=== PATIENT | female | born 1935 | race Caucasian/White ===

== ENCOUNTER 2022-05-27 11:27 | Inpatient (IN) | payer OTHER ==
--- OUTSIDE RECORDS SUMMARY | 2022-05-27 12:54 | XMS REPORT | Continuity of Care Document ---
:1935 Author Organization [facility] t Address [facility] [place] [address] Care Team Providers Name Role Phone Wanda Lala MD Primary Care Physician [phone] Ankura_F Attending Clinician Unavailable Jaswant Henry Attending Clinician Unavailable Meek Estrella Attending Clinician Unavailable ARPIL ESTRELLA Attending Clinician Unavailable ZunnapoleonaTaylorS Attending Clinician Unavailable Lynn Attending Clinician Unavailable BALBINA MORRIS Attending Clinician Unavailable ANTOINETTE DANIELS Attending Clinician Unavailable HawGadiel Attending Clinician Unavailable JOE GONZALEZ Attending Clinician Unavailable ZULEMA SARGENT Attending Clinician Unavailable NEHA RAO Attending Clinician Unavailable WANDA LALA Attending Clinician Unavailable Tavares Ballesteros Attending Clinician Unavailable Chin Redmond Attending Clinician Unavailable SYED WATSON Attending Clinician Unavailable INA BLANCO Attending Clinician Unavailable Isiah Valverde Attending Clinician Unavailable Jaleel Mayers Attending Clinician Unavailable LORENZO PAGAN Attending Clinician Unavailable DEVON LÓPEZ Attending Clinician Unavailable ERNESTO STEPHENSON Attending Clinician Unavailable Zuniga_F Admitting Clinician Unavailable Meek Estrella Admitting Clinician Unavailable Zuniga_S Admitting Clinician Unavailable Lynn Admitting Clinician Unavailable HawGadiel Admitting Clinician Unavailable Favian, Tavares E Admitting Clinician Unavailable Chin Redmond A Admitting Clinician Unavailable WANDA LALA Admitting Clinician Unavailable Payers Payer Name Policy Type Policy Number Effective Date Expiration Date Linh krueger [place]ICARE [place]: [id number] 2000 [employer] 00:00:00 [facility] [id number] 2003 ADMINISTRATION - 00:00:00 MELL OPEN ACCESS MEDICARE [place]: [id number] 2000 [employer] - 00:00:00 [facility] Problems Condition Condition Condition Status Onset Resolution Last Treating Co mments Source Name Details Category Date Date Treatment Clinician Date Fall in Fall in Problem Active 2021-05 [facility] da 00:[facility]: Medical 00 Group Acute Acute Problem Active [facility] exacerbati Exacerbati 4-19 da on of on of 00:00: Medical chronic Chronic 00 Group obstructiv Obstructiv e airways e Airways disease Disease Intertroch Intertroch Disease Active M ethodi anteric anteric 02-08 st fracture fracture 00:00: Hospit a of left of left 00 l femur femur Fall Fall Disease Active Methodi 02-08 [facility] 00:00: Hospita 00 l LOWER GI LOWER GI Diagnosis Active 2017-01-01 [facility]oria BLEED BLEED 12-23 21:39:00 l Active 00:00: Kenneth 12/23/2016 00 [facility] GASTROINTE GASTROINT Diagnosis Active 2017-01-01 [facility]oria STINAL ESTINAL 21:39:00 l HEMORRHAGE HEMORRHAGE He ced , , UNSPECIFIE UNSPECIFIE D D Active [facility] Bilateral Bilateral Problem Resolve 2016-12-29 Memoria cataracts cataracts d 01:26:48 l (disorder) (disorder) He rmjen Resolved Problem 12/29/2016 [facility] Stented Stented Problem Resolve 2016-12-29 M emoria coronary coronary d 01:26:48 l artery artery Kenneth (finding) (finding) Resolved Problem 12/29/2016 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 Medical Group Upper Upper Problem Active [facility] respirator Respirator da y y Medical infection Infection Grou p Chronic Chronic Problem Active [facility] obstructiv Obstructiv da e lung e Lung Medical disease Disease Group Urinary Urinary Problem Active [facility] tract Tract da infectious Infectious Me dical disease Disease Group Cellulitis Cellulitis Problem Active [facility] Osteoarthr Osteoarthr Problem Active [facility] itis itis [facility] Joint pain Joint Pain Problem Active [facility] Shoulder Shoulder Problem Active [facility] pain Pain [facility] Hand pain Hand Pain Problem Active [facility] Fatigue Fatigue Problem Active [facility] Nausea Nausea Problem Active [facility] Heartburn Heartburn Problem Active [facility] Abnormal Abnormal Problem Active [facility] urinalysis Urinalysis [facility] 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 Allergies, Adverse Reactions, Alerts Allergy Allergy Status Severity Reaction(s) Onset Inactive Treating Comm ents Source Name Type Date Date Clinician Codeine Propensi Active Other (See Makes me M ethodi ty to Comments) 02-[address] adverse 00:00: crazy Hospita reaction 00 l s to drug codeine codeine Active Suresh Cooper Family History Family Member Diagnosis Comments Start Date Stop Date Source Natural brother Cancer [facility] Natural father Heart disease [facility] mother [facility] Social History Social Habit Start Date Stop Date Quantity Comments Source History of tobacco Cigarette Smoker [facility] use [facility] Alcohol intake 2017-02-24 2017-02-24 Current [facility] 00:00:00 00:00:00 non-drinker of Hospital alcohol (finding) Cigarette 2017-02-08 2017-02-08 [facility] pack-years 00:00:00 00:00:00 Hospital Cigarettes smoked 2017-02-08 2017-02-08 [facility] current (pack per 00:00:00 00:00:00 Hospita l day) - Reported Social History 2016-12-23 2016-12-23 [facility] miracle 22:39:03 22:39:03 Sex [birth year] At [birth year] [facility] 00:00:00 00:00:00 Hospital Smoking Status Start Date Stop Date Source Heavy Tobacco Smoker Sudha Waite Social History 2016-09-25 05:32:39 [facility] Medications Ordered Filled Start Stop Current Ordering Indication Dosage Frequency Signature Comments Components Source Medication Medication Date Date Medication? Clinician (SIG) Name Name valsartan 2016-05 Yes 160mg QD Take 160 Met hodi (DIOVAN) 0-[address] 160 MG 16:59: mouth Hospita tablet 57 daily. l hydroCHLORO 2016-05 Yes 25mg QD Take 25 mg Methodi thiazide 0-[address] (HYDRODIURI 16:59: daily. Hosp norm L) 25 MG 57 l tablet atorvastati 2016-05 Yes 10mg QD Take 10 mg Methodi n (LIPITOR) 0-[address] 10 MG 16:59: daily. Hospita tablet 57 l furosemide 2016-05 Yes 20mg QD Take 20 mg M ethodi (LASIX) 20 0-[address] mg tablet 16:59: daily. Hospit a 57 l gabapentin 2016-05 Yes 300mg QD Take 300 Me thodi (NEURONTIN) 0-[address] 300 mg 16:59: mouth Hospita capsule 57 nightly. l acetylcyste 2016-05 Yes 600mg Q.5D Take 600 M ethodi ine (NAC) 0-[address] 600 mg 16:59: mouth 2 Hospita capsule 57 (two) l times a day. roflumilast 2016-05 Yes 500ug QD Take 500 M ethodi (DALIRESP) 0-[address] 500 mcg 16:59: mouth Hospita tablet 57 daily. l fluticasone 2016-05 Yes 1{puff} Q.5D Inhale 1 Methodi -salmeterol 0-[address] (ADVAIR) 16:59: (two) Hospita 250-50 57 times a l mcg/dose day. DISKUS ipratropium 2016-05 Yes 3mL Q.25D Take 3 mL Methodi -albuterol 0-[address] (DUO-NEB) 16:59: nebulizati Ho spita 0.5-2.5 57 on 4 l mg/mL (four) nebulizer times a day. aspirin 81 2016-05 Yes 81mg QD Chew 81 mg M ethodi mg chewable 0-[address] tablet 16:59: Hospita 57 l zolpidem 2016-05 Yes 10mg QD Take 10 mg Met hodi (AMBIEN) 10 0-[address] mg tablet 16:59: nightly. Hosp norm 57 l traMADol 2016-05 Yes 50mg Q.5D Take 50 mg Met hodi (ULTRAM) 50 0-[address] mg tablet 16:59: (two) Hospita 57 times a l day as needed for moderate pain. doxepin 2016-05 Yes 25mg QD Take 25 mg Meth kerry (SINEquan) 0-[address] 25 MG 16:59: nightly. Hospita capsule 57 l montelukast 2016-05 Yes 10mg QD Take 10 mg Methodi (SINGULAIR) 0-[address] 10 mg 16:59: daily. Hospita tablet 57 l valsartan 2016-05 Yes 160mg QD Take 160 Met hodi (DIOVAN) 0-[address] 160 MG 16:59: mouth Hospita tablet 57 daily. l hydroCHLORO 2016-05 Yes 25mg QD Take 25 mg Methodi thiazide 0-[address] (HYDRODIURI 16:59: daily. Hosp norm L) 25 MG 57 l tablet atorvastati 2016-05 Yes 10mg QD Take 10 mg Methodi n (LIPITOR) 0-[address] 10 MG 16:59: daily. Hospita tablet 57 l furosemide 2016-05 Yes 20mg QD Take 20 mg M ethodi (LASIX) 20 0-[address] mg tablet 16:59: daily. Hospit a 57 l gabapentin 2016-05 Yes 300mg QD Take 300 Me thodi (NEURONTIN) 0-[address] 300 mg 16:59: mouth Hospita capsule 57 nightly. l acetylcyste 2016-05 Yes 600mg Q.5D Take 600 M ethodi ine (NAC) 0-[address] 600 mg 16:59: mouth 2 Hospita capsule 57 (two) l times a day. roflumilast 2016-05 Yes 500ug QD Take 500 M ethodi (DALIRESP) 0-[address] 500 mcg 16:59: mouth Hospita tablet 57 daily. l fluticasone 2016-05 Yes 1{puff} Q.5D Inhale 1 Methodi -salmeterol 0-[address] (ADVAIR) 16:59: (two) Hospita 250-50 57 times a l mcg/dose day. DISKUS ipratropium 2016-05 Yes 3mL Q.25D Take 3 mL Methodi -albuterol 0-[address] (DUO-NEB) 16:59: nebulizati Ho spita 0.5-2.5 57 on 4 l mg/mL (four) nebulizer times a day. aspirin 81 2016-05 Yes 81mg QD Chew 81 mg M ethodi mg chewable 0-[address] tablet 16:59: Hospita 57 l zolpidem 2016-05 Yes 10mg QD Take 10 mg Met hodi (AMBIEN) 10 0-[address] mg tablet 16:59: nightly. Hosp norm 57 l traMADol 2016-05 Yes 50mg Q.5D Take 50 mg Met hodi (ULTRAM) 50 0-[address] mg tablet 16:59: (two) Hospita 57 times a l day as needed for moderate pain. doxepin 2016-05 Yes 25mg QD Take 25 mg Meth kerry (SINEquan) 0-[address] 25 MG 16:59: nightly. Hospita capsule 57 l montelukast 2016-05 Yes 10mg QD Take 10 mg Methodi (SINGULAIR) 0-[address] 10 mg 16:59: daily. Hospita tablet 57 l valsartan 2016-05 Yes 160mg QD Take 160 Met hodi (DIOVAN) 0-[address] 160 MG 16:59: mouth Hospita tablet 57 daily. l hydroCHLORO 2016-05 Yes 25mg QD Take 25 mg Methodi thiazide 0-[address] (HYDRODIURI 16:59: daily. Hosp norm L) 25 MG 57 l tablet atorvastati 2016-05 Yes 10mg QD Take 10 mg Methodi n (LIPITOR) 0-[address] 10 MG 16:59: daily. Hospita tablet 57 l furosemide 2016-05 Yes 20mg QD Take 20 mg M ethodi (LASIX) 20 0-[address] mg tablet 16:59: daily. Hospit a 57 l gabapentin 2016-05 Yes 300mg QD Take 300 Me thodi (NEURONTIN) 0-[address] 300 mg 16:59: mouth Hospita capsule 57 nightly. l acetylcyste 2016-05 Yes 600mg Q.5D Take 600 M ethodi ine (NAC) 0-[address] 600 mg 16:59: mouth 2 Hospita capsule 57 (two) l times a day. roflumilast 2016-05 Yes 500ug QD Take 500 M ethodi (DALIRESP) 0-[address] 500 mcg 16:59: mouth Hospita tablet 57 daily. l fluticasone 2016-05 Yes 1{puff} Q.5D Inhale 1 Method[facility] -salmeterol 0-[address] (ADVAIR) 16:59: (two) Hospita 250-50 57 times a l mcg/dose day. DISKUS ipratropium 2016-05 Yes 3mL Q.25D Take 3 mL Methodi -albuterol 0-[address] (DUO-NEB) 16:59: nebulizati Ho spita 0.5-2.5 57 on 4 l mg/mL (four) nebulizer times a day. aspirin 81 2016-05 Yes 81mg QD Chew 81 mg M ethodi mg chewable 0-[address] tablet 16:59: Hospita 57 l zolpidem 2016-05 Yes 10mg QD Take 10 mg Met hodi (AMBIEN) 10 0-[address] mg tablet 16:59: nightly. Hosp norm 57 l traMADol 2016-05 Yes 50mg Q.5D Take 50 mg Met hodi (ULTRAM) 50 0-[address] mg tablet 16:59: (two) Hospita 57 times a l day as needed for moderate pain. doxepin 2016-05 Yes 25mg QD Take 25 mg Meth kerry (SINEquan) 0-[address] 25 MG 16:59: nightly. Hospita capsule 57 l montelukast 2016-05 Yes 10mg QD Take 10 mg Methodi (SINGULAIR) 0-[address] 10 mg 16:59: daily. Hospita tablet 57 l valsartan 2016-05 Yes 160mg QD Take 160 Met hodi (DIOVAN) 0-[address] 160 MG 16:59: mouth Hospita tablet 57 daily. l hydroCHLORO 2016-05 Yes 25mg QD Take 25 mg Methodi thiazide 0-[address] (HYDRODIURI 16:59: daily. Hosp norm L) 25 MG 57 l tablet atorvastati 2016-05 Yes 10mg QD Take 10 mg Methodi n (LIPITOR) 0-[address] 10 MG 16:59: daily. Hospita tablet 57 l furosemide 2016-05 Yes 20mg QD Take 20 mg M ethodi (LASIX) 20 0-[address] mg tablet 16:59: daily. Hospit a 57 l gabapentin 2016-05 Yes 300mg QD Take 300 Me thodi (NEURONTIN) 0-[address] 300 mg 16:59: mouth Hospita capsule 57 nightly. l acetylcyste 2016-05 Yes 600mg Q.5D Take 600 M ethodi ine (NAC) 0-[address] 600 mg 16:59: mouth 2 Hospita capsule 57 (two) l times a day. roflumilast 2016-05 Yes 500ug QD Take 500 M ethodi (DALIRESP) 0-[address] 500 mcg 16:59: mouth Hospita tablet 57 daily. l fluticasone 2016-05 Yes 1{puff} Q.5D Inhale 1 Methodi -salmeterol 0-[address] (ADVAIR) 16:59: (two) Hospita 250-50 57 times a l mcg/dose day. DISKUS ipratropium 2016-05 Yes 3mL Q.25D Take 3 mL Methodi -albuterol 0-[address] (DUO-NEB) 16:59: nebulizati Ho spita 0.5-2.5 57 on 4 l mg/mL (four) nebulizer times a day. aspirin 81 2016-05 Yes 81mg QD Chew 81 mg M ethodi mg chewable 0-[address] tablet 16:59: Hospita 57 l zolpidem 2016-05 Yes 10mg QD Take 10 mg Met hodi (AMBIEN) 10 0-[address] mg tablet 16:59: nightly. Hosp norm 57 l traMADol 2016-05 Yes 50mg Q.5D Take 50 mg Met hodi (ULTRAM) 50 0-[address] mg tablet 16:59: (two) Hospita 57 times a l day as needed for moderate pain. doxepin 2016-05 Yes 25mg QD Take 25 mg Meth kerry (SINEquan) 0-[address] 25 MG 16:59: nightly. Hospita capsule 57 l montelukast 2016-05 Yes 10mg QD Take 10 mg Methodi (SINGULAIR) 0-[address] 10 mg 16:59: daily. Hospita tablet 57 l valsartan 2016-05 Yes 160mg QD Take 160 Met hodi (DIOVAN) 0-[address] 160 MG 16:59: mouth Hospita tablet 57 daily. l hydroCHLORO 2016-05 Yes 25mg QD Take 25 mg Methodi thiazide 0-[address] (HYDRODIURI 16:59: daily. Hosp norm L) 25 MG 57 l tablet atorvastati 2016-05 Yes 10mg QD Take 10 mg Methodi n (LIPITOR) 0-[address] 10 MG 16:59: daily. Hospita tablet 57 l furosemide 2016-05 Yes 20mg QD Take 20 mg M ethodi (LASIX) 20 0-[address] mg tablet 16:59: daily. Hospit a 57 l gabapentin 2016-05 Yes 300mg QD Take 300 Me thodi (NEURONTIN) 0-[address] 300 mg 16:59: mouth Hospita capsule 57 nightly. l acetylcyste 2016-05 Yes 600mg Q.5D Take 600 M ethodi ine (NAC) 0-[address] 600 mg 16:59: mouth 2 Hospita capsule 57 (two) l times a day. roflumilast 2016-05 Yes 500ug QD Take 500 M ethodi (DALIRESP) 0-[address] 500 mcg 16:59: mouth Hospita tablet 57 daily. l fluticasone 2016-05 Yes 1{puff} Q.5D Inhale 1 Methodi -salmeterol 0-[address] (ADVAIR) 16:59: (two) Hospita 250-50 57 times a l mcg/dose day. DISKUS ipratropium 2016-05 Yes 3mL Q.25D Take 3 mL Methodi -albuterol 0-[address] (DUO-NEB) 16:59: nebulizati Ho spita 0.5-2.5 57 on 4 l mg/mL (four) nebulizer times a day. aspirin 81 2016-05 Yes 81mg QD Chew 81 mg M ethodi mg chewable 0-[address] tablet 16:59: Hospita 57 l zolpidem 2016-05 Yes 10mg QD Take 10 mg Met hodi (AMBIEN) 10 0-[address] mg tablet 16:59: nightly. Hosp norm 57 l traMADol 2016-05 Yes 50mg Q.5D Take 50 mg Met hodi (ULTRAM) 50 0-[address] mg tablet 16:59: (two) Hospita 57 times a l day as needed for moderate pain. doxepin 2016-05 Yes 25mg QD Take 25 mg Meth kerry (SINEquan) 0-[address] 25 MG 16:59: nightly. Hospita capsule 57 l montelukast 2016-05 Yes 10mg QD Take 10 mg Methodi (SINGULAIR) 0-[address] 10 mg 16:59: daily. Hospita tablet 57 l valsartan 2016-05 Yes 160mg QD Take 160 Met hodi (DIOVAN) 0-[address] 160 MG 16:59: mouth Hospita tablet 57 daily. l hydroCHLORO 2016-05 Yes 25mg QD Take 25 mg Methodi thiazide 0-[address] (HYDRODIURI 16:59: daily. Hosp norm L) 25 MG 57 l tablet atorvastati 2016-05 Yes 10mg QD Take 10 mg Methodi n (LIPITOR) 0-[address] 10 MG 16:59: daily. Hospita tablet 57 l furosemide 2016-05 Yes 20mg QD Take 20 mg M ethodi (LASIX) 20 0-[address] mg tablet 16:59: daily. Hospit a 57 l gabapentin 2016-05 Yes 300mg QD Take 300 Me thodi (NEURONTIN) 0-[address] 300 mg 16:59: mouth Hospita capsule 57 nightly. l acetylcyste 2016-05 Yes 600mg Q.5D Take 600 M ethodi ine (NAC) 0-[address] 600 mg 16:59: mouth 2 Hospita capsule 57 (two) l times a day. roflumilast 2016-05 Yes 500ug QD Take 500 M ethodi (DALIRESP) 0-[address] 500 mcg 16:59: mouth Hospita tablet 57 daily. l fluticasone 2016-05 Yes 1{puff} Q.5D Inhale 1 Methodi -salmeterol 0-[address] (ADVAIR) 16:59: (two) Hospita 250-50 57 times a l mcg/dose day. DISKUS ipratropium 2016-05 Yes 3mL Q.25D Take 3 mL Methodi -albuterol 0-[address] (DUO-NEB) 16:59: nebulizati Ho spita 0.5-2.5 57 on 4 l mg/mL (four) nebulizer times a day. aspirin 81 2016-05 Yes 81mg QD Chew 81 mg M ethodi mg chewable 0-[address] tablet 16:59: Hospita 57 l zolpidem 2016-05 Yes 10mg QD Take 10 mg Met hodi (AMBIEN) 10 0-[address] mg tablet 16:59: nightly. Hosp norm 57 l traMADol 2016-05 Yes 50mg Q.5D Take 50 mg Met hodi (ULTRAM) 50 0-[address] mg tablet 16:59: (two) Hospita 57 times a l day as needed for moderate pain. doxepin 2016-05 Yes 25mg QD Take 25 mg Meth kerry (SINEquan) 0-[address] 25 MG 16:59: nightly. Hospita capsule 57 l montelukast 2016-05 Yes 10mg QD Take 10 mg Methodi (SINGULAIR) 0-[address] 10 mg 16:59: daily. Hospita tablet 57 l Furosemide No Notes: Memor ia 12-25 (Same as: l 19:00: Lasix) Diphenhydra No Notes: Simone chintan mine 12-25 (Same as: l 19:00: Benadryl) Acetaminoph No Notes: Do M emoria en 12-25 not exceed l 19:00: 4 gm/day. (Same as: Tylenol) Furosemide No Notes: Memor ia 12-25 (Same as: l 19:00: Lasix) Diphenhydra No Notes: Simone chintan mine 8-13 (Same as: l 19:00: Benadryl) Acetaminoph No Notes: Do M emoria en 8-13 not exceed l 19:00: 4 gm/day. Kenneth 00 (Same as: Tylenol) Furosemide No Notes: Memor ia 8-13 (Same as: l 19:00: Lasix) Diphenhydra No Notes: Simone chintan mine 8-13 (Same as: l 19:00: Benadryl) Acetaminoph No Notes: Do M emoria en 8- not exceed l 19:00: 4 gm/day. [place] 00 (Same as: Tylenol) Furosemide No Notes: Memor ia 8-13 (Same as: l 19:00: Lasix) Diphenhydra No Notes: Simone chintan mine 8-13 (Same as: l 19:00: Benadryl) Acetaminoph No Notes: Do M emoria en 8- not exceed l 19:00: 4 gm/day. [place] 00 (Same as: Tylenol) Furosemide No Notes: Memor ia 8-13 (Same as: l 19:00: Lasix) Diphenhydra No Notes: Simone chintan mine 8-13 (Same as: l 19:00: Benadryl) Acetaminoph No Notes: Do M emoria en 8-13 not exceed l 19:00: 4 gm/day. (Same as: Tylenol) pantoprazol Yes 40 mg = 1 M emoria e 40 mg 12-25 tab, PO, l oral 18:17: Q12H, # 60 [place] enteric 00 tab, 0 coated Refill(s) tablet 24 HR Yes = 1 patch, Memori a Nicotine 12-25 TOP, l 0.875 MG/HR 18:17: Daily, X He rmann Transdermal 00 30 day, # Patch 30 patch, [Habitrol] 0 Refill(s) metoprolol Yes 25 mg = 1 Me moria tartrate 25 12-25 tab, PO, l mg oral 18:17: TID, # 60 Jerica nn tablet 00 tab, 0 Refill(s) levofloxaci Yes 750 mg = 1 Memoria n 750 mg 8-13 tab, PO, l oral tablet 18:17: [id number], # [place] 00 4 tab, 0 Refill(s) pantoprazol Yes 40 mg = 1 M emoria e 40 mg 8-13 tab, PO, l oral 18:17: Q12H, # 60 Kenneth enteric 00 tab, 0 coated Refill(s) tablet pantoprazol Yes 40 mg = 1 M emoria e 40 mg 8-13 tab, PO, l oral 18:17: Q12H, # 60 Kenneth enteric 00 tab, 0 coated Refill(s) tablet 24 HR Yes = 1 patch, Memori a Nicotine 8-13 TOP, l 0.875 MG/HR 18:17: Daily, X He rmann Transdermal 00 30 day, # Patch 30 patch, [Habitrol] 0 Refill(s) metoprolol Yes 25 mg = 1 Me moria tartrate 25 8-13 tab, PO, l mg oral 18:17: TID, # 60 Jerica nn tablet 00 tab, 0 Refill(s) levofloxaci Yes 750 mg = 1 Memoria n 750 mg 8-13 tab, PO, l oral tablet 18:17: [id number], # Kenneth 00 4 tab, 0 Refill(s) 24 HR Yes = 1 patch, Memori a Nicotine 8-13 TOP, l 0.875 MG/HR 18:17: Daily, X He rmann Transdermal 30 day, # Patch 30 patch, [Habitrol] 0 Refill(s) metoprolol Yes 25 mg = 1 Me moria tartrate 25 8-13 tab, PO, l mg oral 18:17: TID, # 60 Jerica nn tablet 00 tab, 0 Refill(s) levofloxaci Yes 750 mg = 1 Memoria n 750 mg 8-13 tab, PO, l oral tablet 18:17: [id number], # Kenneth 00 4 tab, 0 Refill(s) pantoprazol Yes 40 mg = 1 M emoria e 40 mg 8-13 tab, PO, l oral 18:17: Q12H, # 60 [place] enteric 00 tab, 0 coated Refill(s) tablet 24 HR Yes = 1 patch, Memori a Nicotine 8-13 TOP, l 0.875 MG/HR 18:17: Daily, X He rmann Transdermal 30 day, # Patch 30 patch, [Habitrol] 0 Refill(s) metoprolol Yes 25 mg = 1 Me moria tartrate 25 8-13 tab, PO, l mg oral 18:17: TID, # 60 Jerica nn tablet 00 tab, 0 Refill(s) levofloxaci Yes 750 mg = 1 Memoria n 750 mg 8-13 tab, PO, l oral tablet 18:17: [id number], # [place] 00 4 tab, 0 Refill(s) pantoprazol Yes 40 mg = 1 M emoria e 40 mg 8-13 tab, PO, l oral 18:17: Q12H, # 60 [place] enteric 00 tab, 0 coated Refill(s) tablet 24 HR Yes = 1 patch, Memori a Nicotine 8-13 TOP, l 0.875 MG/HR 18:17: Daily, X He rmann Transdermal 30 day, # Patch 30 patch, [Habitrol] 0 Refill(s) metoprolol Yes 25 mg = 1 Me moria tartrate 25 8-13 tab, PO, l mg oral 18:17: TID, # 60 Jerica nn tablet 00 tab, 0 Refill(s) levofloxaci Yes 750 mg = 1 Memoria n 750 mg 8-13 tab, PO, l oral tablet 18:17: [id number], # [place] 00 4 tab, 0 Refill(s) sodium 2016- No 250 mL, Memoria chloride 12-25 Rate: On l 0.9% INJ 18:07: call for Jerica nn 250 mL 00 use with blood product administra tion, Dosing Weight 73.003, kg, Route: IV, Total Volume: 250, Start Date: 12/25/16 13:07:00 CDT, Duration: 30 day, Stop date: 01/24/17 13:06:00 CDT, Replace Every: 24 hr sodium 2016-0 No 250 mL, Memoria chloride 8-13 Rate: On l 0.9% INJ 18:07: call for Jerica nn 250 mL 00 use with blood product administra tion, Dosing Weight 73.003, kg, Route: IV, Total Volume: 250, Start Date: 12/25/16 13:07:00 CDT, Duration: 30 day, Stop date: 01/24/17 13:06:00 CDT, Replace Every: 24 hr sodium 2017-0 No 250 mL, Memoria chloride 8-13 Rate: On l 0.9% INJ 18:07: call for Jerica nn 250 mL 00 use with blood product administra tion, Dosing Weight 73.003, kg, Route: IV, Total Volume: 250, Start Date: 12/25/16 13:07:00 CDT, Duration: 30 day, Stop date: 01/24/17 13:06:00 CDT, Replace Every: 24 hr sodium 2017-0 No 250 mL, Memoria chloride 8-13 Rate: On l 0.9% INJ 18:07: call for Jerica nn 250 mL 00 use with blood product administra tion, Dosing Weight 73.003, kg, Route: IV, Total Volume: 250, Start Date: 12/25/16 13:07:00 CDT, Duration: 30 day, Stop date: 01/24/17 13:06:00 CDT, Replace Every: 24 hr sodium 2017-0 No 250 mL, Memoria chloride 8-13 Rate: On l 0.9% INJ 18:07: call for Jerica nn 250 mL 00 use with blood product administra tion, Dosing Weight 73.003, kg, Route: IV, Total Volume: 250, Start Date: 12/25/16 13:07:00 CDT, Duration: 30 day, Stop date: 01/24/17 13:06:00 CDT, Replace Every: 24 hr Omeprazole 2017-0 No 40 mg, Memor ia 8-13 Route: PO, l 14:00: Drug form: [place] 00 DRC, Daily, Dosing Weight 72.727, kg, Start date: 12/25/16 9:00:00 CDT, Duration: 30 day, Stop date: 01/23/17 9:00:00 CDT montelukast 2017-0 No Notes: Simone chintan 8-13 (Same l 14:00: as:Singula ir) Isosorbide 2017-0 No Notes: Memor ia 8-13 (Same l 14:00: as:Imdur) "Do Not Crush" Take on empty stomach/ full glass of water. Do not crush Roflumilast 2017-0 No 500 Memori a 8-13 microgram, l 14:00: 1 tab, Route: PO, Drug form: TAB, Daily, Dosing Weight 72.727, kg, Start date: 12/25/16 9:00:00 CDT, Duration: 30 day, Stop date: 01/23/17 9:00:00 CDT Omeprazole 2017-0 No 40 mg, Memor ia 8-13 Route: PO, l 14:00: Drug form: [place] 00 DRC, Daily, Dosing Weight 72.727, kg, Start date: 12/25/16 9:00:00 CDT, Duration: 30 day, Stop date: 01/23/17 9:00:00 CDT montelukast 2017-0 No Notes: Simone chintan 8-13 (Same l 14:00: as:Singula ir) Isosorbide 2017-0 No Notes: Memor ia 8-13 (Same l 14:00: as:Imdur) "Do Not Crush" Take on empty stomach/ full glass of water. Do not crush Roflumilast 2017-0 No 500 Memori a 8-13 microgram, l 14:00: 1 tab, Route: PO, Drug form: TAB, Daily, Dosing Weight 72.727, kg, Start date: 12/25/16 9:00:00 CDT, Duration: 30 day, Stop date: 01/23/17 9:00:00 CDT Omeprazole 2017-0 No 40 mg, Memor ia 8-13 Route: PO, l 14:00: Drug form: [place] 00 DRC, Daily, Dosing Weight 72.727, kg, Start date: 12/25/16 9:00:00 CDT, Duration: 30 day, Stop date: 01/23/17 9:00:00 CDT montelukast 2017-0 No Notes: Simone chintan 8-13 (Same l 14:00: as:Singula ir) Isosorbide 2017-0 No Notes: Memor ia 8-13 (Same l 14:00: as:Imdur) "Do Not Crush" Take on empty stomach/ full glass of water. Do not crush Roflumilast 2017-0 No 500 Memori a 8-13 microgram, l 14:00: 1 tab, [place] 00 Route: PO, Drug form: TAB, Daily, Dosing Weight 72.727, kg, Start date: 12/25/16 9:00:00 CDT, Duration: 30 day, Stop date: 01/23/17 9:00:00 CDT Omeprazole 2017-0 No 40 mg, Memor ia 8-13 Route: PO, l 14:00: Drug form: [place] DRC, Daily, Dosing Weight 72.727, kg, Start date: 12/25/16 9:00:00 CDT, Duration: 30 day, Stop date: 01/23/17 9:00:00 CDT montelukast 2017-0 No Notes: Simone chintan 8-13 (Same l 14:00: as:Singula ir) Isosorbide 2017-0 No Notes: Memor ia 8-13 (Same l 14:00: as:Imdur) "Do Not Crush" Take on empty stomach/ full glass of water. Do not crush Roflumilast 2017-0 No 500 Memori a 8-13 microgram, l 14:00: 1 tab, Route: PO, Drug form: TAB, Daily, Dosing Weight 72.727, kg, Start date: 12/25/16 9:00:00 CDT, Duration: 30 day, Stop date: 01/23/17 9:00:00 CDT Omeprazole 2017-0 No 40 mg, Memor ia 8-13 Route: PO, l 14:00: Drug form: [place] 00 DRC, Daily, Dosing Weight 72.727, kg, Start date: 12/25/16 9:00:00 CDT, Duration: 30 day, Stop date: 01/23/17 9:00:00 CDT montelukast 2017-0 No Notes: Simone chintan 8-13 (Same l 14:00: as:Singula [place] 00 ir) Isosorbide No Notes: Memor ia 8-13 (Same l 14:00: as:Imdur) [place] 00 "Do Not Crush" Take on empty stomach/ full glass of water. Do not crush Roflumilast No 500 Memori a 8-13 microgram, l 14:00: 1 tab, Kenneth 00 Route: PO, Drug form: TAB, Daily, Dosing Weight 72.727, kg, Start date: 12/25/16 9:00:00 CDT, Duration: 30 day, Stop date: 01/23/17 9:00:00 CDT Albuterol No Notes: Memori a 0.833 MG/ML 8-13 (Same as: :36: Duoneb) [place] Ipratropium 00 [place] 0.167 MG/ML Inhalant Solution [DuoNeb] Albuterol No Notes: Memori a 0.833 MG/ML 8-13 (Same as: :36: Duoneb) Kenneth Ipratropium 00 [place] 0.167 MG/ML Inhalant Solution [DuoNeb] Albuterol No Notes: Memori a 0.833 MG/ML 8-13 (Same as: :36: Duoneb) Kenneth Ipratropium 00 [place] 0.167 MG/ML Inhalant Solution [DuoNeb] Albuterol No Notes: Memori a 0.833 MG/ML 8-13 (Same as: :36: Duoneb) Kenneth Ipratropium 00 [place] 0.167 MG/ML Inhalant Solution [DuoNeb] Albuterol No Notes: Memori a 0.833 MG/ML 8-13 (Same as: :36: Duoneb) [place] Ipratropium 00 [place] 0.167 MG/ML Inhalant Solution [DuoNeb] Saline No Notes: Memoria Flush 0.9% 8-13 (Same as: l 05:00: BD Kenneth Posiflush) Saline No Notes: Memoria Flush 0.9% 8-13 (Same as: l 05:00: BD Kenneth 00 Posiflush) Saline No Notes: Memoria Flush 0.9% 8-13 (Same as: l 05:00: BD [place] 00 Posiflush) Saline No Notes: Memoria Flush 0.9% 8-13 (Same as: l 05:00: BD [place] 00 Posiflush) Saline No Notes: Memoria Flush 0.9% 8-13 (Same as: l 05:00: BD Kenneth 00 Posiflush) Protonix No Notes: Memoria 8-13 Tablet l 02:00: should not [place] 00 be chewed or crushed. (Same as: Protonix) atorvastati No Notes: Simone chintan n 8-13 (Same As: l 02:00: Lipitor) [place] 00 Protonix No Notes: Memoria 8-13 Tablet l 02:00: should not [place] 00 be chewed or crushed. (Same as: Protonix) atorvastati No Notes: Simone chintan n 8-13 (Same As: l 02:00: Lipitor) [place] 00 Protonix No Notes: Memoria 8-13 Tablet l 02:00: should not [place] 00 be chewed or crushed. (Same as: Protonix) atorvastati No Notes: Simone chintan n 8-13 (Same As: l 02:00: Lipitor) [place] 00 Protonix No Notes: Memoria 8-13 Tablet l 02:00: should not [place] 00 be chewed or crushed. (Same as: Protonix) atorvastati No Notes: Simone chintan n 8-13 (Same As: l 02:00: Lipitor) [place] 00 Protonix No Notes: Memoria 8-13 Tablet l 02:00: should not Kenneth 00 be chewed or crushed. (Same as: Protonix) atorvastati No Notes: Simone chintan n 8-13 (Same As: l 02:00: Lipitor) [place] 00 Saline No Notes: Memoria Flush 0.9% 8-12 (Same as: l 23:33: BD Kenneth 00 Posiflush) Saline No Notes: Memoria Flush 0.9% 8-12 (Same as: l 23:33: BD Kenneth 00 Posiflush) Saline No Notes: Memoria Flush 0.9% 8-12 (Same as: l 23:33: BD [place] 00 Posiflush) Saline No Notes: Memoria Flush 0.9% 8-12 (Same as: l 23:33: BD [place] 00 Posiflush) Saline No Notes: Memoria Flush 0.9% 8-12 (Same as: l 23:33: BD [place] 00 Posiflush) Morphine No Notes: Memoria 8-12 (Same l 22:14: as:MORPhin [place] 00 e Sulfate) Morphine No Notes: Memoria 8-12 (Same l 22:14: as:MORPhin [place] 00 e Sulfate) Morphine No Notes: Memoria 8-12 (Same l 22:14: as:MORPhin [place] 00 e Sulfate) Morphine No Notes: Memoria 8-12 (Same l 22:14: as:MORPhin [place] 00 e Sulfate) Morphine No Notes: Memoria 8-12 (Same l 22:14: as:MORPhin [place] 00 e Sulfate) gabapentin No Notes: Memor ia 8-12 (Same as: l 22:00: Neurontin) Kenneth Lyrica No Notes: Memoria 8-12 (Same as: l 22:00: Lyrica) [place] 00 gabapentin No Notes: Memor ia 8-12 (Same as: l 22:00: Neurontin) Kenneth 00 Lyrica No Notes: Memoria 8-12 (Same as: l 22:00: Lyrica) [place] 00 gabapentin No Notes: Memor ia 8-12 (Same as: l 22:00: Neurontin) [place] 00 Lyrica No Notes: Memoria 8-12 (Same as: l 22:00: Lyrica) [place] 00 gabapentin No Notes: Memor ia 8-12 (Same as: l 22:00: Neurontin) [place] 00 Lyrica No Notes: Memoria 8-12 (Same as: l 22:00: Lyrica) [place] gabapentin No Notes: Memor ia 8-12 (Same as: l 22:00: Neurontin) [place] 00 Lyrica No Notes: Memoria 8-12 (Same as: l 22:00: Lyrica) [place] 00 Tramadol No Notes: Not Mem oria 8-12 to exceed l 21:33: 400mg/day. [place] 00 (Same As: Ultram) Tramadol No Notes: Not Mem oria 8-12 to exceed l 21:33: 400mg/day. Kenneth 00 (Same As: Ultram) Tramadol No Notes: Not Mem oria 8-12 to exceed l 21:33: 400mg/day. Kenneth 00 (Same As: Ultram) Tramadol No Notes: Not Mem oria 8-12 to exceed l 21:33: 400mg/day. [place] 00 (Same As: Ultram) Tramadol No Notes: Not Mem oria 8-12 to exceed l 21:33: 400mg/day. [place] 00 (Same As: Ultram) Saline No Notes: Memoria Flush 0.9% 8-12 (Same as: l 21:00: BD [place] 00 Posiflush) Saline No Notes: Memoria Flush 0.9% 8-12 (Same as: l 21:00: BD [place] 00 Posiflush) Saline No Notes: Memoria Flush 0.9% 8-12 (Same as: l 21:00: BD [place] 00 Posiflush) Saline No Notes: Memoria Flush 0.9% 8-12 (Same as: l 21:00: BD [place] 00 Posiflush) Saline No Notes: Memoria Flush 0.9% 8-12 (Same as: l 21:00: BD [place] 00 Posiflush) Levaquin No Notes: Do Simone chintan 8-12 not give l 19:00: w/antacids [place] 00 , dairy pdt & minerals Take 1 hr before or 2 hr after dairy products Levaquin No Notes: Do Simone chintan 8-12 not give l 19:00: w/antacids [place] 00 , dairy pdt & minerals Take 1 hr before or 2 hr after dairy products Levaquin No Notes: Do Simone chintan 8-12 not give l 19:00: w/antacids [place] 00 , dairy pdt & minerals Take 1 hr before or 2 hr after dairy products Levaquin No Notes: Do Simone chintan 8-12 not give l 19:00: w/antacids [place] 00 , dairy pdt & minerals Take 1 hr before or 2 hr after dairy products Levaquin No Notes: Do Simone chintan 8-12 not give l 19:00: w/antacids [place] 00 , dairy pdt & minerals Take 1 hr before or 2 hr after dairy products Hydralazine No Notes: Simone chintan 8-12 (Same as: l 18:42: Apresoline [place] 00 ) Push over 5 minutes Hydralazine No Notes: Simone chintan 8-12 (Same as: l 18:42: Apresoline [place] ) Push over 5 minutes Hydralazine No Notes: Simone chintan 8-12 (Same as: l 18:42: Apresoline [place] ) Push over 5 minutes Hydralazine No Notes: Simoen chintan 8-12 (Same as: l 18:42: Apresoline [place] 00 ) Push over 5 minutes Hydralazine No Notes: Simone chintan 8-12 (Same as: l 18:42: Apresoline [place] 00 ) Push over 5 minutes clopidogrel No PO, 0 Memor ia 8-12 Refill(s) l 17:03: [place] 00 Hydrochloro Yes 1 tab, PO, Memoria thiazide 25 8-12 Daily, # l MG / 17:03: 30 tab, 0 Kenneth valsartan 00 Refill(s) 160 MG Oral Tablet roflumilast No 500 Memori a 500 mcg 8-12 microgram l oral tablet 17:03: = 1 tab, He r[place] 00 PO, Daily, 0 Refill(s) Prednisone Yes 20 mg, PO, M emoria 8-12 Daily, l 17:03: Quantity [place] 00 sufficient , 0 Refill(s) pregabalin Yes 150 mg = 1 M emoria 150 MG Oral 8-12 cap, PO, l Capsule 17:03: TID, # 90 Jerica nn [Lyrica] 00 cap, 0 Refill(s) omeprazole 2017- Yes 40 mg = 1 Me moria 40 mg oral 8-12 cap, PO, l delayed 17:03: Daily, 0 Shaheed n release 00 Refill(s) capsule Omeprazole No 1 pkt, PO, M emoria 2.67 MG/ML 8-12 Daily, 0 l / Sodium 17:03: Refill(s) Herm jen Bicarbonate 00 1.33 MEQ/ML Oral Suspension clopidogrel No PO, 0 Memor ia 8-12 Refill(s) l 17:03: [place] 00 Hydrochloro Yes 1 tab, PO, Memoria thiazide 25 8-12 Daily, # l MG / 17:03: 30 tab, 0 [place] valsartan 00 Refill(s) 160 MG Oral Tablet roflumilast No 500 Memori a 500 mcg 8-12 microgram l oral tablet 17:03: = 1 tab, [place] r[place] 00 PO, Daily, 0 Refill(s) Prednisone Yes 20 mg, PO, M emoria 8-12 Daily, l 17:03: Quantity [place] 00 sufficient , 0 Refill(s) pregabalin 2017- Yes 150 mg = 1 M emoria 150 MG Oral 8-12 cap, PO, l Capsule 17:03: TID, # 90 Jerica nn [Lyrica] 00 cap, 0 Refill(s) omeprazole 2017- Yes 40 mg = 1 Me moria 40 mg oral 8-12 cap, PO, l delayed 17:03: Daily, 0 Shaheed n release 00 Refill(s) capsule Omeprazole No 1 pkt, PO, M emoria 2.67 MG/ML 8-12 Daily, 0 l / Sodium 17:03: Refill(s) Herm jen Bicarbonate 00 1.33 MEQ/ML Oral Suspension clopidogrel No PO, 0 Memor ia 8-12 Refill(s) l 17:03: [place] 00 Hydrochloro 2016-0 Yes 1 tab, PO, Memoria thiazide 25 8-12 Daily, # l MG / 17:03: 30 tab, 0 [place] valsartan 00 Refill(s) 160 MG Oral Tablet roflumilast No 500 Memori a 500 mcg 8-12 microgram l oral tablet 17:03: = 1 tab, [place] 00 PO, Daily, 0 Refill(s) Prednisone 2017-0 Yes 20 mg, PO, M emoria 8-12 Daily, l 17:03: Quantity [place] 00 sufficient , 0 Refill(s) pregabalin 2016- Yes 150 mg = 1 M emoria 150 MG Oral 8-12 cap, PO, l Capsule 17:03: TID, # 90 Jerica nn [Lyrica] 00 cap, 0 Refill(s) omeprazole Yes 40 mg = 1 Me moria 40 mg oral 8-12 cap, PO, l delayed 17:03: Daily, 0 Shaheed n release 00 Refill(s) capsule Omeprazole No 1 pkt, PO, M emoria 2.67 MG/ML 8-12 Daily, 0 l / Sodium 17:03: Refill(s) Herm jen Bicarbonate 00 1.33 MEQ/ML Oral Suspension clopidogrel No PO, 0 Memor ia 8-12 Refill(s) l 17:03: [place] 00 Hydrochloro Yes 1 tab, PO, Memoria thiazide 25 8-12 Daily, # l MG / 17:03: 30 tab, 0 [place] valsartan 00 Refill(s) 160 MG Oral Tablet roflumilast No 500 Memori a 500 mcg 8-12 microgram l oral tablet 17:03: = 1 tab, [place] 00 PO, Daily, 0 Refill(s) Prednisone 2017-0 Yes 20 mg, PO, M emoria 8-12 Daily, l 17:03: Quantity [place] 00 sufficient , 0 Refill(s) pregabalin 2017-0 Yes 150 mg = 1 M emoria 150 MG Oral 8-12 cap, PO, l Capsule 17:03: TID, # 90 Jerica nn [Lyrica] 00 cap, 0 Refill(s) omeprazole 2017 Yes 40 mg = 1 Me moria 40 mg oral 8-12 cap, PO, l delayed 17:03: Daily, 0 Shaheed n release 00 Refill(s) capsule Omeprazole 2017- No 1 pkt, PO, M emoria 2.67 MG/ML 8-12 Daily, 0 l / Sodium 17:03: Refill(s) Herm jen Bicarbonate 00 1.33 MEQ/ML Oral Suspension clopidogrel 2017-0 No PO, 0 Memor ia 8-12 Refill(s) l 17:03: [place] 00 Hydrochloro 2017-0 Yes 1 tab, PO, Memoria thiazide 25 8-12 Daily, # l MG / 17:03: 30 tab, 0 [place] valsartan 00 Refill(s) 160 MG Oral Tablet roflumilast No 500 Memori a 500 mcg 8-12 microgram l oral tablet 17:03: = 1 tab, [place] 00 PO, Daily, 0 Refill(s) Prednisone Yes 20 mg, PO, M emoria 8-12 Daily, l 17:03: Quantity [place] 00 sufficient , 0 Refill(s) pregabalin 2017 Yes 150 mg = 1 M emoria 150 MG Oral 8-12 cap, PO, l Capsule 17:03: TID, # 90 Jerica nn [Lyrica] 00 cap, 0 Refill(s) omeprazole 2016- Yes 40 mg = 1 Me moria 40 mg oral 8-12 cap, PO, l delayed 17:03: Daily, 0 Shaheed n release 00 Refill(s) capsule Omeprazole No 1 pkt, PO, M emoria 2.67 MG/ML 8-12 Daily, 0 l / Sodium 17:03: Refill(s) Herm jen Bicarbonate 00 1.33 MEQ/ML Oral Suspension sodium No 250 mL, Memoria chloride 812 Rate: On l 0.9% INJ 17:01: Call for Jerica nn 250 mL 00 use with blood product administra tion., Dosing Weight 72.727, kg, Route: IV, Total Volume: 250, Priority: Routine, Start Date: 12/24/16 12:01:00 CDT, Duration: 30 day, Stop date: 01/23/17 12:00:00 CDT, Replace Every: 24 hr sodium 2016- No 250 mL, Memoria chloride 812 Rate: On l 0.9% INJ 17:01: Call for Jerica nn 250 mL 00 use with blood product administra tion., Dosing Weight 72.727, kg, Route: IV, Total Volume: 250, Priority: Routine, Start Date: 12/24/16 12:01:00 CDT, Duration: 30 day, Stop date: 01/23/17 12:00:00 CDT, Replace Every: 24 hr sodium 2017-0 No 250 mL, Memoria chloride 8-12 Rate: On l 0.9% INJ 17:01: Call for Jerica nn 250 mL 00 use with blood product administra tion., Dosing Weight 72.727, kg, Route: IV, Total Volume: 250, Priority: Routine, Start Date: 12/24/16 12:01:00 CDT, Duration: 30 day, Stop date: 01/23/17 12:00:00 CDT, Replace Every: 24 hr sodium 2017-0 No 250 mL, Memoria chloride 8-12 Rate: On l 0.9% INJ 17:01: Call for Jerica nn 250 mL 00 use with blood product administra tion., Dosing Weight 72.727, kg, Route: IV, Total Volume: 250, Priority: Routine, Start Date: 12/24/16 12:01:00 CDT, Duration: 30 day, Stop date: 01/23/17 12:00:00 CDT, Replace Every: 24 hr sodium 2017-0 No 250 mL, Memoria chloride 8-12 Rate: On l 0.9% INJ 17:01: Call for Jerica nn 250 mL 00 use with blood product administra tion., Dosing Weight 72.727, kg, Route: IV, Total Volume: 250, Priority: Routine, Start Date: 12/24/16 12:01:00 CDT, Duration: 30 day, Stop date: 01/23/17 12:00:00 CDT, Replace Every: 24 hr Lidocaine 2017-0 No Notes: Memori a Hydrochlori 8-12 Preservati l de 10 MG/ML 17:00: ve free. He rmann Injectable 00 (Same as: Solution Xylocaine MPF) Lidocaine 2017-0 No Notes: Memori a Hydrochlori 8-12 Preservati l de 10 MG/ML 17:00: ve free. He rmann Injectable 00 (Same as: Solution Xylocaine MPF) Lidocaine 2017-0 No Notes: Memori a Hydrochlori 8-12 Preservati l de 10 MG/ML 17:00: ve free. He rmann Injectable 00 (Same as: Solution Xylocaine MPF) Lidocaine No Notes: Memori a Hydrochlori 8-12 Preservati l de 10 MG/ML 17:00: ve free. He rmann Injectable 00 (Same as: Solution Xylocaine MPF) Lidocaine No Notes: Memori a Hydrochlori 8-12 Preservati l de 10 MG/ML 17:00: ve free. He rmann Injectable 00 (Same as: Solution Xylocaine MPF) Saline No Notes: Memoria Flush 0.9% 8-12 (Same as: l 16:20: BD [place] 00 Posiflush) Saline No Notes: Memoria Flush 0.9% 8-12 (Same as: l 16:20: BD [place] 00 Posiflush) Saline No Notes: Memoria Flush 0.9% 8-12 (Same as: l 16:20: BD [place] 00 Posiflush) Saline No Notes: Memoria Flush 0.9% 8-12 (Same as: l 16:20: BD [place] 00 Posiflush) Saline No Notes: Memoria Flush 0.9% 8-12 (Same as: l 16:20: BD [place] 00 Posiflush) Nicotine No Notes: Memoria 8-12 (Same as: l 14:00: Habitrol) [place] 00 "Remove old patch before applicatio n of new patch" WASTE: F/P - P Waste Black; E - P Waste Black Nicotine No Notes: Memoria 8-12 (Same as: l 14:00: Habitrol) [place] 00 "Remove old patch before applicatio n of new patch" WASTE: F/P - P Waste Black; E - P Waste Black Nicotine No Notes: Memoria 8-12 (Same as: l 14:00: Habitrol) [place] 00 "Remove old patch before applicatio n of new patch" WASTE: F/P - P Waste Black; E - P Waste Black Nicotine No Notes: Memoria 8-12 (Same as: l 14:00: Habitrol) [place] 00 "Remove old patch before applicatio n of new patch" WASTE: F/P - P Waste Black; E - P Waste Black Nicotine No Notes: Memoria 8-12 (Same as: l 14:00: Habitrol) "Remove old patch before applicatio n of new patch" WASTE: F/P - P Waste Black; E - P Waste Black Ambien No Notes: Memoria 8-12 (Same As: l 13:57: Ambien) [place] 00 Ambien No Notes: Memoria 8-12 (Same As: l 13:57: Ambien) [place] 00 Ambien No Notes: Memoria 8-12 (Same As: l 13:57: Ambien) [place] 00 Ambien No Notes: Memoria 8-12 (Same As: l 13:57: Ambien) [place] 00 Ambien No Notes: Memoria 8-12 (Same As: l 13:57: Ambien) Acetaminoph No Notes: Do M emoria en 12-24 not exceed l 04:04: 4 gm/day. (Same as: Tylenol) Acetaminoph No Notes: Do M emoria en 8 not exceed l 04:04: 4 gm/day. [place] 00 (Same as: Tylenol) Acetaminoph No Notes: Do M emoria en 8- not exceed l 04:04: 4 gm/day. (Same as: Tylenol) Acetaminoph No Notes: Do M emoria en 8- not exceed l 04:04: 4 gm/day. [place] 00 (Same as: Tylenol) Acetaminoph No Notes: Do M emoria en 8 not exceed l 04:04: 4 gm/day. [place] 00 (Same as: Tylenol) Trazodone No Notes: Memori a Hydrochlori 12-24 (Same As: l de 50 MG 03:53: Desyrel) Jerica nn Oral Tablet 00 Trazodone No Notes: Memori a Hydrochlori - (Same As: l de 50 MG 03:53: Desyrel) Jerica nn Oral Tablet 00 Trazodone No Notes: Memori a Hydrochlori 8-12 (Same As: l de 50 MG 03:53: Desyrel) Jerica nn Oral Tablet 00 Trazodone No Notes: Memori a Hydrochlori 8-12 (Same As: l de 50 MG 03:53: Desyrel) Jerica nn Oral Tablet 00 Trazodone No Notes: Memori a Hydrochlori 8-12 (Same As: l de 50 MG 03:53: Desyrel) Jerica nn Oral Tablet 00 tramadol No Notes: Not Mem oria hydrochlori 8-12 to exceed l de 50 MG 03:27: 400mg/day. Her kee Oral Tablet 00 (Same As: Ultram) tramadol No Notes: Not Mem oria hydrochlori 8-12 to exceed l de 50 MG 03:27: 400mg/day. Her kee Oral Tablet 00 (Same As: Ultram) tramadol No Notes: Not Mem oria hydrochlori 8-12 to exceed l de 50 MG 03:27: 400mg/day. Her kee Oral Tablet 00 (Same As: Ultram) tramadol No Notes: Not Mem oria hydrochlori 8-12 to exceed l de 50 MG 03:27: 400mg/day. Her kee Oral Tablet 00 (Same As: Ultram) tramadol No Notes: Not Mem oria hydrochlori 8-12 to exceed l de 50 MG 03:27: 400mg/day. Her kee Oral Tablet 00 (Same As: Ultram) Omnipaque No 45 Memoria 350 8-12 mL/min, l injectable 02:15: STAT, Shaheed n solution 00 Start date: 12/23/16 21:15:00 CDT, Duration: 1 doses or times Omnipaque 2016-0 No 45 Memoria 350 8-12 mL/min, l injectable 02:15: STAT, Shaheed n solution 00 Start date: 12/23/16 21:15:00 CDT, Duration: 1 doses or times Omnipaque 2016-0 No 45 Memoria 350 8-12 mL/min, l injectable 02:15: STAT, Shaheed n solution 00 Start date: 12/23/16 21:15:00 CDT, Duration: 1 doses or times Omnipaque 2017-0 No 45 Memoria 350 8-12 mL/min, l injectable 02:15: STAT, Shaheed n solution 00 Start date: 12/23/16 21:15:00 CDT, Duration: 1 doses or times Omnipaque 2016-0 No 45 Memoria 350 8-12 mL/min, l injectable 02:15: STAT, Shaheed n solution 00 Start date: 12/23/16 21:15:00 CDT, Duration: 1 doses or times Zolpidem No 10 mg = 1 Simone chintan tartrate 10 8-12 tab, PO, l MG Oral 01:22: Bedtime, Shaheed n Tablet 00 PRN for [Ambien] sleep, 0 Refill(s) Zolpidem No 10 mg = 1 Simone chintan tartrate 10 8-12 tab, PO, l MG Oral 01:22: Bedtime, Shaheed n Tablet 00 PRN for [Ambien] sleep, 0 Refill(s) Zolpidem No 10 mg = 1 Simone chintan tartrate 10 8-12 tab, PO, l MG Oral 01:22: Bedtime, Shaheed n Tablet 00 PRN for [Ambien] sleep, 0 Refill(s) Zolpidem 0 No 10 mg = 1 Simone chintan tartrate 10 8-12 tab, PO, l MG Oral 01:22: Bedtime, Shaheed n Tablet 00 PRN for [Ambien] sleep, 0 Refill(s) Zolpidem No 10 mg = 1 Simone chintan tartrate 10 8-12 tab, PO, l MG Oral 01:22: Bedtime, Shaheed n Tablet 00 PRN for [Ambien] sleep, 0 Refill(s) Streptococc No Notes: Simone chintan us 8-12 Shake well l pneumoniae 01:21: prior to Her kee serotype 1 46 use (Same capsular as: antigen Prevnar diphtheria 13) [id number] protein conjugate vaccine / Streptococc us pneumoniae serotype 14 capsular antigen diphtheria [id number] protein conjugate vaccine / Streptococc us pneumoniae serotype 18C capsular antigen d Streptococc No Notes: Simone chintan us 8-12 Shake well l pneumoniae 01:21: prior to Her kee serotype 1 46 use (Same capsular as: antigen Prevnar diphtheria 13) [id number] protein conjugate vaccine / Streptococc us pneumoniae serotype 14 capsular antigen diphtheria [id number] protein conjugate vaccine / Streptococc us pneumoniae serotype 18C capsular antigen d Streptococc No Notes: Simone chintan us 8-12 Shake well l pneumoniae 01:21: prior to Her kee serotype 1 46 use (Same capsular as: antigen Prevnar diphtheria 13) [id number] protein conjugate vaccine / Streptococc us pneumoniae serotype 14 capsular antigen diphtheria [id number] protein conjugate vaccine / Streptococc us pneumoniae serotype 18C capsular antigen d Streptococc No Notes: Simone chintan us 8-12 Shake well l pneumoniae 01:21: prior to Her kee serotype 1 46 use (Same capsular as: antigen Prevnar diphtheria 13) [id number] protein conjugate vaccine / Streptococc us pneumoniae serotype 14 capsular antigen diphtheria [id number] protein conjugate vaccine / Streptococc us pneumoniae serotype 18C capsular antigen d Streptococc No Notes: Simone chintan us 8-12 Shake well l pneumoniae 01:21: prior to Her kee serotype 1 46 use (Same capsular as: antigen Prevnar diphtheria 13) [id number] protein conjugate vaccine / Streptococc us pneumoniae serotype 14 capsular antigen diphtheria [id number] protein conjugate vaccine / Streptococc us pneumoniae serotype 18C capsular antigen d metoprolol No Notes: Memor ia tartrate 8-11 (Same as: l 23:08: Lopressor) metoprolol No Notes: Memor ia tartrate 8-11 (Same as: l 23:08: Lopressor) metoprolol No Notes: Memor ia tartrate 8-11 (Same as: l 23:08: Lopressor) metoprolol No Notes: Memor ia tartrate 8-11 (Same as: l 23:08: Lopressor) metoprolol No Notes: Memor ia tartrate 8-11 (Same as: l 23:08: Lopressor) sodium No 250 mL, Memoria chloride 8-11 Rate: On l 0.9% INJ 23:05: call for Jerica nn 250 mL 00 use with blood product administra tion, Dosing Weight 72.727, kg, Route: IV, Total Volume: 250, Start Date: 12/23/16 18:05:00 CDT, Duration: 30 day, Stop date: 01/22/17 18:04:00 CDT, Replace Every: 24 hr Saline No Notes: Memoria Flush 0.9% 8-11 (Same as: l 23:05: BD Kenneth 00 Posiflush) sodium No 1,000 mL, Memori a chloride 8-11 Rate: 75 l 0.9% 1000 23:05: ml/hr, Shaheed n ml INJ 00 Infuse 1,000 mL over: 13.3 hr, Route: IV, Dosing Weight 72.727 kg, Total Volume: 1,000, Start date: 12/23/16 18:05:00 CDT, Duration: 30 day, Stop date: 01/22/17 18:04:00 CDT Ondansetron No Notes: Simone chintan 8-11 (Same as: l 23:05: Zofran) [place] 00 MEDICATION WASTE Product Size: 4 mg Product Wasted: ___ mg sodium 2016- No 250 mL, Memoria chloride 8-11 Rate: On l 0.9% INJ 23:05: call for Jerica nn 250 mL 00 use with blood product administra tion, Dosing Weight 72.727, kg, Route: IV, Total Volume: 250, Start Date: 12/23/16 18:05:00 CDT, Duration: 30 day, Stop date: 01/22/17 18:04:00 CDT, Replace Every: 24 hr Saline No Notes: Memoria Flush 0.9% 8-11 (Same as: l 23:05: BD Kenneth 00 Posiflush) sodium No 1,000 mL, Memori a chloride 8-11 Rate: 75 l 0.9% 1000 23:05: ml/hr, Shaheed n ml INJ 00 Infuse 1,000 mL over: 13.3 hr, Route: IV, Dosing Weight 72.727 kg, Total Volume: 1,000, Start date: 12/23/16 18:05:00 CDT, Duration: 30 day, Stop date: 01/22/17 18:04:00 CDT Ondansetron No Notes: Simone chintan 8-11 (Same as: l 23:05: Zofran) Kenneth 00 MEDICATION WASTE Product Size: 4 mg Product Wasted: ___ mg sodium 2017-0 No 250 mL, Memoria chloride 8-11 Rate: On l 0.9% INJ 23:05: call for Jerica nn 250 mL 00 use with blood product administra tion, Dosing Weight 72.727, kg, Route: IV, Total Volume: 250, Start Date: 12/23/16 18:05:00 CDT, Duration: 30 day, Stop date: 01/22/17 18:04:00 CDT, Replace Every: 24 hr Saline 2016- No Notes: Memoria Flush 0.9% 8-11 (Same as: l 23:05: BD [place] Posiflush) sodium 2017-0 No 1,000 mL, Memori a chloride 8-11 Rate: 75 l 0.9% 1000 23:05: ml/hr, Shaheed n ml INJ 00 Infuse 1,000 mL over: 13.3 hr, Route: IV, Dosing Weight 72.727 kg, Total Volume: 1,000, Start date: 12/23/16 18:05:00 CDT, Duration: 30 day, Stop date: 01/22/17 18:04:00 CDT Ondansetron 2016- No Notes: Simone chintan 8-11 (Same as: l 23:05: Zofran) Kenneth MEDICATION WASTE Product Size: 4 mg Product Wasted: ___ mg sodium 2017-0 No 250 mL, Memoria chloride 8-11 Rate: On l 0.9% INJ 23:05: call for Jerica nn 250 mL 00 use with blood product administra tion, Dosing Weight 72.727, kg, Route: IV, Total Volume: 250, Start Date: 12/23/16 18:05:00 CDT, Duration: 30 day, Stop date: 01/22/17 18:04:00 CDT, Replace Every: 24 hr Saline 2017-0 No Notes: Memoria Flush 0.9% 8-11 (Same as: l 23:05: BD Kenneth 00 Posiflush) sodium 2017-0 No 1,000 mL, Memori a chloride 8-11 Rate: 75 l 0.9% 1000 23:05: ml/hr, Shaheed n ml INJ 00 Infuse 1,000 mL over: 13.3 hr, Route: IV, Dosing Weight 72.727 kg, Total Volume: 1,000, Start date: 12/23/16 18:05:00 CDT, Duration: 30 day, Stop date: 01/22/17 18:04:00 CDT Ondansetron 2017-0 No Notes: Simone chintan 8-11 (Same as: l 23:05: Zofran) [place] 00 MEDICATION WASTE Product Size: 4 mg Product Wasted: ___ mg sodium 2017- No 250 mL, Memoria chloride 8-11 Rate: On l 0.9% INJ 23:05: call for Jerica nn 250 mL 00 use with blood product administra tion, Dosing Weight 72.727, kg, Route: IV, Total Volume: 250, Start Date: 12/23/16 18:05:00 CDT, Duration: 30 day, Stop date: 01/22/17 18:04:00 CDT, Replace Every: 24 hr Saline 2016- No Notes: Memoria Flush 0.9% 8-11 (Same as: l 23:05: BD Kenneth 00 Posiflush) sodium 2017- No 1,000 mL, Memori a chloride 8-11 Rate: 75 l 0.9% 1000 23:05: ml/hr, Shaheed n ml INJ 00 Infuse 1,000 mL over: 13.3 hr, Route: IV, Dosing Weight 72.727 kg, Total Volume: 1,000, Start date: 12/23/16 18:05:00 CDT, Duration: 30 day, Stop date: 01/22/17 18:04:00 CDT Ondansetron 2017-0 No Notes: Simone chintan 8-11 (Same as: l 23:05: Zofran) [place] 00 MEDICATION WASTE Product Size: 4 mg Product Wasted: ___ mg amoxicillin 2017- Yes 500 mg = 2 Memoria 250 mg oral 5-16 cap, PO, l capsule 14:03: ABXQ8H, X Jerica nn 00 3 day, # 18 cap, 0 Refill(s) POLYETHYLEN 2016- Yes 17 gm, PO, Memoria E GLYCOL 5-16 Daily, X l 3350 142 14:03: 15 day, # Herm jen MG/ML Oral 00 255 gm, 0 Solution Refill(s) [Miralax] psyllium 2017-0 Yes 1.7 gm =, Simone chintan oral powder 5-16 PO, TID, X l 14:03: 60 day, # Kenneth 00 300 gm, 0 Refill(s) amoxicillin 2017-0 Yes 500 mg = 2 Memoria 250 mg oral 5-16 cap, PO, l capsule 14:03: ABXQ8H, X Jerica nn 00 3 day, # 18 cap, 0 Refill(s) POLYETHYLEN 2017-0 Yes 17 gm, PO, Memoria E GLYCOL 5-16 Daily, X l 3350 142 14:03: 15 day, # Herm jen MG/ML Oral 00 255 gm, 0 Solution Refill(s) [Miralax] psyllium 2017-0 Yes 1.7 gm =, Simone chintan oral powder 5-16 PO, TID, X l 14:03: 60 day, # Kenneth 00 300 gm, 0 Refill(s) amoxicillin 2017-0 Yes 500 mg = 2 Memoria 250 mg oral 5-16 cap, PO, l capsule 14:03: ABXQ8H, X Jerica nn 00 3 day, # 18 cap, 0 Refill(s) POLYETHYLEN 2017-0 Yes 17 gm, PO, Memoria E GLYCOL 5-16 Daily, X l 3350 142 14:03: 15 day, # Herm jen MG/ML Oral 00 255 gm, 0 Solution Refill(s) [Miralax] psyllium 2017-0 Yes 1.7 gm =, Simone chintan oral powder 5-16 PO, TID, X l 14:03: 60 day, # Kenneth 00 300 gm, 0 Refill(s) amoxicillin 2017-0 Yes 500 mg = 2 Memoria 250 mg oral 5-16 cap, PO, l capsule 14:03: ABXQ8H, X Jerica nn 00 3 day, # 18 cap, 0 Refill(s) POLYETHYLEN 2017-0 Yes 17 gm, PO, Memoria E GLYCOL 5-16 Daily, X l 3350 142 14:03: 15 day, # Herm jen MG/ML Oral 00 255 gm, 0 Solution Refill(s) [Miralax] psyllium Yes 1.7 gm =, Simone chintan oral powder 5-16 PO, TID, X l 14:03: 60 day, # Kenneth 00 300 gm, 0 Refill(s) amoxicillin Yes 500 mg = 2 Memoria 250 mg oral 5-16 cap, PO, l capsule 14:03: ABXQ8H, X Jerica nn 00 3 day, # 18 cap, 0 Refill(s) POLYETHYLEN Yes 17 gm, PO, Memoria E GLYCOL 5-16 Daily, X l 3350 142 14:03: 15 day, # Herm jen MG/ML Oral 00 255 gm, 0 Solution Refill(s) [Miralax] psyllium Yes 1.7 gm =, Simone chintan oral powder 5-16 PO, TID, X l 14:03: 60 day, # Kenneth 00 300 gm, 0 Refill(s) Melatonin 3 No Notes: Simone chintan MG Extended 5-16 (Same as: l Release 05:12: Melatonin) Herm jen Tablet 00 Melatonin 3 No Notes: Simone chintan MG Extended 5-16 (Same as: l Release 05:12: Melatonin) Herm jen Tablet 00 Melatonin 3 No Notes: Simone chintan MG Extended 5-16 (Same as: l Release 05:12: Melatonin) Herm jen Tablet 00 Melatonin 3 No Notes: Simone chintan MG Extended 5-16 (Same as: l Release 05:12: Melatonin) Herm jen Tablet 00 Melatonin 3 No Notes: Simone chintan MG Extended 5-16 (Same as: l Release 05:12: Melatonin) Herm jen Tablet 00 Menthol No Notes: Memoria 0.0044 5-16 (Same as: l MG/MG / 01:20: [place] Herm jen Zinc Oxide 00 ne) 0.2 MG/MG Topical Ointment [Calmosepti ne Ointment] Menthol No Notes: Memoria 0.0044 5-16 (Same as: l MG/MG / 01:20: [place] Herm jen Zinc Oxide 00 ne) 0.2 MG/MG Topical Ointment [Calmosepti ne Ointment] Menthol No Notes: Memoria 0.0044 5-16 (Same as: l MG/MG / 01:20: [place] Herm jen Zinc Oxide 00 ne) 0.2 MG/MG Topical Ointment [Calmosepti ne Ointment] Menthol No Notes: Memoria 0.0044 5-16 (Same as: l MG/MG / 01:20: [place] Herm jen Zinc Oxide 00 ne) 0.2 MG/MG Topical Ointment [Calmosepti ne Ointment] Menthol No Notes: Memoria 0.0044 5-16 (Same as: l MG/MG / 01:20: [place] Herm jen Zinc Oxide 00 ne) 0.2 MG/MG Topical Ointment [[place]pti ne Ointment] gabapentin 2016- No 100 mg, 1 Me moria 100 MG Oral 5-16 cap, l Capsule 01:00: Route: PO, Herm jen 00 Drug form: CAP, Q8H, Dosing Weight 73.007, kg, Start date: 09/26/16 20:00:00 CDT, Duration: 30 day, Stop date: 10/26/16 12:00:00 CDT gabapentin 2017-0 No 100 mg, 1 Me moria 100 MG Oral 5-16 cap, l Capsule 01:00: Route: PO, Herm jen 00 Drug form: CAP, Q8H, Dosing Weight 73.007, kg, Start date: 09/26/16 20:00:00 CDT, Duration: 30 day, Stop date: 10/26/16 12:00:00 CDT gabapentin 2017-0 No 100 mg, 1 Me moria 100 MG Oral 5-16 cap, l Capsule 01:00: Route: PO, Herm jen 00 Drug form: CAP, Q8H, Dosing Weight 73.007, kg, Start date: 09/26/16 20:00:00 CDT, Duration: 30 day, Stop date: 10/26/16 12:00:00 CDT gabapentin 2017-0 No 100 mg, 1 Me moria 100 MG Oral 5-16 cap, l Capsule 01:00: Route: PO, Herm jen 00 Drug form: CAP, Q8H, Dosing Weight 73.007, kg, Start date: 09/26/16 20:00:00 CDT, Duration: 30 day, Stop date: 10/26/16 12:00:00 CDT gabapentin No 100 mg, 1 Me moria 100 MG Oral 5-16 cap, l Capsule 01:00: Route: PO, Drug form: CAP, Q8H, Dosing Weight 73.007, kg, Start date: 09/26/16 20:00:00 CDT, Duration: 30 day, Stop date: 10/26/16 12:00:00 CDT Tylenol No Notes: Do Memor ia 5-15 not exceed l 23:15: 4 gm/day. (Same as: Tylenol) Tylenol No Notes: Do Memor ia 5-15 not exceed l 23:15: 4 gm/day. (Same as: Tylenol) Tylenol No Notes: Do Memor ia 5-15 not exceed l 23:15: 4 gm/day. (Same as: Tylenol) Tylenol No Notes: Do Memor ia 5-15 not exceed l 23:15: 4 gm/day. (Same as: Tylenol) Tylenol No Notes: Do Memor ia 5-15 not exceed l 23:15: 4 gm/day. (Same as: Tylenol) Protonix No Notes: Memoria 5-15 Tablet l 22:00: should not be chewed or crushed. (Same as: Protonix) Neurontin No Notes: Memori a 5-15 (Same as: l 22:00: Neurontin) Protonix No Notes: Memoria 5-15 Tablet l 22:00: should not be chewed or crushed. (Same as: Protonix) Neurontin No Notes: Memori a 5-15 (Same as: l 22:00: Neurontin) Protonix No Notes: Memoria 5-15 Tablet l 22:00: should not be chewed or crushed. (Same as: Protonix) Neurontin No Notes: Memori a 5-15 (Same as: l 22:00: Neurontin) Protonix No Notes: Memoria 5-15 Tablet l 22:00: should not Kenneth 00 be chewed or crushed. (Same as: Protonix) Neurontin 2017-0 No Notes: Memori a 5-15 (Same as: l 22:00: Neurontin) Kenneth 00 Protonix 2017-0 No Notes: Memoria 5-15 Tablet l 22:00: should not [place] 00 be chewed or crushed. (Same as: Protonix) Neurontin 2017-0 No Notes: Memori a 5-15 (Same as: l 22:00: Neurontin) Kenneth Golytely 2017-0 No 4,000 mL, Simone chintan 5-15 Route: PO, l 21:59: Drug Form: Kenneth 00 PDR/REC, Dosing Weight 73.007, kg, ONCE, Start date: 09/26/16 16:59:00 CDT, Duration: 1 doses or times, Stop date: 09/26/16 16:59:00 CDT Golytely 2017-0 No 4,000 mL, Simone chintan 5-15 Route: PO, l 21:59: Drug Form: Kenneth 00 PDR/REC, Dosing Weight 73.007, kg, ONCE, Start date: 09/26/16 16:59:00 CDT, Duration: 1 doses or times, Stop date: 09/26/16 16:59:00 CDT Golytely 2017-0 No 4,000 mL, Simone chintan 5-15 Route: PO, l 21:59: Drug Form: Kenneth 00 PDR/REC, Dosing Weight 73.007, kg, ONCE, Start date: 09/26/16 16:59:00 CDT, Duration: 1 doses or times, Stop date: 09/26/16 16:59:00 CDT Golytely 2017-0 No 4,000 mL, Simone chintan 5-15 Route: PO, l 21:59: Drug Form: [place] 00 PDR/REC, Dosing Weight 73.007, kg, ONCE, Start date: 09/26/16 16:59:00 CDT, Duration: 1 doses or times, Stop date: 09/26/16 16:59:00 CDT Golytely 2017-0 No 4,000 mL, Simone chintan 5-15 Route: PO, l 21:59: Drug Form: [place] 00 PDR/REC, Dosing Weight 73.007, kg, ONCE, Start date: 09/26/16 16:59:00 CDT, Duration: 1 doses or times, Stop date: 09/26/16 16:59:00 CDT sodium 2017-0 No 250 mL, Memoria chloride 5-15 Rate: On l 0.9% INJ 04:38: call for Jerica nn 250 mL 00 use with blood product administra tion, Dosing Weight 73.007, kg, Route: IV, Total Volume: 250, Start Date: 09/25/16 23:38:00 CDT, Duration: 30 day, Stop date: 10/25/16 23:37:00 CDT, Replace Every: 24 hr sodium 2017-0 No 250 mL, Memoria chloride 5-15 Rate: On l 0.9% INJ 04:38: call for Jerica nn 250 mL 00 use with blood product administra tion, Dosing Weight 73.007, kg, Route: IV, Total Volume: 250, Start Date: 09/25/16 23:38:00 CDT, Duration: 30 day, Stop date: 10/25/16 23:37:00 CDT, Replace Every: 24 hr sodium 2017-0 No 250 mL, Memoria chloride 5-15 Rate: On l 0.9% INJ 04:38: call for Jerica nn 250 mL 00 use with blood product administra tion, Dosing Weight 73.007, kg, Route: IV, Total Volume: 250, Start Date: 09/25/16 23:38:00 CDT, Duration: 30 day, Stop date: 10/25/16 23:37:00 CDT, Replace Every: 24 hr sodium 2017-0 No 250 mL, Memoria chloride 5-15 Rate: On l 0.9% INJ 04:38: call for Jerica nn 250 mL 00 use with blood product administra tion, Dosing Weight 73.007, kg, Route: IV, Total Volume: 250, Start Date: 09/25/16 23:38:00 CDT, Duration: 30 day, Stop date: 10/25/16 23:37:00 CDT, Replace Every: 24 hr sodium 2017-0 No 250 mL, Memoria chloride 5-15 Rate: On l 0.9% INJ 04:38: call for Jerica nn 250 mL 00 use with blood product administra tion, Dosing Weight 73.007, kg, Route: IV, Total Volume: 250, Start Date: 09/25/16 23:38:00 CDT, Duration: 30 day, Stop date: 10/25/16 23:37:00 CDT, Replace Every: 24 hr Amoxicillin No Notes: Simone chintan 5-15 (Same as: l 01:00: Amoxil) Amoxicillin No Notes: Simone chintan 5-15 (Same as: l 01:00: Amoxil) Amoxicillin No Notes: Simone chintan 5-15 (Same as: l 01:00: Amoxil) Amoxicillin No Notes: Simone chintan 5-15 (Same as: l 01:00: Amoxil) Amoxicillin No Notes: Simone chintan 5-15 (Same as: l 01:00: Amoxil) sodium 2016-0 No 1,000 mL, Memori a chloride 5-14 Rate: 75 l 0.9% 1000 23:36: ml/hr, Shaheed n ml INJ 00 Infuse 1,000 mL over: 13.3 hr, Route: IV, Dosing Weight 73.007 kg, Total Volume: 1,000, Start date: 09/25/16 18:36:00 CDT, Duration: 30 day, Stop date: 10/25/16 18:35:00 CDT sodium 2017-0 No 1,000 mL, Memori a chloride 5-14 Rate: 75 l 0.9% 1000 23:36: ml/hr, Shaheed n ml INJ 00 Infuse 1,000 mL over: 13.3 hr, Route: IV, Dosing Weight 73.007 kg, Total Volume: 1,000, Start date: 09/25/16 18:36:00 CDT, Duration: 30 day, Stop date: 10/25/16 18:35:00 CDT sodium 2017-0 No 1,000 mL, Memori a chloride 5-14 Rate: 75 l 0.9% 1000 23:36: ml/hr, Shaheed n ml INJ 00 Infuse 1,000 mL over: 13.3 hr, Route: IV, Dosing Weight 73.007 kg, Total Volume: 1,000, Start date: 09/25/16 18:36:00 CDT, Duration: 30 day, Stop date: 10/25/16 18:35:00 CDT sodium 2017-0 No 1,000 mL, Memori a chloride 5-14 Rate: 75 l 0.9% 1000 23:36: ml/hr, Shaheed n ml INJ 00 Infuse 1,000 mL over: 13.3 hr, Route: IV, Dosing Weight 73.007 kg, Total Volume: 1,000, Start date: 09/25/16 18:36:00 CDT, Duration: 30 day, Stop date: 10/25/16 18:35:00 CDT sodium 2016-0 No 1,000 mL, Memori a chloride 5-14 Rate: 75 l 0.9% 1000 23:36: ml/hr, Shaheed n ml INJ 00 Infuse 1,000 mL over: 13.3 hr, Route: IV, Dosing Weight 73.007 kg, Total Volume: 1,000, Start date: 09/25/16 18:36:00 CDT, Duration: 30 day, Stop date: 10/25/16 18:35:00 CDT Neurontin No Notes: Memori a 5-14 (Same as: l 22:00: Neurontin) Kenneth Neurontin No Notes: Memori a 5-14 (Same as: l 22:00: Neurontin) Neurontin No Notes: Memori a 5-14 (Same as: l 22:00: Neurontin) Neurontin No Notes: Memori a 5-14 (Same as: l 22:00: Neurontin) [place] Neurontin No Notes: Memori a 5-14 (Same as: l 22:00: Neurontin) tramadol No Notes: Not Mem oria hydrochlori 5-14 to exceed l de 50 MG 21:33: 400mg/day. Her kee Oral Tablet 00 (Same As: Ultram) tramadol No Notes: Not Mem oria hydrochlori 5-14 to exceed l de 50 MG 21:33: 400mg/day. Her kee Oral Tablet 00 (Same As: Ultram) tramadol No Notes: Not Mem oria hydrochlori 5-14 to exceed l de 50 MG 21:33: 400mg/day. Her kee Oral Tablet 00 (Same As: Ultram) tramadol No Notes: Not Mem oria hydrochlori 5-14 to exceed l de 50 MG 21:33: 400mg/day. Her kee Oral Tablet 00 (Same As: Ultram) tramadol No Notes: Not Mem oria hydrochlori 5-14 to exceed l de 50 MG 21:33: 400mg/day. Her kee Oral Tablet 00 (Same As: Ultram) Albuterol No Notes: Memori a 0.833 MG/ML 5-14 (Same as: :30: Duoneb) [place] Ipratropium 00 [place] 0.167 MG/ML Inhalant Solution Albuterol No Notes: Memori a 0.833 MG/ML 5-14 (Same as: :30: Duoneb) Kenneth Ipratropium 00 [place] 0.167 MG/ML Inhalant Solution Albuterol No Notes: Memori a 0.833 MG/ML 5-14 (Same as: :30: Duoneb) [place] Ipratropium 00 [place] 0.167 MG/ML Inhalant Solution Albuterol No Notes: Memori a 0.833 MG/ML 5-14 (Same as: :30: Duoneb) [place] Ipratropium 00 [place] 0.167 MG/ML Inhalant Solution Albuterol No Notes: Memori a 0.833 MG/ML 5-14 (Same as: :30: Duoneb) Kenneth Ipratropium 00 [place] 0.167 MG/ML Inhalant Solution Neurontin No Notes: Memori a 5-14 (Same as: l 18:57: Neurontin) Kenneth 00 Neurontin No Notes: Memori a 5-14 (Same as: l 18:57: Neurontin) Kenneth 00 Neurontin No Notes: Memori a 5-14 (Same as: l 18:57: Neurontin) Kenneth 00 Neurontin No Notes: Memori a 5-14 (Same as: l 18:57: Neurontin) Kenneth 00 Neurontin No Notes: Memori a 5-14 (Same as: l 18:57: Neurontin) [place] 00 Albuterol No Notes: Memori a 0.833 MG/ML 5-14 (Same as: l / 16:00: Duoneb) Kenneth Ipratropium 00 [place] 0.167 MG/ML Inhalant Solution Albuterol No Notes: Memori a 0.833 MG/ML 5-14 (Same as: l / 16:00: Duoneb) Kenneth Ipratropium 00 [place] 0.167 MG/ML Inhalant Solution Albuterol No Notes: Memori a 0.833 MG/ML 5-14 (Same as: l / 16:00: Duoneb) Kenneth Ipratropium 00 [place] 0.167 MG/ML Inhalant Solution Albuterol No Notes: Memori a 0.833 MG/ML 5-14 (Same as: l / 16:00: Duoneb) [place] Ipratropium 00 [place] 0.167 MG/ML Inhalant Solution Albuterol No Notes: Memori a 0.833 MG/ML 5-14 (Same as: l 16:00: Duoneb) [place] Ipratropium 00 [place] 0.167 MG/ML Inhalant Solution atorvastati No Notes: Simone chintan n 5-14 (Same As: l 14:00: Lipitor) [place] tramadol No Notes: Not Mem oria hydrochlori 5-14 to exceed l de 50 MG 14:00: 400mg/day. Her kee Oral Tablet 00 (Same As: Ultram) gabapentin No Route: PO, M emoria 5-14 BID, l 14:00: Dosing [place] Weight 73.007, kg, Start date: 09/25/16 9:00:00 CDT, Duration: 30 day, Stop date: 10/24/16 17:00:00 CDT Advair HFA No 2 puff, Simone chnitan 115 mcg-21 5-14 Route: l mcg/inh 14:00: INHALATION Herm jen inhalation , Dosing aerosol Weight with 73.007, adapter kg, BID, Start date: 09/25/16 9:00:00 CDT, Duration: 30 day, Stop date: 10/24/16 17:00:00 CDT Protonix No Notes: For Mem oria 5-14 IV push l 14:00: reconstitu te with 10 ml 0.9% sodium chloride and push over 2 minutes. (Same as: Protonix) Saline No Notes: Memoria Flush 0.9% 5-14 (Same as: l 14:00: BD Posiflush) pregabalin No Notes: Memor ia 5-14 Same as l 14:00: Lyrica Neurontin No Notes: Memori a 5-14 (Same as: l 14:00: Neurontin) Roflumilast No 500 Memori a 5-14 microgram, l 14:00: 1 tab, Route: PO, Drug form: TAB, Daily, Dosing Weight 73.007, kg, Start date: 09/25/16 9:00:00 CDT, Duration: 30 day, Stop date: 10/24/16 9:00:00 CDT montelukast No Notes: Simone chintan 5-14 (Same l 14:00: as:Singula ir) atorvastati No Notes: Simone chintan n 5-14 (Same As: l 14:00: Lipitor) tramadol No Notes: Not Mem oria hydrochlori 5-14 to exceed l de 50 MG 14:00: 400mg/day. Her kee Oral Tablet 00 (Same As: Ultram) gabapentin No Route: PO, M emoria 5-14 BID, l 14:00: Dosing [place] 00 Weight 73.007, kg, Start date: 09/25/16 9:00:00 CDT, Duration: 30 day, Stop date: 10/24/16 17:00:00 CDT Advair HFA No 2 puff, Simone chintan 115 mcg-21 5-14 Route: l mcg/inh 14:00: INHALATION Herm jen inhalation , Dosing aerosol Weight with 73.007, adapter kg, BID, Start date: 09/25/16 9:00:00 CDT, Duration: 30 day, Stop date: 10/24/16 17:00:00 CDT Protonix No Notes: For Mem oria 5-14 IV push l 14:00: reconstitu te with 10 ml 0.9% sodium chloride and push over 2 minutes. (Same as: Protonix) Saline No Notes: Memoria Flush 0.9% 5-14 (Same as: l 14:00: BD Posiflush) pregabalin No Notes: Memor ia 5-14 Same as l 14:00: Lyrica Neurontin No Notes: Memori a 5-14 (Same as: l 14:00: Neurontin) Roflumilast No 500 Memori a 5-14 microgram, l 14:00: 1 tab, Route: PO, Drug form: TAB, Daily, Dosing Weight 73.007, kg, Start date: 09/25/16 9:00:00 CDT, Duration: 30 day, Stop date: 10/24/16 9:00:00 CDT montelukast No Notes: Simone chintan 5-14 (Same l 14:00: as:Singula ir) atorvastati No Notes: Simone chintan n 5-14 (Same As: l 14:00: Lipitor) tramadol No Notes: Not Mem oria hydrochlori 5-14 to exceed l de 50 MG 14:00: 400mg/day. Her kee Oral Tablet 00 (Same As: Ultram) gabapentin No Route: PO, M emoria 5-14 BID, l 14:00: Dosing Weight 73.007, kg, Start date: 09/25/16 9:00:00 CDT, Duration: 30 day, Stop date: 10/24/16 17:00:00 CDT Advair HFA No 2 puff, Simone chintan 115 mcg-21 5-14 Route: l mcg/inh 14:00: INHALATION Herm jen inhalation , Dosing aerosol Weight with 73.007, adapter kg, BID, Start date: 09/25/16 9:00:00 CDT, Duration: 30 day, Stop date: 10/24/16 17:00:00 CDT Protonix No Notes: For Mem oria 5-14 IV push l 14:00: reconstitu [place] te with 10 ml 0.9% sodium chloride and push over 2 minutes. (Same as: Protonix) Saline No Notes: Memoria Flush 0.9% 5-14 (Same as: l 14:00: BD Posiflush) pregabalin No Notes: Memor ia 5-14 Same as l 14:00: Lyrica Neurontin No Notes: Memori a 5-14 (Same as: l 14:00: Neurontin) Roflumilast No 500 Memori a 5-14 microgram, l 14:00: 1 tab, Kenneth Route: PO, Drug form: TAB, Daily, Dosing Weight 73.007, kg, Start date: 09/25/16 9:00:00 CDT, Duration: 30 day, Stop date: 10/24/16 9:00:00 CDT montelukast No Notes: Simone chintan 5-14 (Same l 14:00: as:Singula Kenneth 00 ir) atorvastati No Notes: Simone chintan n 5-14 (Same As: l 14:00: Lipitor) tramadol No Notes: Not Mem oria hydrochlori 5-14 to exceed l de 50 MG 14:00: 400mg/day. Her kee Oral Tablet 00 (Same As: Ultram) gabapentin No Route: PO, M emoria 5-14 BID, l 14:00: Dosing [place] Weight 73.007, kg, Start date: 09/25/16 9:00:00 CDT, Duration: 30 day, Stop date: 10/24/16 17:00:00 CDT Advair HFA No 2 puff, Simone chintan 115 mcg-21 5-14 Route: l mcg/inh 14:00: INHALATION Herm jen inhalation , Dosing aerosol Weight with 73.007, adapter kg, BID, Start date: 09/25/16 9:00:00 CDT, Duration: 30 day, Stop date: 10/24/16 17:00:00 CDT Protonix No Notes: For Mem oria 5-14 IV push l 14:00: reconstitu [place] 00 te with 10 ml 0.9% sodium chloride and push over 2 minutes. (Same as: Protonix) atorvastati No Notes: Simone chintan n 5-14 (Same As: l 14:00: Lipitor) tramadol No Notes: Not Mem oria hydrochlori 5-14 to exceed l de 50 MG 14:00: 400mg/day. Her kee Oral Tablet 00 (Same As: Ultram) Saline No Notes: Memoria Flush 0.9% 5-14 (Same as: l 14:00: BD Kenneth 00 Posiflush) gabapentin No Route: PO, M emoria 5-14 BID, l 14:00: Dosing Kenneth 00 Weight 73.007, kg, Start date: 09/25/16 9:00:00 CDT, Duration: 30 day, Stop date: 10/24/16 17:00:00 CDT Advair HFA No 2 puff, Simone chintan 115 mcg-21 5-14 Route: l mcg/inh 14:00: INHALATION Herm jen inhalation , Dosing aerosol Weight with 73.007, adapter kg, BID, Start date: 09/25/16 9:00:00 CDT, Duration: 30 day, Stop date: 10/24/16 17:00:00 CDT Protonix No Notes: For Mem oria 5-14 IV push l 14:00: reconstitu te with 10 ml 0.9% sodium chloride and push over 2 minutes. (Same as: Protonix) Saline No Notes: Memoria Flush 0.9% 5-14 (Same as: l 14:00: BD Kenneth 00 Posiflush) pregabalin No Notes: Memor ia 5-14 Same as l 14:00: Lyrica Neurontin No Notes: Memori a 5-14 (Same as: l 14:00: Neurontin) Roflumilast No 500 Memori a 5-14 microgram, l 14:00: 1 tab, [place] Route: PO, Drug form: TAB, Daily, Dosing Weight 73.007, kg, Start date: 09/25/16 9:00:00 CDT, Duration: 30 day, Stop date: 10/24/16 9:00:00 CDT montelukast No Notes: Simone chintan 5-14 (Same l 14:00: as:Darinel ir) pregabalin No Notes: Memor ia 5-14 Same as l 14:00: Lyrica Kenneth 00 Neurontin No Notes: Memori a 5-14 (Same as: l 14:00: Neurontin) [place] 00 Roflumilast No 500 Memori a 5-14 microgram, l 14:00: 1 tab, Kenneth Route: PO, Drug form: TAB, Daily, Dosing Weight 73.007, kg, Start date: 09/25/16 9:00:00 CDT, Duration: 30 day, Stop date: 10/24/16 9:00:00 CDT montelukast No Notes: Simone chintan 5-14 (Same l 14:00: as:Latrice Kenneth ir) tiotropium No Notes: Memor ia 5-14 (Same As: l 13:00: Spiriva) [place] 00 tiotropium No Notes: Memor ia 5-14 (Same As: l 13:00: Spiriva) Kenneth tiotropium No Notes: Memor ia 5-14 (Same As: l 13:00: Spiriva) [place] 00 tiotropium No Notes: Memor ia 5-14 (Same As: l 13:00: Spiriva) [place] tiotropium No Notes: Memor ia 5-14 (Same As: l 13:00: Spiriva) Kenneth Symbicort No Notes: Memori a 80/4.5 5-14 (Same as: l inhalation 09:01: Symbicort) H ermann aerosol 00 WASTE: with Aerosol - adapter Return to Pharmacy Symbicort 0 No Notes: [facility] a 80/4.5 5-14 (Same as: l inhalation 09:01: Symbicort) [place] aerosol 00 WASTE: with Aerosol - adapter Return to Pharmacy Symbicort No Notes: [facility] a 80/4.5 5-14 (Same as: l inhalation 09:01: Symbicort) [place] aerosol 00 WASTE: with Aerosol - adapter Return to Pharmacy Symbicort No Notes: [facility] a 80/4.5 5-14 (Same as: l inhalation 09:01: Symbicort) [place] aerosol 00 WASTE: with Aerosol - adapter Return to Pharmacy Symbicort No Notes: [facility] a 80/4.5 5-14 (Same as: l inhalation 09:01: Symbicort) [place] aerosol 00 WASTE: with Aerosol - adapter Return to Pharmacy Calcium No Notes: [facility] Carbonate -14 (Same As: l 500 MG 08:13: Tums) [place] Chewable 00 Calcium Tablet Carbonate 500 mg = 200 mg elemental calcium Dose = mg calcium carbonate ( mg elemental calcium) Calcium No Notes: [facility] Gluconate -14 WASTE: F/P l 08:13: - Sink; E [place] 00 - Municipal Trash Bin potassium No Notes: [facility] a phosphate + - (Same as: l sodium 08:13: K [place] chloride 00 Phosphate. 0.9% INJ ) 1 mMol 250 mL phoshate has 1.47 mEq potassium Infuse over 4 hours sodium No 45 mmol, [facility] phosphate + 5-14 15 mL, l sodium 08:13: Route: [place] chloride 00 IVPB, PRN, 0.9% INJ Dosing 250 mL Weight 73.007, kg, PRN Abnormal Lab Result, Start date: 09/25/16 3:13:00 CDT, Duration: 30 day, Stop date: 10/25/16 3:12:00 CDT, FOR ICU USE ONLY potassium No Notes: [facility] a chloride -14 (Same as: l 08:13: Potassium [place] 00 Chloride) Magnesium No Notes: [facility] a Oxide -14 (Same as: l 08:13: Mag-Ox [place] 00 400) Magnesium oxide 167ei=083g g elemental magnesium Dose=____m g magnesium oxide (___mg elemental magnesium) Magnesium No Notes: [facility] a Sulfate -14 WASTE: F/P l 08:13: - Sink; E [place] 00 - [facility] Trash Bin potassium No Notes: [facility] a phosphate-s -14 (Same as: l odium 08:13: Phos-NaK) [place] phosphate 00 Each 1.5 250 mg-280 gm pkt has mg-160 mg 250mg oral powder phosphorou for s. Mix reconstitut w/2.5oz ion water and stir. Calcium No Notes: [facility] Carbonate -14 (Same As: l 500 MG 08:13: Tums) [place] Chewable 00 Calcium Tablet Carbonate 500 mg = 200 mg elemental calcium Dose = mg calcium carbonate ( mg elemental calcium) Calcium No Notes: [facility] Gluconate - WASTE: F/P l 08:13: - Sink; E [place] - [employer] Trash Bin potassium No Notes: [facility] a phosphate + 5-14 (Same as: l sodium 08:13: K [place] chloride 00 Phosphate. 0.9% INJ ) 1 mMol 250 mL phoshate has 1.47 mEq potassium Infuse over 4 hours sodium No 45 mmol, [facility] phosphate + 5-14 15 mL, l sodium 08:13: Route: [place] chloride 00 IVPB, PRN, 0.9% INJ Dosing 250 mL Weight 73.007, kg, PRN Abnormal Lab Result, Start date: 09/25/16 3:13:00 CDT, Duration: 30 day, Stop date: 10/25/16 3:12:00 CDT, FOR ICU USE ONLY potassium No Notes: [facility] a chloride -14 (Same as: l 08:13: Potassium [place] 00 Chloride) Magnesium No Notes: [facility] a Oxide -14 (Same as: l 08:13: Mag-Ox [place] 00 400) Magnesium oxide 705wl=[id number] g elemental magnesium Dose=____m g magnesium oxide (___mg elemental magnesium) Magnesium No Notes: [facility] a Sulfate -14 WASTE: F/P l 08:13: - Sink; E [place] - [facility] Tr[facility] Bin potassium No Notes: [facility] a phosphate-s -14 (Same as: l odium 08:13: Phos-NaK) [place] phosphate 00 Each 1.5 250 mg-280 gm pkt has mg-160 mg 250mg oral powder phosphorou for s. Mix reconstitut w/2.5oz ion water and stir. Calcium No Notes: [facility] Carbonate -14 (Same As: l 500 MG 08:13: Tums) Kenneth Chewable 00 Calcium Tablet Carbonate 500 mg = 200 mg elemental calcium Dose = mg calcium carbonate ( mg elemental calcium) Calcium No Notes: [facility] Gluconate - WASTE: F/P l 08:13: - Sink; E Kenneth 00 - [facility] Trash Bin potassium No Notes: [facility] a phosphate + -14 (Same as: l sodium 08:13: K [place] chloride 00 Phosphate. 0.9% INJ ) 1 mMol 250 mL phoshate has 1.47 mEq potassium Infuse over 4 hours sodium No 45 mmol, [facility] phosphate + 5-14 15 mL, l sodium 08:13: Route: [place] chloride 00 IVPB, PRN, 0.9% INJ Dosing 250 mL Weight 73.007, kg, PRN Abnormal Lab Result, Start date: 09/25/16 3:13:00 CDT, Duration: 30 day, Stop date: 10/25/16 3:12:00 CDT, FOR ICU USE ONLY potassium No Notes: Mem[facility] a chloride - (Same as: l 08:13: Potassium [place] 00 Chloride) Magnesium No Notes: [facility] a Oxide - (Same as: l 08:13: Mag-Ox [place] 00 400) Magnesium oxide 067zy=421t g elemental magnesium Dose=____m g magnesium oxide (___mg elemental magnesium) Magnesium No Notes: [facility] a Sulfate - WASTE: F/P l 08:13: - Sink; E [place] 00 - [facility] Tr[facility] Bin potassium No Notes: [facility] a phosphate-s -14 (Same as: l odium 08:13: Phos-NaK) Kenneth phosphate 00 Each 1.5 250 mg-280 gm pkt has mg-160 mg 250mg oral powder phosphorou for s. Mix reconstitut w/2.5oz ion water and stir. Calcium No Notes: [facility] Carbonate -14 (Same As: l 500 MG 08:13: Tums) [place] Chewable 00 Calcium Tablet Carbonate 500 mg = 200 mg elemental calcium Dose = mg calcium carbonate ( mg elemental calcium) Calcium No Notes: [facility] Gluconate 5-14 WASTE: F/P l 08:13: - Sink; E [place] 00 - [facility] Tr[facility] potassium No Notes: [facility] a phosphate + -14 (Same as: l sodium 08:13: K [place] chloride 00 Phosphate. 0.9% INJ ) 1 mMol 250 mL phoshate has 1.47 mEq potassium Infuse over 4 hours sodium No 45 mmol, [facility] phosphate + 5-14 15 mL, l sodium 08:13: Route: [place] chloride 00 IVPB, PRN, 0.9% INJ Dosing 250 mL Weight 73.007, kg, PRN Abnormal Lab Result, Start date: 09/25/16 3:13:00 CDT, Duration: 30 day, Stop date: 10/25/16 3:12:00 CDT, FOR ICU USE ONLY potassium No Notes: [facility] a chloride -14 (Same as: l 08:13: Potassium [place] 00 Chloride) Magnesium No Notes: [facility] a Oxide -14 (Same as: l 08:13: Mag-Ox [place] 00 400) Magnesium oxide 333vc=943p g elemental magnesium Dose=____m g magnesium oxide (___mg elemental magnesium) Magnesium No Notes: [facility] a Sulfate - WASTE: F/P l 08:13: - Sink; E - [facility] Tr[facility] Bin potassium No Notes: [facility] a phosphate-s -14 (Same as: l odium 08:13: Phos-NaK) Kenneth phosphate 00 Each 1.5 250 mg-280 gm pkt has mg-160 mg 250mg oral powder phosphorou for s. Mix reconstitut w/2.5oz ion water and stir. Calcium No Notes: [facility] Carbonate 5-14 (Same As: l 500 MG 08:13: Tums) [place] Chewable 00 Calcium Tablet Carbonate 500 mg = 200 mg elemental calcium Dose = mg calcium carbonate ( mg elemental calcium) Calcium No Notes: [facility] Gluconate 5-14 WASTE: F/P l 08:13: - Sink; E [place] 00 - [facility] Trash Bin potassium No Notes: [facility] a phosphate + 5-14 (Same as: l sodium 08:13: K [place] chloride 00 Phosphate. 0.9% INJ ) 1 mMol 250 mL phoshate has 1.47 mEq potassium Infuse over 4 hours sodium No 45 mmol, [facility] phosphate + 5-14 15 mL, l sodium 08:13: Route: [place] chloride 00 IVPB, PRN, 0.9% INJ Dosing 250 mL Weight 73.007, kg, PRN Abnormal Lab Result, Start date: 09/25/16 3:13:00 CDT, Duration: 30 day, Stop date: 10/25/16 3:12:00 CDT, FOR ICU USE ONLY potassium No Notes: [facility] a chloride -14 (Same as: l 08:13: Potassium [place] Chloride) Magnesium No Notes: [facility] a Oxide -14 (Same as: l 08:13: Mag-Ox [place] 400) Magnesium oxide [id number] g elemental magnesium Dose=____m g magnesium oxide (___mg elemental magnesium) Magnesium No Notes: [facility] a Sulfate -14 WASTE: F/P l 08:13: - Sink; E - [facility] Tr[facility] potassium No Notes: [facility] a phosphate-s -14 (Same as: l odium 08:13: Phos-NaK) [place] phosphate 00 Each 1.5 250 mg-280 gm pkt has mg-160 mg 250mg oral powder phosphorou for s. Mix reconstitut w/2.5oz ion water and stir. Ampicillin No Notes: [facility] ia -14 (Same as: l 07:00: [place]) Kenneth 00 MEDICATION WASTE Product Size: 1000 mg Product Wasted: ___ mg Ampicillin No Notes: [facility] ia 5-14 (Same as: l 07:00: [place]) [place] 00 MEDICATION WASTE Product Size: 1000 mg Product Wasted: ___ mg Ampicillin No Notes: [facility] ia 5-14 (Same as: l 07:00: [place]) [place] 00 MEDICATION WASTE Product Size: 1000 mg Product Wasted: ___ mg Ampicillin 2016- No Notes: [facility] ia 5-14 (Same as: l 07:00: Princip) Kenneth 00 MEDICATION WASTE Product Size: 1000 mg Product Wasted: ___ mg Ampicillin No Notes: [facility] ia 5-14 (Same as: l 07:00: Princip) Kenneth 00 MEDICATION WASTE Product Size: 1000 mg Product Wasted: ___ mg Albuterol No Notes: Mem[facility] a 0.833 MG/ML 5-14 (Same as: :35: Duoneb) [place] Ipratropium 00 [place] 0.167 MG/ML Inhalant Solution Albuterol No Notes: [facility] a 0.833 MG/ML 5-14 (Same as: :35: Duoneb) Kenneth Ipratropium 00 [place] 0.167 MG/ML Inhalant Solution Albuterol No Notes: [facility] a 0.833 MG/ML 5-14 (Same as: :35: Duoneb) Kenneth Ipratropium 00 [place] 0.167 MG/ML Inhalant Solution Albuterol No Notes: [facility] a 0.833 MG/ML 5-14 (Same as: :35: Duoneb) [place] Ipratropium 00 [place] 0.167 MG/ML Inhalant Solution Albuterol No Notes: [facility] a 0.833 MG/ML 5-14 (Same as: :35: Duoneb) Kenneth Ipratropium 00 [place] 0.167 MG/ML Inhalant Solution D5W 1/2NS No 1,000 mL, Mem oria 1,000 mL 5-14 Rate: 50 l 06:32: ml/hr, [place] 00 Infuse over: 20 hr, Route: IV, Dosing Weight 73.007 kg, Total Volume: 1,000, Start date: 09/25/16 1:32:00 CDT, Stop date: 10/25/16 1:31:00 CDT D5W /2NS 2017-0 No 1,000 mL, Mem oria 1,000 mL 5-14 Rate: 50 l 06:32: ml/hr, Kenneth 00 Infuse over: 20 hr, Route: IV, Dosing Weight 73.007 kg, Total Volume: 1,000, Start date: 09/25/16 1:32:00 CDT, Stop date: 10/25/16 1:31:00 CDT D5W 2NS 2017-0 No 1,000 mL, Mem oria 1,000 mL 5-14 Rate: 50 l 06:32: ml/hr, [place] 00 Infuse over: 20 hr, Route: IV, Dosing Weight 73.007 kg, Total Volume: 1,000, Start date: 09/25/16 1:32:00 CDT, Stop date: 10/25/16 1:31:00 CDT D5W 2NS 2017-0 No 1,000 mL, Mem oria 1,000 mL 5-14 Rate: 50 l 06:32: ml/hr, Kenneth 00 Infuse over: 20 hr, Route: IV, Dosing Weight 73.007 kg, Total Volume: 1,000, Start date: 09/25/16 1:32:00 CDT, Stop date: 10/25/16 1:31:00 CDT D5W 2NS 2017-0 No 1,000 mL, Mem oria 1,000 mL 5-14 Rate: 50 l 06:32: ml/hr, [place] 00 Infuse over: 20 hr, Route: IV, Dosing Weight 73.007 kg, Total Volume: 1,000, Start date: 09/25/16 1:32:00 CDT, Stop date: 10/25/16 1:31:00 CDT Lactated 2017-0 No 1,000 mL, Simone chintan Ringers 5-14 Rate: 75 l 1,000 mL 06:08: ml/hr, [place] 00 Infuse over: 13.3 hr, Route: IV, Dosing Weight 73.007 kg, Total Volume: 1,000, Start date: 09/25/16 1:08:00 CDT, Duration: 30 day, Stop date: 10/25/16 1:07:00 CDT Lactated 2017-0 No 1,000 mL, Simone chintan Ring[place] 5-14 Rate: 75 l 1,000 mL 06:08: ml/hr, [place] 00 Infuse over: 13.3 hr, Route: IV, Dosing Weight 73.007 kg, Total Volume: 1,000, Start date: 09/25/16 1:08:00 CDT, Duration: 30 day, Stop date: 10/25/16 1:07:00 CDT Lactated 2017-0 No 1,000 mL, Simone chintan Ringers 5-14 Rate: 75 l 1,000 mL 06:08: ml/hr, Kenneth 00 Infuse over: 13.3 hr, Route: IV, Dosing Weight 73.007 kg, Total Volume: 1,000, Start date: 09/25/16 1:08:00 CDT, Duration: 30 day, Stop date: 10/25/16 1:07:00 CDT Lactated 2017-0 No 1,000 mL, Simone chintan Ringers 5-14 Rate: 75 l 1,000 mL 06:08: ml/hr, [place] 00 Infuse over: 13.3 hr, Route: IV, Dosing Weight 73.007 kg, Total Volume: 1,000, Start date: 09/25/16 1:08:00 CDT, Duration: 30 day, Stop date: 10/25/16 1:07:00 CDT Lactated 2017-0 No 1,000 mL, Simone chintan Ringers 5-14 Rate: 75 l 1,000 mL 06:08: ml/hr, [place] 00 Infuse over: 13.3 hr, Route: IV, Dosing Weight 73.007 kg, Total Volume: 1,000, Start date: 09/25/16 1:08:00 CDT, Duration: 30 day, Stop date: 10/25/16 1:07:00 CDT gabapentin 2017-0 Yes See [facility] 5-14 Instructio l 05:55: ns, 600mg [place] 00 qAM and 1200mg qPM, 0 Refill(s) gabapentin 2017-0 Yes See [facility] 5-14 Instructio l 05:55: ns, 600mg [place] 00 qAM and 1200mg qPM, 0 Refill(s) gabapentin 2017-0 Yes See [facility] 5-14 Instructio l 05:55: ns, 600mg [place] 00 qAM and 1200mg qPM, 0 Refill(s) gabapentin 2017-0 Yes See [facility] 5-14 Instructio l 05:55: ns, 600mg Kenneth 00 qAM and 1200mg qPM, 0 Refill(s) gabapentin Yes See [facility] 14 Instructio l 05:55: ns, 600mg [place] 00 qAM and 1200mg qPM, 0 Refill(s) tramadol Yes 50 mg = 1 Simone chintan hydrochlori 5-14 tab, PO, l de 50 MG 05:50: BID, 0 Kenneth Oral Tablet 00 Refill(s) atorvastati Yes 10 mg = 1 M emoria n 10 mg 5-14 tab, PO, l oral tablet 05:50: Daily, 0 [place] 00 Refill(s) Doxepin Yes 100 mg = 2 Simone chintan Hydrochlori 5-14 cap, PO, l de 50 MG 05:50: Daily, 0 [place] nn Oral 00 Refill(s) Capsule zolpidem 10 No 10 mg = 1 M emoria mg oral 5-14 tab, PO, l tablet 05:50: Bedtime, 0 [place] nn 00 Refill(s) Furosemide Yes 20 mg = 1 Me moria 20 MG Oral 5-14 tab, PO, l Tablet 05:50: Daily, 0 Kenneth 00 Refill(s) Pramipexole Yes PO, 0 [facility] ia 5-14 Refill(s) l 05:50: [place] 00 pregabalin Yes 150 mg = 1 M emoria 150 mg oral 5-14 cap, PO, l capsule 05:50: BID, 0 [place] 00 Refill(s) isosorbide Yes 30 mg = 1 Me moria mononitrate 5-14 tab, PO, l 30 mg oral 05:50: QAM, 0 [place] nn tablet, 00 Refill(s) extended release Aspirin Yes 81 mg, PO, Simone chintan 5-14 Daily, 0 l 05:50: Refill(s) [place] 00 clopidogrel No 75 mg = 1 M emoria 75 MG Oral 5-14 tab, PO, l Tablet 05:50: Daily, 0 Kenneth [Plavix] 00 Refill(s) roflumilast Yes 500 Memori a 500 mcg 5-14 microgram l oral tablet 05:50: = 1 tab, [place] r[place] 00 PO, Daily, 0 Refill(s) montelukast Yes 10 mg = 1 M emoria 10 mg oral 5-14 tab, PO, l tablet 05:50: Daily, 0 [place] 00 Refill(s) Hydrochloro No 1 tab, PO, [facility] thiazide 5-14 Daily, 0 l 12.5 MG / 05:50: Refill(s) Her kee valsartan 00 160 MG Oral Tablet tramadol Yes 50 mg = 1 Simone chintan hydrochlori 5-14 tab, PO, l de 50 MG 05:50: BID, 0 Kenneth Oral Tablet 00 Refill(s) atorvastati Yes 10 mg = 1 M emoria n 10 mg 5-14 tab, PO, l oral tablet 05:50: Daily, 0 [place] 00 Refill(s) Doxepin Yes 100 mg = 2 Simone chintan Hydrochlori 5-14 cap, PO, l de 50 MG 05:50: Daily, 0 [place] nn Oral 00 Refill(s) Capsule zolpidem 10 No 10 mg = 1 M emoria mg oral 5-14 tab, PO, l tablet 05:50: Bedtime, 0 [place] nn 00 Refill(s) Furosemide Yes 20 mg = 1 Me moria 20 MG Oral 5-14 tab, PO, l Tablet 05:50: Daily, 0 [place] 00 Refill(s) Pramipexole Yes PO, 0 Mem[facility] ia 5-14 Refill(s) l 05:50: [place] 00 pregabalin Yes 150 mg = 1 M emoria 150 mg oral 5-14 cap, PO, l capsule 05:50: BID, 0 [place] 00 Refill(s) isosorbide Yes 30 mg = 1 Me moria mononitrate 5-14 tab, PO, l 30 mg oral 05:50: QAM, 0 [place] nn tablet, 00 Refill(s) extended release Aspirin Yes 81 mg, PO, Simone chintan 5-14 Daily, 0 l 05:50: Refill(s) [place] 00 clopidogrel No 75 mg = 1 M emoria 75 MG Oral 5-14 tab, PO, l Tablet 05:50: Daily, 0 [place] [Plavix] 00 Refill(s) roflumilast Yes 500 Memori a 500 mcg 5-14 microgram l oral tablet 05:50: = 1 tab, [place] 00 PO, Daily, 0 Refill(s) montelukast Yes 10 mg = 1 M emoria 10 mg oral 5-14 tab, PO, l tablet 05:50: Daily, 0 [place] 00 Refill(s) Hydrochloro No 1 tab, PO, [facility] thiazide 5-14 Daily, 0 l 12.5 MG / 05:50: Refill(s) Her kee valsartan 00 160 MG Oral Tablet tramadol Yes 50 mg = 1 Simone chintan hydrochlori 5-14 tab, PO, l de 50 MG 05:50: BID, 0 [place] Oral Tablet 00 Refill(s) atorvastati Yes 10 mg = 1 M emoria n 10 mg 5-14 tab, PO, l oral tablet 05:50: Daily, 0 [place] 00 Refill(s) Doxepin Yes 100 mg = 2 Simone chintan Hydrochlori 5-14 cap, PO, l de 50 MG 05:50: Daily, 0 [place] nn Oral 00 Refill(s) Capsule zolpidem 10 No 10 mg = 1 M emoria mg oral 5-14 tab, PO, l tablet 05:50: Bedtime, 0 [place] nn 00 Refill(s) Furosemide Yes 20 mg = 1 Me moria 20 MG Oral 5-14 tab, PO, l Tablet 05:50: Daily, 0 [place] 00 Refill(s) Pramipexole Yes PO, 0 Memor ia 5-14 Refill(s) l 05:50: [place] 00 pregabalin Yes 150 mg = 1 M emoria 150 mg oral 5-14 cap, PO, l capsule 05:50: BID, 0 [place] 00 Refill(s) isosorbide Yes 30 mg = 1 Me moria mononitrate 5-14 tab, PO, l 30 mg oral 05:50: QAM, 0 [place] nn tablet, 00 Refill(s) extended release Aspirin 2017 Yes 81 mg, PO, Simone chintan 5-14 Daily, 0 l 05:50: Refill(s) [place] 00 clopidogrel No 75 mg = 1 M emoria 75 MG Oral 5-14 tab, PO, l Tablet 05:50: Daily, 0 [place] [Plavix] 00 Refill(s) roflumilast Yes 500 Memori a 500 mcg 5-14 microgram l oral tablet 05:50: = 1 tab, [place] 00 PO, Daily, 0 Refill(s) montelukast Yes 10 mg = 1 M emoria 10 mg oral 5-14 tab, PO, l tablet 05:50: Daily, 0 [place] 00 Refill(s) Hydrochloro No 1 tab, PO, [facility] thiazide 5-14 Daily, 0 l 12.5 MG / 05:50: Refill(s) Her [place] valsartan 00 160 MG Oral Tablet tramadol Yes 50 mg = 1 Simone chintan hydrochlori 5-14 tab, PO, l de 50 MG 05:50: BID, 0 [place] Oral Tablet 00 Refill(s) atorvastati Yes 10 mg = 1 M emoria n 10 mg 5-14 tab, PO, l oral tablet 05:50: Daily, 0 [place] 00 Refill(s) Doxepin Yes 100 mg = 2 Simone chintan Hydrochlori 5-14 cap, PO, l de 50 MG 05:50: Daily, 0 [place] nn Oral 00 Refill(s) Capsule zolpidem 10 No 10 mg = 1 M emoria mg oral 5-14 tab, PO, l tablet 05:50: Bedtime, 0 [place] nn 00 Refill(s) Furosemide Yes 20 mg = 1 Me moria 20 MG Oral 5-14 tab, PO, l Tablet 05:50: Daily, 0 [place] 00 Refill(s) Pramipexole Yes PO, 0 Mem[facility] ia 5-14 Refill(s) l 05:50: [place] 00 pregabalin Yes 150 mg = 1 M emoria 150 mg oral 5-14 cap, PO, l capsule 05:50: BID, 0 [place] 00 Refill(s) isosorbide Yes 30 mg = 1 Me moria mononitrate 5-14 tab, PO, l 30 mg oral 05:50: QAM, 0 [place] nn tablet, 00 Refill(s) extended release Aspirin Yes 81 mg, PO, Simone chintan 5-14 Daily, 0 l 05:50: Refill(s) [place] 00 clopidogrel No 75 mg = 1 M emoria 75 MG Oral 5-14 tab, PO, l Tablet 05:50: Daily, 0 [place] [Plavix] 00 Refill(s) roflumilast Yes 500 Memori a 500 mcg 5-14 microgram l oral tablet 05:50: = 1 tab, [place] 00 PO, Daily, 0 Refill(s) montelukast Yes 10 mg = 1 M emoria 10 mg oral 5-14 tab, PO, l tablet 05:50: Daily, 0 [place] 00 Refill(s) Hydrochloro No 1 tab, PO, [facility] thiazide 5-14 Daily, 0 l 12.5 MG / 05:50: Refill(s) [place] valsartan 00 160 MG Oral Tablet tramadol Yes 50 mg = 1 Simone chintan hydrochlori 5-14 tab, PO, l de 50 MG 05:50: BID, 0 [place] Oral Tablet 00 Refill(s) atorvastati Yes 10 mg = 1 M emoria n 10 mg 5-14 tab, PO, l oral tablet 05:50: Daily, 0 [place] 00 Refill(s) Doxepin Yes 100 mg = 2 Simone chintan Hydrochlori 5-14 cap, PO, l de 50 MG 05:50: Daily, 0 [place] nn Oral 00 Refill(s) Capsule zolpidem 10 No 10 mg = 1 M emoria mg oral 5-14 tab, PO, l tablet 05:50: Bedtime, 0 [place] nn 00 Refill(s) Furosemide Yes 20 mg = 1 Me moria 20 MG Oral 5-14 tab, PO, l Tablet 05:50: Daily, 0 [place] 00 Refill(s) Pramipexole Yes PO, 0 Memor ia 5-14 Refill(s) l 05:50: [place] 00 pregabalin 2017 Yes 150 mg = 1 M emoria 150 mg oral 5-14 cap, PO, l capsule 05:50: BID, 0 [place] 00 Refill(s) isosorbide Yes 30 mg = 1 Me moria mononitrate 5-14 tab, PO, l 30 mg oral 05:50: QAM, 0 [place] nn tablet, 00 Refill(s) extended release Aspirin 2017 Yes 81 mg, PO, Simone chintan 5-14 Daily, 0 l 05:50: Refill(s) [place] 00 clopidogrel No 75 mg = 1 M emoria 75 MG Oral 5-14 tab, PO, l Tablet 05:50: Daily, 0 [place] [Plavix] 00 Refill(s) roflumilast Yes 500 Memori a 500 mcg 5-14 microgram l oral tablet 05:50: = 1 tab, [place] 00 PO, Daily, 0 Refill(s) montelukast Yes 10 mg = 1 M emoria 10 mg oral 5-14 tab, PO, l tablet 05:50: Daily, 0 [place] 00 Refill(s) Hydrochloro No 1 tab, PO, [facility] thiazide 5-14 Daily, 0 l 12.5 MG / 05:50: Refill(s) [place] valsartan 00 160 MG Oral Tablet Saline No Notes: [facility] Flush 0.9% 5-14 (Same as: l 05:38: BD [place] 00 Posiflush) Nystatin No Notes: [facility] 100 UNT/MG 5-14 (Same l Topical 05:38: as:Mycosta Herm jen Powder 00 tin, Nilstat) For external use only. Saline No Notes: [facility] Flush 0.9% 5-14 (Same as: l 05:38: BD [place] 00 Posiflush) Nystatin No Notes: [facility] 100 UNT/MG 5-14 (Same l Topical 05:38: as:Mycosta Herm jen Powder 00 tin, Nilstat) For external use only. Saline No Notes: [facility] Flush 0.9% 5-14 (Same as: l 05:38: BD [place] 00 Posiflush) Nystatin No Notes: [facility] 100 UNT/MG 5-14 (Same l Topical 05:38: as:Mycosta Herm jen Powder 00 tin, Nilstat) For external use only. Saline No Notes: [facility] Flush 0.9% 5-14 (Same as: l 05:38: BD [place] 00 Posiflush) Nystatin No Notes: [facility] 100 UNT/MG 5-14 (Same l Topical 05:38: as:Mycosta Herm jen Powder 00 tin, Nilstat) For external use only. Saline No Notes: [facility] Flush 0.9% 5-14 (Same as: l 05:38: BD [place] 00 Posiflush) Nystatin No Notes: [facility] 100 UNT/MG 5-14 (Same l Topical 05:38: as:[place] Herm jen Powder 00 tin, Nilstat) For external use only. albuterol albuterol No albuterol [place] sulfate 2.5 sulfate 2.5 sulfate da mg/3 mL mg/3 mL 2.5 mg/3 Medic al (0.083 %) (0.083 %) mL (0.083 Group solution solution %) for for solution nebulizatio nebulizatio for n INHALE 3 n INHALE 3 nebulizati ML EVERY 4 ML EVERY 4 on INHALE HOURS BY HOURS BY 3 ML EVERY NEBULIZATIO NEBULIZATIO 4 HOURS BY N ROUTE FOR N ROUTE FOR NEBULIZATI 30 DAYS. 30 DAYS. ON ROUTE FOR 30 DAYS. doxepin 25 doxepin 25 No doxepin 25 [place] mg capsule mg capsule mg capsule da TAKE 1 TO 2 TAKE 1 TO 2 TAKE 1 TO Medical CAPSULES BY CAPSULES BY 2 CAPSULES Group MOUTH DAILY MOUTH DAILY BY MOUTH AT BEDTIME AT BEDTIME DAILY AT BEDTIME furosemide furosemide No furosemide [place] 20 mg 20 mg 20 mg da tablet TAKE tablet TAKE tablet Medical 1 TABLET BY 1 TABLET BY TAKE 1 Group MOUTH EVERY MOUTH EVERY TABLET BY DAY IN THE DAY IN THE MOUTH MORNING MORNING EVERY DAY IN THE MORNING hydrochloro hydrochloro No hydrochlor [facility] thiazide thiazide othiazide da 12.5 mg 12.5 mg 12.5 mg Medica l tablet TAKE tablet TAKE tablet Group 1 TABLET BY 1 TABLET BY TAKE 1 MOUTH EVERY MOUTH EVERY TABLET BY DAY DAY MOUTH EVERY DAY ipratropium ipratropium No 3mL QID ipratropiu [place] 0.5 0.5 m 0.5 da mg-albutero mg-albutero mg-albuter Medical l 3 mg (2.5 l 3 mg (2.5 ol 3 mg Group mg base)/3 mg base)/3 (2.5 mg mL mL base)/3 mL nebulizatio nebulizatio nebulizati n soln n soln on soln Inhale 3 mL Inhale 3 mL Inhale 3 4 times a 4 times a mL 4 times day by day by a day by nebulizatio nebulizatio nebulizati n route as n route as on route needed. needed. as needed. pantoprazol pantoprazol No pantoprazo [place] e 40 mg e 40 mg le 40 mg da tablet,anupam tablet,anupam tablet,del Medical yed release yed release ayed G roup TAKE 1 TAKE 1 release TABLET BY TABLET BY TAKE 1 MOUTH EVERY MOUTH EVERY TABLET BY DAY AT DAY AT MOUTH BEDTIME FOR BEDTIME FOR EVERY DAY 30 DAYS 30 DAYS AT BEDTIME FOR 30 DAYS rosuvastati rosuvastati No rosuvastat [place] n 40 mg n 40 mg in 40 mg da tablet TAKE tablet TAKE tablet Medical 1 TABLET BY 1 TABLET BY TAKE 1 Group MOUTH EVERY MOUTH EVERY TABLET BY DAY DAY MOUTH EVERY DAY Symbicort Symbicort No 2puff(s BID Symbicort [place] 160 mcg-4.5 160 mcg-4.5 ) 160 d a mcg/actuati mcg/actuati mcg-4.5 Medical on HFA on HFA mcg/actuat Group aerosol aerosol ion HFA inhaler inhaler aerosol Inhale 2 Inhale 2 inhaler puffs twice puffs twice Inhale 2 a day by a day by puffs inhalation inhalation twice a route for route for day by 90 days. 90 days. inhalation route for 90 days. Tessalon Tessalon No 1capsul TID Tessalon [place] Perles 100 Perles 100 e(s) Perles 100 da mg capsule mg capsule mg capsule Medical Take 1 Take 1 Take 1 Group capsule 3 capsule 3 capsule 3 times a day times a day times a by oral by oral day by route as route as oral route needed for needed for as needed 30 days. 30 days. for 30 days. tramadol tramadol No tramadol [facility] 37.5 37.5 37.5 da mg-acetamin mg-acetamin mg-acetami Medical ophen 325 ophen 325 nophen 325 Group mg tablet mg tablet mg tablet TAKE 1 TAKE 1 TAKE 1 TABLET BY TABLET BY TABLET BY MOUTH TWICE MOUTH TWICE MOUTH PER DAY PER DAY TWICE PER NEEDED NEEDED DAY NEEDED zolpidem 10 zolpidem 10 No zolpidem [place] mg tablet mg tablet 10 mg da TAKE 1 TAKE 1 tablet Medical TABLET BY TABLET BY TAKE 1 Chen up MOUTH MOUTH TABLET BY EVERYDAY AT EVERYDAY AT MOUTH BEDTIME BEDTIME EVERYDAY AT BEDTIME albuterol albuterol No albuterol [place] sulfate 2.5 sulfate 2.5 sulfate da mg/3 mL mg/3 mL 2.5 mg/3 Medic al (0.083 %) (0.083 %) mL (0.083 Group solution solution %) for for solution nebulizatio nebulizatio for n INHALE 3 n INHALE 3 nebulizati ML EVERY 4 ML EVERY 4 on INHALE HOURS BY HOURS BY 3 ML EVERY NEBULIZATIO NEBULIZATIO 4 HOURS BY N ROUTE FOR N ROUTE FOR NEBULIZATI 30 DAYS. 30 DAYS. ON ROUTE FOR 30 DAYS. Augmentin Augmentin No 1 Q12H Augmentin [place] 875 mg-125 875 mg-125 875 mg-125 da mg tablet mg tablet mg tablet Medical Take 1 Take 1 Take 1 Group tablet tablet tablet every 12 every 12 every 12 hours by hours by hours by oral route oral route oral route for 7 days. for 7 days. for 7 days. benzonatate benzonatate No benzonatat [place] 100 mg 100 mg e 100 mg da capsule capsule capsule Medica l TAKE 1 TAKE 1 TAKE 1 Group CAPSULE BY CAPSULE BY CAPSULE BY MOUTH THREE MOUTH THREE MOUTH TIMES A DAY TIMES A DAY THREE NEEDED NEEDED TIMES A FOR 30 DAYS FOR 30 DAYS DAY NEEDED FOR 30 DAYS doxepin 25 doxepin 25 No doxepin 25 [place] mg capsule mg capsule mg capsule da TAKE 1 TO 2 TAKE 1 TO 2 TAKE 1 TO Medical CAPSULES BY CAPSULES BY 2 CAPSULES Group MOUTH DAILY MOUTH DAILY BY MOUTH AT BEDTIME AT BEDTIME DAILY AT BEDTIME furosemide furosemide No furosemide [place] 20 mg 20 mg 20 mg da tablet TAKE tablet TAKE tablet Medical 1 TABLET BY 1 TABLET BY TAKE 1 Group MOUTH EVERY MOUTH EVERY TABLET BY DAY IN THE DAY IN THE MOUTH MORNING MORNING EVERY DAY IN THE MORNING hydrochloro hydrochloro No hydrochlor [facility] thiazide thiazide othiazide da 12.5 mg 12.5 mg 12.5 mg Medica l tablet TAKE tablet TAKE tablet Group 1 TABLET BY 1 TABLET BY TAKE 1 MOUTH EVERY MOUTH EVERY TABLET BY DAY DAY MOUTH EVERY DAY ipratropium ipratropium No 3mL QID ipratropiu [facility] 0.5 0.5 m 0.5 da mg-albutero mg-albutero mg-albuter Medical l 3 mg (2.5 l 3 mg (2.5 ol 3 mg Group mg base)/3 mg base)/3 (2.5 mg mL mL base)/3 mL nebulizatio nebulizatio nebulizati n soln n soln on soln Inhale 3 mL Inhale 3 mL Inhale 3 4 times a 4 times a mL 4 times day by day by a day by nebulizatio nebulizatio nebulizati n route as n route as on route needed. needed. as needed. pantoprazol pantoprazol No pantoprazo [place] 40 mg e 40 mg le 40 mg da tablet,anupam tablet,anupam tablet,del Medical yed release yed release ayed G roup TAKE 1 TAKE 1 release TABLET BY TABLET BY TAKE 1 MOUTH EVERY MOUTH EVERY TABLET BY DAY AT DAY AT MOUTH BEDTIME FOR BEDTIME FOR EVERY DAY 30 DAYS 30 DAYS AT BEDTIME FOR 30 DAYS rosuvastati rosuvastati No rosuvastat [place] 40 mg n 40 mg in 40 mg da tablet TAKE tablet TAKE tablet Medical 1 TABLET BY 1 TABLET BY TAKE 1 Group MOUTH EVERY MOUTH EVERY TABLET BY DAY DAY MOUTH EVERY DAY Symbicort Symbicort No 2puff(s BID Symbicort [place] 160 mcg-4.5 160 mcg-4.5 ) 160 d a mcg/actuati mcg/actuati mcg-4.5 Medical on HFA on HFA mcg/actuat Group aerosol aerosol ion HFA inhaler inhaler aerosol Inhale 2 Inhale 2 inhaler puffs twice puffs twice Inhale 2 a day by a day by puffs inhalation inhalation twice a route for route for day by 90 days. 90 days. inhalation route for 90 days. tramadol tramadol No tramadol [facility] 37.5 37.5 37.5 da mg-acetamin mg-acetamin [facility] ophen 325 ophen 325 nophen 325 Group mg tablet mg tablet mg tablet TAKE 1 TAKE 1 TAKE 1 TABLET BY TABLET BY TABLET BY MOUTH TWICE MOUTH TWICE MOUTH PER DAY PER DAY TWICE PER NEEDED NEEDED DAY NEEDED zolpidem 10 zolpidem 10 No zolpidem [facility] mg tablet mg tablet 10 mg da TAKE 1 TAKE 1 tablet Medical TABLET BY TABLET BY TAKE 1 Chen up MOUTH MOUTH TABLET BY EVERYDAY AT EVERYDAY AT MOUTH BEDTIME BEDTIME EVERYDAY AT BEDTIME albuterol albuterol No albuterol [facility] sulfate 2.5 sulfate 2.5 sulfate da mg/3 mL mg/3 mL 2.5 mg/3 Medic al (0.083 %) (0.083 %) mL (0.083 Group solution solution %) for for solution nebulizatio nebulizatio for n INHALE 3 n INHALE 3 nebulizati ML EVERY 4 ML EVERY 4 on INHALE HOURS BY HOURS BY 3 ML EVERY NEBULIZATIO NEBULIZATIO 4 HOURS BY N ROUTE FOR N ROUTE FOR NEBULIZATI 30 DAYS. 30 DAYS. ON ROUTE FOR 30 DAYS. doxepin 25 doxepin 25 No doxepin 25 [facility] mg capsule mg capsule mg capsule da TAKE 1 TAKE 1 TAKE 1 Medical CAPSULE BY CAPSULE BY CAPSULE BY Group MOUTH DAILY MOUTH DAILY MOUTH AT BEDTIME AT BEDTIME DAILY AT BEDTIME furosemide furosemide No furosemide [facility] 20 mg 20 mg 20 mg da tablet TAKE tablet TAKE tablet Medical 1 TABLET BY 1 TABLET BY TAKE 1 Group MOUTH EVERY MOUTH EVERY TABLET BY DAY IN THE DAY IN THE MOUTH MORNING MORNING EVERY DAY IN THE MORNING hydrochloro hydrochloro No hydrochlor [facility] thiazide thiazide othiazide da 12.5 mg 12.5 mg 12.5 mg Medica l tablet TAKE tablet TAKE tablet Group 1 TABLET BY 1 TABLET BY TAKE 1 MOUTH EVERY MOUTH EVERY TABLET BY DAY DAY MOUTH EVERY DAY pantoprazol pantoprazol No pantoprazo [facility] e 40 mg e 40 mg le 40 mg da tablet,anupam tablet,anupam tablet,del Medical yed release yed release ayed G roup TAKE 1 TAKE 1 release TABLET BY TABLET BY TAKE 1 MOUTH EVERY MOUTH EVERY TABLET BY DAY AT DAY AT MOUTH BEDTIME FOR BEDTIME FOR EVERY DAY 30 DAYS 30 DAYS AT BEDTIME FOR 30 DAYS ropinirole ropinirole No 1 Q1D ropinirole [facility] 0.25 mg 0.25 mg 0.25 mg da tablet Take tablet Take tablet Medical 1 tablet 1 tablet Take 1 Group every day every day tablet by oral by oral every day route at route at by oral bedtime for bedtime for route at 30 days. 30 days. bedtime for 30 days. rosuvastati rosuvastati No rosuvastat [facility] n 40 mg n 40 mg in 40 mg da tablet TAKE tablet TAKE tablet Medical 1 TABLET BY 1 TABLET BY TAKE 1 Group MOUTH EVERY MOUTH EVERY TABLET BY DAY DAY MOUTH EVERY DAY Symbicort Symbicort No 2puff(s BID Symbicort [facility] 160 mcg-4.5 160 mcg-4.5 ) 160 d a mcg/actuati mcg/actuati mcg-4.5 Medical on HFA on HFA mcg/actuat Group aerosol aerosol ion HFA inhaler inhaler aerosol Inhale 2 Inhale 2 inhaler puffs twice puffs twice Inhale 2 a day by a day by puffs inhalation inhalation twice a route for route for day by 90 days. 90 days. inhalation route for 90 days. tramadol tramadol No tramadol [facility] 37.5 37.5 37.5 da mg-acetamin mg-acetamin [facility] ophen 325 ophen 325 nophen 325 Group mg tablet mg tablet mg tablet TAKE 1 TAKE 1 TAKE 1 TABLET BY TABLET BY TABLET BY MOUTH TWICE MOUTH TWICE MOUTH PER DAY PER DAY TWICE PER NEEDED NEEDED DAY NEEDED albuterol albuterol No albuterol [facility] sulfate 2.5 sulfate 2.5 sulfate da mg/3 mL mg/3 mL 2.5 mg/3 Medic al (0.083 %) (0.083 %) mL (0.083 Group solution solution %) for for solution nebulizatio nebulizatio for n INHALE 3 n INHALE 3 nebulizati ML EVERY 4 ML EVERY 4 on INHALE HOURS BY HOURS BY 3 ML EVERY NEBULIZATIO NEBULIZATIO 4 HOURS BY N ROUTE FOR N ROUTE FOR NEBULIZATI 30 DAYS. 30 DAYS. ON ROUTE FOR 30 DAYS. doxepin 25 doxepin 25 No doxepin 25 [facility] mg capsule mg capsule mg capsule da TAKE 1 TAKE 1 TAKE 1 Medical CAPSULE BY CAPSULE BY CAPSULE BY Group MOUTH DAILY MOUTH DAILY MOUTH AT BEDTIME AT BEDTIME DAILY AT BEDTIME furosemide furosemide No furosemide [facility] 20 mg 20 mg 20 mg da tablet TAKE tablet TAKE tablet Medical 1 TABLET BY 1 TABLET BY TAKE 1 Group MOUTH EVERY MOUTH EVERY TABLET BY DAY IN THE DAY IN THE MOUTH MORNING MORNING EVERY DAY IN THE MORNING hydrochloro hydrochloro No hydrochlor [facility] thiazide thiazide othiazide da 12.5 mg 12.5 mg 12.5 mg Medica l tablet TAKE tablet TAKE tablet Group 1 TABLET BY 1 TABLET BY TAKE 1 MOUTH EVERY MOUTH EVERY TABLET BY DAY DAY MOUTH EVERY DAY pantoprazol pantoprazol No pantoprazo [facility] e 40 mg e 40 mg le 40 mg da tablet,anupam tablet,anupam tablet,del Medical yed release yed release ayed G roup TAKE 1 TAKE 1 release TABLET BY TABLET BY TAKE 1 MOUTH EVERY MOUTH EVERY TABLET BY DAY AT DAY AT MOUTH BEDTIME FOR BEDTIME FOR EVERY DAY 30 DAYS 30 DAYS AT BEDTIME FOR 30 DAYS ropinirole ropinirole No 1 Q1D ropinirole [facility] 0.25 mg 0.25 mg 0.25 mg da tablet Take tablet Take tablet Medical 1 tablet 1 tablet Take 1 Group every day every day tablet by oral by oral every day route at route at by oral bedtime for bedtime for route at 30 days. 30 days. bedtime for 30 days. rosuvastati rosuvastati No rosuvastat [facility] n 40 mg n 40 mg in 40 mg da tablet TAKE tablet TAKE tablet Medical 1 TABLET BY 1 TABLET BY TAKE 1 Group MOUTH EVERY MOUTH EVERY TABLET BY DAY DAY MOUTH EVERY DAY Symbicort Symbicort No 2puff(s BID Symbicort [facility] 160 mcg-4.5 160 mcg-4.5 ) 160 d a mcg/actuati mcg/actuati mcg-4.5 Medical on HFA on HFA mcg/actuat Group aerosol aerosol ion HFA inhaler inhaler aerosol Inhale 2 Inhale 2 inhaler puffs twice puffs twice Inhale 2 a day by a day by puffs inhalation inhalation twice a route for route for day by 90 days. 90 days. inhalation route for 90 days. tramadol tramadol No tramadol [facility] 37.5 37.5 37.5 da mg-acetamin mg-acetamin [facility] ophen 325 ophen 325 nophen 325 Group mg tablet mg tablet mg tablet TAKE 1 TAKE 1 TAKE 1 TABLET BY TABLET BY TABLET BY MOUTH TWICE MOUTH TWICE MOUTH PER DAY PER DAY TWICE PER NEEDED NEEDED DAY NEEDED albuterol albuterol No albuterol [facility] sulfate 2.5 sulfate 2.5 sulfate da mg/3 mL mg/3 mL 2.5 mg/3 Medic al (0.083 %) (0.083 %) mL (0.083 Group solution solution %) for for solution nebulizatio nebulizatio for n INHALE 3 n INHALE 3 nebulizati ML EVERY 4 ML EVERY 4 on INHALE HOURS BY HOURS BY 3 ML EVERY NEBULIZATIO NEBULIZATIO 4 HOURS BY N ROUTE FOR N ROUTE FOR NEBULIZATI 30 DAYS. 30 DAYS. ON ROUTE FOR 30 DAYS. doxepin 25 doxepin 25 No doxepin 25 [facility] mg capsule mg capsule mg capsule da TAKE 1 TAKE 1 TAKE 1 Medical CAPSULE BY CAPSULE BY CAPSULE BY Group MOUTH DAILY MOUTH DAILY MOUTH AT BEDTIME AT BEDTIME DAILY AT BEDTIME gabapentin gabapentin No 1capsul TID gabapentin [facility] 300 mg 300 mg e(s) 300 mg da capsule capsule capsule Medica l Take 1 Take 1 Take 1 Group capsule 3 capsule 3 capsule 3 times a day times a day times a by oral by oral day by route as route as oral route directed directed as for 30 for 30 directed days. days. for 30 days. hydrochloro hydrochloro No hydrochlor [facility] thiazide thiazide othiazide da 12.5 mg 12.5 mg 12.5 mg Medica l tablet TAKE tablet TAKE tablet Group 1 TABLET BY 1 TABLET BY TAKE 1 MOUTH EVERY MOUTH EVERY TABLET BY DAY DAY MOUTH EVERY DAY Levaquin Levaquin No 1 Q24H Levaquin [facility] 500 mg 500 mg 500 mg da tablet Take tablet Take tablet Medical 1 tablet 1 tablet Take 1 Group every 24 every 24 tablet hours by hours by every 24 oral route oral route hours by for 10 for 10 oral route days. days. for 10 days. Medrol Medrol No 1dose Medrol [facility] ([facility]) 4 mg ([facility]) 4 mg pk(s) ([place]) 4 mg da tablets in tablets in tablets in Medical a dose pack a dose pack a dose Group Take 1 dose Take 1 dose pack Take pk by oral pk by oral 1 dose pk route as route as by oral directed. directed. route as directed. pantoprazol pantoprazol No pantoprazo [facility] e 40 mg e 40 mg le 40 mg da tablet,anupam tablet,anupam tablet,del Medical yed release yed release ayed G roup TAKE 1 TAKE 1 release TABLET BY TABLET BY TAKE 1 MOUTH EVERY MOUTH EVERY TABLET BY DAY AT DAY AT MOUTH BEDTIME FOR BEDTIME FOR EVERY DAY 30 DAYS 30 DAYS AT BEDTIME FOR 30 DAYS ropinirole ropinirole No 1 Q1D ropinirole [facility] 0.25 mg 0.25 mg 0.25 mg da tablet Take tablet Take tablet Medical 1 tablet 1 tablet Take 1 Group every day every day tablet by oral by oral every day route at route at by oral bedtime for bedtime for route at 30 days. 30 days. bedtime for 30 days. rosuvastati rosuvastati No rosuvastat [facility] n 40 mg n 40 mg in 40 mg da tablet TAKE tablet TAKE tablet Medical 1 TABLET BY 1 TABLET BY TAKE 1 Group MOUTH EVERY MOUTH EVERY TABLET BY DAY DAY MOUTH EVERY DAY Symbicort Symbicort No 2puff(s BID Symbicort [facility] 160 mcg-4.5 160 mcg-4.5 ) 160 d a mcg/actuati mcg/actuati mcg-4.5 Medical on HFA on HFA mcg/actuat Group aerosol aerosol ion HFA inhaler inhaler aerosol Inhale 2 Inhale 2 inhaler puffs twice puffs twice Inhale 2 a day by a day by puffs inhalation inhalation twice a route for route for day by 90 days. 90 days. inhalation route for 90 days. tramadol tramadol No tramadol [facility] 37.5 37.5 37.5 da mg-acetamin mg-acetamin [facility] ophen 325 ophen 325 nophen 325 Group mg tablet mg tablet mg tablet TAKE 1 TAKE 1 TAKE 1 TABLET BY TABLET BY TABLET BY MOUTH TWICE MOUTH TWICE MOUTH PER DAY PER DAY TWICE PER NEEDED NEEDED DAY NEEDED Immunizations Ordered Immunization Filled Immunization Date Status Commen ts Source Name Name Influenza vaccine, Influenza vaccine, 2022-04-20 Completed [facility] quadrivalent, quadrivalent, 12:28:27 [facility] Group adjuvanted adjuvanted Influenza vaccine, Influenza vaccine, 2022-04-20 Completed [facility] quadrivalent, quadrivalent, 12:28:27 [facility] Group adjuvanted adjuvanted influenza, high-dose, influenza, 2020-06-02 Completed [facility] quadrivalent high-dose, 16:08:07 [facility] quadrivalent influenza, high-dose, influenza, 2020-06-02 Completed [facility] quadrivalent high-dose, 16:08:07 [facility] p quadrivalent influenza, high-dose, influenza, 2020-06-02 Completed [facility] quadrivalent high-dose, 16:08:07 [facility] p quadrivalent influenza, high-dose, influenza, 2020-06-02 Completed [facility] quadrivalent high-dose, 16:08:07 [facility] p quadrivalent influenza, high-dose, influenza, 2020-06-02 Completed [facility] quadrivalent high-dose, 16:08:07 [facility] quadrivalent pneumococcal pneumococcal 2019 Completed [facility] polysaccharide PPV23 polysaccharide PPV23 00:00:00 [facility] Group influenza, influenza, 2019 Completed [facility] injectable, injectable, 00:00:00 [facility] p quadrivalent quadrivalent pneumococcal pneumococcal 2019 Completed [facility] polysaccharide PPV23 polysaccharide PPV23 00:00:00 [facility] Group influenza, influenza, 2019 Completed [facility] injectable, injectable, 00:00:00 [facility] Gr[facility] p quadrivalent quadrivalent pneumococcal pneumococcal 2019 Completed [facility] polysaccharide PPV23 polysaccharide PPV23 00:00:00 [facility] Group influenza, influenza, 2019 Completed [facility] injectable, injectable, 00:00:00 [facility] Gr[facility] p quadrivalent quadrivalent pneumococcal pneumococcal 2019 Completed [facility] polysaccharide PPV23 polysaccharide PPV23 00:00:00 [facility] Group influenza, influenza, 2019 Completed [facility] injectable, injectable, 00:00:00 [facility] Gr[facility] p quadrivalent quadrivalent pneumococcal pneumococcal 2019 Completed [facility] polysaccharide PPV23 polysaccharide PPV23 00:00:00 [facility] Group influenza, influenza, 2019 Completed [facility] injectable, injectable, 00:00:00 [facility] Gr[facility] p quadrivalent quadrivalent influenza, high dose influenza, high dose 2017-03-09 Completed [facility] seasonal seasonal 15:53:00 [facility] Group influenza, high dose influenza, high dose 2017-03-09 Completed [facility] 15:53:00 [facility] Group influenza, high dose influenza, high dose 2017-03-09 Completed [facility] 15:53:00 [facility] Group influenza, high dose influenza, high dose 2017-03-09 Completed [facility] 15:53:00 [facility] Group influenza, high dose influenza, high dose 2017-03-09 Completed [facility] 15:53:00 [facility] Group influenza, high dose influenza, high dose 2016-02-13 Completed [facility] 00:00:00 [facility] Group influenza, high dose influenza, high dose 2016-02-13 Completed [facility] 00:00:00 [facility] Group influenza, high dose influenza, high dose 2016-02-13 Completed [facility] 00:00:00 [facility] Group influenza, high dose influenza, high dose 2016-02-13 Completed [facility] 00:00:00 [facility] Group influenza, high dose influenza, high dose 2016-02-13 Completed [facility] 00:00:00 [facility] Group pneumococcal pneumococcal 2016-01-26 Completed [facility] conjugate PCV 13 conjugate PCV 13 09:52:00 Me dical Group pneumococcal pneumococcal 2016-01-26 Completed [facility] conjugate PCV 13 conjugate PCV 13 09:52:00 Me d[facility] Group pneumococcal pneumococcal 2016-01-26 Completed [facility] conjugate PCV 13 conjugate PCV 13 09:52:00 Me d[facility] Group pneumococcal pneumococcal 2016-01-26 Completed [facility] conjugate PCV 13 conjugate PCV 13 09:52:00 Me d[facility] Group pneumococcal pneumococcal 2016-01-26 Completed [facility] conjugate PCV 13 conjugate PCV 13 09:52:00 Me dical Group influenza, high dose influenza, high dose 2015-03-09 Completed [facility] 11:45:00 [facility] Group influenza, high dose influenza, high dose 2015-03-09 Completed [facility] 11:45:00 [facility] Group influenza, high dose influenza, high dose 2015-03-09 Completed [facility] 11:45:00 [facility] Group influenza, high dose influenza, high dose 2015-03-09 Completed [facility] 11:45:00 [facility] Group influenza, high dose influenza, high dose 2015-03-09 Completed [facility] seasonal seasonal 11:45:00 Medical Group influenza, seasonal, influenza, seasonal, 2014-02-12 Completed [facility] injectable injectable 00:00:00 [facility] Group influenza, seasonal, influenza, seasonal, 2014-02-12 Completed [facility] injectable injectable 00:00:00 [facility] Group influenza, seasonal, influenza, seasonal, 2014-02-12 Completed [facility] injectable injectable 00:00:00 [facility] Group influenza, seasonal, influenza, seasonal, 2014-02-12 Completed [facility] injectable injectable 00:00:00 [facility] Group influenza, seasonal, influenza, seasonal, 2014-02-12 Completed [facility] injectable injectable 00:00:00 [facility] Group Td (adult) Td (adult) 2010-05-15 Completed [facility] 00:00:00 [facility] Group Td (adult) Td (adult) 2010-05-15 Completed [facility] 00:00:00 [facility] Group Td (adult) Td (adult) 2010-05-15 Completed [facility] 00:00:00 [facility] Group Td (adult) Td (adult) 2010-05-15 Completed [facility] 00:00:00 [facility] Group Td (adult) Td (adult) 2010-05-15 Completed [facility] 00:00:00 [facility] Group pneumococcal pneumococcal 2002-05-15 Completed [facility] polysaccharide PPV23 polysaccharide PPV23 00:00:00 Medical Group pneumococcal pneumococcal 2002-05-15 Completed [facility] polysaccharide PPV23 polysaccharide PPV23 00:00:00 Medical Group pneumococcal pneumococcal 2002-05-15 Completed [facility] polysaccharide PPV23 polysaccharide PPV23 00:00:00 Medical Group pneumococcal pneumococcal 2002-05-15 Completed [facility] polysaccharide PPV23 polysaccharide PPV23 00:00:00 Medical Group pneumococcal pneumococcal 2002-05-15 Completed [facility] polysaccharide PPV23 polysaccharide PPV23 00:00:00 Medical Group Vital Signs Vital Name Observation Time Observation Value Comments Source BP Diastolic 2022-05-10 00:00:00 64 [facility] Height 2022-05-10 00:00:00 65 [in_i] [facility] BMI (Body Mass 2022-05-10 00:00:00 20.5 kg/m2 [facility] Medical Index) Group BP Systolic 2022-05-10 00:00:00 111 mm[Hg] [facility] Body Weight 2022-05-10 00:00:00 1968 [oz_av] [facility] BP Diastolic 2022-04-20 00:00:00 76 mm[Hg] [facility] Height 2022-04-20 00:00:00 65 [in_i] [facility] BMI (Body Mass 2022-04-20 00:00:00 20.5 kg/m2 [facility] [employer] dietary [employer] manager Medical Index) Group BP Systolic 2022-04-20 00:00:00 152 mm[Hg] [facility] Body Weight 2022-04-20 00:00:00 1969 [oz_av] [facility] BP Diastolic 2022-03-25 00:00:00 65 mm[Hg] [facility] Height 2022-03-25 00:00:00 65 [in_i] [facility] BMI (Body Mass 2022-03-25 00:00:00 19.6 kg/m2 [facility] dietary service manager Medical Index) Group BP Systolic 2022-03-25 00:00:00 99 mm[Hg] [facility] Body Weight 2022-03-25 00:00:00 1884.8 [oz_av] [facility] BP Diastolic 2022-01-19 00:00:00 63 mm[Hg] [facility] Height 2022-01-19 00:00:00 65 [in_i] [facility] BMI (Body Mass 2022-01-19 00:00:00 20.1 kg/m2 [facility] dietary service manager Medical Index) Group BP Systolic 2022-01-19 00:00:00 122 mm[Hg] [facility] Body Weight 2022-01-19 00:00:00 1936 [oz_av] [facility] BP Diastolic 2021-12-21 00:00:00 74 mm[Hg] [facility] Height 2021-12-21 00:00:00 65 [in_i] [facility] BMI (Body Mass 2021-12-21 00:00:00 20.8 kg/m2 [facility] dietary service manager Medical Index) Group BP Systolic 2021-12-21 00:00:00 166 mm[Hg] [facility] Body Weight 2021-12-21 00:00:00 1995.2 [oz_av] [facility] BP Diastolic 2021-10-19 00:00:00 56 mm[Hg] [facility] Height 2021-10-19 00:00:00 65 [in_i] [facility] BMI (Body Mass 2021-10-19 00:00[facility] BP Systolic 2021-10-19 00:00:00 112 mm[Hg] [facility] Body Weight 2021-10-19 00:00:00 2032 [oz_av] [facility] BP Diastolic 2021-09-21 00:00:00 79 mm[Hg] [facility] Height 2021-09-21 00:00:00 65 [in_i] [facility] BMI (Body Mass 2021-09-21 00:00:00 21.8 kg/m2 [facility] dietary service manager Medical Index) Group BP Systolic 2021-09-21 00:00:00 155 mm[Hg] [facility] Body Weight 2021-09-21 00:00:00 2096 [oz_av] [facility] BP Diastolic 2021-08-31 00:00:00 67 mm[Hg] [facility] Height 2021-08-31 00:00:00 65 [in_i] [facility] BMI (Body Mass 2021-08-31 00:00:00 [facility] BP Systolic 2021-08-31 00:00:00 136 mm[Hg] [facility] Body Weight 2021-08-31 00:00:00 2096 [oz_av] [facility] BP Diastolic 2021-08-23 00:00:00 47 mm[Hg] [facility] Height 2021-08-23 00:00:00 65 [in_i] [facility] BMI (Body Mass 2021-08-23 00:00:00 22 kg/m2 [facility] Medical Index) Group BP Systolic 2021-08-23 00:00:00 78 mm[Hg] [facility] Body Weight 2021-08-23 00:00:00 2112 [oz_av] [facility] BP Diastolic 2021-08-21 00:00:00 68 mm[Hg] [facility] Height 2021-08-21 00:00:00 65 [in_i] [facility] BMI (Body Mass 2021-08-21 00:00:00 22 kg/m2 [facility] Medical Index) Group BP Systolic 2021-08-21 00:00:00 102 mm[Hg] [facility] Body Weight 2021-08-21 00:00:00 2112 [oz_av] [facility] BP Diastolic 2021-08-10 00:00:00 74 mm[Hg] [facility] Height 2021-08-10 00:00:00 65 [in_i] [facility] BMI (Body Mass 2021-08-10 00:00:00 22.4 kg/m2 [facility] Medical Index) Group BP Systolic 2021-08-10 00:00:00 128 mm[Hg] [facility] Body Weight 2021-08-10 00:00:00 2151 [oz_av] [facility] BP Diastolic 2021-06-28 00:00:00 70 mm[Hg] [facility] Height 2021-06-28 00:00:00 65 [in_i] [facility] BMI (Body Mass 2021-06-28 00:00:00 22.4 kg/m2 [facility] Medical Index) Group BP Systolic 2021-06-28 00:00:00 123 mm[Hg] [facility] Body Weight 2021-06-28 00:00:00 2152 [oz_av] [facility] BP Diastolic 2021-06-21 00:00:00 74 mm[Hg] [facility] Height 2021-06-21 00:00:00 65 [in_i] [facility] BMI (Body Mass 2021-06-21 00:00:00 22.1 kg/m2 [facility] dietary service manager Medical Index) Group BP Systolic 2021-06-21 00:00:00 133 mm[Hg] [facility] Body Weight 2021-06-21 00:00:00 2128 [oz_av] [facility] BP Diastolic 2021-05-07 00:00:00 59 mm[Hg] [facility] Height 2021-05-07 00:00:00 65 [in_i] [facility] BMI (Body Mass 2021-05-07 00:00:00 [facility] BP Systolic 2021-05-07 00:00:00 121 mm[Hg] [facility] Body Weight 2021-05-07 00:00:00 2192 [oz_av] [facility] BP Diastolic 2021-04-29 00:00:00 67 mm[Hg] [facility] Height 2021-04-29 00:00:00 65 [in_i] [facility] BMI (Body Mass 2021-04-29 00:00:00 23.1 [facility] BP Systolic 2021-04-29 00:00:00 108 mm[Hg] [facility] Body Weight 2021-04-29 00:00:00 2222.4 [oz_av] [facility] BP Diastolic 2021-01-20 00:00:00 76 mm[Hg] [facility] Height 2021-01-20 00:00:00 65 [in_i] [facility] BMI (Body Mass 2021-01-20 00:00:00 23.4 kg/m2 [facility] kos[facility] dietary service manager Medical Index) Group BP Systolic 2021-01-20 00:00:00 173 mm[Hg] [facility] Body Weight 2021-01-20 00:00:00 2249 [oz_av] [facility] BP Diastolic 2020-10-29 00:00:00 66 mm[Hg] [facility] Height 2020-10-29 00:00:00 65 [in_i] [facility] BMI (Body Mass 2020-10-29 00:00:00 23 kg/m2 [facility] kos[facility] dietary service manager Medical Index) Group BP Systolic 2020-10-29 00:00:00 127 mm[Hg] [facility] Body Weight 2020-10-29 00:00:00 2215 [oz_av] [facility] BP Diastolic 2020-06-02 00:00:00 68 mm[Hg] [facility] Height 2020-06-02 00:00:00 65 [in_i] [facility] BMI (Body Mass 2020-06-02 00:00:00 23.3 kg/m2 [facility] kos[facility] dietary service manager Medical Index) Group BP Systolic 2020-06-02 00:00:00 148 mm[Hg] [facility] Body Weight 2020-06-02 00:00:00 2240 [oz_av] [facility] BP Diastolic 2020-02-21 00:00:00 78 mm[Hg] [facility] Height 2020-02-21 00:00:00 65 [in_i] [facility] BMI (Body Mass 2020-02-21 00:00:00 23.1 kg/m2 [facility] dietary service manager Medical Index) Group BP Systolic 2020-02-21 00:00:00 156 mm[Hg] [facility] Body Weight 2020-02-21 00:00:00 2224 [oz_av] [facility] BP Diastolic 2020-01-14 00:00:00 73 mm[Hg] [facility] Height 2020-01-14 00:00:00 65 [in_i] [facility] BMI (Body Mass 2020-01-14 00:00:00 23.4 kg/m2 [facility] dietary service manager Medical Index) Group BP Systolic 2020-01-14 00:00:00 139 mm[Hg] [facility] Body Weight 2020-01-14 00:00:00 2249 [oz_av] [facility] BP Diastolic 2019-06-24 00:00:00 77 mm[Hg] [facility] Height 2019-06-24 00:00:00 65 [in_i] [facility] BMI (Body Mass 2019-06-24 00:00:00 23.7 kg/m2 [facility] dietary service manager Medical Index) Group BP Systolic 2019-06-24 00:00:00 143 mm[Hg] [facility] Body Weight 2019-06-24 00:00:00 2278 [oz_av] [facility] BP Diastolic 2019-05-17 00:00:00 76 mm[Hg] [facility] Height 2019-05-17 00:00:00 65 [in_i] [facility] BMI (Body Mass 2019-05-17 00:00:00 [facility] BP Systolic 2019-05-17 00:00:00 176 mm[Hg] [facility] Body Weight 2019-05-17 00:00:00 2304 [oz_av] [facility] BP Diastolic 2019-02-21 00:00:00 77 mm[Hg] [facility] Height 2019-02-21 00:00:00 65 [in_i] [facility] BMI (Body Mass 2019-02-21 00:00:00 24.1 [facility] BP Systolic 2019-02-21 00:00:00 110 mm[Hg] [facility] [facility] Body Weight 2019-02-21 00:00:00 2320 [oz_av] [facility] BP Diastolic 2018-10-23 00:00:00 61 mm[Hg] [facility] Height 2018-10-23 00:00:00 65 [in_i] [facility] BMI (Body Mass 2018-10-23 00:00:00 23 [facility] BP Systolic 2018-10-23 00:00:00 126 mm[Hg] [facility] Body Weight 2018-10-23 00:00:00 2213 [oz_av] [facility] BP Diastolic 2018-07-24 00:00:00 83 mm[Hg] [facility] Height 2018-07-24 00:00:00 65 [in_i] [facility] BMI (Body Mass 2018-07-24 00:00:00 23.2 kg/m2 [facility] Index) Group BP Systolic 2018-07-24 00:00:00 186 mm[Hg] [facility] Body Weight 2018-07-24 00:00:00 2229 [oz_av] [facility] BP Diastolic 2018-07-10 00:00:00 99 mm[Hg] [facility] Height 2018-07-10 00:00:00 65 [in_i] [facility] BMI (Body Mass 2018-07-10 00:00:00 23.3 kg/m2 [facility] Medical Index) Group BP Systolic 2018-07-10 00:00:00 188 mm[Hg] [facility] Body Weight 2018-07-10 00:00:00 2240 [oz_av] [facility] BP Diastolic 2018-05-30 00:00:00 77 mm[Hg] [facility] Height 2018-05-30 00:00:00 65 [in_i] [facility] BMI (Body Mass 2018-05-30 00:00:00 22.4 kg/m2 [facility] Medical Index) Group BP Systolic 2018-05-30 00:00:00 129 mm[Hg] [facility] Body Weight 2018-05-30 00:00:00 2151 [oz_av] [facility] BP Diastolic 2018-05-23 00:00:00 67 mm[Hg] [facility] Height 2018-05-23 00:00:00 65 [in_i] [facility] BMI (Body Mass 2018-05-23 00:00:00 23 kg/m2 [facility] Medical Index) Group BP Systolic 2018-05-23 00:00:00 119 mm[Hg] [facility] Body Weight 2018-05-23 00:00:00 2212 [oz_av] [facility] Respitory Rate 2016-12-26 17:11:00 Memej al Kenneth Systolic (mm Hg) 2016-12-26 17:11:00 Simone Cooper Diastolic (mm Hg) 2016-12-26 17:11:00 Mem orial Kenneth Temperature Oral (F) 2016-12-26 17:11:00 98.4 F [facility] Heart Rate 2016-12-26 17:11:00 [facility] Respitory Rate 2016-12-26 14:18:00 [facility] [place] Systolic (mm Hg) 2016-12-26 13:00:00 Simone rial Kenneth Diastolic (mm Hg) 2016-12-26 13:00:00 [facility] [place] Heart Rate 2016-12-26 13:00:00 [facility] [place] Temperature Oral (F) 2016-12-26 13:00:00 98.3 F [facility] Temperature Oral (F) 2016-12-26 11:07:00 98.5 F [facility] [place] Heart Rate 2016-12-26 11:07:00 [facility] [place] Systolic (mm Hg) 2016-12-26 11:07:00 Simone rial Kenneth Diastolic (mm Hg) 2016-12-26 11:07:00 [facility] [place] Respitory Rate 2016-12-25 20:48:00 Memori al [facility] Weight 2016-12-25 15:45:00 [facility] BMI Calculated 2016-12-25 15:45:00 Memori al [facility] Height 2016-12-25 15:45:00 165.1 cm [facility] [place] BMI Calculated 2016-12-23 22:10:00 [facility] [place] Height 2016-12-23 22:10:00 165.1 cm [facility] [place] Weight 2016-12-23 22:10:00 [facility] Systolic (mm Hg) 2016-09-27 17:14:00 Simone rial Kenneth Diastolic (mm Hg) 2016-09-27 17:14:00 Mem [facility] [place] Heart Rate 2016-09-27 17:14:00 [facility] Temperature Oral (F) 2016-09-27 17:14:00 98.6 F [facility] Respitory Rate 2016-09-27 17:14:00 [facility] [place] Temperature Oral (F) 2016-09-27 13:04:00 98.2 F [facility] Heart Rate 2016-09-27 13:04:00 [facility] [place] Respitory Rate 2016-09-27 13:04:00 Memori al Kenneth Systolic (mm Hg) 2016-09-27 13:04:00 Simone rial [place] Diastolic (mm Hg) 2016-09-27 13:04:00 [facility] [place] Temperature Oral (F) 2016-09-27 09:00:00 97.4 F [facility] Respitory Rate 2016-09-27 09:00:00 Savanah dunlap Kenneth Heart Rate 2016-09-27 09:00:00 [facility] Systolic (mm Hg) 2016-09-27 09:00:00 Simone carney [place] Diastolic (mm Hg) 2016-09-27 09:00:00 [facility] dee dee Kenneth Height 2016-09-25 05:28:00 165.1 cm [facility] BMI Calculated 2016-09-25 05:28:00 Savanah dunlap Kenneth Weight 2016-09-25 05:28:00 [facility] Procedures Procedure Date / Time Performing Clinician Source Performed XR, ribs, unilateral 2022-05-10 00:00:00 [facility] XR, chest, 2 view 2021-08-23 00:00:00 [facility] XR, femur 2021-06-28 00:00:[address] [facility] [address], pelvis, w/o contrast 2021-06-21 00:00:[address] [facility] [address], lumbar spine, w/o 2021-06-21 00:00:00 [facility] contrast Group XR, femur 2021-06-21 00:00:00 [facility] XR, hip + pelvis, 2021-05-07 00:00:00 [facility] bilateral Group XR, sacrum + coccyx, 2 or 2021-05-07 00:00:00 [facility] more view [facility] XR, ribs, unilateral, w/ 2020-02-21 00:00:00 [facility] chest Group CT, chest, w/o contrast 2018-10-23 00:00:00 [facility] XR, hip, unilateral 2018-07-10 00:00:00 [facility] XR, chest 2018-05-23 00:00:00 [facility] Joint Replacement 2017-02-13 00:00:00 [facility] Colonoscopy 2016-10-26 00:00:00 [facility] Upper GI Endoscopy 2016-10-26 00:00:00 [facility] Colonoscopy 2016-09-24 00:00:00 [facility] Cholecystectomy [facility] Hysterectomy [facility] Mastectomy<sup>1</sup> [facility] Appendectomy [facility]cyst[facility] Hysterectomy [facility] Removal of Tonsils [facility] Plan of Care Planned Activity Planned Date Details Comments Source Future Scheduled Test 2022-05-27 COVID-19 VACCINE [facility] 12:37:25 (#1) [code = COVID-19 VACCINE (#1)] Future Scheduled Test 2022-05-27 SHINGLES VACCINES [facility] 12:37:25 (1 of 2) [code = SHINGLES VACCINES (1 of 2)] Future Scheduled Test 2022-05-27 INFLUENZA VACCINE [facility] 12:37:25 [code = INFLUENZA VACCINE] Future Scheduled Test 2022-04-27 COVID-19 VACCINE [facility] 22:03:46 (#1) [code = COVID-19 VACCINE (#1)] Future Scheduled Test 2022-04-27 SHINGLES VACCINES [facility] 22:03:46 (1 of 2) [code = SHINGLES VACCINES (1 of 2)] Future Scheduled Test 2022-04-27 INFLUENZA VACCINE [facility] 22:03:46 [code = INFLUENZA VACCINE] Future Scheduled Test 2022-04-27 COVID-19 VACCINE [facility] 22:03:46 (#1) [code = COVID-19 VACCINE (#1)] Future Scheduled Test 2022-04-27 SHINGLES VACCINES [facility] 22:03:46 (1 of 2) [code = SHINGLES VACCINES (1 of 2)] Future Scheduled Test 2022-04-27 INFLUENZA VACCINE [facility] 22:03:46 [code = INFLUENZA VACCINE] Future Scheduled Test 2022-04-27 COVID-19 VACCINE [facility] 22:03:46 (#1) [code = COVID-19 VACCINE (#1)] Future Scheduled Test 2022-04-27 SHINGLES VACCINES [facility] 22:03:46 (1 of 2) [code = SHINGLES VACCINES (1 of 2)] Future Scheduled Test 2022-04-27 INFLUENZA VACCINE [facility] 22:03:46 [code = INFLUENZA VACCINE] Future Scheduled Test 2022-04-27 COVID-19 VACCINE [facility] 22:03:46 (#1) [code = COVID-19 VACCINE (#1)] Future Scheduled Test 2022-04-27 SHINGLES VACCINES [facility] 22:03:46 (1 of 2) [code = SHINGLES VACCINES (1 of 2)] Future Scheduled Test 2022-04-27 INFLUENZA VACCINE [facility] 22:03:46 [code = INFLUENZA VACCINE] Future Scheduled Test 2022-04-27 COVID-19 VACCINE [facility] 22:03:46 (#1) [code = COVID-19 VACCINE (#1)] Future Scheduled Test 2022-04-27 SHINGLES VACCINES [facility] 22:03:46 (1 of 2) [code = SHINGLES VACCINES (1 of 2)] Future Scheduled Test 2022-04-27 INFLUENZA VACCINE [facility] 22:03:46 [code = INFLUENZA VACCINE] Diagnostic Test 2022-03-25 urinalysis, [facility] 00:00:00 dipstick [code = Group urinalysis, dipstick] Diagnostic Test 2022-03-25 culture, urine [facility] 00:00:00 [code = culture, Group urine] Instructions [facility] Encounters Start End Encounter Admission Attending Care Care Encounter Source Date/Time Date/Time Type Type Clinicians Facility Department ID 2022-05-25 2022-05-25 Outpatient Vincenzopatrice_F [facility] [id number] [place] 00:00:00 00:00:00 111 [facility] 2022-05-21 2022-05-21 [facility] [id number] [place] 09:19:00 16:49:00 Jaswant -[id number] [facility] 2022-05-13 2022-05-17 Inpatient ER Adrian [facility] [id number] [place] 07:15:00 16:34:00 Meek -[id number] [facility] 2022-05-10 2022-05-10 Outpatient JANELLE ESTRELLA [facility] [id number] [place] 11:32:00 11:32:00 APRIL -[id number] [facility] 2022-05-10 2022-05-10 Outpatient Liuuniga_S [facility] [id number] [place] 00:00:00 00:00:00 227 [facility] 2022-05-10 2022-05-10 April [facility] [place] - [id number] [place] 00:00:00 00:00:00 Discovery alvarado Estrella SHORT ORDER FRY COOK-C: [address] [place] [address] , Ph. 2022-04-20 2022-04-20 Outpatient Zuniga_F [facility] [id number] [place] 00:00:00 00:00:00 207 [facility] 2022-04-20 2022-04-20 Meek MMG [place] - [id number] [place] 00:00:00 00:00:00 Court Fortune Medical MD: [address] [place] [address] , Ph. 2022-03-25 2022-03-25 Outpatient Chuckla_A [facility] [id number] [place] 00:00:00 00:00:00 111 [facility] 2022-03-25 2022-03-25 [facility] [place] - [id number] M atagor 00:00:00 00:00:00 Discovery alvarado Morris PA-C: [address] [place] [address] , Ph. 2022-01-19 2022-01-19 [facility] [id number] [place] 00:00:00 00:00:00 907 [facility] 2022-01-19 2022-01-19 Meek MMG [place] - [id number] [place] 00:00:00 00:00:00 Court Fortune MD: [address] [address], [place] [address] , Ph. 2021-12-21 2021-12-21 Outpatient SAMANTHA MORRIS [facility] [id number] [place] 11:25:00 11:25:00 BALBINA [id number] [facility] 2021-12-21 2021-12-21 Balbina Morris_A [facility] [place] - [id number] 20 [place] 00:00:00 00:00:00 Discovery Alexandra 809 da PA-C: [address] [place] [address] [place] [address] , Ph. 2021-12-21 2021-12-21 Blabina [facility] [place] - [id number] M atagor 00:00:00 00:00:00 Discovery Alexandra da PA-C: [address] [place] [address] [place] [address] , Ph. 2021-10-25 2021-10-25 Outpatient Zuniga_F [facility] [id number] [place] 05:58:00 05:58:00 [facility] 2021-10-19 2021-10-19 [facility] Liuuniga_F [facility] [place] - [id number] 20 [place] 00:00:00 00:00:00 Court Mitchell MD: [address] [place] [address], [place] [address] , Ph. 2021-09-21 2021-09-21 Outpatient JANELLE Estrelal [facility] [id number] [place] 11:29:00 11:29:00 Meek [id number] alvarado [facility] 2021-09-212021-09-21 Meek Pascuala_F [facility] [place] - [id number]- [place] 00:00:00 00:00:[address] Khan Medical MD: 600 [facility] 201, [place] [address] , Ph. 2021-09-01 2021-09-01 Outpatient Adrian_Harry [facility] [id number] [place] 12:31:00 12:31:00 420 [facility] 2021-08-31 2021-08-31 Outpatient Adrian [facility] [id number] [place] 10:55:00 10:55:00 Meek [id number] [facility] 2021-08-31 2021-08-31 Meek Estrella_F [facility] [place] - [id number]- [place] 00:00:00 00:00:[address] Khan Medical MD: [address] [place] [address] 201, [place] [address] , Ph. 2021-08-23 2021-08-26 Inpatient ER Estrella [facility] [id number] [place] 16:07:00 15:08:00 Meek [id number] [facility] 2021-08-23 2021-08-23 Antoinette Ankurpatrice_F [facility] [place] - 0 [place] 00:00:00 00:00:00 Jacquelin Allen 411 alvarado [facility] Medical PROJECT CONTROLS SPECIALIST: [address] [place] [address] 201, [place] [address] , Ph. 2021-08-21 2021-08-21 Antoinette Ankura_F [facility] [place] - [id number] 0 [place] 00:00:00 00:00:00 Jacquelin Allen 409 alvarado [facility] PROJECT CONTROLS SPECIALIST: [address] [place] [address] 201, [place] [address] , Ph. 2021-08-10 2021-08-10 Meek Liuuniga_F MM [place] - [id number] 20 [place] 00:00:00 00:00:[address] Khan Medical MD: [address] [place] [address] 201, [place] [address] , Ph. 2021-07-06 2021-07-06 Outpatient Zuniga_F MMG MM [id number] [place] 04:22:00 04:22:00 222 [facility] 2021-06-28 2021-06-28 Meek Hatfielduniga_F MM [place] - [id number] [place] 00:00:00 00:00:[address] Khan Medical MD: [address] [place] [address] 201, [place] [address] , Ph. 2021-06-21 2021-06-21 Outpatient JANELLE Estrella, [facility] [id number] [place] 12:46:00 12:46:00 Meek -[id number] [facility] 2021-06-21 2021-06-21 Meek Loyaiga_F MM [place] - [id number] 20 [place] 00:00:00 00:00:[address] Khan Medical MD: [address] [place] [address] 201, [place] [address] , Ph. 2021-05-07 2021-05-07 Outpatient JANELLE DANIELS [facility] [id number] [place] 10:41:00 10:41:00 ANTOINETTE [id number] [facility] 2021-05-07 2021-05-07 Antoinette Hugginswaleska_M MM [place] - [id number] 11 [place] 00:00:00 00:00:[address] Diallo Medical PROJECT CONTROLS SPECIALIST: [address] [place] [address] 201, [place] [address] , Ph. 2021-04-29 2021-04-29 Antoinette Daniels_M MM [place] - [id number] 11 [place] 00:00:00 00:00:[address] Diallo Medical PROJECT CONTROLS SPECIALIST: 600 [facility] 201, [place] [address] , Ph. 2021-01-20 2021-01-20 Meek Hatfielduniga_F MM [place] - [id number] 10 [place] 00:00:00 00:00:00 Court Comer Medical MD: 600 [facility] 201, [place] [address] , Ph. 2021-01-14 2021-01-14 Outpatient Zuniga_F MMG [facility] [id number] [place] 11:31:00 11:31:00 902 Medical Group 2020-11-19 2020-11-19 Outpatient Zuniga_F MMG MMG [id number] [place] 02:30:00 02:30:00 708 Medical [facility] 2020-10-29 2020-10-29 Outpatient JANELLE Estrella [facility] [id number] [place] 15:29:00 15:29:00 Meek [id number] [facility] 2020-10-29 2020-10-29 Meek Hatfielduniga_F MMG [place] - [id number] 10 [place] 00:00:00 00:00:00 Eric Allen [address] Nguyen Medical MD: [address] [place] [address] 201, [place] [address] , Ph. 2020-10-05 2020-10-05 Outpatient Zuniga_F MMG MMG [id number] [place] 05:33:00 05:33:00 524 Medical [facility] 2020-06-02 2020-06-02 Meek Hatfielduniga_F MMG [place] - [id number] 10 [place] 00:00:00 00:00:[address] Khan Medical MD: 600 [facility] [address], [place] [address] , Ph. 2020-06-01 2020-06-01 Outpatient Zuniga_F MMG MM [id number] [place] 05:31:00 05:31:00 118 Medical Group 2020-04-01 2020-04-01 Outpatient Hawkins_M MMG MMG [id number] [place] 02:25:00 02:25:00 118 Medical Group 2020-02-28 2020-02-28 Outpatient Hawkins_M MMG MMG [id number] [place] 10:37:00 10:37:00 016 Medical [facility] 2020-02-21 2020-02-21 Antoinette Dipak_M MM[facility] [place] - [id number] 01 [place] 00:00:00 00:00:00 Jacquelin Allen 009 alvarado Daniels [facility] Medical PROJECT CONTROLS SPECIALIST: 600 [facility] 201, [place] [address] , Ph. 2020-01-14 2020-01-14 Outpatient JANELLE Estrella, [facility] [id number] [place] 12:05:00 12:05:00 Meek [id number] [facility] 2020-01-14 2020-01-14 Meek Pascuala_F MM[facility] [place] - [id number] 00 [place] 00:00:00 00:00:[address] Khan Medical MD: 600 [facility] 201, [place] [address] , Ph. 2019-06-24 2019-06-24 Outpatient JANELLE Estrella, [facility] [id number] [place] 09:36:00 09:36:00 Meek [id number] [facility] 2019-06-24 2019-06-24 Meek Pascuala_F [facility] [place] - [id number] 00 [place] 00:00:00 00:00:00 Eric Allen 210 alvarado Estrella Medical Medical MD: [address] [address], [place] [address] , Ph. 2019-05-24 2019-05-24 Emergency ER CARLOS, [facility] [id number] [place] 09:52:00 14:33:00 JOE -[id number] [facility] 2019-05-19 2019-05-19 Outpatient Zuniga_F [facility] [id number] [place] 12:00:00 12:00:00 105 Medical Group 2019-05-17 2019-05-17 Antoinette Loyaiga_F [facility] [place] - [id number] 0 [place] 00:00:00 00:00:00 Jacquelin Allen 103 alvarado Daniels Medical Medical PROJECT CONTROLS SPECIALIST: [address] [address], [place] [address] , Ph. 2019-02-28 2019-03-01 Inpatient ER Adrian, [facility] [id number] [place] 13:52:00 15:25:00 Meek [id number] [facility] 2019-02-21 2019-02-21 Outpatient EL Adrian, [facility] [id number] [place] 11:44:00 11:44:00 Meek [id number] [facility] 2019-02-21 2019-02-21 [facility] [place] - [id number] 1 [place] 00:00:00 00:00:00 Eric Allen 010 alvarado Estrella Medical Medical MD: [address] [address], [place] [address] , Ph. 2018-10-23 2018-10-23 Outpatient EL Adrian, [facility] [id number] [place] 11:12:00 11:12:00 Meek [id number] [facility] 2018-10-23 2018-10-23 Meek [facility] [place] - [id number] 0 [place] 00:00:00 00:00:[address] Khan Medical MD: 600 [facility] [address], [place] [address] , Ph. 2018-07-24 2018-07-24 Meek DENIA [place] - [id number] 0 [place] 00:00:00 00:00:[address] Khan Medical MD: 600 [facility] [address], [place] [address] , Ph. 2018-07-10 2018-07-10 Meek DENIA [place] - [id number] 0 [place] 00:00:00 00:00:[address] Khan MD: [address] [place] [address], [facility] [address], [place] [address] , Ph. 2018-05-30 2018-05-30 Meek DENIA [place] - [id number] 0 [place] 00:00:00 00:00:[address] Khan Medical MD: 600 [facility] [address], [place] [address] , Ph. 2018-05-23 2018-05-23 Outpatient JANELLE Estrella [facility] [id number] [place] 12:09:00 12:09:00 Meek [id number] [facility] 2018-05-23 2018-05-23 Meek DENIA [place] - [id number] 0 [place] 00:00:00 00:00:00 Eric Allen 109 alvarado Estrella Medical Medical MD: [address] [place] [address], Family [address], [place] [address] , Ph. 2017-11-29 2017-11-29 Outpatient JANELLE Estrella [facility] [id number] [place] 12:07:00 12:07:00 Meek -[id number] [facility] 2017-04-12 2017-04-12 Emergency ER UGORJI, [facility] [id number] [place] 12:51:00 17:53:00 ZULEMA -[id number] [facility] 2017-02-08 2017-02-08 Emergency ER OWO, TOKS [facility] [id number] [place] 03:28:00 09:09:00 -[id number] [facility] 2017-02-04 2017-02-04 Emergency ER OWO, TOKS [facility] [id number] [place] 11:15:00 15:10:00 -[id number] [facility] 2017-01-30 2017-01-30 Outpatient EL YURIDIA, [facility] [id number] [place] 10:56:00 10:56:00 WANDA -[id number] [facility] 2017-01-17 2017-01-17 Outpatient EL YURIDIA, [facility] [id number] [place] 09:14:00 09:14:00 WANDA -[id number] [facility] 2017-01-02 2017-01-02 Outpatient EL YURIDIA, [facility] [id number] [place] 14:29:00 14:29:00 WANDA -[id number] [facility] 2016-12-28 2016-12-28 Outpatient EL YURIDIA, [facility] [id number] [place] 12:07:00 12:07:00 WANDA -[id number] [facility] 2016-12-23 2016-12-26 Inpatient [facility] [id number] Memoria 22:01:00 21:16:00 r Kenneth 23 l [facility] 2016-12-21 2016-12-23 Inpatient ER Favian, [facility] [id number] [place] 01:09:00 15:07:00 Tavares -[id number] [facility] 2016-12-14 2016-12-14 Emergency ER UGORJI, [facility] [id number] [place] 02:42:00 06:33:00 ZULEMA -[id number] [facility] 2016-11-08 2016-11-08 Outpatient EL YURIDIA, [facility] [id number] [place] 09:44:00 09:44:00 WANDA -[id number] [facility] 2016-10-06 2016-10-06 Outpatient EL YURIDIA, [facility] [id number] [place] 12:07:00 12:07:00 WANDA -[id number] [facility] 2016-09-25 2016-09-27 Inpatient [facility] [id number] Memoria 05:13:00 19:00:[address] 2016-09-22 2016-09-24 Inpatient ER Redmond, [facility] [id number] [place] 18:31:00 22:00:00 Chin -[id number] [facility] 2016-08-02 2016-08-02 Outpatient EL YURIDIA, [facility] [id number] [place] 12:06:00 12:06:00 WANDA -[id number] [facility] 2016-01-27 2016-01-27 Emergency ER SAEMI, [facility] [id number] [place] 06:12:00 09:24:00 SYED -[id number] [facility] 2015-12-23 2015-12-23 Outpatient EL YURIDIA, [facility] [id number] [place] 10:49:00 10:49:00 WANDA -[id number] [facility] 2015-07-14 2015-07-14 Outpatient EL YURIDIA, [facility] [id number] [place] 14:48:00 14:48:00 WANDA -[id number] [facility] 2015-03-09 2015-03-09 Outpatient EL YURIDIA, [facility] [id number] [place] 10:48:00 10:48:00 WANDA -[id number] [facility] 2015-01-20 2015-01-20 Outpatient EL SHIELD, [facility] [id number] [place] 11:32:00 11:32:00 INA -[id number] [facility] 2014-09-09 2014-09-09 Outpatient EL YURIDIA, [facility] [id number] [place] 15:33:00 15:33:00 WANDA -[id number] [facility] 2013-12-16 2013-12-16 Outpatient JANELLE Valverde, [facility] [id number] [place] 15:51:00 15:51:00 Isiah -[id number] [facility] 2013-08-15 2013-08-15 Outpatient JANELLE LALA, [facility] [id number] [place] 11:20:00 11:20:00 WANDA -[id number] [facility] 2012-12-05 2012-12-05 Outpatient JANELLE Mayers, [facility] [id number] [place] 06:00:00 06:00:00 Jaleel -[id number] [facility] 2012-01-20 2012-01-20 Outpatient JANELLE Valverde, [facility] [id number] [place] 09:05:00 09:05:00 Isiah -[id number] [facility] 2007-04-10 2007-04-10 Outpatient JANELLE PAGAN, [facility] [id number] [place] 10:26:00 10:26:00 LORENZO -[id number] [facility] 2007-04-04 2007-04-07 Inpatient JANELLE LÓPEZ, [facility] [id number] [place] 12:24:00 12:40:00 DEVON -[id number] [facility] 2005-04-01 2005-04-01 Outpatient JANELLE STEPHENSON, [facility] [id number] [place] 14:47:00 14:47:00 ERNESTO -[id number] [facility] 2004-01-08 2004-01-08 Outpatient JANELLE LALA, [facility] [id number] [place] 10:40:00 10:40:00 WANDA -[id number] [facility] Results Test Description Test Time Test Comments Results Result Comments Source cardiac troponin T 2022-05-14 08:40:00 Test Item Value Reference Range Interpretation Comme nts cardiac troponin T (test code = cardiac troponin T) 0.222 NG/mL 0. 000-0.011 H [facility] [id number] 05:19:00 Test Item Value Reference Range Interpretation Comments glucose (test code = glucose) 100 mg/dL 82-115 blood urea nitrogen (test code = 29 mg/dL 8-23 H blood urea nitrogen) osmolality calculated,serum (test 285 mOsm/kg 280-300 code = osmolality calculated,serum) creatinine (test code = 1.11 mg/dL 0.50-0.90 H creatinine) glomerular filtration rate (test 46.50 L code = glomerular filtration rate) BUN/creatinine ratio (test code = 26.1 12.0-20.0 H BUN/creatinine ratio) sodium level (test code = sodium 140 mmol/L 135-145 level) potassium level (test code = 3.0 mmol/L 3.5-5.2 L potassium level) chloride level (test code = 102 mmol/L 98-108 chloride level) CO2 (test code = CO2) 29 mmol/L 21-32 anion gap (test code = anion gap) 12.0 mEq/L 12.0-20.0 calcium level (test code = 8.3 mg/dL 8.8-10.2 L calcium level) [facility] [id number] 05:19:00 Test Item Value Reference Range Interpretation Comments glucose (test code = glucose) 100 mg/dL 82-115 blood urea nitrogen (test code = 29 mg/dL 8-23 H blood urea nitrogen) osmolality calculated,serum (test 285 mOsm/kg 280-300 code = osmolality calculated,serum) creatinine (test code = 1.11 mg/dL 0.50-0.90 H creatinine) glomerular filtration rate (test 46.50 L code = glomerular filtration rate) BUN/creatinine ratio (test code = 26.1 12.0-20.0 H BUN/creatinine ratio) sodium level (test code = sodium 140 mmol/L 135-145 level) potassium level (test code = 3.0 mmol/L 3.5-5.2 L potassium level) chloride level (test code = 102 mmol/L 98-108 chloride level) CO2 (test code = CO2) 29 mmol/L 21-32 anion gap (test code = anion gap) 12.0 mEq/L 12.0-20.0 calcium level (test code = 8.3 mg/dL 8.8-10.2 L calcium level) [facility] - [id number] 20:29:00 Test Item Value Reference Range Interpretation Comments hemoglobin (test code = hemoglobin) 9.3 g/dL 10.5-15.7 L hematocrit (test code = hematocrit) 35.0 % 34.0-50.0 [facility] [id number] 08:51:00 Test Item Value Reference Range Interpretation Comments cardiac troponin T (test code = 0.171 NG/mL 0.000-0.011 H cardiac troponin T) [facility] CenterUrinalysis macro (dipstick) panel - [id number] 10:42:00 Test Item Value Reference Range Interpretation Comments Leukocytes (test code = Trace Leukocytes) Nitrite (test code = positive Nitrite) Urobilinogen (test code = .2 Urobilinogen) Protein (test code = Negative Protein) pH (test code = pH) 7.5 Blood (test code = Blood) Hemolyzed: Trace Specific [place] (test code 1.020 = Specific [place]) Ketone (test code = Ketone) Negative Bilirubin (test code = Negative Bilirubin) Glucose (test code = Negative Glucose) Appearance (test code = Cloudy Appearance) Color (test code = Color) Yellow [facility] CenterUrinalysis macro (dipstick) panel - [id number] 10:42:00 Test Item Value Reference Range Interpretation Comments Leukocytes (test code = Trace Leukocytes) Nitrite (test code = positive Nitrite) Urobilinogen (test code = .2 Urobilinogen) Protein (test code = Negative Protein) pH (test code = pH) 7.5 Blood (test code = Blood) Hemolyzed: Trace Specific [place] (test code 1.020 = Specific [place]) Ketone (test code = Ketone) Negative Bilirubin (test code = Negative Bilirubin) Glucose (test code = Negative Glucose) Appearance (test code = Cloudy Appearance) Color (test code = Color) Yellow [facility] CenterDifferential panel, method unspecified - [id number] 09:35:00NeutrophilsBandLymphocyteAtypical LymphMonocyteEosinophilBasophilAbs Neutrophil Count (Man)Abs LymphCount (Man)Abs Monocyte Count (Man)Abs Eosinophil Count (Man)Abs Basophil Count (Man)Platelet EstimatePlatelet MorphologyHypochromasiaPoikilocytosisAnisocytosisMaGreene County HospitalCBC W Auto Differential panel - [id number] 00:00:00 Test Item Value Reference Range Interpretation Comments white blood count (test code = 8.6 K/uL 4.0-11.5 white blood count) red blood count (test code = red 4.47 M/uL 3.80-5.20 blood count) hemoglobin (test code = 13.3 g/dL 10.5-15.7 hemoglobin) hematocrit (test code = 41.8 % 34.0-50.0 hematocrit) MCV [Entitic volume] (test code = 93.5 fL 86.0-100.0 51402-7) mean corpuscular hemoglobin (test 29.8 pg 26.2-33.4 code = mean corpuscular hemoglobin) mean corpuscular HGB conc (test 31.8 g/dL 30.0-34.0 code = mean corpuscular HGB conc) red cell distribution width (test 14.4 % 12.0-15.5 code = red cell distribution width) platelet count (test code = 291 K/uL 165-450 platelet count) mean platelet volume (test code = 10.1 fL 9.4-12.6 mean platelet volume) Segmented neutrophils/100 68.2 % 44.4-80.1 leukocytes in Blood (test code = 31598-5) Immature granulocytes [#/volume] 0.03 K/uL 0.00-0.03 in Blood (test code = 41946-7) lymphocyte% (test code = 19.2 % 10.0-50.0 lymphocyte%) mono % (test code = mono %) 7.6 % 3.6-12.0 eos % (test code = eos %) 3.9 % 0.0-5.4 basophil % (test code = basophil 0.8 % 0.1-1.2 %) Band form neutrophils [#/volume] 5.88 K/uL 1.56-6.13 in Blood (test code = 19075-3) Lymphocytes [#/volume] in Specimen 1.66 K/uL 1.18-3.74 by Automated count (test code = 74625-9) mono # (test code = mono #) 0.66 K/uL 0.24-0.86 eos # (test code = eos #) 0.34 K/uL 0.04-0.36 basophil # (test code = basophil 0.07 K/uL 0.01-0.08 #) NRBC% (test code = NRBC%) 0 /100 WBC 0-0.2 NRBC# (test code = NRBC#) 0 K/uL [facility] CenterCom[facility] 2000 panel - Serum or Plasma 2021-08-26 03:00:00 Test Item Value Reference Range Interpretation Comments Glucose [Mass/volume] in Serum or 108 mg/dL 82-115 Plasma (test code = 2345-7) Urea nitrogen [Mass/volume] in 22 mg/dL 8-23 Serum or Plasma (test code = 3094-0) osmolality calculated,serum (test 293 mOsm/kg 280-300 code = osmolality calculated,serum) creatinine (test code = 0.96 mg/dL 0.50-0.90 H creatinine) glomerular filtration rate (test 55.11 L code = glomerular filtration rate) Urea nitrogen/Creatinine [Mass 22.9 12.0-20.0 H Ratio] in Serum or Plasma (test code = 3097-3) sodium level (test code = sodium 145 mmol/L 135-145 level) potassium level (test code = 3.6 mmol/L 3.5-5.2 potassium level) chloride level (test code = 109 mmol/L 98-108 H chloride level) CO2 (test code = CO2) 23 mmol/L 21-32 anion gap (test code = anion gap) 16.6 mEq/L 12.0-20.0 calcium level (test code = 9.0 mg/dL 8.8-10.2 calcium level) total protein (test code = total 5.6 g/dL 6.6-8.7 L protein) albumin (test code = albumin) 2.7 g/dL 3.5-5.2 L globulin (test code = globulin) 2.9 g/dL 1.5-4.5 A/G ratio (test code = A/G ratio) 0.9 >1.0 bilirubin,total (test code = <0.2 0.0-1.2 bilirubin,total) AST/SGOT (test code = AST/SGOT) 24 U/L 15-32 Alanine aminotransferase 52 U/L 0-33 H [Enzymatic activity/volume] in Serum or Plasma (test code = 1742-6) Alkaline phosphatase [Enzymatic 99 U/L 35-105 activity/volume] in Serum or Plasma (test code = 6768-6) [facility] CenterCom[facility] 2000 panel - Serum or Plasma 2021-08-26 03:00:00 Test Item Value Reference Range Interpretation Comments Glucose [Mass/volume] in Serum or 108 mg/dL 82-115 Plasma (test code = 2345-7) Urea nitrogen [Mass/volume] in 22 mg/dL 8-23 Serum or Plasma (test code = 3094-0) osmolality calculated,serum (test 293 mOsm/kg 280-300 code = osmolality calculated,serum) creatinine (test code = 0.96 mg/dL 0.50-0.90 H creatinine) glomerular filtration rate (test 55.11 L code = glomerular filtration rate) Urea nitrogen/Creatinine [Mass 22.9 12.0-20.0 H Ratio] in Serum or Plasma (test code = 3097-3) sodium level (test code = sodium 145 mmol/L 135-145 level) potassium level (test code = 3.6 mmol/L 3.5-5.2 potassium level) chloride level (test code = 109 mmol/L 98-108 H chloride level) CO2 (test code = CO2) 23 mmol/L 21-32 anion gap (test code = anion gap) 16.6 mEq/L 12.0-20.0 calcium level (test code = 9.0 mg/dL 8.8-10.2 calcium level) total protein (test code = total 5.6 g/dL 6.6-8.7 L protein) albumin (test code = albumin) 2.7 g/dL 3.5-5.2 L globulin (test code = globulin) 2.9 g/dL 1.5-4.5 A/G ratio (test code = A/G ratio) 0.9 >1.0 bilirubin,total (test code = <0.2 0.0-1.2 bilirubin,total) AST/SGOT (test code = AST/SGOT) 24 U/L 15-32 Alanine aminotransferase 52 U/L 0-33 H [Enzymatic activity/volume] in Serum or Plasma (test code = 1742-6) Alkaline phosphatase [Enzymatic 99 U/L 35-105 activity/volume] in Serum or Plasma (test code = 6768-6) [facility] W Auto Differential panel - [id number] 10:38:00 Test Item Value Reference Range Interpretation Comments white blood count (test code = 7.7 K/uL 4.0-11.5 white blood count) red blood count (test code = red 4.34 M/uL 3.80-5.20 blood count) hemoglobin (test code = 13.8 g/dL 10.5-15.7 hemoglobin) hematocrit (test code = 41.2 % 34.0-50.0 hematocrit) Erythrocyte mean corpuscular 94.9 fL 86-100 volume [Entitic volume] (test code = 45676-9) mean corpuscular hemoglobin (test 31.8 pg 26.2-33.4 code = mean corpuscular hemoglobin) mean corpuscular HGB conc (test 33.5 g/dL 30-34 code = mean corpuscular HGB conc) red cell distribution width (test 13.4 % 12.0-15.5 code = red cell distribution width) platelet count (test code = 289 K/uL 165-450 platelet count) mean platelet volume (test code = 9.9 fL 9.4-12.6 mean platelet volume) Neutrophils.segmented/100 64.2 % 44.4-80.1 leukocytes in Blood (test code = 80288-9) Granulocytes Immature [#/volume] 0.0 K/uL 0.0-0.03 in Blood (test code = 73156-6) lymphocyte% (test code = 22.6 % 10.0-50.0 lymphocyte%) mono % (test code = mono %) 8.2 % 3.6-12.0 eos % (test code = eos %) 4.1 % 0.0-5.4 Basophils/100 leukocytes in 0.6 % 0.1-1.2 Unspecified specimen (test code = 03342-5) Neutrophils.band form [#/volume] 4.96 K/uL 1.56-6.13 in Blood (test code = 73470-0) Lymphocytes [#/volume] in 1.8 K/uL 1.18-3.74 Unspecified specimen by Automated count (test code = 84000-5) mono # (test code = mono #) 0.63 K/uL 0.24-0.86 eos # (test code = eos #) 0.32 K/uL 0.04-0.36 basophil # (test code = basophil 0.05 K/uL 0.01-0.08 #) NRBC% (test code = NRBC%) 0 /100 WBC 0-0.2 NRBC# (test code = NRBC#) 0 K/uL [facility]different[facility], [id number] 10:38:00 NeutrophilsBandLymphocyteMonocytePlatelet EstimateToxic [facility]Com[facility] 2000 [facility] - Serum or [id number] 10:38:00 Test Item Value Reference Range Interpretation Comments Glucose [Mass/volume] in Serum or 93 mg/dL 82-115 Plasma (test code = 2345-7) Urea nitrogen [Mass/volume] in 15 mg/dL 8-23 Serum or Plasma (test code = 3094-0) osmolality calculated,serum (test 276 mOsm/kg 280-300 L code = osmolality calculated,serum) creatinine (test code = 0.8 mg/dL 0.50-0.90 creatinine) glomerular filtration rate (test >60.00 code = glomerular filtration rate) Urea nitrogen/Creatinine [Mass 18.8 12-20 Ratio] in Serum or Plasma (test code = 3097-3) sodium level (test code = sodium 138 mmol/L 135-145 level) potassium level (test code = 4.2 mmol/L 3.5-5.2 potassium level) chloride level (test code = 97 mmol/L 98-108 L chloride level) CO2 (test code = CO2) 29 mmol/L 21-32 anion gap (test code = anion gap) 16.2 mEq/L 12-20 calcium level (test code = 9.8 mg/dL 8.8-10.2 calcium level) total protein (test code = total 7.7 g/dL 6.6-8.7 protein) albumin (test code = albumin) 4.4 g/dL 3.5-5.2 globulin (test code = globulin) 3.3 gm/dL A/G ratio (test code = A/G ratio) 1.3 >1.0 bilirubin,total (test code = 0.4 mg/dL 0.0-1.2 bilirubin,total) AST/SGOT (test code = AST/SGOT) 18 U/L 15-32 Alanine aminotransferase 13 U/L 0-33 [Enzymatic activity/volume] in Serum or Plasma (test code = 1742-6) Alkaline phosphatase [Enzymatic 126 U/L 35-105 H activity/volume] in Serum or Plasma (test code = 6768-6) [facility] CenterLipase [Enzymatic activity/volume] in Serum or Plasma 2019-05-24 10:38:00 Test Item Value Reference Range Interpretation Comments lipase (test code = lipase) 19 U/L 13-60 [facility] CenterCreatine kinase [Enzymatic activity/volume] in Serum or [id number] 10:38:00 Test Item Value Reference Range Interpretation Comments creatine kinase (test code = creatine 30 U/L 20-180 kinase) [facility] CenterNatriuretic peptide.B prohormone N-Terminal [Mass/volume] in Serum or [id number] 10:38:00 Test Item Value Reference Range Interpretation Comments N-term pro natriuretic peptide 267 pg/mL 0-450 (test code = N-term pro natriuretic peptide) [facility] CenterTroponin I.cardiac [Mass/volume] in [id number] 10:38:00 Test Item Value Reference Range Interpretation Comments cardiac troponin I (test code = cardiac <0.30 0.0-0.5 troponin I) [facility] CenterCreatine kinase.MB [Mass/volume] in Serum or Plasma 2019-05-24 10:38:00 Test Item Value Reference Range Interpretation Comments mass creatinine kinase-mb (test 1.4 NG/mL 0.0-3.6 code = mass creatinine kinase-mb) [facility] CenterUrinalysis complete panel - [id number] 10:05:00 Test Item Value Reference Range Interpretation Comments Color of Urine by Auto (test lt. yellow code = 73284-1) Appearance of Urine (test code clear clear = 5767-9) Glucose [Mass/volume] in Urine negative negative (test code = 2350-7) bilirubin, urine (test code = negative negative bilirubin, urine) ketone, urine (test code = negative negative ketone, urine) Specific gravity of Urine by <=1.005 1.003-1.030 Automated test strip (test code = 72610-2) Hemoglobin [Presence] in Urine negative negative by Test strip (test code = 5794-3) pH of Urine (test code = 7.000 5-9 2756-5) protein urine (UA) (test code = negative negative protein urine (UA)) Urobilinogen [Presence] in 0.2 E.U./dL 0.2-1.0 Urine (test code = 46271-6) Nitrite [Presence] in Urine by negative negative Test strip (test code = 5802-4) urine leukocyte esterase (test negative negative code = urine leukocyte esterase) Erythrocytes [Presence] in =0-3 0-5 Urine (test code = 52970-3) WBC, urine (test code = WBC, =0-2 0-5 urine) Epithelial cells [Presence] in =6-10 0-5 Urine sediment by Light microscopy (test code = 00574-1) bacteria, urine (test code = none detected none detect bacteria, urine) urine culture added? (test code no = urine culture added?) [facility] W Auto Differential panel - [id number] 09:17:00 Test Item Value Reference Range Interpretation Comments white blood count (test code = 8.4 K/uL 4.0-11.5 white blood count) red blood count (test code = red 4.52 M/uL 3.80-5.20 blood count) Hemoglobin [Mass/volume] in Blood 13.8 g/dL 10.5-15.7 (test code = 718-7) hematocrit (test code = hematocrit) 43.2 % 34.0-50.0 Erythrocyte mean corpuscular volume 95.6 fL 78-98 [Entitic volume] (test code = 39669-1) Erythrocyte mean corpuscular 30.5 pg 26.2-33.4 hemoglobin [Entitic mass] (test code = 91637-5) mean corpuscular HGB conc (test 31.9 g/dL 31.5-36.2 code = mean corpuscular HGB conc) red cell distribution width (test 12.2 % 11.5-15.5 code = red cell distribution width) Platelets [#/volume] in Blood (test 425 K/uL 137-338 H code = 35574-3) Platelet mean volume [Entitic 7.1 fL 8.4-11.8 L volume] in Blood (test code = 89381-0) Neutrophils.band form/100 66.7 % 44.4-80.1 leukocytes in Blood (test code = 55183-3) Lymphocytes/100 leukocytes in Body 23.2 % 10.0-50.0 fluid (test code = 93294-1) Monocytes/100 leukocytes in Blood 6.2 % 3.6-12.0 by Automated count (test code = 5905-5) Eosinophils/100 leukocytes in Blood 2.9 % 0.0-5.4 by Automated count (test code = 713-8) Basophils/100 leukocytes in 1.0 % 0.0-0.79 H Unspecified specimen (test code = 15565-2) [facility] Centerdifferential panel, [id number] 09:17:00 NeutrophilsBandLymphocyteAtypical LymphMonocyteEosinophilBasophilMetamyelocyteMyelocytePlatelet EstimatePlatelet MorphologyPoikilocytosisAnisocytosisMacrocytosisToxic GranulationHypersegmented PolysSmudge CellsMagn[facility] CenterComprehensive metabolic 2000 panel - Serum or [id number] 09:17:00 Test Item Value Reference Range Interpretation Comments Glucose [Mass/volume] in Serum or 104 mg/dL 82-115 Plasma (test code = 2345-7) Urea nitrogen [Mass/volume] in 16 mg/dL 8-23 Serum or Plasma (test code = 3094-0) Osmolality of Serum or Plasma 275 280-300 L (test code = 2692-2) creatinine (test code = 0.8 mg/dL 0.50-0.90 creatinine) glomerular filtration rate (test >60.00 code = glomerular filtration rate) Urea nitrogen/Creatinine [Mass 20.0 12-20 Ratio] in Serum or Plasma (test code = 3097-3) sodium level (test code = sodium 137 mmol/L 135-145 level) potassium level (test code = 3.9 mmol/L 3.5-5.2 potassium level) chloride level (test code = 95 mmol/L 98-108 L chloride level) CO2 (test code = CO2) 29 mmol/L 21-32 anion gap (test code = anion gap) 16.9 mEq/L 12-20 calcium level (test code = calcium 10.1 mg/dL 8.8-10.2 level) total protein (test code = total 8.1 g/dL 6.6-8.7 protein) albumin (test code = albumin) 4.6 g/dL 3.5-5.2 globulin (test code = globulin) 3.5 gm/dL A/G ratio (test code = A/G ratio) 1.3 >1.0 bilirubin,total (test code = <0.3 0.0-1.2 bilirubin,total) AST/SGOT (test code = AST/SGOT) 17 U/L 15-32 Alanine aminotransferase 10 U/L 0-33 [Enzymatic activity/volume] in Serum or Plasma (test code = 1742-6) Alkaline phosphatase [Enzymatic 109 U/L 35-105 H activity/volume] in Serum or Plasma (test code = 6768-6) [facility] CenterLipid 1996 panel - Serum or [id number] 09:17:00 Test Item Value Reference Range Interpretation Comments cholesterol level (test code = 217 mg/dL 150-200 H cholesterol level) triglycerides level (test code = 97 mg/dL <150 triglycerides level) HDL cholesterol (test code = HDL 56 mg/dL >65 L cholesterol) LDL cholesterol direct (test code = 159 mg/dL <100 H LDL cholesterol direct) cholesterol risk ratio (test code = 3.875 cholesterol risk ratio) [facility] W Auto Differential panel - [id number] 11:24:00 Test Item Value Reference Range Interpretation Comments white blood count (test code = 7.8 K/uL 4.0-11.5 white blood count) red blood count (test code = red 4.40 M/uL 3.80-5.20 blood count) Hemoglobin [Mass/volume] in Blood 14.1 g/dL 10.5-15.7 (test code = 718-7) hematocrit (test code = hematocrit) 42.6 % 34.0-50.0 Erythrocyte mean corpuscular volume 96.8 fL 78-98 [Entitic volume] (test code = 58048-3) Erythrocyte mean corpuscular 32.1 pg 26.2-33.4 hemoglobin [Entitic mass] (test code = 49711-6) mean corpuscular HGB conc (test 33.1 g/dL 31.5-36.2 code = mean corpuscular HGB conc) red cell distribution width (test 12.8 % 11.5-15.5 code = red cell distribution width) Platelets [#/volume] in Blood (test 326 K/uL 137-338 code = 11033-1) Platelet mean volume [Entitic 7.4 fL 8.4-11.8 L volume] in Blood (test code = 14896-3) Neutrophils.band form/100 58.4 % 44.4-80.1 leukocytes in Blood (test code = 88727-1) Lymphocytes/100 leukocytes in Body 29.4 % 10.0-50.0 fluid (test code = 57782-2) Monocytes/100 leukocytes in Blood 6.8 % 3.6-12.04 by Automated count (test code = 5905-5) Eosinophils/100 leukocytes in Blood 4.5 % 0.0-5.41 by Automated count (test code = 713-8) Basophils/100 leukocytes in Blood 0.9 % 0.0-0.79 H by Automated count (test code = 706-2) [facility] Centerdifferent[facility], [id number] 11:24:00 NeutrophilsBandLymphocyteAtypical LymphMonocyteEosinophilBasophilMetamyelocytePlatelet EstimatePlatelet MorphologyToxic GranulationHypersegmented PolysRouleauSmudge CellsMaGreene County HospitalBasic metabolic 2000 panel - Serum or [id number] 11:24:00 Test Item Value Reference Range Interpretation Comments glucose (test code = glucose) 81 mg/dL 82-115 L Urea nitrogen [Mass/volume] in 16 mg/dL 8-23 Serum or Plasma (test code = 3094-0) Osmolality of Serum or Plasma 282 280-300 (test code = 2692-2) creatinine (test code = 0.8 mg/dL 0.50-0.90 creatinine) glomerular filtration rate (test >60.00 code = glomerular filtration rate) Urea nitrogen/Creatinine [Mass 20.0 12-20 Ratio] in Serum or Plasma (test code = 3097-3) sodium level (test code = sodium 141 mmol/L 135-145 level) Potassium [Moles/volume] in Body 3.9 mmol/L 3.5-5.2 fluid (test code = 2821-7) chloride level (test code = 98 mmol/L 98-108 chloride level) CO2 (test code = CO2) 29 mmol/L 21-32 anion gap (test code = anion gap) 17.9 mEq/L 12-20 calcium level (test code = calcium 9.9 mg/dL 8.8-10.2 level) [facility] 11:24:00 Test Item Value Reference Range Interpretation Comments Procalcitonin [Mass/volume] in 0.1 NG/mL 0.0-0.8 Serum or Plasma (test code = 85967-5) [facility] [id number] 16:47:00 Test Item Value Reference Range Interpretation Comments Hgb (test code = Hgb) 8.5 12.0-16.0 [facility] Stati[id number] 16:47:00 Test Item Value Reference Range Interpretation Comments Hct (test code = Hct) 24.8 36.0-48.0 [facility] Stati[id number] 16:47:00 Test Item Value Reference Range Interpretation Comments Hgb (test code = Hgb) 8.5 12.0-16.0 [facility] Stati[id number] 16:47:00 Test Item Value Reference Range Interpretation Comments Hct (test code = Hct) 24.8 36.0-48.0 [facility] StationPyrnbdhLJRRDANIVT7577-30-81 16:47:00 Test Item Value Reference Range Interpretation Comments Hgb (test code = Hgb) 8.5 12.0-16.0 [facility] StationWbmumxzQXQSRZHZBY9592-61-55 16:47:00 Test Item Value Reference Range Interpretation Comments Hct (test code = Hct) 24.8 36.0-48.0 [facility] Stati[id number] 16:47:00 Test Item Value Reference Range Interpretation Comments Hgb (test code = Hgb) 8.5 12.0-16.0 [facility] Stati[id number] 16:47:00 Test Item Value Reference Range Interpretation Comments Hct (test code = Hct) 24.8 36.0-48.0 [facility] StationScylcgzQVIRTIWTMO9527-09-31 16:47:00 Test Item Value Reference Range Interpretation Comments Hgb (test code = Hgb) 8.5 12.0-16.0 [facility] StationUiafwlvBOCIWALIXJ8215-11-84 16:47:00 Test Item Value Reference Range Interpretation Comments Hct (test code = Hct) 24.8 36.0-48.0 [facility]ZtmjoblAOIIRPJBIOAK6276-49-98 10:32:00 Test Item Value Reference Range Interpretation Comments AGAP (test code = AGAP) 9.1 10.0-20.0 [facility] HospitalDtsmvgdJHCBNUCLASBD4825-89-49 10:32:00 Test Item Value Reference Range Interpretation Comments Sodium Lvl (test code = Sodium Lvl) 144 135-145 [facility] HospitalKiecyihPHDPMENSXPUR8885-40-11 10:32:00 Test Item Value Reference Range Interpretation Comments AGAP (test code = AGAP) 9.1 10.0-20.0 [facility] HospitalYaqcmnkAODTGIKIHITU7785-42-74 10:32:00 Test Item Value Reference Range Interpretation Comments Sodium Lvl (test code = Sodium Lvl) 144 135-145 [facility] HospitalLgcuudnRGKIPOWYPWOP0293-84-05 10:32:00 Test Item Value Reference Range Interpretation Comments Potassium Lvl (test code = Potassium 3.1 3.5-5.1 Lvl) [facility] HospitalWyaosqvPFSMDOJYMXME4244-96-42 10:32:00 Test Item Value Reference Range Interpretation Comments Chloride Lvl (test code = Chloride Lvl) 112 95-109 [facility] HospitalHksekqyQGVZGVFVWBWR2271-38-58 10:32:00 Test Item Value Reference Range Interpretation Comments eGFR (test code = eGFR) 91 [facility] HospitalCcgzoegOEIHUUVMIJOD6191-13-89 10:32:00 Test Item Value Reference Range Interpretation Comments Potassium Lvl (test code = Potassium 3.1 3.5-5.1 Lvl) [facility] HospitalWkqpbagSCAIEBWRSABY1211-88-81 10:32:00 Test Item Value Reference Range Interpretation Comments CO2 (test code = CO2) 26 24-32 [facility] HospitalEfszrfnSLWSRBIMCFQX8961-97-52 10:32:00 Test Item Value Reference Range Interpretation Comments Calcium Lvl (test code = Calcium Lvl) 7.8 8.5-10.5 [facility]AgjwowwXTCWDGDQFSQP1824-37-43 10:32:00 Test Item Value Reference Range Interpretation Comments BUN (test code = BUN) 13 7-22 [facility] HospitalUbuomndUNAYSAEVOHIQ6503-67-18 10:32:00 Test Item Value Reference Range Interpretation Comments Creatinine Lvl (test code = Creatinine 0.50 0.50-1.40 Lvl) [facility] HospitalMmgydqrVVSICEUJTQAU1270-00-30 10:32:00 Test Item Value Reference Range Interpretation Comments Glucose Lvl (test code = Glucose Lvl) 90 70-99 [facility] StationOiqumqnLDKXUAKBIO2678-82-96 10:32:00 Test Item Value Reference Range Interpretation Comments MCHC (test code = MCHC) 33.3 32.0-36.0 [facility] StationLutwemqYCOQCNWVSC4390-99-58 10:32:00 Test Item Value Reference Range Interpretation Comments Platelet (test code = Platelet) 138 133-450 [facility] StationXczzekxLPIJOKIMXI9807-49-79 10:32:00 Test Item Value Reference Range Interpretation Comments Hct (test code = Hct) 26.6 36.0-48.0 [facility] StationSazgzjcGZMNUKPCPW2919-20-09 10:32:00 Test Item Value Reference Range Interpretation Comments MCH (test code = MCH) 28.4 pg 27.0-31.0 [facility] StationNosbxofFDOXOYUHUP6322-71-69 10:32:00 Test Item Value Reference Range Interpretation Comments RDW (test code = RDW) 16.8 11.5-14.5 [facility] HospitalOlymckkEURCPQPYJMQC2840-40-70 10:32:00 Test Item Value Reference Range Interpretation Comments Chloride Lvl (test code = Chloride Lvl) 112 95-109 [facility] StationKnkdunzIWPTANYHWM7315-46-68 10:32:00 Test Item Value Reference Range Interpretation Comments MCV (test code = MCV) 85.3 80.0-98.0 [facility] StationGudemmhOZONXTXKVT9845-34-80 10:32:00 Test Item Value Reference Range Interpretation Comments MPV (test code = MPV) 9.8 7.4-10.4 [facility] StationHxciuvoLVSOMJCYVF9328-71-72 10:32:00 Test Item Value Reference Range Interpretation Comments Hgb (test code = Hgb) 8.9 12.0-16.0 [facility] StationXgojkhoRDLGMVXMQV3712-99-02 10:32:00 Test Item Value Reference Range Interpretation Comments WBC (test code = WBC) 13.2 3.7-10.4 [facility]TlkrafdEVETXPBGTR9187-60-77 10:32:00 Test Item Value Reference Range Interpretation Comments RBC (test code = RBC) 3.12 4.20-5.40 [facility] StationOtrrthbOTUTXODSJQ7473-49-95 10:32:00 Test Item Value Reference Range Interpretation Comments Basophils # (test code 0.1 See_Comment [Aut omated message] The = Basophils #) system which generated this result tra nsmitted reference range : <=0.2. The reference r feliciano was not used to int erpret this result as normal/abnormal . [facility] StationOkcycexIOGFOXQQPS3946-35-48 10:32:00 Test Item Value Reference Range Interpretation Comments Lymphocytes # (test code = Lymphocytes 1.8 1.0-5.5 #) [facility] StationTtapusjGGVVAWNWMF1630-46-80 10:32:00 Test Item Value Reference Range Interpretation Comments Lymphocytes (test code = Lymphocytes) 13.6 20.0-40.0 [facility] HospitalXlqwbadGBRZDDQZYT8358-59-70 10:32:00 Test Item Value Reference Range Interpretation Comments Segs (test code = Segs) 74.8 45.0-75.0 [facility] HospitalVhumzthEPOCWLYNVQ3568-14-35 10:32:00 Test Item Value Reference Range Interpretation Comments Monocytes (test code = Monocytes) 8.6 2.0-12.0 [facility]VtszvjuJVSIIWJEQKCO4989-16-79 10:32:00 Test Item Value Reference Range Interpretation Comments eGFR (test code = eGFR) 91 [facility] StationMsrsbtvBJHUWIJUQG7077-65-57 10:32:00 Test Item Value Reference Range Interpretation Comments Basophils (test code = 0.6 See_Comment [Aut omated message] The Basophils) system which ge nerated this result tra nsmitted reference range : <=1.0. The reference r feliciano was not used to int erpret this result as normal/abnormal . [facility] StationFaeycgcSVVUZQHTZF2569-58-45 10:32:00 Test Item Value Reference Range Interpretation Comments Eosinophils (test code = 2.4 See_Comment [A utomated message] The Eosinophils) system which ge nerated this result tra nsmitted reference range : <=4.0. The reference r feliciano was not used to int erpret this result as normal/abnormal . [facility] StationRcnkshqHDIXILBFNY5292-90-62 10:32:00 Test Item Value Reference Range Interpretation Comments Segs-Bands # (test code = Segs-Bands #) 9.9 1.5-8.1 [facility] StationPghwgarISJJRJBXFO4367-74-77 10:32:00 Test Item Value Reference Range Interpretation Comments Monocytes # (test code 1.1 See_Comment [Aut omated message] The = Monocytes #) system which generated this result tra nsmitted reference range : <=0.8. The reference r feliciano was not used to int erpret this result as normal/abnormal . [facility] StationXytcfmtMDNHUXNUDE7398-49-26 10:32:00 Test Item Value Reference Range Interpretation Comments Eosinophils # (test code 0.3 See_Comment [A utomated message] The = Eosinophils #) system whic h generated this result tra nsmitted reference range : <=0.5. The reference r feliciano was not used to int erpret this result as normal/abnormal . [facility] StationFsujhzvCORNJUVHBR0714-68-59 10:32:00 Test Item Value Reference Range Interpretation Comments Plt Morph (test code = Normal (12/26/16 5:32 Plt Morph) AM) [facility] StationBcwolhlTSAPWRROVK2534-56-39 10:32:00 Test Item Value Reference Range Interpretation Comments RBC Morph (test code = Normal (12/26/16 5:32 RBC Morph) AM) [facility] HospitalHsogpiaFNUOZZXMGPAJ2504-91-75 10:32:00 Test Item Value Reference Range Interpretation Comments CO2 (test code = CO2) 26 24-32 [facility] HospitalSvfgbztLDAQLMJFWQVO8100-82-52 10:32:00 Test Item Value Reference Range Interpretation Comments Calcium Lvl (test code = Calcium Lvl) 7.8 8.5-10.5 [facility] HospitalRegovirEUTCQNUXFAWP3681-83-44 10:32:00 Test Item Value Reference Range Interpretation Comments BUN (test code = BUN) 13 7-22 [facility] HospitalAexcqhwHLQBYESIXRKU3504-99-51 10:32:00 Test Item Value Reference Range Interpretation Comments Creatinine Lvl (test code = Creatinine 0.50 0.50-1.40 Lvl) [facility] HospitalSkoydykISCTRFQLUGYL4543-70-11 10:32:00 Test Item Value Reference Range Interpretation Comments Glucose Lvl (test code = Glucose Lvl) 90 70-99 [facility] StationCzhdpqsXRBVEBQGAB9656-24-21 10:32:00 Test Item Value Reference Range Interpretation Comments MCHC (test code = MCHC) 33.3 32.0-36.0 [facility] StationEgfbqmsBGJVFWTSWP3285-50-56 10:32:00 Test Item Value Reference Range Interpretation Comments Platelet (test code = Platelet) 138 133-450 [facility] StationIeemvuxNEHCREZRIN3547-47-54 10:32:00 Test Item Value Reference Range Interpretation Comments Hct (test code = Hct) 26.6 36.0-48.0 [facility] StationXhoumtjPETTNPMOXD4875-80-03 10:32:00 Test Item Value Reference Range Interpretation Comments MCH (test code = MCH) 28.4 pg 27.0-31.0 [facility] StationCtxndxbDBUZHWRDGZ9463-19-14 10:32:00 Test Item Value Reference Range Interpretation Comments RDW (test code = RDW) 16.8 11.5-14.5 [facility] StationDwjsbkrPIXCMNHLMS4617-88-08 10:32:00 Test Item Value Reference Range Interpretation Comments MCV (test code = MCV) 85.3 80.0-98.0 [facility] StationWsackbzLLMJUFJNXY3557-96-31 10:32:00 Test Item Value Reference Range Interpretation Comments MPV (test code = MPV) 9.8 7.4-10.4 [facility] StationFqlnxrcGYECDNHSVM6784-96-67 10:32:00 Test Item Value Reference Range Interpretation Comments Hgb (test code = Hgb) 8.9 12.0-16.0 [facility] StationSnridkjIOBWUTTETY9979-80-73 10:32:00 Test Item Value Reference Range Interpretation Comments WBC (test code = WBC) 13.2 3.7-10.4 [facility] StationXtpqdkuIIBDAMXDLF7493-68-27 10:32:00 Test Item Value Reference Range Interpretation Comments RBC (test code = RBC) 3.12 4.20-5.40 [facility] StationYpfuxfsCCOIFWWQXT8427-25-61 10:32:00 Test Item Value Reference Range Interpretation Comments Basophils # (test code 0.1 See_Comment [Aut omated message] The = Basophils #) system which generated this result tra nsmitted reference range : <=0.2. The reference r feliciano was not used to int erpret this result as normal/abnormal . [facility] StationHaojburGTHKKHSRCM4352-25-88 10:32:00 Test Item Value Reference Range Interpretation Comments Lymphocytes # (test code = Lymphocytes 1.8 1.0-5.5 #) [facility] StationZaqqfcdGNDDLYAAEH0948-24-24 10:32:00 Test Item Value Reference Range Interpretation Comments Lymphocytes (test code = Lymphocytes) 13.6 20.0-40.0 [facility] StationNftdkgkLYCXROOJSB6841-54-62 10:32:00 Test Item Value Reference Range Interpretation Comments Segs (test code = Segs) 74.8 45.0-75.0 [facility] StationBfkcchaJZDTGJYYZT6267-70-41 10:32:00 Test Item Value Reference Range Interpretation Comments Monocytes (test code = Monocytes) 8.6 2.0-12.0 [facility] StationTqwjytdGOJSGNANAF2954-36-21 10:32:00 Test Item Value Reference Range Interpretation Comments Basophils (test code = 0.6 See_Comment [Aut omated message] The Basophils) system which ge nerated this result tra nsmitted reference range : <=1.0. The reference r feliciano was not used to int erpret this result as normal/abnormal . [facility] StationVowavhsSTGYQTAWGT1005-28-40 10:32:00 Test Item Value Reference Range Interpretation Comments Eosinophils (test code = 2.4 See_Comment [A utomated message] The Eosinophils) system which ge nerated this result tra nsmitted reference range : <=4.0. The reference r feliciano was not used to int erpret this result as normal/abnormal . [facility] StationCfpunvaFPTQEUEXWI4614-71-91 10:32:00 Test Item Value Reference Range Interpretation Comments Segs-Bands # (test code = Segs-Bands #) 9.9 1.5-8.1 [facility] StationSudtndeYKTTOOOTJH1832-81-32 10:32:00 Test Item Value Reference Range Interpretation Comments Monocytes # (test code 1.1 See_Comment [Aut omated message] The = Monocytes #) system which generated this result tra nsmitted reference range : <=0.8. The reference r feliciano was not used to int erpret this result as normal/abnormal . [facility] StationScqvljrQLGTQQPHGJ4933-98-61 10:32:00 Test Item Value Reference Range Interpretation Comments Eosinophils # (test code 0.3 See_Comment [A utomated message] The = Eosinophils #) system whic h generated this result tra nsmitted reference range : <=0.5. The reference r feliciano was not used to int erpret this result as normal/abnormal . [facility] StationKcsmaegFDYAYCUMBW1844-42-23 10:32:00 Test Item Value Reference Range Interpretation Comments Plt Morph (test code = Normal (12/26/16 5:32 Plt Morph) AM) [facility] StationEkoxhhoCJJNIJFDYX5904-09-44 10:32:00 Test Item Value Reference Range Interpretation Comments RBC Morph (test code = Normal (12/26/16 5:32 RBC Morph) AM) [facility] HospitalQsahciwLWMSCHAICPGZ2895-60-01 10:32:00 Test Item Value Reference Range Interpretation Comments AGAP (test code = AGAP) 9.1 10.0-20.0 [facility] HospitalUuevajnSPRPGKKHXVQO0374-09-43 10:32:00 Test Item Value Reference Range Interpretation Comments Sodium Lvl (test code = Sodium Lvl) 144 135-145 [facility] HospitalTohkxomXTHKJSFZKMBB3345-37-52 10:32:00 Test Item Value Reference Range Interpretation Comments Potassium Lvl (test code = Potassium 3.1 3.5-5.1 Lvl) [facility] HospitalXlliwovHTJUUFYLMJUO7342-11-74 10:32:00 Test Item Value Reference Range Interpretation Comments Chloride Lvl (test code = Chloride Lvl) 112 95-109 [facility] HospitalMeclztyMGXRUBTRGZMJ9652-44-79 10:32:00 Test Item Value Reference Range Interpretation Comments eGFR (test code = eGFR) 91 [facility] HospitalGeenmtoVJUHNBOCCXLS3447-95-18 10:32:00 Test Item Value Reference Range Interpretation Comments CO2 (test code = CO2) 26 24-32 [facility] HospitalYuililoBCUNAHWOPURT1176-67-38 10:32:00 Test Item Value Reference Range Interpretation Comments Calcium Lvl (test code = Calcium Lvl) 7.8 8.5-10.5 [facility] HospitalWedepbvDEZYWCAQYHXF8090-52-18 10:32:00 Test Item Value Reference Range Interpretation Comments BUN (test code = BUN) 13 7-22 [facility] HospitalFbgghmwTGQONEOPVQCF6140-21-54 10:32:00 Test Item Value Reference Range Interpretation Comments Creatinine Lvl (test code = Creatinine 0.50 0.50-1.40 Lvl) [facility] HospitalYqycksbCQIBCSSDBEEE9241-36-56 10:32:00 Test Item Value Reference Range Interpretation Comments Glucose Lvl (test code = Glucose Lvl) 90 70-99 [facility] StationUfupztiOPZPGDYGPO7670-05-88 10:32:00 Test Item Value Reference Range Interpretation Comments MCHC (test code = MCHC) 33.3 32.0-36.0 [facility] StationVpgjfasVXXLUZSCUQ8477-73-56 10:32:00 Test Item Value Reference Range Interpretation Comments Platelet (test code = Platelet) 138 133-450 [facility] StationBkmxwggHHJGMKARKN9023-98-81 10:32:00 Test Item Value Reference Range Interpretation Comments Hct (test code = Hct) 26.6 36.0-48.0 [facility] StationObsnzbkSTENYAMTUL7349-53-07 10:32:00 Test Item Value Reference Range Interpretation Comments MCH (test code = MCH) 28.4 pg 27.0-31.0 [facility] StationCwdiaivFSTHWARXJT9504-17-35 10:32:00 Test Item Value Reference Range Interpretation Comments RDW (test code = RDW) 16.8 11.5-14.5 [facility] StationFmnisunDOXDUCAJCL5249-53-98 10:32:00 Test Item Value Reference Range Interpretation Comments MCV (test code = MCV) 85.3 80.0-98.0 [facility] StationVvrztulPROETLMYGX0843-47-30 10:32:00 Test Item Value Reference Range Interpretation Comments MPV (test code = MPV) 9.8 7.4-10.4 [facility] StationVzmnrelGTBHYQUKGL0424-04-08 10:32:00 Test Item Value Reference Range Interpretation Comments Hgb (test code = Hgb) 8.9 12.0-16.0 [facility] StationRwflgqxRWGTPJAGPS9851-53-64 10:32:00 Test Item Value Reference Range Interpretation Comments WBC (test code = WBC) 13.2 3.7-10.4 [facility] StationAilizpnBSRHWKAOUP3776-06-60 10:32:00 Test Item Value Reference Range Interpretation Comments RBC (test code = RBC) 3.12 4.20-5.40 [facility] StationByhypojPWUABSICFQ2663-06-48 10:32:00 Test Item Value Reference Range Interpretation Comments Basophils # (test code 0.1 See_Comment [Aut omated message] The = Basophils #) system which generated this result tra nsmitted reference range : <=0.2. The reference r feliciano was not used to int erpret this result as normal/abnormal . [facility] StationYiapncqDTKRNOFQCG6634-60-51 10:32:00 Test Item Value Reference Range Interpretation Comments Lymphocytes # (test code = Lymphocytes 1.8 1.0-5.5 #) [facility] StationIhgvjcnYSJKMZPOUK6823-72-10 10:32:00 Test Item Value Reference Range Interpretation Comments Lymphocytes (test code = Lymphocytes) 13.6 20.0-40.0 [facility] StationOsuupwxLEQGEDCADW8466-63-61 10:32:00 Test Item Value Reference Range Interpretation Comments Segs (test code = Segs) 74.8 45.0-75.0 [facility] StationFhsnvtvCLMRJIFGPF9647-10-84 10:32:00 Test Item Value Reference Range Interpretation Comments Monocytes (test code = Monocytes) 8.6 2.0-12.0 [facility] StationUdilpunEBLQVPRQEL8128-60-78 10:32:00 Test Item Value Reference Range Interpretation Comments Basophils (test code = 0.6 See_Comment [Aut omated message] The Basophils) system which ge nerated this result tra nsmitted reference range : <=1.0. The reference r feliciano was not used to int erpret this result as normal/abnormal . [facility] StationOrppgmqDIJCSDGQEZ8584-04-75 10:32:00 Test Item Value Reference Range Interpretation Comments Eosinophils (test code = 2.4 See_Comment [A utomated message] The Eosinophils) system which ge nerated this result tra nsmitted reference range : <=4.0. The reference r feliciano was not used to int erpret this result as normal/abnormal . [facility] StationOkuwrodKSIPBRBXXV2584-67-27 10:32:00 Test Item Value Reference Range Interpretation Comments Segs-Bands # (test code = Segs-Bands #) 9.9 1.5-8.1 [facility] StationOwrgwxdUPMMFZXVGH1778-42-25 10:32:00 Test Item Value Reference Range Interpretation Comments Monocytes # (test code 1.1 See_Comment [Aut omated message] The = Monocytes #) system which generated this result tra nsmitted reference range : <=0.8. The reference r feliciano was not used to int erpret this result as normal/abnormal . [facility] StationTuhrapyCVSFNUKBRI5285-02-36 10:32:00 Test Item Value Reference Range Interpretation Comments Eosinophils # (test code 0.3 See_Comment [A utomated message] The = Eosinophils #) system whic h generated this result tra nsmitted reference range : <=0.5. The reference r feliciano was not used to int erpret this result as normal/abnormal . [facility] StationSeuyzmyWFSNNVZLVD2009-41-91 10:32:00 Test Item Value Reference Range Interpretation Comments Plt Morph (test code = Normal (12/26/16 5:32 Plt Morph) AM) [facility] StationOcycksnGFWVMPPXOM5534-74-13 10:32:00 Test Item Value Reference Range Interpretation Comments RBC Morph (test code = Normal (12/26/16 5:32 RBC Morph) AM) [facility] HospitalCqyqldrAMCOEVPKZSZQ4038-88-78 10:32:00 Test Item Value Reference Range Interpretation Comments AGAP (test code = AGAP) 9.1 10.0-20.0 [facility] HospitalVaxyyvhALGBHJGMBUPV7426-63-69 10:32:00 Test Item Value Reference Range Interpretation Comments Sodium Lvl (test code = Sodium Lvl) 144 135-145 [facility] HospitalHlbywihXDZKLJCWQITI6728-44-55 10:32:00 Test Item Value Reference Range Interpretation Comments Potassium Lvl (test code = Potassium 3.1 3.5-5.1 Lvl) [facility] HospitalIkusodzEDYZKECDINQI6234-78-03 10:32:00 Test Item Value Reference Range Interpretation Comments Chloride Lvl (test code = Chloride Lvl) 112 95-109 [facility] HospitalWdnzzukVUMNJFVWYVPB3144-24-89 10:32:00 Test Item Value Reference Range Interpretation Comments eGFR (test code = eGFR) 91 [facility] HospitalKmzhjppCRTWHVJRAFRH7975-70-67 10:32:00 Test Item Value Reference Range Interpretation Comments CO2 (test code = CO2) 26 24-32 [facility] HospitalUfsthezXHOIBIIRZYHF3955-36-97 10:32:00 Test Item Value Reference Range Interpretation Comments Calcium Lvl (test code = Calcium Lvl) 7.8 8.5-10.5 [facility] HospitalXaemiqyPBIOTQXRJCBB9392-40-91 10:32:00 Test Item Value Reference Range Interpretation Comments BUN (test code = BUN) 13 7-22 [facility] HospitalQogvbreRMACMJSSLPNK5347-22-35 10:32:00 Test Item Value Reference Range Interpretation Comments Creatinine Lvl (test code = Creatinine 0.50 0.50-1.40 Lvl) [facility] HospitalDdmzigpZNGJKOLJLUAG7050-16-60 10:32:00 Test Item Value Reference Range Interpretation Comments Glucose Lvl (test code = Glucose Lvl) 90 70-99 [facility] StationBqidomkKUCNLRBEBD7569-76-31 10:32:00 Test Item Value Reference Range Interpretation Comments MCHC (test code = MCHC) 33.3 32.0-36.0 [facility] StationMmymhzhTDIFMQMEVX9116-70-81 10:32:00 Test Item Value Reference Range Interpretation Comments Platelet (test code = Platelet) 138 133-450 [facility] StationBtufrgfFMPIBIXSZN8045-60-90 10:32:00 Test Item Value Reference Range Interpretation Comments Hct (test code = Hct) 26.6 36.0-48.0 [facility] StationIqqimewUNITUNZXSF4670-20-65 10:32:00 Test Item Value Reference Range Interpretation Comments MCH (test code = MCH) 28.4 pg 27.0-31.0 [facility] StationStpuhotFNHYIQRDXT2223-63-57 10:32:00 Test Item Value Reference Range Interpretation Comments RDW (test code = RDW) 16.8 11.5-14.5 [facility] StationIxawbyvZDWFMJDUSB0947-31-84 10:32:00 Test Item Value Reference Range Interpretation Comments MCV (test code = MCV) 85.3 80.0-98.0 [facility] StationTntnkztNYRRQKTVSU0006-07-69 10:32:00 Test Item Value Reference Range Interpretation Comments MPV (test code = MPV) 9.8 7.4-10.4 [facility] StationPjspehsGWPVMESKGQ7424-84-48 10:32:00 Test Item Value Reference Range Interpretation Comments Hgb (test code = Hgb) 8.9 12.0-16.0 [facility] StationPzvitmcOIULRRGXGT1006-48-82 10:32:00 Test Item Value Reference Range Interpretation Comments WBC (test code = WBC) 13.2 3.7-10.4 [facility] StationQuhroalFJPLQSYHGF9705-54-00 10:32:00 Test Item Value Reference Range Interpretation Comments RBC (test code = RBC) 3.12 4.20-5.40 [facility] StationHcleiurHLYZARNAYM7715-93-76 10:32:00 Test Item Value Reference Range Interpretation Comments Basophils # (test code 0.1 See_Comment [Aut omated message] The = Basophils #) system which generated this result tra nsmitted reference range : <=0.2. The reference r feliciano was not used to int erpret this result as normal/abnormal . [facility] StationYcrukmzJWFGGTECCD0999-75-37 10:32:00 Test Item Value Reference Range Interpretation Comments Lymphocytes # (test code = Lymphocytes 1.8 1.0-5.5 #) [facility] StationFdawmohQOSDNUMYLH1512-49-06 10:32:00 Test Item Value Reference Range Interpretation Comments Lymphocytes (test code = Lymphocytes) 13.6 20.0-40.0 [facility] StationSurndieXOEGPWTULI9913-43-47 10:32:00 Test Item Value Reference Range Interpretation Comments Segs (test code = Segs) 74.8 45.0-75.0 [facility] StationWumwpmlCLCWKWRRTI0253-01-92 10:32:00 Test Item Value Reference Range Interpretation Comments Monocytes (test code = Monocytes) 8.6 2.0-12.0 [facility] StationAgftmfsILNOJGLUZB6603-00-42 10:32:00 Test Item Value Reference Range Interpretation Comments Basophils (test code = 0.6 See_Comment [Aut omated message] The Basophils) system which ge nerated this result tra nsmitted reference range : <=1.0. The reference r feliciano was not used to int erpret this result as normal/abnormal . [facility] StationGrsxgybBRLTSGSSWU9581-59-17 10:32:00 Test Item Value Reference Range Interpretation Comments Eosinophils (test code = 2.4 See_Comment [A utomated message] The Eosinophils) system which ge nerated this result tra nsmitted reference range : <=4.0. The reference r feliciano was not used to int erpret this result as normal/abnormal . [facility] StationCklvtafKGTWHPWPON2640-63-78 10:32:00 Test Item Value Reference Range Interpretation Comments Segs-Bands # (test code = Segs-Bands #) 9.9 1.5-8.1 [facility] StationPnwqgmeIPGHFTHTCR3419-94-43 10:32:00 Test Item Value Reference Range Interpretation Comments Monocytes # (test code 1.1 See_Comment [Aut omated message] The = Monocytes #) system which generated this result tra nsmitted reference range : <=0.8. The reference r feliciano was not used to int erpret this result as normal/abnormal . [facility] StationXdkjpwuMXSVECYAAQ6280-43-77 10:32:00 Test Item Value Reference Range Interpretation Comments Eosinophils # (test code 0.3 See_Comment [A utomated message] The = Eosinophils #) system whic h generated this result tra nsmitted reference range : <=0.5. The reference r feliciano was not used to int erpret this result as normal/abnormal . [facility] StationDhvikruTMAUINEHPE2321-79-48 10:32:00 Test Item Value Reference Range Interpretation Comments Plt Morph (test code = Normal (12/26/16 5:32 Plt Morph) AM) [facility] StationWkphnxjPKRVKYEUVR4113-52-46 10:32:00 Test Item Value Reference Range Interpretation Comments RBC Morph (test code = Normal (12/26/16 5:32 RBC Morph) AM) [facility]PmuhglpVVQXLCBTMTNK4371-61-99 10:32:00 Test Item Value Reference Range Interpretation Comments AGAP (test code = AGAP) 9.1 10.0-20.0 [facility]IevkcgcXBRKDFVCXRDI2503-33-84 10:32:00 Test Item Value Reference Range Interpretation Comments Sodium Lvl (test code = Sodium Lvl) 144 135-145 [facility] HospitalVzssvbaVMDEESFWIXWR1388-91-84 10:32:00 Test Item Value Reference Range Interpretation Comments Potassium Lvl (test code = Potassium 3.1 3.5-5.1 Lvl) [facility] HospitalRgumzxwCJKJWCAOUYMO3304-05-08 10:32:00 Test Item Value Reference Range Interpretation Comments Chloride Lvl (test code = Chloride Lvl) 112 95-109 [facility] HospitalUoiayqqRSPEZQYLOQEM7576-33-01 10:32:00 Test Item Value Reference Range Interpretation Comments eGFR (test code = eGFR) 91 [facility] HospitalGzxnzyyUJIBZSJCVZEH5535-03-62 10:32:00 Test Item Value Reference Range Interpretation Comments CO2 (test code = CO2) 26 24-32 [facility] HospitalBwtvjktESXMLORFQRPH2830-67-68 10:32:00 Test Item Value Reference Range Interpretation Comments Calcium Lvl (test code = Calcium Lvl) 7.8 8.5-10.5 [facility] HospitalZxjuqsvFALSGNTVRFXE0939-58-05 10:32:00 Test Item Value Reference Range Interpretation Comments BUN (test code = BUN) 13 7-22 [facility] HospitalQgoimtqHCCZPYDNEYOS6486-94-46 10:32:00 Test Item Value Reference Range Interpretation Comments Creatinine Lvl (test code = Creatinine 0.50 0.50-1.40 Lvl) [facility] HospitalQnkfagnAPFUJZLATVVJ1904-40-23 10:32:00 Test Item Value Reference Range Interpretation Comments Glucose Lvl (test code = Glucose Lvl) 90 70-99 [facility] StationRkdwbwxAAITBMAYDH0124-48-79 10:32:00 Test Item Value Reference Range Interpretation Comments MCHC (test code = MCHC) 33.3 32.0-36.0 [facility] StationXignhrlJXVCBDLAIH6334-02-94 10:32:00 Test Item Value Reference Range Interpretation Comments Platelet (test code = Platelet) 138 133-450 [facility] StationOethsucWDVDQAYUSH6482-89-19 10:32:00 Test Item Value Reference Range Interpretation Comments Hct (test code = Hct) 26.6 36.0-48.0 [facility] StationPhiomokSSVUSDKXKI8195-72-95 10:32:00 Test Item Value Reference Range Interpretation Comments MCH (test code = MCH) 28.4 pg 27.0-31.0 [facility] StationSdprsdhCHAAXZSXBH5392-84-55 10:32:00 Test Item Value Reference Range Interpretation Comments RDW (test code = RDW) 16.8 11.5-14.5 [facility] StationHtrsinqXOENWPZJUW6425-49-71 10:32:00 Test Item Value Reference Range Interpretation Comments MCV (test code = MCV) 85.3 80.0-98.0 [facility] StationLfynabkQGUJTWEUJV0797-71-06 10:32:00 Test Item Value Reference Range Interpretation Comments MPV (test code = MPV) 9.8 7.4-10.4 [facility] StationNegnxzqJAEBAGZVMA0867-78-52 10:32:00 Test Item Value Reference Range Interpretation Comments Hgb (test code = Hgb) 8.9 12.0-16.0 [facility] StationMsdhxwzONZMXBWDTT6811-92-45 10:32:00 Test Item Value Reference Range Interpretation Comments WBC (test code = WBC) 13.2 3.7-10.4 [facility] StationLibpsekJIUAFTFZXQ4692-89-68 10:32:00 Test Item Value Reference Range Interpretation Comments RBC (test code = RBC) 3.12 4.20-5.40 [facility] StationNbbeqaoXUQCZBJNSG8814-08-44 10:32:00 Test Item Value Reference Range Interpretation Comments Basophils # (test code 0.1 See_Comment [Aut omated message] The = Basophils #) system which generated this result tra nsmitted reference range : <=0.2. The reference r feliciano was not used to int erpret this result as normal/abnormal . [facility] StationOkrnwtrPXWSKFTRZG1556-10-82 10:32:00 Test Item Value Reference Range Interpretation Comments Lymphocytes # (test code = Lymphocytes 1.8 1.0-5.5 #) [facility] StationAeabeqcIVAWNLGSUV2141-69-48 10:32:00 Test Item Value Reference Range Interpretation Comments Lymphocytes (test code = Lymphocytes) 13.6 20.0-40.0 [facility] StationEogvptcUSCAONXLYX9416-81-64 10:32:00 Test Item Value Reference Range Interpretation Comments Segs (test code = Segs) 74.8 45.0-75.0 [facility] StationWrurawvOATTMKMKED2819-11-42 10:32:00 Test Item Value Reference Range Interpretation Comments Monocytes (test code = Monocytes) 8.6 2.0-12.0 [facility] StationBlspkjqXMUDAENMAK8577-71-30 10:32:00 Test Item Value Reference Range Interpretation Comments Basophils (test code = 0.6 See_Comment [Aut omated message] The Basophils) system which ge nerated this result tra nsmitted reference range : <=1.0. The reference r feliciano was not used to int erpret this result as normal/abnormal . [facility] StationKvadkroTFYNWSSPAY7515-67-50 10:32:00 Test Item Value Reference Range Interpretation Comments Eosinophils (test code = 2.4 See_Comment [A utomated message] The Eosinophils) system which ge nerated this result tra nsmitted reference range : <=4.0. The reference r feliciano was not used to int erpret this result as normal/abnormal . [facility] StationFbrsugxCOBOOYVIUR8467-45-59 10:32:00 Test Item Value Reference Range Interpretation Comments Segs-Bands # (test code = Segs-Bands #) 9.9 1.5-8.1 [facility] StationZuosyzpYZMZGXDWRQ5231-74-01 10:32:00 Test Item Value Reference Range Interpretation Comments Monocytes # (test code 1.1 See_Comment [Aut omated message] The = Monocytes #) system which generated this result tra nsmitted reference range : <=0.8. The reference r feliciano was not used to int erpret this result as normal/abnormal . [facility] StationQqofdofKOLHYAUEJV6950-49-32 10:32:00 Test Item Value Reference Range Interpretation Comments Eosinophils # (test code 0.3 See_Comment [A utomated message] The = Eosinophils #) system [employer] h generated this result tra nsmitted reference range : <=0.5. The reference r feliciano was not used to int erpret this result as normal/abnormal . [facility] StationPoupllwSDFKRTEOXI9541-30-89 10:32:00 Test Item Value Reference Range Interpretation Comments Plt Morph (test code = Normal (12/26/16 5:32 Plt Morph) AM) [facility] StationVsqrkwfSGWAMMSZOP6342-07-19 10:32:00 Test Item Value Reference Range Interpretation Comments RBC Morph (test code = Normal (12/26/16 5:32 RBC Morph) AM) [facility] StationQzqmdnaBVESLUTYRF7491-61-70 01:46:00 Test Item Value Reference Range Interpretation Comments Hgb (test code = Hgb) 8.4 12.0-16.0 [facility] StationNkrwmkmAWCPAVBLVH9331-15-43 01:46:00 Test Item Value Reference Range Interpretation Comments Hct (test code = Hct) 23.9 36.0-48.0 [facility] StationSanjqjtASYRARMXOZ6634-39-72 01:46:00 Test Item Value Reference Range Interpretation Comments Hgb (test code = Hgb) 8.4 12.0-16.0 [facility] StationLzxsifgXTMDOCNMTS1612-49-43 01:46:00 Test Item Value Reference Range Interpretation Comments Hct (test code = Hct) 23.9 36.0-48.0 [facility] StationDilieqgSFUKCHHRFK7373-46-06 01:46:00 Test Item Value Reference Range Interpretation Comments Hgb (test code = Hgb) 8.4 12.0-16.0 [facility] StationQzulcnuIBANUYPAWP2173-99-97 01:46:00 Test Item Value Reference Range Interpretation Comments Hct (test code = Hct) 23.9 36.0-48.0 [facility] StationStptriaWQOHKHCEHS1246-25-54 01:46:00 Test Item Value Reference Range Interpretation Comments Hgb (test code = Hgb) 8.4 12.0-16.0 [facility] StationQbsdhdzZSUMTGBCMQ5113-34-35 01:46:00 Test Item Value Reference Range Interpretation Comments Hct (test code = Hct) 23.9 36.0-48.0 [facility] StationIsusoxiUAZMJFAIJN6619-65-74 01:46:00 Test Item Value Reference Range Interpretation Comments Hgb (test code = Hgb) 8.4 12.0-16.0 [facility] StationMbqzryiGOPFQFJFEM2762-70-15 01:46:00 Test Item Value Reference Range Interpretation Comments Hct (test code = Hct) 23.9 36.0-48.0 [facility] VOXUWWV5537-20-21 18:07:00 Test Item Value Reference Range Interpretation Comments RBC product (test code Product available = RBC product) (12/25/16 1:07 PM) [facility] [id number] 18:07:00 Test Item Value Reference Range Interpretation Comments RBC product (test code Product available = RBC product) (12/25/16 1:07 PM) [facility] [id number] 18:07:00 Test Item Value Reference Range Interpretation Comments RBC product (test code Product available = RBC product) (12/25/16 1:07 PM) [facility] [id number] 18:07:00 Test Item Value Reference Range Interpretation Comments RBC product (test code Product available = RBC product) (12/25/16 1:07 PM) [facility] [id number] 18:07:00 Test Item Value Reference Range Interpretation Comments RBC product (test code Product available = RBC product) (12/25/16 1:07 PM) [facility] [id number] 17:17:00 Test Item Value Reference Range Interpretation Comments Ferritin Lvl (test code = Ferritin Lvl) [facility] [id number] 17:17:00 Test Item Value Reference Range Interpretation Comments Ferritin Lvl (test code = Ferritin Lvl) [facility] AZHWZ6119-07-31 17:17:00 Test Item Value Reference Range Interpretation Comments Ferritin Lvl (test code = Ferritin Lvl) [facility] IZYJT2637-23-27 17:17:00 Test Item Value Reference Range Interpretation Comments Ferritin Lvl (test code = Ferritin Lvl) [facility] [id number] 17:17:00 Test Item Value Reference Range Interpretation Comments Ferritin Lvl (test code = Ferritin Lvl) [facility] StationXcvwjvjTBPMDCAJBO4699-95-46 10:55:00 Test Item Value Reference Range Interpretation Comments Monocytes (test code = Monocytes) 8.1 2.0-12.0 [facility] StationGxdjdgiKRFFYRXEWD3577-79-65 10:55:00 Test Item Value Reference Range Interpretation Comments Lymphocytes (test code = Lymphocytes) 21.0 20.0-40.0 [place] 457337-08-13 10:55:00 Test Item Value Reference Range Interpretation Comments Segs-Bands # (test code = Segs-Bands #) 7.4 1.5-8.1 [facility] StationIhqftifKPWUBOXMUB1230-91-73 10:55:00 Test Item Value Reference Range Interpretation Comments Basophils (test code = 0.3 See_Comment [Aut omated message] The Basophils) system which ge nerated this result tra nsmitted reference range : <=1.0. The reference r feliciano was not used to int erpret this result as normal/abnormal . [facility] StationLgyhdrkWPIBJJAIMN1452-68-24 10:55:00 Test Item Value Reference Range Interpretation Comments Monocytes # (test code 0.9 See_Comment [Aut omated message] The = Monocytes #) system which generated this result tra nsmitted reference range : <=0.8. The reference r feliciano was not used to int erpret this result as normal/abnormal . [facility] StationPrsootkHGUQEVERCR5367-70-91 10:55:00 Test Item Value Reference Range Interpretation Comments Lymphocytes # (test code = Lymphocytes 2.3 1.0-5.5 #) [facility] StationLbeohveKUTMBUEYGL7796-33-13 10:55:00 Test Item Value Reference Range Interpretation Comments Segs (test code = Segs) 67.0 45.0-75.0 [facility]2017-08-13 10:55:00 Test Item Value Reference Range Interpretation Comments Glucose Lvl (test code = Glucose Lvl) 74 70-99 [facility]2017-08-13 10:55:00 Test Item Value Reference Range Interpretation Comments Creatinine Lvl (test code = Creatinine 0.50 0.50-1.40 Lvl) [facility]2017-08-13 10:55:00 Test Item Value Reference Range Interpretation Comments BUN (test code = BUN) 17 7-22 [facility]2017-08-13 10:55:00 Test Item Value Reference Range Interpretation Comments AGAP (test code = AGAP) 10.3 10.0-20.0 [facility]2017-08-13 10:55:00 Test Item Value Reference Range Interpretation Comments Calcium Lvl (test code = Calcium Lvl) 7.4 8.5-10.5 [facility]2017-08-13 10:55:00 Test Item Value Reference Range Interpretation Comments CO2 (test code = CO2) 23 24-32 [facility]2017-08-13 10:55:00 Test Item Value Reference Range Interpretation Comments Chloride Lvl (test code = Chloride Lvl) 115 95-109 [facility]2017-08-13 10:55:00 Test Item Value Reference Range Interpretation Comments Potassium Lvl (test code = Potassium 3.3 3.5-5.1 Lvl) [facility]2017-08-13 10:55:00 Test Item Value Reference Range Interpretation Comments Sodium Lvl (test code = Sodium Lvl) 145 135-145 [facility]2017-08-13 10:55:00 Test Item Value Reference Range Interpretation Comments eGFR (test code = eGFR) 91 [facility] StationSasenrfFVUETKYPYM0037-17-97 10:55:00 Test Item Value Reference Range Interpretation Comments MCHC (test code = MCHC) 32.6 32.0-36.0 [facility] StationVmvwbrdKUKMWEMWBN8316-16-86 10:55:00 Test Item Value Reference Range Interpretation Comments MCH (test code = MCH) 28.1 pg 27.0-31.0 [facility] StationOkfpbtjDIQMIRNHCL6341-87-09 10:55:00 Test Item Value Reference Range Interpretation Comments MCV (test code = MCV) 86.0 80.0-98.0 [facility] StationRlhbgeaJNETDHKGDL7387-23-07 10:55:00 Test Item Value Reference Range Interpretation Comments MPV (test code = MPV) 9.4 7.4-10.4 [facility] StationKfjlzdpQUMUWAMJJK5059-27-23 10:55:00 Test Item Value Reference Range Interpretation Comments Platelet (test code = Platelet) 158 133-450 [facility] StationFhwolzzKQYDIFNXDC4205-94-11 10:55:00 Test Item Value Reference Range Interpretation Comments RDW (test code = RDW) 16.8 11.5-14.5 [facility] StationWtnvpsmJYDDMAYXYV1463-62-64 10:55:00 Test Item Value Reference Range Interpretation Comments RBC (test code = RBC) 2.75 4.20-5.40 [facility] StationLttftslNFOAFEIAET2827-66-91 10:55:00 Test Item Value Reference Range Interpretation Comments WBC (test code = WBC) 11.0 3.7-10.4 [facility] StationIyerpdqNGFYXUVUDN4032-92-42 10:55:00 Test Item Value Reference Range Interpretation Comments Eosinophils # (test code 0.4 See_Comment [A utomated message] The = Eosinophils #) system whic h generated this result tra nsmitted reference range : <=0.5. The reference r feliciano was not used to int erpret this result as normal/abnormal . [facility] StationHmypiobUSOOSAXMGT7760-67-67 10:55:00 Test Item Value Reference Range Interpretation Comments Eosinophils (test code = 3.6 See_Comment [A utomated message] The Eosinophils) system which ge nerated this result tra nsmitted reference range : <=4.0. The reference r feliciano was not used to int erpret this result as normal/abnormal . [facility] StationEpnfwhpZTKKPMNDLB8731-02-54 10:55:00 Test Item Value Reference Range Interpretation Comments Monocytes (test code = Monocytes) 8.1 2.0-12.0 [facility] StationLzfzbaeJQYHYEXKXK1180-80-70 10:55:00 Test Item Value Reference Range Interpretation Comments Lymphocytes (test code = Lymphocytes) 21.0 20.0-40.0 [facility] StationOfhuepaLPEGPALNLW3791-53-61 10:55:00 Test Item Value Reference Range Interpretation Comments Segs-Bands # (test code = Segs-Bands #) 7.4 1.5-8.1 [facility] StationEcrfrxkZESWZSKKJT8402-83-43 10:55:00 Test Item Value Reference Range Interpretation Comments Basophils (test code = 0.3 See_Comment [Aut omated message] The Basophils) system which ge nerated this result tra nsmitted reference range : <=1.0. The reference r feliciano was not used to int erpret this result as normal/abnormal . [facility] StationUpghpbuFIRVAALYRT4906-15-42 10:55:00 Test Item Value Reference Range Interpretation Comments Monocytes # (test code 0.9 See_Comment [Aut omated message] The = Monocytes #) system which generated this result tra nsmitted reference range : <=0.8. The reference r feliciano was not used to int erpret this result as normal/abnormal . [facility] StationBtmmfgaYISAKPELRG5824-63-86 10:55:00 Test Item Value Reference Range Interpretation Comments Lymphocytes # (test code = Lymphocytes 2.3 1.0-5.5 #) [facility] StationAflgyfjPKQJPNAUJH4627-02-70 10:55:00 Test Item Value Reference Range Interpretation Comments Segs (test code = Segs) 67.0 45.0-75.0 [facility]2017-08-13 10:55:00 Test Item Value Reference Range Interpretation Comments Glucose Lvl (test code = Glucose Lvl) 74 70-99 [facility]2017-08-13 10:55:00 Test Item Value Reference Range Interpretation Comments Creatinine Lvl (test code = Creatinine 0.50 0.50-1.40 Lvl) [facility]2017-08-13 10:55:00 Test Item Value Reference Range Interpretation Comments BUN (test code = BUN) 17 7-22 [facility]2017-08-13 10:55:00 Test Item Value Reference Range Interpretation Comments AGAP (test code = AGAP) 10.3 10.0-20.0 [facility]2017-08-13 10:55:00 Test Item Value Reference Range Interpretation Comments Calcium Lvl (test code = Calcium Lvl) 7.4 8.5-10.5 [facility]2017-08-13 10:55:00 Test Item Value Reference Range Interpretation Comments CO2 (test code = CO2) 23 24-32 [facility]2017-08-13 10:55:00 Test Item Value Reference Range Interpretation Comments Chloride Lvl (test code = Chloride Lvl) 115 95-109 [facility]2017-08-13 10:55:00 Test Item Value Reference Range Interpretation Comments Potassium Lvl (test code = Potassium 3.3 3.5-5.1 Lvl) [facility]2017-08-13 10:55:00 Test Item Value Reference Range Interpretation Comments Sodium Lvl (test code = Sodium Lvl) 145 135-145 [facility]2017-08-13 10:55:00 Test Item Value Reference Range Interpretation Comments eGFR (test code = eGFR) 91 [facility] StationRrugdpdKZWFNKVLHC9646-41-63 10:55:00 Test Item Value Reference Range Interpretation Comments MCHC (test code = MCHC) 32.6 32.0-36.0 [facility] StationIjqwaxlMQZWTRUPYK9694-44-35 10:55:00 Test Item Value Reference Range Interpretation Comments MCH (test code = MCH) 28.1 pg 27.0-31.0 [facility] StationAtvfnzbHPGEGYSGJK8231-30-60 10:55:00 Test Item Value Reference Range Interpretation Comments MCV (test code = MCV) 86.0 80.0-98.0 [facility] StationQuovuaqKVEHEFLZOS8922-53-95 10:55:00 Test Item Value Reference Range Interpretation Comments MPV (test code = MPV) 9.4 7.4-10.4 [facility] StationWdmfcrcRPUBQPBGUA4875-18-56 10:55:00 Test Item Value Reference Range Interpretation Comments Platelet (test code = Platelet) 158 133-450 [facility] StationDjxvdsjWEDMGGFOSA9688-52-81 10:55:00 Test Item Value Reference Range Interpretation Comments RDW (test code = RDW) 16.8 11.5-14.5 [facility] StationRttuleuGMGHJHKVFB6334-26-81 10:55:00 Test Item Value Reference Range Interpretation Comments RBC (test code = RBC) 2.75 4.20-5.40 [facility] StationMhlydwrQAXYXFWJVK0445-64-21 10:55:00 Test Item Value Reference Range Interpretation Comments WBC (test code = WBC) 11.0 3.7-10.4 [facility] StationJbfderaNEVUFPWEYB7734-52-41 10:55:00 Test Item Value Reference Range Interpretation Comments Eosinophils # (test code 0.4 See_Comment [A utomated message] The = Eosinophils #) system whic h generated this result tra nsmitted reference range : <=0.5. The reference r feliciano was not used to int erpret this result as normal/abnormal . [facility] StationNnlnyvlDKDVZJBPSX3546-86-88 10:55:00 Test Item Value Reference Range Interpretation Comments Eosinophils (test code = 3.6 See_Comment [A utomated message] The Eosinophils) system which ge nerated this result tra nsmitted reference range : <=4.0. The reference r feliciano was not used to int erpret this result as normal/abnormal . [facility] StationUhstaozSQZTGFNYNE4025-92-16 10:55:00 Test Item Value Reference Range Interpretation Comments Monocytes (test code = Monocytes) 8.1 2.0-12.0 [facility] StationVcliixmACGPUNGYKT0670-78-39 10:55:00 Test Item Value Reference Range Interpretation Comments Lymphocytes (test code = Lymphocytes) 21.0 20.0-40.0 [facility] StationFyipinpURSGIMGRKB9406-27-74 10:55:00 Test Item Value Reference Range Interpretation Comments Segs-Bands # (test code = Segs-Bands #) 7.4 1.5-8.1 [facility] StationGfqclqvLAABCUIBPB8860-37-82 10:55:00 Test Item Value Reference Range Interpretation Comments Basophils (test code = 0.3 See_Comment [Aut omated message] The Basophils) system which ge nerated this result tra nsmitted reference range : <=1.0. The reference r feliciano was not used to int erpret this result as normal/abnormal . [facility] StationRopubufJERAZBKCXC7609-05-75 10:55:00 Test Item Value Reference Range Interpretation Comments Monocytes # (test code 0.9 See_Comment [Aut omated message] The = Monocytes #) system which generated this result tra nsmitted reference range : <=0.8. The reference r feliciano was not used to int erpret this result as normal/abnormal . [facility] StationOkpsfejTBAXTKDCIX2518-13-82 10:55:00 Test Item Value Reference Range Interpretation Comments Lymphocytes # (test code = Lymphocytes 2.3 1.0-5.5 #) [facility] StationDknxiviEAYKYCDHAM6193-40-18 10:55:00 Test Item Value Reference Range Interpretation Comments Segs (test code = Segs) 67.0 45.0-75.0 [facility]2017-08-13 10:55:00 Test Item Value Reference Range Interpretation Comments Glucose Lvl (test code = Glucose Lvl) 74 70-99 [facility]2017-08-13 10:55:00 Test Item Value Reference Range Interpretation Comments Creatinine Lvl (test code = Creatinine 0.50 0.50-1.40 Lvl) [facility]2017-08-13 10:55:00 Test Item Value Reference Range Interpretation Comments BUN (test code = BUN) 17 7-22 [facility]2017-08-13 10:55:00 Test Item Value Reference Range Interpretation Comments AGAP (test code = AGAP) 10.3 10.0-20.0 [facility]2017-08-13 10:55:00 Test Item Value Reference Range Interpretation Comments Glucose Lvl (test code = Glucose Lvl) 74 70-99 [facility]2017-08-13 10:55:00 Test Item Value Reference Range Interpretation Comments Creatinine Lvl (test code = Creatinine 0.50 0.50-1.40 Lvl) [facility]2017-08-13 10:55:00 Test Item Value Reference Range Interpretation Comments BUN (test code = BUN) 17 7-22 [facility]2017-08-13 10:55:00 Test Item Value Reference Range Interpretation Comments AGAP (test code = AGAP) 10.3 10.0-20.0 [facility]2017-08-13 10:55:00 Test Item Value Reference Range Interpretation Comments Calcium Lvl (test code = Calcium Lvl) 7.4 8.5-10.5 [facility]2017-08-13 10:55:00 Test Item Value Reference Range Interpretation Comments Calcium Lvl (test code = Calcium Lvl) 7.4 8.5-10.5 [facility]2017-08-13 10:55:00 Test Item Value Reference Range Interpretation Comments CO2 (test code = CO2) 23 24-32 [facility]2017-08-13 10:55:00 Test Item Value Reference Range Interpretation Comments Chloride Lvl (test code = Chloride Lvl) 115 95-109 [facility]2017-08-13 10:55:00 Test Item Value Reference Range Interpretation Comments Potassium Lvl (test code = Potassium 3.3 3.5-5.1 Lvl) [facility]2017-08-13 10:55:00 Test Item Value Reference Range Interpretation Comments Sodium Lvl (test code = Sodium Lvl) 145 135-145 [facility]2017-08-13 10:55:00 Test Item Value Reference Range Interpretation Comments eGFR (test code = eGFR) 91 [facility] StationXrlptfeVCJBXJCIPI2635-78-96 10:55:00 Test Item Value Reference Range Interpretation Comments MCHC (test code = MCHC) 32.6 32.0-36.0 [facility] StationLjwrotvLUPOLEXRBR6066-24-37 10:55:00 Test Item Value Reference Range Interpretation Comments MCH (test code = MCH) 28.1 pg 27.0-31.0 [facility] StationJqbtbbvHRRYPUXYIK6933-33-41 10:55:00 Test Item Value Reference Range Interpretation Comments MCV (test code = MCV) 86.0 80.0-98.0 [facility] StationLiedzqbBZMQVDVGPQ8305-09-75 10:55:00 Test Item Value Reference Range Interpretation Comments MPV (test code = MPV) 9.4 7.4-10.4 [facility]2017-08-13 10:55:00 Test Item Value Reference Range Interpretation Comments CO2 (test code = CO2) 23 24-32 [facility] StationBegtjgnREPVOVNMIW0200-31-38 10:55:00 Test Item Value Reference Range Interpretation Comments Platelet (test code = Platelet) 158 133-450 [facility] StationHvvivogZDXSUUGORC5981-97-67 10:55:00 Test Item Value Reference Range Interpretation Comments RDW (test code = RDW) 16.8 11.5-14.5 [facility] StationGjskrdpMUYQSDDZKC5458-28-70 10:55:00 Test Item Value Reference Range Interpretation Comments RBC (test code = RBC) 2.75 4.20-5.40 [facility] StationQsbyqxyUDPFZIZUNP9114-64-85 10:55:00 Test Item Value Reference Range Interpretation Comments WBC (test code = WBC) 11.0 3.7-10.4 [facility] StationIvbdbjyAYELEFEEVQ2763-14-49 10:55:00 Test Item Value Reference Range Interpretation Comments Eosinophils # (test code 0.4 See_Comment [A utomated message] The = Eosinophils #) system whic h generated this result tra nsmitted reference range : <=0.5. The reference r feliciano was not used to int erpret this result as normal/abnormal . [facility] StationOpykymyLUFPMEWELM3317-11-21 10:55:00 Test Item Value Reference Range Interpretation Comments Eosinophils (test code = 3.6 See_Comment [A utomated message] The Eosinophils) system which ge nerated this result tra nsmitted reference range : <=4.0. The reference r feliciano was not used to int erpret this result as normal/abnormal . [facility] StationVrtrtdkAJEQXPBWYM1125-50-32 10:55:00 Test Item Value Reference Range Interpretation Comments Monocytes (test code = Monocytes) 8.1 2.0-12.0 [facility] StationWssvgacQAGWVILRAM3894-77-54 10:55:00 Test Item Value Reference Range Interpretation Comments Lymphocytes (test code = Lymphocytes) 21.0 20.0-40.0 [facility] StationKzrmcziAXMMDNZLLJ3358-45-11 10:55:00 Test Item Value Reference Range Interpretation Comments Segs-Bands # (test code = Segs-Bands #) 7.4 1.5-8.1 [facility] StationDnbyixwEIXMOGUOOB1006-24-08 10:55:00 Test Item Value Reference Range Interpretation Comments Basophils (test code = 0.3 See_Comment [Aut omated message] The Basophils) system which ge nerated this result tra nsmitted reference range : <=1.0. The reference r feliciano was not used to int erpret this result as normal/abnormal . [facility]2017-08-13 10:55:00 Test Item Value Reference Range Interpretation Comments Chloride Lvl (test code = Chloride Lvl) 115 95-109 [facility] StationJwqwiebVULOVPHPZW4624-26-83 10:55:00 Test Item Value Reference Range Interpretation Comments Monocytes # (test code 0.9 See_Comment [Aut omated message] The = Monocytes #) system which generated this result tra nsmitted reference range : <=0.8. The reference r feliciano was not used to int erpret this result as normal/abnormal . [facility] StationFxnytgrXAQAWIAAIX4934-46-08 10:55:00 Test Item Value Reference Range Interpretation Comments Lymphocytes # (test code = Lymphocytes 2.3 1.0-5.5 #) [facility] StationEzgryhnRDHJDRYMZM5633-01-29 10:55:00 Test Item Value Reference Range Interpretation Comments Segs (test code = Segs) 67.0 45.0-75.0 [facility]2017-08-13 10:55:00 Test Item Value Reference Range Interpretation Comments Potassium Lvl (test code = Potassium 3.3 3.5-5.1 Lvl) [facility]2017-08-13 10:55:00 Test Item Value Reference Range Interpretation Comments Sodium Lvl (test code = Sodium Lvl) 145 135-145 [facility]2017-08-13 10:55:00 Test Item Value Reference Range Interpretation Comments eGFR (test code = eGFR) 91 [facility] StationHvgsfdcPPSLGWHAVK1994-60-63 10:55:00 Test Item Value Reference Range Interpretation Comments MCHC (test code = MCHC) 32.6 32.0-36.0 [facility] StationZgckxddLPNNFVAHFQ9768-36-47 10:55:00 Test Item Value Reference Range Interpretation Comments MCH (test code = MCH) 28.1 pg 27.0-31.0 [facility] StationMeahimaSNSEFPETHN2342-23-47 10:55:00 Test Item Value Reference Range Interpretation Comments MCV (test code = MCV) 86.0 80.0-98.0 [facility] StationSijdyvzTCEOVQXALE0008-80-10 10:55:00 Test Item Value Reference Range Interpretation Comments MPV (test code = MPV) 9.4 7.4-10.4 [facility] StationYayinsoOMERNAJOFF8970-59-09 10:55:00 Test Item Value Reference Range Interpretation Comments Platelet (test code = Platelet) 158 133-450 [facility] StationEmcwgkkOHDDIWJPPQ2816-37-81 10:55:00 Test Item Value Reference Range Interpretation Comments RDW (test code = RDW) 16.8 11.5-14.5 [facility] StationKuhouczPUEOYRLCIA6271-62-40 10:55:00 Test Item Value Reference Range Interpretation Comments RBC (test code = RBC) 2.75 4.20-5.40 [facility] StationPbzmmbfRHPJTLBWCJ4224-69-43 10:55:00 Test Item Value Reference Range Interpretation Comments WBC (test code = WBC) 11.0 3.7-10.4 [facility] StationUgdzmcsXKRPFXBTUS5902-14-80 10:55:00 Test Item Value Reference Range Interpretation Comments Eosinophils # (test code 0.4 See_Comment [A utomated message] The = Eosinophils #) system whic h generated this result tra nsmitted reference range : <=0.5. The reference r feliciano was not used to int erpret this result as normal/abnormal . [facility] StationMgrppnfTYRURUJLZH3903-56-15 10:55:00 Test Item Value Reference Range Interpretation Comments Eosinophils (test code = 3.6 See_Comment [A utomated message] The Eosinophils) system which ge nerated this result tra nsmitted reference range : <=4.0. The reference r feliciano was not used to int erpret this result as normal/abnormal . [facility] StationObglnxfYAIILZUDNO2693-80-51 10:55:00 Test Item Value Reference Range Interpretation Comments Monocytes (test code = Monocytes) 8.1 2.0-12.0 [facility] StationOylymrhGILGPSYEHW2982-19-51 10:55:00 Test Item Value Reference Range Interpretation Comments Lymphocytes (test code = Lymphocytes) 21.0 20.0-40.0 [facility] StationLrvlsneNTCINKCUSC9170-98-95 10:55:00 Test Item Value Reference Range Interpretation Comments Segs-Bands # (test code = Segs-Bands #) 7.4 1.5-8.1 [facility] StationQfclhbsIANUFLRVKO8672-87-98 10:55:00 Test Item Value Reference Range Interpretation Comments Basophils (test code = 0.3 See_Comment [Aut omated message] The Basophils) system which ge nerated this result tra nsmitted reference range : <=1.0. The reference r feliciano was not used to int erpret this result as normal/abnormal . [facility] StationZcghmhnARUZSLTOZV9261-70-66 10:55:00 Test Item Value Reference Range Interpretation Comments Monocytes # (test code 0.9 See_Comment [Aut omated message] The = Monocytes #) system which generated this result tra nsmitted reference range : <=0.8. The reference r feliciano was not used to int erpret this result as normal/abnormal . [facility] StationYtqwrpaQTJNPQUDYV4291-15-88 10:55:00 Test Item Value Reference Range Interpretation Comments Lymphocytes # (test code = Lymphocytes 2.3 1.0-5.5 #) [facility] StationUhqmiagDYEYLVQHJH6821-90-62 10:55:00 Test Item Value Reference Range Interpretation Comments Segs (test code = Segs) 67.0 45.0-75.0 [facility]2017-08-13 10:55:00 Test Item Value Reference Range Interpretation Comments Glucose Lvl (test code = Glucose Lvl) 74 70-99 [facility]2017-08-13 10:55:00 Test Item Value Reference Range Interpretation Comments Creatinine Lvl (test code = Creatinine 0.50 0.50-1.40 Lvl) [facility]2017-08-13 10:55:00 Test Item Value Reference Range Interpretation Comments BUN (test code = BUN) 17 7-22 [facility]2017-08-13 10:55:00 Test Item Value Reference Range Interpretation Comments AGAP (test code = AGAP) 10.3 10.0-20.0 [facility]2017-08-13 10:55:00 Test Item Value Reference Range Interpretation Comments Calcium Lvl (test code = Calcium Lvl) 7.4 8.5-10.5 [facility]2017-08-13 10:55:00 Test Item Value Reference Range Interpretation Comments CO2 (test code = CO2) 23 24-32 [facility]2017-08-13 10:55:00 Test Item Value Reference Range Interpretation Comments Chloride Lvl (test code = Chloride Lvl) 115 95-109 [facility]2017-08-13 10:55:00 Test Item Value Reference Range Interpretation Comments Potassium Lvl (test code = Potassium 3.3 3.5-5.1 Lvl) [facility]2017-08-13 10:55:00 Test Item Value Reference Range Interpretation Comments Sodium Lvl (test code = Sodium Lvl) 145 135-145 [facility]2017-08-13 10:55:00 Test Item Value Reference Range Interpretation Comments eGFR (test code = eGFR) 91 [facility] StationGozzseeJJIRQONLPC6368-55-75 10:55:00 Test Item Value Reference Range Interpretation Comments MCHC (test code = MCHC) 32.6 32.0-36.0 [facility] StationXlwpoyzFSEHNMPZJD7958-88-45 10:55:00 Test Item Value Reference Range Interpretation Comments MCH (test code = MCH) 28.1 pg 27.0-31.0 [facility] StationBqyxqwkFFCFMZFTVA9197-28-19 10:55:00 Test Item Value Reference Range Interpretation Comments MCV (test code = MCV) 86.0 80.0-98.0 [facility] StationLxohtopJFOIJIUTXF6680-41-95 10:55:00 Test Item Value Reference Range Interpretation Comments MPV (test code = MPV) 9.4 7.4-10.4 [facility] StationYzepvdfCTMWQHZTCY2472-32-20 10:55:00 Test Item Value Reference Range Interpretation Comments Platelet (test code = Platelet) 158 133-450 [facility] StationCymuyaiZONCDMHXYE5391-51-89 10:55:00 Test Item Value Reference Range Interpretation Comments RDW (test code = RDW) 16.8 11.5-14.5 [facility] StationHnrqmlfZKQWZDQOEX0843-83-60 10:55:00 Test Item Value Reference Range Interpretation Comments RBC (test code = RBC) 2.75 4.20-5.40 [facility] StationKkpdlxdMVXSZBQTLF9894-87-74 10:55:00 Test Item Value Reference Range Interpretation Comments WBC (test code = WBC) 11.0 3.7-10.4 [facility] StationLhfwuxwIBRQRJQAKK9707-52-69 10:55:00 Test Item Value Reference Range Interpretation Comments Eosinophils # (test code 0.4 See_Comment [A utomated message] The = Eosinophils #) system whic h generated this result tra nsmitted reference range : <=0.5. The reference r feliciano was not used to int erpret this result as normal/abnormal . [facility] StationRwsicjoJJJAXPDSWD2992-70-41 10:55:00 Test Item Value Reference Range Interpretation Comments Eosinophils (test code = 3.6 See_Comment [A utomated message] The Eosinophils) system which ge nerated this result tra nsmitted reference range : <=4.0. The reference r feliciano was not used to int erpret this result as normal/abnormal . [facility] StationPwspsysETZQVMOKHK1195-21-69 17:26:00 Test Item Value Reference Range Interpretation Comments INR (test code = INR) 1.22 0.85-1.17 [facility] StationAvmfeouUKFSQSEHWD3465-47-77 17:26:00 Test Item Value Reference Range Interpretation Comments PT (test code = PT) 15.7 s 12.0-14.7 [facility] StationPydfyrtQLLPKKLYJR1061-47-12 17:26:00 Test Item Value Reference Range Interpretation Comments INR (test code = INR) 1.22 0.85-1.17 [facility] StationYjxxxplBGPNRFPRGF0638-19-16 17:26:00 Test Item Value Reference Range Interpretation Comments PT (test code = PT) 15.7 s 12.0-14.7 [facility] StationKsoxqkdZEXVZUXEIC0866-43-31 17:26:00 Test Item Value Reference Range Interpretation Comments INR (test code = INR) 1.22 0.85-1.17 [facility] StationOnwwwllARMIKWWFGM1247-87-59 17:26:00 Test Item Value Reference Range Interpretation Comments PT (test code = PT) 15.7 s 12.0-14.7 [facility] StationVvbeczaURCGTGRWEX5971-23-98 17:26:00 Test Item Value Reference Range Interpretation Comments INR (test code = INR) 1.22 0.85-1.17 [facility] StationDbeoeoyWZQBYHJOFG5743-41-94 17:26:00 Test Item Value Reference Range Interpretation Comments PT (test code = PT) 15.7 s 12.0-14.7 [facility] StationZhutwetVZELTIDIXM1137-81-46 17:26:00 Test Item Value Reference Range Interpretation Comments INR (test code = INR) 1.22 0.85-1.17 [facility] StationOfdfhezFVHYCRTVFP1030-26-54 17:26:00 Test Item Value Reference Range Interpretation Comments PT (test code = PT) 15.7 s 12.0-14.7 [facility] TKCILYI1692-80-31 17:01:00 Test Item Value Reference Range Interpretation Comments RBC product (test code Product available = RBC product) (12/24/16 12:01 PM) [facility] [id number] 17:01:00 Test Item Value Reference Range Interpretation Comments RBC product (test code Product available = RBC product) (12/24/16 12:01 PM) [facility] [id number] 17:01:00 Test Item Value Reference Range Interpretation Comments RBC product (test code Product available = RBC product) (12/24/16 12:01 PM) [facility] [id number] 17:01:00 Test Item Value Reference Range Interpretation Comments RBC product (test code Product available = RBC product) (12/24/16 12:01 PM) [facility] [id number] 17:01:00 Test Item Value Reference Range Interpretation Comments RBC product (test code Product available = RBC product) (12/24/16 12:01 PM) [facility] [id number] 14:20:00 Test Item Value Reference Range Interpretation Comments eGFR (test code = eGFR) 91 [facility] ADNAH4112-17-48 14:20:00 Test Item Value Reference Range Interpretation Comments Calcium Lvl (test code = Calcium Lvl) 7.4 8.5-10.5 [facility]2017-08-12 14:20:00 Test Item Value Reference Range Interpretation Comments CO2 (test code = CO2) 25 24-32 [facility] [id number] 14:20:00 Test Item Value Reference Range Interpretation Comments Chloride Lvl (test code = Chloride Lvl) 117 95-109 [facility]2017-08-12 14:20:00 Test Item Value Reference Range Interpretation Comments Potassium Lvl (test code = Potassium 3.5 3.5-5.1 Lvl) [facility]2017-08-12 14:20:00 Test Item Value Reference Range Interpretation Comments Sodium Lvl (test code = Sodium Lvl) 145 135-145 [facility]2017-08-12 14:20:00 Test Item Value Reference Range Interpretation Comments Creatinine Lvl (test code = Creatinine 0.50 0.50-1.40 Lvl) [facility]2017-08-12 14:20:00 Test Item Value Reference Range Interpretation Comments BUN (test code = BUN) 21 7-22 [facility]2017-08-12 14:20:00 Test Item Value Reference Range Interpretation Comments Glucose Lvl (test code = Glucose Lvl) 94 70-99 [facility]2017-08-12 14:20:00 Test Item Value Reference Range Interpretation Comments AGAP (test code = AGAP) 6.5 10.0-20.0 [facility] StationQtocbnmTFXDRMMGNI9874-17-01 14:20:00 Test Item Value Reference Range Interpretation Comments MPV (test code = MPV) 9.1 7.4-10.4 [facility] StationAcpaowuPYKFTJILBL0337-83-47 14:20:00 Test Item Value Reference Range Interpretation Comments Platelet (test code = Platelet) 172 133-450 [facility] StationDbvngzfSCKJYIDHNB6243-00-15 14:20:00 Test Item Value Reference Range Interpretation Comments MCHC (test code = MCHC) 33.2 32.0-36.0 [facility] StationCrdofxtEFIMUWWJMF2962-42-82 14:20:00 Test Item Value Reference Range Interpretation Comments RDW (test code = RDW) 17.4 11.5-14.5 [facility] StationQmogqfjTGCHZAPUZK0883-03-89 14:20:00 Test Item Value Reference Range Interpretation Comments MCH (test code = MCH) 27.7 pg 27.0-31.0 [facility] StationSariazmLFPPVCTWMJ9071-94-68 14:20:00 Test Item Value Reference Range Interpretation Comments MCV (test code = MCV) 83.5 80.0-98.0 [facility] StationYmuoaksIYPHHIXRYK1518-11-35 14:20:00 Test Item Value Reference Range Interpretation Comments RBC (test code = RBC) 2.59 4.20-5.40 [facility] StationYwwabcsLVRSQOYHXH4317-76-40 14:20:00 Test Item Value Reference Range Interpretation Comments WBC (test code = WBC) 10.7 3.7-10.4 [facility] StationNnobyoqEVDDRLNYTO8237-58-26 14:20:00 Test Item Value Reference Range Interpretation Comments Lymphocytes # (test code = Lymphocytes 1.7 1.0-5.5 #) [facility] StationCwkggoqUJMPZKKKJF2519-33-01 14:20:00 Test Item Value Reference Range Interpretation Comments Monocytes # (test code 0.5 See_Comment [Aut omated message] The = Monocytes #) system which generated this result tra nsmitted reference range : <=0.8. The reference r feliciano was not used to int erpret this result as normal/abnormal . [facility] StationJwaoosvJXKHWPAEPU9378-94-76 14:20:00 Test Item Value Reference Range Interpretation Comments Eosinophils # (test code 0.2 See_Comment [A utomated message] The = Eosinophils #) system whic h generated this result tra nsmitted reference range : <=0.5. The reference r feliciano was not used to int erpret this result as normal/abnormal . [facility] StationFoaotyfDSTFXYJWBO3683-35-51 14:20:00 Test Item Value Reference Range Interpretation Comments Basophils # (test code 0.1 See_Comment [Aut omated message] The = Basophils #) system which generated this result tra nsmitted reference range : <=0.2. The reference r feliciano was not used to int erpret this result as normal/abnormal . [facility] StationQldcavjADPBXYHRCH5556-24-05 14:20:00 Test Item Value Reference Range Interpretation Comments Lymphocytes (test code = Lymphocytes) 16.2 20.0-40.0 [facility] StationEsziqwpUCPCSTBAOA7801-98-23 14:20:00 Test Item Value Reference Range Interpretation Comments Monocytes (test code = Monocytes) 4.8 2.0-12.0 [facility] StationUjnydcbGQNSWFGXOD4199-07-71 14:20:00 Test Item Value Reference Range Interpretation Comments Eosinophils (test code = 1.9 See_Comment [A utomated message] The Eosinophils) system which ge nerated this result tra nsmitted reference range : <=4.0. The reference r feliciano was not used to int erpret this result as normal/abnormal . [facility] StationZesumzuSOJCAPZCOG5584-20-40 14:20:00 Test Item Value Reference Range Interpretation Comments Basophils (test code = 0.5 See_Comment [Aut omated message] The Basophils) system which ge nerated this result tra nsmitted reference range : <=1.0. The reference r feliciano was not used to int erpret this result as normal/abnormal . [facility] StationGlquqozXVSLUDEVIG7216-77-43 14:20:00 Test Item Value Reference Range Interpretation Comments Segs-Bands # (test code = Segs-Bands #) 8.2 1.5-8.1 [facility] StationMzfllmxBHZZPLGAPY7620-68-45 14:20:00 Test Item Value Reference Range Interpretation Comments Segs (test code = Segs) 76.6 45.0-75.0 [facility]2017-08-12 14:20:00 Test Item Value Reference Range Interpretation Comments eGFR (test code = eGFR) 91 [facility]2017-08-12 14:20:00 Test Item Value Reference Range Interpretation Comments Calcium Lvl (test code = Calcium Lvl) 7.4 8.5-10.5 [facility]2017-08-12 14:20:00 Test Item Value Reference Range Interpretation Comments CO2 (test code = CO2) 25 24-32 [facility]2017-08-12 14:20:00 Test Item Value Reference Range Interpretation Comments Chloride Lvl (test code = Chloride Lvl) 117 95-109 [facility]2017-08-12 14:20:00 Test Item Value Reference Range Interpretation Comments Potassium Lvl (test code = Potassium 3.5 3.5-5.1 Lvl) [facility]2017-08-12 14:20:00 Test Item Value Reference Range Interpretation Comments Sodium Lvl (test code = Sodium Lvl) 145 135-145 [facility]2017-08-12 14:20:00 Test Item Value Reference Range Interpretation Comments Creatinine Lvl (test code = Creatinine 0.50 0.50-1.40 Lvl) [facility]2017-08-12 14:20:00 Test Item Value Reference Range Interpretation Comments BUN (test code = BUN) 21 7-22 [facility]2017-08-12 14:20:00 Test Item Value Reference Range Interpretation Comments Glucose Lvl (test code = Glucose Lvl) 94 70-99 [facility]2017-08-12 14:20:00 Test Item Value Reference Range Interpretation Comments AGAP (test code = AGAP) 6.5 10.0-20.0 [facility] StationAjemsalNFJCJYGGKW7273-40-40 14:20:00 Test Item Value Reference Range Interpretation Comments MPV (test code = MPV) 9.1 7.4-10.4 [facility] StationTtdexztMEFTYOXGAJ6358-70-28 14:20:00 Test Item Value Reference Range Interpretation Comments Platelet (test code = Platelet) 172 133-450 [facility] StationZprdvvpGTUMIWGQON7114-01-84 14:20:00 Test Item Value Reference Range Interpretation Comments MCHC (test code = MCHC) 33.2 32.0-36.0 [facility] StationPcecirmVHZGLEPFXT0024-26-80 14:20:00 Test Item Value Reference Range Interpretation Comments RDW (test code = RDW) 17.4 11.5-14.5 [facility] StationTqowvbeBLOIBAAPUD4745-46-87 14:20:00 Test Item Value Reference Range Interpretation Comments MCH (test code = MCH) 27.7 pg 27.0-31.0 [facility] StationClqairyMMXXFAIGGJ4526-58-41 14:20:00 Test Item Value Reference Range Interpretation Comments MCV (test code = MCV) 83.5 80.0-98.0 [facility] StationEfhntktUQCSUPDAYE4648-60-41 14:20:00 Test Item Value Reference Range Interpretation Comments RBC (test code = RBC) 2.59 4.20-5.40 [facility] StationEoeujgiXNLFGTCQAZ1025-78-65 14:20:00 Test Item Value Reference Range Interpretation Comments WBC (test code = WBC) 10.7 3.7-10.4 [facility] StationGzscpekQHVRESPGLI1733-46-65 14:20:00 Test Item Value Reference Range Interpretation Comments Lymphocytes # (test code = Lymphocytes 1.7 1.0-5.5 #) [facility] StationBavfthhERDUGLMORM2445-45-73 14:20:00 Test Item Value Reference Range Interpretation Comments Monocytes # (test code 0.5 See_Comment [Aut omated message] The = Monocytes #) system which generated this result tra nsmitted reference range : <=0.8. The reference r feliciano was not used to int erpret this result as normal/abnormal . [facility] StationTqiyrysNKQROHZQYE2945-82-14 14:20:00 Test Item Value Reference Range Interpretation Comments Eosinophils # (test code 0.2 See_Comment [A utomated message] The = Eosinophils #) system whic h generated this result tra nsmitted reference range : <=0.5. The reference r feliciano was not used to int erpret this result as normal/abnormal . [facility] StationNvmdqwuUHITVHOUCX5257-43-72 14:20:00 Test Item Value Reference Range Interpretation Comments Basophils # (test code 0.1 See_Comment [Aut omated message] The = Basophils #) system which generated this result tra nsmitted reference range : <=0.2. The reference r feliciano was not used to int erpret this result as normal/abnormal . [facility] StationEwgrbivYVBSMRAPJX8731-35-69 14:20:00 Test Item Value Reference Range Interpretation Comments Lymphocytes (test code = Lymphocytes) 16.2 20.0-40.0 [facility] StationQompohpVIEFDORTGC9304-09-14 14:20:00 Test Item Value Reference Range Interpretation Comments Monocytes (test code = Monocytes) 4.8 2.0-12.0 [facility] StationNltimqlUFCRPQBXAF9146-40-80 14:20:00 Test Item Value Reference Range Interpretation Comments Eosinophils (test code = 1.9 See_Comment [A utomated message] The Eosinophils) system which ge nerated this result tra nsmitted reference range : <=4.0. The reference r feliciano was not used to int erpret this result as normal/abnormal . [facility] StationAlytpmuSQACVFJRHO1845-41-66 14:20:00 Test Item Value Reference Range Interpretation Comments Basophils (test code = 0.5 See_Comment [Aut omated message] The Basophils) system which ge nerated this result tra nsmitted reference range : <=1.0. The reference r feliciano was not used to int erpret this result as normal/abnormal . [facility] StationCanhuxnJJYOCCMFYK2628-11-66 14:20:00 Test Item Value Reference Range Interpretation Comments Segs-Bands # (test code = Segs-Bands #) 8.2 1.5-8.1 [facility] StationQlpzfpvJCGGKPXQXX8506-42-22 14:20:00 Test Item Value Reference Range Interpretation Comments Segs (test code = Segs) 76.6 45.0-75.0 [facility]2017-08-12 14:20:00 Test Item Value Reference Range Interpretation Comments eGFR (test code = eGFR) 91 [facility]2017-08-12 14:20:00 Test Item Value Reference Range Interpretation Comments Calcium Lvl (test code = Calcium Lvl) 7.4 8.5-10.5 [facility]2017-08-12 14:20:00 Test Item Value Reference Range Interpretation Comments CO2 (test code = CO2) 25 24-32 [facility]2017-08-12 14:20:00 Test Item Value Reference Range Interpretation Comments Chloride Lvl (test code = Chloride Lvl) 117 95-109 [facility]2017-08-12 14:20:00 Test Item Value Reference Range Interpretation Comments Potassium Lvl (test code = Potassium 3.5 3.5-5.1 Lvl) [facility]2017-08-12 14:20:00 Test Item Value Reference Range Interpretation Comments Sodium Lvl (test code = Sodium Lvl) 145 135-145 [facility]2017-08-12 14:20:00 Test Item Value Reference Range Interpretation Comments Creatinine Lvl (test code = Creatinine 0.50 0.50-1.40 Lvl) [facility]2017-08-12 14:20:00 Test Item Value Reference Range Interpretation Comments BUN (test code = BUN) 21 7-22 [facility]2017-08-12 14:20:00 Test Item Value Reference Range Interpretation Comments Glucose Lvl (test code = Glucose Lvl) 94 70-99 [facility]2017-08-12 14:20:00 Test Item Value Reference Range Interpretation Comments AGAP (test code = AGAP) 6.5 10.0-20.0 [facility] StationEnetdwzTIKDPPKKDO6090-33-09 14:20:00 Test Item Value Reference Range Interpretation Comments MPV (test code = MPV) 9.1 7.4-10.4 [facility] StationRluwdogQWZVLVODGO3879-34-68 14:20:00 Test Item Value Reference Range Interpretation Comments Platelet (test code = Platelet) 172 133-450 [facility] StationZlkwhcoVTEKJEILEG1597-28-94 14:20:00 Test Item Value Reference Range Interpretation Comments MCHC (test code = MCHC) 33.2 32.0-36.0 [facility] StationLnljxxyNSWKNXCNMH3669-97-94 14:20:00 Test Item Value Reference Range Interpretation Comments RDW (test code = RDW) 17.4 11.5-14.5 [facility] StationCealsrbJEZWVPPZAT5735-92-63 14:20:00 Test Item Value Reference Range Interpretation Comments MCH (test code = MCH) 27.7 pg 27.0-31.0 [facility] StationImslsakZWGIPHXWJZ6704-65-97 14:20:00 Test Item Value Reference Range Interpretation Comments MCV (test code = MCV) 83.5 80.0-98.0 [facility] StationPpxeetlXSCCEPDXIG8766-99-99 14:20:00 Test Item Value Reference Range Interpretation Comments RBC (test code = RBC) 2.59 4.20-5.40 [facility] StationUvdbgowCOWELKOHOR1340-47-04 14:20:00 Test Item Value Reference Range Interpretation Comments WBC (test code = WBC) 10.7 3.7-10.4 [facility] StationPhchspyNESFIGBJWD7678-56-18 14:20:00 Test Item Value Reference Range Interpretation Comments Lymphocytes # (test code = Lymphocytes 1.7 1.0-5.5 #) [facility] StationWbjrdjuLNKWGQZPVZ9887-54-76 14:20:00 Test Item Value Reference Range Interpretation Comments Monocytes # (test code 0.5 See_Comment [Aut omated message] The = Monocytes #) system which generated this result tra nsmitted reference range : <=0.8. The reference r feliciano was not used to int erpret this result as normal/abnormal . [facility] StationKifkxpiPRKTNQFBXZ7374-86-19 14:20:00 Test Item Value Reference Range Interpretation Comments Eosinophils # (test code 0.2 See_Comment [A utomated message] The = Eosinophils #) system whic h generated this result tra nsmitted reference range : <=0.5. The reference r feliciano was not used to int erpret this result as normal/abnormal . [facility] StationGnqyruxTXGRGNYSCX8937-70-11 14:20:00 Test Item Value Reference Range Interpretation Comments Basophils # (test code 0.1 See_Comment [Aut omated message] The = Basophils #) system which generated this result tra nsmitted reference range : <=0.2. The reference r feliciano was not used to int erpret this result as normal/abnormal . [facility] StationPnrycdxRHLVCGNSZG8736-60-21 14:20:00 Test Item Value Reference Range Interpretation Comments Lymphocytes (test code = Lymphocytes) 16.2 20.0-40.0 [facility] StationYhmmvqlRGCWVDCXOP3665-62-80 14:20:00 Test Item Value Reference Range Interpretation Comments Monocytes (test code = Monocytes) 4.8 2.0-12.0 [facility] StationQhdjkjwCKWFEZWEOW1646-75-46 14:20:00 Test Item Value Reference Range Interpretation Comments Eosinophils (test code = 1.9 See_Comment [A utomated message] The Eosinophils) system which ge nerated this result tra nsmitted reference range : <=4.0. The reference r feliciano was not used to int erpret this result as normal/abnormal . [facility] StationVzbcmlwFSYPRTISNQ2224-21-43 14:20:00 Test Item Value Reference Range Interpretation Comments Basophils (test code = 0.5 See_Comment [Aut omated message] The Basophils) system which ge nerated this result tra nsmitted reference range : <=1.0. The reference r feliciano was not used to int erpret this result as normal/abnormal . [facility] StationBvsnhudFVNORBWEBN4475-99-32 14:20:00 Test Item Value Reference Range Interpretation Comments Segs-Bands # (test code = Segs-Bands #) 8.2 1.5-8.1 [facility] StationYuqxfolRJWLVOSFMS6069-27-57 14:20:00 Test Item Value Reference Range Interpretation Comments Segs (test code = Segs) 76.6 45.0-75.0 [facility]2017-08-12 14:20:00 Test Item Value Reference Range Interpretation Comments eGFR (test code = eGFR) 91 [facility]2017-08-12 14:20:00 Test Item Value Reference Range Interpretation Comments Calcium Lvl (test code = Calcium Lvl) 7.4 8.5-10.5 [facility]2017-08-12 14:20:00 Test Item Value Reference Range Interpretation Comments CO2 (test code = CO2) 25 24-32 [facility]2017-08-12 14:20:00 Test Item Value Reference Range Interpretation Comments Chloride Lvl (test code = Chloride Lvl) 117 95-109 [facility]2017-08-12 14:20:00 Test Item Value Reference Range Interpretation Comments Potassium Lvl (test code = Potassium 3.5 3.5-5.1 Lvl) [facility]2017-08-12 14:20:00 Test Item Value Reference Range Interpretation Comments Sodium Lvl (test code = Sodium Lvl) 145 135-145 [facility]2017-08-12 14:20:00 Test Item Value Reference Range Interpretation Comments Creatinine Lvl (test code = Creatinine 0.50 0.50-1.40 Lvl) [facility]2017-08-12 14:20:00 Test Item Value Reference Range Interpretation Comments BUN (test code = BUN) 21 7-22 [facility]2017-08-12 14:20:00 Test Item Value Reference Range Interpretation Comments Glucose Lvl (test code = Glucose Lvl) 94 70-99 [facility]2017-08-12 14:20:00 Test Item Value Reference Range Interpretation Comments AGAP (test code = AGAP) 6.5 10.0-20.0 [facility] StationXpqorhyAKPRHTVKWZ8236-59-61 14:20:00 Test Item Value Reference Range Interpretation Comments MPV (test code = MPV) 9.1 7.4-10.4 [facility] StationDkgfiteFHTLFXIJQV6901-60-80 14:20:00 Test Item Value Reference Range Interpretation Comments Platelet (test code = Platelet) 172 133-450 [facility] StationCmmejevHQAWCSQKPY1959-92-84 14:20:00 Test Item Value Reference Range Interpretation Comments MCHC (test code = MCHC) 33.2 32.0-36.0 [facility] StationCvqqtxjYOIDCEKQIK8406-95-21 14:20:00 Test Item Value Reference Range Interpretation Comments RDW (test code = RDW) 17.4 11.5-14.5 [facility] StationCpiqvouGLJLNXNGWU2076-52-14 14:20:00 Test Item Value Reference Range Interpretation Comments MCH (test code = MCH) 27.7 pg 27.0-31.0 [facility] StationWgldsciMYIRCIKJIF5647-98-77 14:20:00 Test Item Value Reference Range Interpretation Comments MCV (test code = MCV) 83.5 80.0-98.0 [facility] StationGvmjybnIDUBVNAYND0782-10-20 14:20:00 Test Item Value Reference Range Interpretation Comments RBC (test code = RBC) 2.59 4.20-5.40 [facility] StationPvyfhxpZUIIECMXGX4467-55-31 14:20:00 Test Item Value Reference Range Interpretation Comments WBC (test code = WBC) 10.7 3.7-10.4 [facility] StationWymylhsXHYBIDCION7991-54-32 14:20:00 Test Item Value Reference Range Interpretation Comments Lymphocytes # (test code = Lymphocytes 1.7 1.0-5.5 #) [facility] StationGvuqgsvKHRYYIOTNA1255-56-80 14:20:00 Test Item Value Reference Range Interpretation Comments Monocytes # (test code 0.5 See_Comment [Aut omated message] The = Monocytes #) system which generated this result tra nsmitted reference range : <=0.8. The reference r feliciano was not used to int erpret this result as normal/abnormal . [facility] StationLpnvdewVYBZDCBLGE7620-35-02 14:20:00 Test Item Value Reference Range Interpretation Comments Eosinophils # (test code 0.2 See_Comment [A utomated message] The = Eosinophils #) system whic h generated this result tra nsmitted reference range : <=0.5. The reference r feliciano was not used to int erpret this result as normal/abnormal . [facility] StationFrbzbvpMECELYEGBB0201-48-52 14:20:00 Test Item Value Reference Range Interpretation Comments Basophils # (test code 0.1 See_Comment [Aut omated message] The = Basophils #) system which generated this result tra nsmitted reference range : <=0.2. The reference r feliciano was not used to int erpret this result as normal/abnormal . [facility] StationZjevfegPFHZHFSBWI4951-25-76 14:20:00 Test Item Value Reference Range Interpretation Comments Lymphocytes (test code = Lymphocytes) 16.2 20.0-40.0 [facility] StationQojyjqwFUCFBEGVAH4778-15-96 14:20:00 Test Item Value Reference Range Interpretation Comments Monocytes (test code = Monocytes) 4.8 2.0-12.0 [facility] StationCqcrzjqQSNVOPNMDQ9787-54-05 14:20:00 Test Item Value Reference Range Interpretation Comments Eosinophils (test code = 1.9 See_Comment [A utomated message] The Eosinophils) system which ge nerated this result tra nsmitted reference range : <=4.0. The reference r feliciano was not used to int erpret this result as normal/abnormal . [facility] StationVbfiznyWSURDRUFPL5578-77-08 14:20:00 Test Item Value Reference Range Interpretation Comments Basophils (test code = 0.5 See_Comment [Aut omated message] The Basophils) system which ge nerated this result tra nsmitted reference range : <=1.0. The reference r feliciano was not used to int erpret this result as normal/abnormal . [facility] StationQvknkkkFXREYJCPUM0348-31-61 14:20:00 Test Item Value Reference Range Interpretation Comments Segs-Bands # (test code = Segs-Bands #) 8.2 1.5-8.1 [facility] StationSgnmtyzWTGKZRQHSY5524-63-32 14:20:00 Test Item Value Reference Range Interpretation Comments Segs (test code = Segs) 76.6 45.0-75.0 [facility]2017-08-12 14:20:00 Test Item Value Reference Range Interpretation Comments eGFR (test code = eGFR) 91 [facility]2017-08-12 14:20:00 Test Item Value Reference Range Interpretation Comments Calcium Lvl (test code = Calcium Lvl) 7.4 8.5-10.5 [facility]2017-08-12 14:20:00 Test Item Value Reference Range Interpretation Comments CO2 (test code = CO2) 25 24-32 [facility]2017-08-12 14:20:00 Test Item Value Reference Range Interpretation Comments Chloride Lvl (test code = Chloride Lvl) 117 95-109 [facility]2017-08-12 14:20:00 Test Item Value Reference Range Interpretation Comments Potassium Lvl (test code = Potassium 3.5 3.5-5.1 Lvl) [facility]2017-08-12 14:20:00 Test Item Value Reference Range Interpretation Comments Sodium Lvl (test code = Sodium Lvl) 145 135-145 [facility]2017-08-12 14:20:00 Test Item Value Reference Range Interpretation Comments Creatinine Lvl (test code = Creatinine 0.50 0.50-1.40 Lvl) [facility]2017-08-12 14:20:00 Test Item Value Reference Range Interpretation Comments BUN (test code = BUN) 21 7-22 [facility]2017-08-12 14:20:00 Test Item Value Reference Range Interpretation Comments Glucose Lvl (test code = Glucose Lvl) 94 70-99 [facility] QPJJG6659-23-18 14:20:00 Test Item Value Reference Range Interpretation Comments AGAP (test code = AGAP) 6.5 10.0-20.0 [facility] StationCqcyrmuHKQWKMWLYX3687-58-11 14:20:00 Test Item Value Reference Range Interpretation Comments MPV (test code = MPV) 9.1 7.4-10.4 [facility] StationYvzlalpNYBGLLJDQE7644-51-07 14:20:00 Test Item Value Reference Range Interpretation Comments Platelet (test code = Platelet) 172 133-450 [facility] StationRgrghtnRLGYUOUXCO9064-74-91 14:20:00 Test Item Value Reference Range Interpretation Comments MCHC (test code = MCHC) 33.2 32.0-36.0 [facility] StationZnskfuoWQAYQWHCWN1620-41-10 14:20:00 Test Item Value Reference Range Interpretation Comments RDW (test code = RDW) 17.4 11.5-14.5 [facility] StationFqxussiVFTDSDUSBQ9959-12-70 14:20:00 Test Item Value Reference Range Interpretation Comments MCH (test code = MCH) 27.7 pg 27.0-31.0 [facility] StationNmcmwhgKWRRDBZAYE6424-73-82 14:20:00 Test Item Value Reference Range Interpretation Comments MCV (test code = MCV) 83.5 80.0-98.0 [facility] StationXtjzefhYLKPWIVXMT2549-81-27 14:20:00 Test Item Value Reference Range Interpretation Comments RBC (test code = RBC) 2.59 4.20-5.40 [facility] StationHquewktCZLHPZMCKN6777-81-26 14:20:00 Test Item Value Reference Range Interpretation Comments WBC (test code = WBC) 10.7 3.7-10.4 [facility] StationIlroiewEZNQTPGMFM5540-60-40 14:20:00 Test Item Value Reference Range Interpretation Comments Lymphocytes # (test code = Lymphocytes 1.7 1.0-5.5 #) [facility] StationIiuomcwXZTHCUIQXG2542-79-82 14:20:00 Test Item Value Reference Range Interpretation Comments Monocytes # (test code 0.5 See_Comment [Aut omated message] The = Monocytes #) system which generated this result tra nsmitted reference range : <=0.8. The reference r feliciano was not used to int erpret this result as normal/abnormal . [facility] StationKzrldfyDXDIBBDHDQ6825-55-71 14:20:00 Test Item Value Reference Range Interpretation Comments Eosinophils # (test code 0.2 See_Comment [A utomated message] The = Eosinophils #) system wh h generated this result tra nsmitted reference range : <=0.5. The reference r feliciano was not used to int erpret this result as normal/abnormal . [facility] StationNemtfsoPIVRVJJIHU5170-90-28 14:20:00 Test Item Value Reference Range Interpretation Comments Basophils # (test code 0.1 See_Comment [Aut omated message] The = Basophils #) system which generated this result tra nsmitted reference range : <=0.2. The reference r feliciano was not used to int erpret this result as normal/abnormal . [facility] StationNgxzwjsRPTNDQNWQG7951-56-17 14:20:00 Test Item Value Reference Range Interpretation Comments Lymphocytes (test code = Lymphocytes) 16.2 20.0-40.0 [facility] StationLbhdmqpMMXNUXITNC9888-27-52 14:20:00 Test Item Value Reference Range Interpretation Comments Monocytes (test code = Monocytes) 4.8 2.0-12.0 [facility] StationPoptiksRXCJBGXBHF6802-18-58 14:20:00 Test Item Value Reference Range Interpretation Comments Eosinophils (test code = 1.9 See_Comment [A utomated message] The Eosinophils) system which ge nerated this result tra nsmitted reference range : <=4.0. The reference r feliciano was not used to int erpret this result as normal/abnormal . [facility] StationUzmoximQUKENGMBIU9926-81-85 14:20:00 Test Item Value Reference Range Interpretation Comments Basophils (test code = 0.5 See_Comment [Aut omated message] The Basophils) system which ge nerated this result tra nsmitted reference range : <=1.0. The reference r feliciano was not used to int erpret this result as normal/abnormal . [facility] StationXbjavysZZEVXQXQHQ1410-45-29 14:20:00 Test Item Value Reference Range Interpretation Comments Segs-Bands # (test code = Segs-Bands #) 8.2 1.5-8.1 [facility] StationQasqjffRRHQPUCSCG1429-19-03 14:20:00 Test Item Value Reference Range Interpretation Comments Segs (test code = Segs) 76.6 45.0-75.0 [facility] [id number] 23:50:00 Test Item Value Reference Range Interpretation Comments Antibody Scrn (test Negative (12/23/16 6:50 code = Antibody Scrn) PM) [facility] [id number] 23:50:00 Test Item Value Reference Range Interpretation Comments ABO/Rh (test code = ABO/Rh) O POS [facility] [employer] [id number] 23:50:00 Test Item Value Reference Range Interpretation Comments Total Protein (test code = Total 5.8 6.4-8.4 Protein) [employer] [id number] 23:50:00 Test Item Value Reference Range Interpretation Comments Bili Total (test code = Bili Total) 0.4 0.2-1.3 [facility]2017-08-11 23:50:00 Test Item Value Reference Range Interpretation Comments AST (test code = AST) 17 See_Comment [Auto mated message] The system which ge nerated this result transmit nadya reference range : <=37. The reference range was not used to interpr et this result as rigoberto l/abnormal. [facility]2017-08-11 23:50:00 Test Item Value Reference Range Interpretation Comments ALT (test code = ALT) 17 See_Comment [Auto mated message] The system which ge nerated this result transmit nadya reference range : <=65. The reference range was not used to interpr et this result as rigoberto l/abnormal. [facility]2017-08-11 23:50:00 Test Item Value Reference Range Interpretation Comments Albumin Lvl (test code = Albumin Lvl) 3.1 3.5-5.0 [facility]2017-08-11 23:50:00 Test Item Value Reference Range Interpretation Comments A/G Ratio (test code = A/G Ratio) 1.1 0.7-1.6 [facility]2017-08-11 23:50:00 Test Item Value Reference Range Interpretation Comments Globulin (test code = Globulin) 2.7 2.7-4.2 [employer]2017-08-11 23:50:00 Test Item Value Reference Range Interpretation Comments B/C Ratio (test code = B/C Ratio) 33 6-25 [facility] [employer] [id number] 23:50:00 Test Item Value Reference Range Interpretation Comments Alk Phos (test code = Alk Phos) 58 39-136 [facility]BcjmywuCRRNDPGZYR3044-37-85 23:50:00 Test Item Value Reference Range Interpretation Comments Basophils # (test code 0.1 See_Comment [Aut omated message] The = Basophils #) system which generated this result tra nsmitted reference range : <=0.2. The reference r feliciano was not used to int erpret this result as normal/abnormal . [employer] [id number] 23:50:00 Test Item Value Reference Range Interpretation Comments Antibody Scrn (test Negative (12/23/16 6:50 code = Antibody Scrn) PM) [facility] [id number] 23:50:00 Test Item Value Reference Range Interpretation Comments ABO/Rh (test code = ABO/Rh) O POS [facility] [employer] [id number] 23:50:00 Test Item Value Reference Range Interpretation Comments Total Protein (test code = Total 5.8 6.4-8.4 Protein) [facility] [employer] [id number] 23:50:00 Test Item Value Reference Range Interpretation Comments Bili Total (test code = Bili Total) 0.4 0.2-1.3 [facility] [employer] [id number] 23:50:00 Test Item Value Reference Range Interpretation Comments AST (test code = AST) 17 See_Comment [Auto mated message] The system which ge nerated this result transmit nadya reference range : <=37. The reference range was not used to interpr et this result as rigoberto l/abnormal. [employer]2017-08-11 23:50:00 Test Item Value Reference Range Interpretation Comments ALT (test code = ALT) 17 See_Comment [Auto mated message] The system which ge nerated this result transmit nadya reference range : <=65. The reference range was not used to interpr et this result as rigoberto l/abnormal. [employer] [id number] 23:50:00 Test Item Value Reference Range Interpretation Comments Albumin Lvl (test code = Albumin Lvl) 3.1 3.5-5.0 [facility] [employer] [id number] 23:50:00 Test Item Value Reference Range Interpretation Comments A/G Ratio (test code = A/G Ratio) 1.1 0.7-1.6 [facility] [id number] 23:50:00 Test Item Value Reference Range Interpretation Comments Globulin (test code = Globulin) 2.7 2.7-4.2 [facility] [id number] 23:50:00 Test Item Value Reference Range Interpretation Comments B/C Ratio (test code = B/C Ratio) 33 6-25 [facility] [employer] [id number] 23:50:00 Test Item Value Reference Range Interpretation Comments Alk Phos (test code = Alk Phos) 58 39-136 [id number] 23:50:00 Test Item Value Reference Range Interpretation Comments Basophils # (test code 0.1 See_Comment [Aut omated message] The = Basophils #) system which generated this result tra nsmitted reference range : <=0.2. The reference r feliciano was not used to int erpret this result as normal/abnormal . [facility] [id number] 23:50:00 Test Item Value Reference Range Interpretation Comments Antibody Scrn (test Negative (12/23/16 6:50 code = Antibody Scrn) PM) [facility] [employer] [facility] [id number] 23:50:00 Test Item Value Reference Range Interpretation Comments ABO/Rh (test code = ABO/Rh) O POS [facility] [employer] [id number] 23:50:00 Test Item Value Reference Range Interpretation Comments Total Protein (test code = Total 5.8 6.4-8.4 Protein) [facility] [employer] [id number] 23:50:00 Test Item Value Reference Range Interpretation Comments Bili Total (test code = Bili Total) 0.4 0.2-1.3 [facility] [employer] [id number] 23:50:00 Test Item Value Reference Range Interpretation Comments AST (test code = AST) 17 See_Comment [Auto mated message] The system which ge nerated this result transmit nadya reference range : <=37. The reference range was not used to interpr et this result as rigoberto l/abnormal. [facility] [employer] [id number] 23:50:00 Test Item Value Reference Range Interpretation Comments ALT (test code = ALT) 17 See_Comment [Auto mated message] The system which ge nerated this result transmit nadya reference range : <=65. The reference range was not used to interpr et this result as rigoberto l/abnormal. [facility] [employer] [id number] 23:50:00 Test Item Value Reference Range Interpretation Comments Albumin Lvl (test code = Albumin Lvl) 3.1 3.5-5.0 [facility] [employer] [id number] 23:50:00 Test Item Value Reference Range Interpretation Comments A/G Ratio (test code = A/G Ratio) 1.1 0.7-1.6 [facility] [employer] [id number] 23:50:00 Test Item Value Reference Range Interpretation Comments Globulin (test code = Globulin) 2.7 2.7-4.2 [facility] [employer] [id number] 23:50:00 Test Item Value Reference Range Interpretation Comments B/C Ratio (test code = B/C Ratio) 33 6-25 [facility] [employer] [id number] 23:50:00 Test Item Value Reference Range Interpretation Comments Alk Phos (test code = Alk Phos) 58 39-136 [facility]cosTcrgngyDHNGIPOAIB1533-83-32 23:50:00 Test Item Value Reference Range Interpretation Comments Basophils # (test code 0.1 See_Comment [Aut omated message] The = Basophils #) system which generated this result tra nsmitted reference range : <=0.2. The reference r feliciano was not used to int erpret this result as normal/abnormal . [facility] [id number] 23:50:00 Test Item Value Reference Range Interpretation Comments Antibody Scrn (test Negative (12/23/16 6:50 code = Antibody Scrn) PM) [facility] [id number] 23:50:00 Test Item Value Reference Range Interpretation Comments ABO/Rh (test code = ABO/Rh) O POS [facility] [employer] [id number] 23:50:00 Test Item Value Reference Range Interpretation Comments Total Protein (test code = Total 5.8 6.4-8.4 Protein) [facility] [employer] [id number] 23:50:00 Test Item Value Reference Range Interpretation Comments Bili Total (test code = Bili Total) 0.4 0.2-1.3 [facility]23pressATRIUM HEALTH STEELE [id number] 23:50:00 Test Item Value Reference Range Interpretation Comments AST (test code = AST) 17 See_Comment [Auto mated message] The system which ge nerated this result transmit nadya reference range : <=37. The reference range was not used to interpr et this result as rigoberto l/abnormal. [facility] RegionalIcanbespons[facility] [id number] 23:50:00 Test Item Value Reference Range Interpretation Comments ALT (test code = ALT) 17 See_Comment [Auto mated message] The system which ge nerated this result transmit nadya reference range : <=65. The reference range was not used to interpr et this result as rigoberto l/abnormal. [facility]23pressATRIUM HEALTH STEELE [id number] 23:50:00 Test Item Value Reference Range Interpretation Comments Albumin Lvl (test code = Albumin Lvl) 3.1 3.5-5.0 [facility] RegionalIcanbespons[facility] [id number] 23:50:00 Test Item Value Reference Range Interpretation Comments A/G Ratio (test code = A/G Ratio) 1.1 0.7-1.6 [facility]23[facility]AD[facility] [id number] 23:50:00 Test Item Value Reference Range Interpretation Comments Globulin (test code = Globulin) 2.7 2.7-4.2 [facility]23pressATRIUM HEALTH STEELE [id number] 23:50:00 Test Item Value Reference Range Interpretation Comments B/C Ratio (test code = B/C Ratio) 33 6-25 [facility] RegionalIcan[facility] [id number] 23:50:00 Test Item Value Reference Range Interpretation Comments Alk Phos (test code = Alk Phos) 58 39-136 [facility] StationVartgobXPQDREYWQC4763-96-15 23:50:00 Test Item Value Reference Range Interpretation Comments Basophils # (test code 0.1 See_Comment [Aut omated message] The = Basophils #) system which generated this result tra nsmitted reference range : <=0.2. The reference r feliciano was not used to int erpret this result as normal/abnormal . [facility]cosMad[facility] [id number] 23:50:00 Test Item Value Reference Range Interpretation Comments Antibody Scrn (test Negative (12/23/16 6:50 code = Antibody Scrn) PM) [facility] [id number] 23:50:00 Test Item Value Reference Range Interpretation Comments ABO/Rh (test code = ABO/Rh) O POS [facility]2017-08-11 23:50:00 Test Item Value Reference Range Interpretation Comments Total Protein (test code = Total 5.8 6.4-8.4 Protein) [facility]2017-08-11 23:50:00 Test Item Value Reference Range Interpretation Comments Bili Total (test code = Bili Total) 0.4 0.2-1.3 [facility]2017-08-11 23:50:00 Test Item Value Reference Range Interpretation Comments AST (test code = AST) 17 See_Comment [Auto mated message] The system which ge nerated this result transmit nadya reference range : <=37. The reference range was not used to interpr et this result as rigoberto l/abnormal. [facility]2017-08-11 23:50:00 Test Item Value Reference Range Interpretation Comments ALT (test code = ALT) 17 See_Comment [Auto mated message] The system which ge nerated this result transmit nadya reference range : <=65. The reference range was not used to interpr et this result as rigoberto l/abnormal. [facility]2017-08-11 23:50:00 Test Item Value Reference Range Interpretation Comments Albumin Lvl (test code = Albumin Lvl) 3.1 3.5-5.0 [facility]2017-08-11 23:50:00 Test Item Value Reference Range Interpretation Comments A/G Ratio (test code = A/G Ratio) 1.1 0.7-1.6 [facility]2017-08-11 23:50:00 Test Item Value Reference Range Interpretation Comments Globulin (test code = Globulin) 2.7 2.7-4.2 [facility]2017-08-11 23:50:00 Test Item Value Reference Range Interpretation Comments B/C Ratio (test code = B/C Ratio) 33 6-25 [facility]2017-08-11 23:50:00 Test Item Value Reference Range Interpretation Comments Alk Phos (test code = Alk Phos) 58 39-136 [facility] MarcosVtrdpemOTNMESXYZX1252-08-35 23:50:00 Test Item Value Reference Range Interpretation Comments Basophils # (test code 0.1 See_Comment [Aut omated message] The = Basophils #) system which generated this result tra nsmitted reference range : <=0.2. The reference r feliciano was not used to int erpret this result as normal/abnormal . [facility] RegionalIcan[facility] [id number] 09:55:00 Test Item Value Reference Range Interpretation Comments Magnesium Lvl (test code = Magnesium 2.5 1.8-2.4 Lvl) [facility]cosC[facility] [id number] 09:55:00 Test Item Value Reference Range Interpretation Comments Phosphorus (test code = Phosphorus) 2.6 2.5-4.5 [facility] HospitalYywxlybDFMXIRHRZXZB2751-16-29 09:55:00 Test Item Value Reference Range Interpretation Comments AGAP (test code = AGAP) 17.1 10.0-20.0 [facility] HospitalGsxxlcsMZSYKEXXMMWW9095-45-31 09:55:00 Test Item Value Reference Range Interpretation Comments eGFR (test code = eGFR) 85 [facility] HospitalOkhuskmLWXIZCCFDUXE2412-43-42 09:55:00 Test Item Value Reference Range Interpretation Comments Calcium Lvl (test code = Calcium Lvl) 8.0 8.5-10.5 [facility] HospitalTazifwtQPOXHARICMQQ3373-82-21 09:55:00 Test Item Value Reference Range Interpretation Comments CO2 (test code = CO2) 20 24-32 [facility] HospitalLmpzsxtXNMTWQKFJRPV2296-96-97 09:55:00 Test Item Value Reference Range Interpretation Comments Chloride Lvl (test code = Chloride Lvl) 113 95-109 [facility] HospitalPagoyfvXEMJCLPKIFQU4736-70-97 09:55:00 Test Item Value Reference Range Interpretation Comments Potassium Lvl (test code = Potassium 4.1 3.5-5.1 Lvl) [facility] HospitalHyydppmOCGIJEHKTQMX6884-47-93 09:55:00 Test Item Value Reference Range Interpretation Comments Sodium Lvl (test code = Sodium Lvl) 146 135-145 [facility] HospitalTrughwbLWENWWWXUXOT6865-63-84 09:55:00 Test Item Value Reference Range Interpretation Comments BUN (test code = BUN) 7 7-22 [facility] HospitalHnyrtknHCYUZLLFZMUI9949-58-18 09:55:00 Test Item Value Reference Range Interpretation Comments Glucose Lvl (test code = Glucose Lvl) 108 70-99 [facility] RegionalBixgafoZZYRDCQVNNSI3173-93-16 09:55:00 Test Item Value Reference Range Interpretation Comments Creatinine Lvl (test code = Creatinine 0.61 0.50-1.40 Lvl) [facility] StationPpyahgwTSSBEGYHKA4253-86-37 09:55:00 Test Item Value Reference Range Interpretation Comments MPV (test code = MPV) 9.1 7.4-10.4 [facility] StationAjgayguIAYMVWHMKY6017-03-64 09:55:00 Test Item Value Reference Range Interpretation Comments MCHC (test code = MCHC) 34.0 32.0-36.0 [facility] StationQqziqkuRCLBPUURHJ9411-04-66 09:55:00 Test Item Value Reference Range Interpretation Comments Platelet (test code = Platelet) 233 133-450 [facility] StationIaulgcmZRXKBQVVCI6046-42-46 09:55:00 Test Item Value Reference Range Interpretation Comments RDW (test code = RDW) 16.1 11.5-14.5 [facility] StationBintqylZUBXAASQED7524-73-39 09:55:00 Test Item Value Reference Range Interpretation Comments WBC (test code = WBC) 12.1 3.7-10.4 [facility] StationAqnjdsdHPSSSGIPMP5798-65-39 09:55:00 Test Item Value Reference Range Interpretation Comments RBC (test code = RBC) 2.94 4.20-5.40 [facility] StationFjdiccuNDHGGXZBAE1761-66-25 09:55:00 Test Item Value Reference Range Interpretation Comments MCV (test code = MCV) 86.5 80.0-98.0 [facility] StationOcfhtpfLBZRYBWLFB3052-80-22 09:55:00 Test Item Value Reference Range Interpretation Comments MCH (test code = MCH) 29.4 pg 27.0-31.0 [facility] StationCwhsatjTSOQHFIMBX3387-79-09 09:55:00 Test Item Value Reference Range Interpretation Comments Hgb (test code = Hgb) 8.6 12.0-16.0 [facility] StationGwsahxeBERXJFPSNG9103-14-74 09:55:00 Test Item Value Reference Range Interpretation Comments Hct (test code = Hct) 25.4 36.0-48.0 [facility] StationNpqgcxsCKNRXHHSDG8864-07-65 09:55:00 Test Item Value Reference Range Interpretation Comments Monocytes # (test code 0.6 See_Comment [Aut omated message] The = Monocytes #) system which generated this result tra nsmitted reference range : <=0.8. The reference r feliciano was not used to int erpret this result as normal/abnormal . [facility] StationZmeghpzUAHQUCYQBU3563-83-16 09:55:00 Test Item Value Reference Range Interpretation Comments Eosinophils # (test code 0.4 See_Comment [A utomated message] The = Eosinophils #) system whic h generated this result tra nsmitted reference range : <=0.5. The reference r feliciano was not used to int erpret this result as normal/abnormal . [facility] StationCtbefpvLIAAZCDFZH8490-11-77 09:55:00 Test Item Value Reference Range Interpretation Comments Lymphocytes # (test code = Lymphocytes 1.7 1.0-5.5 #) [facility] StationZygredvMIHAMQUCGU9295-93-09 09:55:00 Test Item Value Reference Range Interpretation Comments Basophils # (test code 0.1 See_Comment [Aut omated message] The = Basophils #) system which generated this result tra nsmitted reference range : <=0.2. The reference r feliciano was not used to int erpret this result as normal/abnormal . [facility] StationBjtfjgiMFLPFOVTEV6583-18-81 09:55:00 Test Item Value Reference Range Interpretation Comments Segs-Bands # (test code = Segs-Bands #) 9.4 1.5-8.1 [facility] StationZgcuawsQNYXNIOIWL8578-95-14 09:55:00 Test Item Value Reference Range Interpretation Comments Segs (test code = Segs) 77.2 45.0-75.0 [facility] StationOnotwgmCVIAPOKDVW9037-10-40 09:55:00 Test Item Value Reference Range Interpretation Comments Lymphocytes (test code = Lymphocytes) 14.4 20.0-40.0 [facility] StationPsakiokFSBVQPYTPX4896-86-36 09:55:00 Test Item Value Reference Range Interpretation Comments Eosinophils (test code = 3.0 See_Comment [A utomated message] The Eosinophils) system which ge nerated this result tra nsmitted reference range : <=4.0. The reference r feliciano was not used to int erpret this result as normal/abnormal . [facility] StationQweyilaAJYRSTPEQD5199-75-91 09:55:00 Test Item Value Reference Range Interpretation Comments Basophils (test code = 0.5 See_Comment [Aut omated message] The Basophils) system which ge nerated this result tra nsmitted reference range : <=1.0. The reference r feliciano was not used to int erpret this result as normal/abnormal . [facility] StationGlahuzzUNKWUGZESQ6297-70-70 09:55:00 Test Item Value Reference Range Interpretation Comments Monocytes (test code = Monocytes) 4.9 2.0-12.0 [facility]2017-05-16 09:55:00 Test Item Value Reference Range Interpretation Comments Magnesium Lvl (test code = Magnesium 2.5 1.8-2.4 Lvl) [facility]2017-05-16 09:55:00 Test Item Value Reference Range Interpretation Comments Phosphorus (test code = Phosphorus) 2.6 2.5-4.5 [facility] HospitalAsrqlhfOFXSHHFEZAEU6619-97-90 09:55:00 Test Item Value Reference Range Interpretation Comments AGAP (test code = AGAP) 17.1 10.0-20.0 [facility] HospitalFvjzygpRZIHDJZXFIQS2762-94-75 09:55:00 Test Item Value Reference Range Interpretation Comments eGFR (test code = eGFR) 85 [facility] HospitalSyyyslrBABFRDEXSBQE0618-46-25 09:55:00 Test Item Value Reference Range Interpretation Comments Calcium Lvl (test code = Calcium Lvl) 8.0 8.5-10.5 [facility] HospitalMqycbbhRIBNPXLXAQYM8653-06-00 09:55:00 Test Item Value Reference Range Interpretation Comments CO2 (test code = CO2) 20 24-32 [facility] HospitalYsrycjsXHFBVIVORUZN6872-17-91 09:55:00 Test Item Value Reference Range Interpretation Comments Chloride Lvl (test code = Chloride Lvl) 113 95-109 [facility] HospitalUcagjgoTUFPRUWJNKIZ3565-54-03 09:55:00 Test Item Value Reference Range Interpretation Comments Potassium Lvl (test code = Potassium 4.1 3.5-5.1 Lvl) [facility] HospitalZcuzfdbFEQJNTDWRNTN0970-69-91 09:55:00 Test Item Value Reference Range Interpretation Comments Sodium Lvl (test code = Sodium Lvl) 146 135-145 [facility] HospitalMskuqdvPFGPBERHEBJR3560-14-93 09:55:00 Test Item Value Reference Range Interpretation Comments BUN (test code = BUN) 7 7-22 [facility] HospitalJikgmwaLPFDLOPLJCOX2537-51-00 09:55:00 Test Item Value Reference Range Interpretation Comments Glucose Lvl (test code = Glucose Lvl) 108 70-99 [facility] RegionalPuuadfmIXGRZGEMVIWI1465-15-78 09:55:00 Test Item Value Reference Range Interpretation Comments Creatinine Lvl (test code = Creatinine 0.61 0.50-1.40 Lvl) [facility] HospitalBnbppioDLKMLTIWVB2090-28-55 09:55:00 Test Item Value Reference Range Interpretation Comments MPV (test code = MPV) 9.1 7.4-10.4 [facility] StationQkrsdgpZPKRIRFLUA7633-01-50 09:55:00 Test Item Value Reference Range Interpretation Comments MCHC (test code = MCHC) 34.0 32.0-36.0 [facility] StationLtiecbeWOMVUICXHR9670-15-13 09:55:00 Test Item Value Reference Range Interpretation Comments Platelet (test code = Platelet) 233 133-450 [facility] StationUijojpdFTEYDYUQMX8340-54-30 09:55:00 Test Item Value Reference Range Interpretation Comments RDW (test code = RDW) 16.1 11.5-14.5 [facility] StationRmcpexzTATVTEEBRL0239-27-25 09:55:00 Test Item Value Reference Range Interpretation Comments WBC (test code = WBC) 12.1 3.7-10.4 [facility] StationQstxulaTYBAEYPQJF6009-72-81 09:55:00 Test Item Value Reference Range Interpretation Comments RBC (test code = RBC) 2.94 4.20-5.40 [facility] StationHbwxwspNEQOBBHLRE2354-73-11 09:55:00 Test Item Value Reference Range Interpretation Comments MCV (test code = MCV) 86.5 80.0-98.0 [facility] StationVkzhmmtLIGEJSDEFT8250-44-20 09:55:00 Test Item Value Reference Range Interpretation Comments MCH (test code = MCH) 29.4 pg 27.0-31.0 [facility] StationMevjzeiPLPQEXCLQL8783-08-68 09:55:00 Test Item Value Reference Range Interpretation Comments Hgb (test code = Hgb) 8.6 12.0-16.0 [facility] StationDvvwpzyJICVYIRVUN3271-92-94 09:55:00 Test Item Value Reference Range Interpretation Comments Hct (test code = Hct) 25.4 36.0-48.0 [facility] StationUzdsmahUOKJKSFSYL5107-57-74 09:55:00 Test Item Value Reference Range Interpretation Comments Monocytes # (test code 0.6 See_Comment [Aut omated message] The = Monocytes #) system which generated this result tra nsmitted reference range : <=0.8. The reference r feliciano was not used to int erpret this result as normal/abnormal . [facility] StationUipgsevMNMPORCPJW4480-49-78 09:55:00 Test Item Value Reference Range Interpretation Comments Eosinophils # (test code 0.4 See_Comment [A utomated message] The = Eosinophils #) system whic h generated this result tra nsmitted reference range : <=0.5. The reference r feliciano was not used to int erpret this result as normal/abnormal . [facility] StationVewjawxONZBTTSWGU1090-31-57 09:55:00 Test Item Value Reference Range Interpretation Comments Lymphocytes # (test code = Lymphocytes 1.7 1.0-5.5 #) [facility] StationIncyxkrJYANTOLBTL5483-21-87 09:55:00 Test Item Value Reference Range Interpretation Comments Basophils # (test code 0.1 See_Comment [Aut omated message] The = Basophils #) system which generated this result tra nsmitted reference range : <=0.2. The reference r feliciano was not used to int erpret this result as normal/abnormal . [facility] StationXiuvgtoWZHCXOIHAX7291-49-10 09:55:00 Test Item Value Reference Range Interpretation Comments Segs-Bands # (test code = Segs-Bands #) 9.4 1.5-8.1 [facility] StationEjuqqtmAXMPXXYJSG1188-11-77 09:55:00 Test Item Value Reference Range Interpretation Comments Segs (test code = Segs) 77.2 45.0-75.0 [facility] StationYjlaioiBEDDWUREYX3405-02-32 09:55:00 Test Item Value Reference Range Interpretation Comments Lymphocytes (test code = Lymphocytes) 14.4 20.0-40.0 [facility] StationMmmkzdzIPKPGMORND8123-66-93 09:55:00 Test Item Value Reference Range Interpretation Comments Eosinophils (test code = 3.0 See_Comment [A utomated message] The Eosinophils) system which ge nerated this result tra nsmitted reference range : <=4.0. The reference r feliciano was not used to int erpret this result as normal/abnormal . [facility] StationPodpqeqOOXVLSACUG9161-28-36 09:55:00 Test Item Value Reference Range Interpretation Comments Basophils (test code = 0.5 See_Comment [Aut omated message] The Basophils) system which ge nerated this result tra nsmitted reference range : <=1.0. The reference r feliciano was not used to int erpret this result as normal/abnormal . [facility] StationVhnqprsRRNCJEZAYK2394-99-06 09:55:00 Test Item Value Reference Range Interpretation Comments Monocytes (test code = Monocytes) 4.9 2.0-12.0 [facility]2017-05-16 09:55:00 Test Item Value Reference Range Interpretation Comments Magnesium Lvl (test code = Magnesium 2.5 1.8-2.4 Lvl) [facility]2017-05-16 09:55:00 Test Item Value Reference Range Interpretation Comments Phosphorus (test code = Phosphorus) 2.6 2.5-4.5 [facility]WtfvxygYCLXUUMLNNMJ9100-62-46 09:55:00 Test Item Value Reference Range Interpretation Comments AGAP (test code = AGAP) 17.1 10.0-20.0 [facility] HospitalMdotlrhMJSAPEICJQHT4118-66-05 09:55:00 Test Item Value Reference Range Interpretation Comments eGFR (test code = eGFR) 85 [facility] HospitalAlmyspyKQSKQGDUNPZV3039-79-34 09:55:00 Test Item Value Reference Range Interpretation Comments Calcium Lvl (test code = Calcium Lvl) 8.0 8.5-10.5 [facility] HospitalDjpsoovIXRECVDKGVHV5301-65-81 09:55:00 Test Item Value Reference Range Interpretation Comments CO2 (test code = CO2) 20 24-32 [facility] HospitalEftifmnSILWJBEJTDIL1238-94-85 09:55:00 Test Item Value Reference Range Interpretation Comments Chloride Lvl (test code = Chloride Lvl) 113 95-109 [facility] HospitalLgmguzoPPUUAHDCNBLB3111-21-77 09:55:00 Test Item Value Reference Range Interpretation Comments Potassium Lvl (test code = Potassium 4.1 3.5-5.1 Lvl) [facility] HospitalHydcxmdNZYKSDLUFWMP5564-06-32 09:55:00 Test Item Value Reference Range Interpretation Comments Sodium Lvl (test code = Sodium Lvl) 146 135-145 [facility] HospitalAylxqbmSTBEQSLGGYBD2722-18-30 09:55:00 Test Item Value Reference Range Interpretation Comments BUN (test code = BUN) 7 7-22 [facility] HospitalBrueuhxLUYRNBKSATOI7065-27-62 09:55:00 Test Item Value Reference Range Interpretation Comments Glucose Lvl (test code = Glucose Lvl) 108 70-99 [facility]GvenayqWGGGOZUGXZAN1688-93-29 09:55:00 Test Item Value Reference Range Interpretation Comments Creatinine Lvl (test code = Creatinine 0.61 0.50-1.40 Lvl) [facility] StationOvjeioaUNOOWNKKZR0390-19-85 09:55:00 Test Item Value Reference Range Interpretation Comments MPV (test code = MPV) 9.1 7.4-10.4 [facility] StationJtvfqxfPHWBKILNOW1555-31-73 09:55:00 Test Item Value Reference Range Interpretation Comments MCHC (test code = MCHC) 34.0 32.0-36.0 [facility] StationBwncigdAEYYPNAYKJ2014-75-79 09:55:00 Test Item Value Reference Range Interpretation Comments Platelet (test code = Platelet) 233 133-450 [facility] StationUmtulatQJWVREUEDO0385-62-38 09:55:00 Test Item Value Reference Range Interpretation Comments RDW (test code = RDW) 16.1 11.5-14.5 [facility] StationTcmanqaVLEKNEIZJD9574-30-38 09:55:00 Test Item Value Reference Range Interpretation Comments WBC (test code = WBC) 12.1 3.7-10.4 [facility] StationWbqlqobIGBCXHHYYG0623-85-50 09:55:00 Test Item Value Reference Range Interpretation Comments RBC (test code = RBC) 2.94 4.20-5.40 [facility] StationRxjkgdzZHGURBZTMW6679-01-63 09:55:00 Test Item Value Reference Range Interpretation Comments MCV (test code = MCV) 86.5 80.0-98.0 [facility] StationZnciobkCIJXUGBNUE0431-73-69 09:55:00 Test Item Value Reference Range Interpretation Comments MCH (test code = MCH) 29.4 pg 27.0-31.0 [facility] StationTsdhyxsUATRKYLKOB3893-24-78 09:55:00 Test Item Value Reference Range Interpretation Comments Hgb (test code = Hgb) 8.6 12.0-16.0 [facility] StationCtojdjeNWLJOAZXFR9005-24-56 09:55:00 Test Item Value Reference Range Interpretation Comments Hct (test code = Hct) 25.4 36.0-48.0 [facility] StationVogdutzHRFBGNGILB1764-00-36 09:55:00 Test Item Value Reference Range Interpretation Comments Monocytes # (test code 0.6 See_Comment [Aut omated message] The = Monocytes #) system which generated this result tra nsmitted reference range : <=0.8. The reference r feliciano was not used to int erpret this result as normal/abnormal . [facility] StationHtfbmyjSPLHMLDSUK3604-01-90 09:55:00 Test Item Value Reference Range Interpretation Comments Eosinophils # (test code 0.4 See_Comment [A utomated message] The = Eosinophils #) system whic h generated this result tra nsmitted reference range : <=0.5. The reference r feliciano was not used to int erpret this result as normal/abnormal . [facility] StationMuetbebVNUZLVUPFW8013-83-27 09:55:00 Test Item Value Reference Range Interpretation Comments Lymphocytes # (test code = Lymphocytes 1.7 1.0-5.5 #) [facility] StationPsillxdAKCVJGZCPH7678-58-55 09:55:00 Test Item Value Reference Range Interpretation Comments Basophils # (test code 0.1 See_Comment [Aut omated message] The = Basophils #) system which generated this result tra nsmitted reference range : <=0.2. The reference r feliciano was not used to int erpret this result as normal/abnormal . [facility] StationYdqadexHCDTRXKHYW7822-40-84 09:55:00 Test Item Value Reference Range Interpretation Comments Segs-Bands # (test code = Segs-Bands #) 9.4 1.5-8.1 [facility] StationScufdwsOWXJTRCCGA8337-32-19 09:55:00 Test Item Value Reference Range Interpretation Comments Segs (test code = Segs) 77.2 45.0-75.0 [facility] StationZentbouZOHVKCXOQM8576-02-77 09:55:00 Test Item Value Reference Range Interpretation Comments Lymphocytes (test code = Lymphocytes) 14.4 20.0-40.0 [facility] StationTluiiicWXFSFBNALG1368-13-07 09:55:00 Test Item Value Reference Range Interpretation Comments Eosinophils (test code = 3.0 See_Comment [A utomated message] The Eosinophils) system which ge nerated this result tra nsmitted reference range : <=4.0. The reference r feliciano was not used to int erpret this result as normal/abnormal . [facility] StationQziwofkQESXVOJMOA1778-88-86 09:55:00 Test Item Value Reference Range Interpretation Comments Basophils (test code = 0.5 See_Comment [Aut omated message] The Basophils) system which ge nerated this result tra nsmitted reference range : <=1.0. The reference r feliciano was not used to int erpret this result as normal/abnormal . [facility] StationByfcqnlUPBDPMNZRH1229-91-69 09:55:00 Test Item Value Reference Range Interpretation Comments Monocytes (test code = Monocytes) 4.9 2.0-12.0 [facility]2017-05-16 09:55:00 Test Item Value Reference Range Interpretation Comments Magnesium Lvl (test code = Magnesium 2.5 1.8-2.4 Lvl) [facility]2017-05-16 09:55:00 Test Item Value Reference Range Interpretation Comments Phosphorus (test code = Phosphorus) 2.6 2.5-4.5 [facility] HospitalTqlftjwVTNZFXSPRAYX7110-77-52 09:55:00 Test Item Value Reference Range Interpretation Comments AGAP (test code = AGAP) 17.1 10.0-20.0 [facility] HospitalRivpqizSSTCEKEREFCG0469-68-74 09:55:00 Test Item Value Reference Range Interpretation Comments eGFR (test code = eGFR) 85 [facility] HospitalEmelzwbEHLLXNJMWIKG1604-39-46 09:55:00 Test Item Value Reference Range Interpretation Comments Calcium Lvl (test code = Calcium Lvl) 8.0 8.5-10.5 [facility] HospitalFxpmzrwXHPRWKLGSALP2024-17-79 09:55:00 Test Item Value Reference Range Interpretation Comments CO2 (test code = CO2) 20 24-32 [facility] HospitalOtfayeaASUJOANTGLMR4297-74-54 09:55:00 Test Item Value Reference Range Interpretation Comments Chloride Lvl (test code = Chloride Lvl) 113 95-109 [facility] HospitalZpskohjGCHUQFIJXJYW3363-99-18 09:55:00 Test Item Value Reference Range Interpretation Comments Potassium Lvl (test code = Potassium 4.1 3.5-5.1 Lvl) [facility] HospitalYpacuesKRLPVWABCMMW1220-76-52 09:55:00 Test Item Value Reference Range Interpretation Comments Sodium Lvl (test code = Sodium Lvl) 146 135-145 [facility] HospitalCayuuiwLUHQKAWYQBDU4806-50-11 09:55:00 Test Item Value Reference Range Interpretation Comments BUN (test code = BUN) 7 7-22 [facility] HospitalNxmxwqbLDFBQBAUENRN9636-83-62 09:55:00 Test Item Value Reference Range Interpretation Comments Glucose Lvl (test code = Glucose Lvl) 108 70-99 [facility] RegionalFameatuNOYUHYROKFPR5789-87-28 09:55:00 Test Item Value Reference Range Interpretation Comments Creatinine Lvl (test code = Creatinine 0.61 0.50-1.40 Lvl) [facility] StationVcxhmjuDYUBTBJEME7411-96-47 09:55:00 Test Item Value Reference Range Interpretation Comments MPV (test code = MPV) 9.1 7.4-10.4 [facility] StationPredbowELWTIDOATW7424-32-45 09:55:00 Test Item Value Reference Range Interpretation Comments MCHC (test code = MCHC) 34.0 32.0-36.0 [facility] StationTrbagxbLEFYZZJAIT7307-68-17 09:55:00 Test Item Value Reference Range Interpretation Comments Platelet (test code = Platelet) 233 133-450 [facility] StationHhzgbhbJKIWMQCLZS7572-64-27 09:55:00 Test Item Value Reference Range Interpretation Comments RDW (test code = RDW) 16.1 11.5-14.5 [facility] StationAgxffxqTLITBIVMMN6353-78-94 09:55:00 Test Item Value Reference Range Interpretation Comments WBC (test code = WBC) 12.1 3.7-10.4 [facility] StationPnjtgsdWYMTJAUCZE0037-09-61 09:55:00 Test Item Value Reference Range Interpretation Comments RBC (test code = RBC) 2.94 4.20-5.40 [facility] StationPecxazuVQBGIASHJN5140-82-18 09:55:00 Test Item Value Reference Range Interpretation Comments MCV (test code = MCV) 86.5 80.0-98.0 [facility] StationAevcgfvMAWOXMLMDB6318-58-25 09:55:00 Test Item Value Reference Range Interpretation Comments MCH (test code = MCH) 29.4 pg 27.0-31.0 [facility] StationNeuxtxrUWVCYWDERO8433-12-02 09:55:00 Test Item Value Reference Range Interpretation Comments Hgb (test code = Hgb) 8.6 12.0-16.0 [facility] StationHuvukpuPJAIYKQNSI3881-52-91 09:55:00 Test Item Value Reference Range Interpretation Comments Hct (test code = Hct) 25.4 36.0-48.0 [facility] StationWywfygbOXUFNGWGBR9938-91-64 09:55:00 Test Item Value Reference Range Interpretation Comments Monocytes # (test code 0.6 See_Comment [Aut omated message] The = Monocytes #) system which generated this result tra nsmitted reference range : <=0.8. The reference r feliciano was not used to int erpret this result as normal/abnormal . [facility] StationMmxdtigVVZCSSNMQM4750-02-85 09:55:00 Test Item Value Reference Range Interpretation Comments Eosinophils # (test code 0.4 See_Comment [A utomated message] The = Eosinophils #) system whic h generated this result tra nsmitted reference range : <=0.5. The reference r feliciano was not used to int erpret this result as normal/abnormal . [facility] StationKbphigrHZNLCVCDZK3533-98-41 09:55:00 Test Item Value Reference Range Interpretation Comments Lymphocytes # (test code = Lymphocytes 1.7 1.0-5.5 #) [facility] StationUpnznazWIIJFDUXAW4077-26-48 09:55:00 Test Item Value Reference Range Interpretation Comments Basophils # (test code 0.1 See_Comment [Aut omated message] The = Basophils #) system which generated this result tra nsmitted reference range : <=0.2. The reference r feliciano was not used to int erpret this result as normal/abnormal . [facility] StationEichlrcIDNNPLGRPB4212-73-70 09:55:00 Test Item Value Reference Range Interpretation Comments Segs-Bands # (test code = Segs-Bands #) 9.4 1.5-8.1 [facility] StationHrbfodrBPMOOALAEB6611-74-63 09:55:00 Test Item Value Reference Range Interpretation Comments Segs (test code = Segs) 77.2 45.0-75.0 [facility] StationVvfmpdeGBZQFOVTHZ5304-27-17 09:55:00 Test Item Value Reference Range Interpretation Comments Lymphocytes (test code = Lymphocytes) 14.4 20.0-40.0 [facility] StationRfcxhffOIEUTJTJQT5905-79-26 09:55:00 Test Item Value Reference Range Interpretation Comments Eosinophils (test code = 3.0 See_Comment [A utomated message] The Eosinophils) system which ge nerated this result tra nsmitted reference range : <=4.0. The reference r feliciano was not used to int erpret this result as normal/abnormal . [facility] StationJswntpmEBEYKYTMKV9422-00-92 09:55:00 Test Item Value Reference Range Interpretation Comments Basophils (test code = 0.5 See_Comment [Aut omated message] The Basophils) system which ge nerated this result tra nsmitted reference range : <=1.0. The reference r feliciano was not used to int erpret this result as normal/abnormal . [facility]UdxjdybNLMKFGNYXP6198-52-19 09:55:00 Test Item Value Reference Range Interpretation Comments Monocytes (test code = Monocytes) 4.9 2.0-12.0 [facility] BWZTO5727-07-37 09:55:00 Test Item Value Reference Range Interpretation Comments Magnesium Lvl (test code = Magnesium 2.5 1.8-2.4 Lvl) [facility] NHARC1831-01-41 09:55:00 Test Item Value Reference Range Interpretation Comments Phosphorus (test code = Phosphorus) 2.6 2.5-4.5 [facility] HospitalHcsajdtXVEZULVVXTZU0776-49-01 09:55:00 Test Item Value Reference Range Interpretation Comments AGAP (test code = AGAP) 17.1 10.0-20.0 [facility] HospitalDagyfiuGHGDHFKAIZCF6669-49-46 09:55:00 Test Item Value Reference Range Interpretation Comments eGFR (test code = eGFR) 85 [facility] HospitalMdzyiudNVNMHBMNXXZO5763-80-96 09:55:00 Test Item Value Reference Range Interpretation Comments Calcium Lvl (test code = Calcium Lvl) 8.0 8.5-10.5 [facility] HospitalMumdwcgOCUKISLDOJJE8047-42-08 09:55:00 Test Item Value Reference Range Interpretation Comments CO2 (test code = CO2) 20 24-32 [facility] HospitalOixdnoaEOKRCQATOICX9836-86-15 09:55:00 Test Item Value Reference Range Interpretation Comments Chloride Lvl (test code = Chloride Lvl) 113 95-109 [facility] HospitalPcmxbpzDSKYAAEEWRRI3728-28-15 09:55:00 Test Item Value Reference Range Interpretation Comments Potassium Lvl (test code = Potassium 4.1 3.5-5.1 Lvl) [facility] HospitalFybfouuEDSJRHYIGPFL0506-50-81 09:55:00 Test Item Value Reference Range Interpretation Comments Sodium Lvl (test code = Sodium Lvl) 146 135-145 [facility] HospitalHyyrolpEXKZQDPCKLIE2950-35-11 09:55:00 Test Item Value Reference Range Interpretation Comments BUN (test code = BUN) 7 7-22 [facility] HospitalTqxeibbNBKKIOQEGDMT0048-02-14 09:55:00 Test Item Value Reference Range Interpretation Comments Glucose Lvl (test code = Glucose Lvl) 108 70-99 [facility] RegionalVaimqfcYSSPMYULTIBO9616-06-07 09:55:00 Test Item Value Reference Range Interpretation Comments Creatinine Lvl (test code = Creatinine 0.61 0.50-1.40 Lvl) [facility] HospitalXfzgfhiRGOGVYAGSZ7544-35-73 09:55:00 Test Item Value Reference Range Interpretation Comments MPV (test code = MPV) 9.1 7.4-10.4 [facility] StationTumwnupDXKBSVDFHD2904-22-19 09:55:00 Test Item Value Reference Range Interpretation Comments MCHC (test code = MCHC) 34.0 32.0-36.0 [facility] StationCqhmtrpJNQUSEXPJO5958-29-98 09:55:00 Test Item Value Reference Range Interpretation Comments Platelet (test code = Platelet) 233 133-450 [facility] StationZevafquDUDMLVSJCB1692-77-58 09:55:00 Test Item Value Reference Range Interpretation Comments RDW (test code = RDW) 16.1 11.5-14.5 [facility] StationUzcqsgdWYAPIVEAUX6156-18-62 09:55:00 Test Item Value Reference Range Interpretation Comments WBC (test code = WBC) 12.1 3.7-10.4 [facility] StationRmxksmxCRQCJZWEXO7758-96-84 09:55:00 Test Item Value Reference Range Interpretation Comments RBC (test code = RBC) 2.94 4.20-5.40 [facility] StationNcntyoiORUIKFZQJM3063-59-23 09:55:00 Test Item Value Reference Range Interpretation Comments MCV (test code = MCV) 86.5 80.0-98.0 [facility] StationZywyakkHOQGMKHQTZ9850-90-04 09:55:00 Test Item Value Reference Range Interpretation Comments MCH (test code = MCH) 29.4 pg 27.0-31.0 [facility] StationEucbjjwGUIXLFZDYH4799-14-20 09:55:00 Test Item Value Reference Range Interpretation Comments Hgb (test code = Hgb) 8.6 12.0-16.0 [facility] StationQonsmoiQGFRMVNKZI5035-71-59 09:55:00 Test Item Value Reference Range Interpretation Comments Hct (test code = Hct) 25.4 36.0-48.0 [facility] StationAhajixhBIXHVRRQHQ0664-59-11 09:55:00 Test Item Value Reference Range Interpretation Comments Monocytes # (test code 0.6 See_Comment [Aut omated message] The = Monocytes #) system which generated this result tra nsmitted reference range : <=0.8. The reference r feliciano was not used to int erpret this result as normal/abnormal . [facility] StationNflmezpWWHYFSJEIW0489-58-33 09:55:00 Test Item Value Reference Range Interpretation Comments Eosinophils # (test code 0.4 See_Comment [A utomated message] The = Eosinophils #) system whic h generated this result tra nsmitted reference range : <=0.5. The reference r feliciano was not used to int erpret this result as normal/abnormal . [facility] StationPzfbfwgSZURCRMICL6378-84-28 09:55:00 Test Item Value Reference Range Interpretation Comments Lymphocytes # (test code = Lymphocytes 1.7 1.0-5.5 #) [facility] StationUcvpbrtZLFFYPIIRX6768-91-90 09:55:00 Test Item Value Reference Range Interpretation Comments Basophils # (test code 0.1 See_Comment [Aut omated message] The = Basophils #) system which generated this result tra nsmitted reference range : <=0.2. The reference r feliciano was not used to int erpret this result as normal/abnormal . [facility] StationZgpcbzuHBNAPYTVXY4010-64-59 09:55:00 Test Item Value Reference Range Interpretation Comments Segs-Bands # (test code = Segs-Bands #) 9.4 1.5-8.1 [facility] StationVrautnyPKNXCTSFDL5054-39-52 09:55:00 Test Item Value Reference Range Interpretation Comments Segs (test code = Segs) 77.2 45.0-75.0 [facility] StationUecgulfCCHPUBKODH2030-34-89 09:55:00 Test Item Value Reference Range Interpretation Comments Lymphocytes (test code = Lymphocytes) 14.4 20.0-40.0 [facility] StationMpembfsJSIMBWQZVP8401-66-45 09:55:00 Test Item Value Reference Range Interpretation Comments Eosinophils (test code = 3.0 See_Comment [A utomated message] The Eosinophils) system which ge nerated this result tra nsmitted reference range : <=4.0. The reference r feliciano was not used to int erpret this result as normal/abnormal . [facility] StationJofyjceRONYFZJRJQ6336-86-32 09:55:00 Test Item Value Reference Range Interpretation Comments Basophils (test code = 0.5 See_Comment [Aut omated message] The Basophils) system which ge nerated this result tra nsmitted reference range : <=1.0. The reference r feliciano was not used to int erpret this result as normal/abnormal . [facility] StationTqylcwlCWYZOECKOH9427-73-20 09:55:00 Test Item Value Reference Range Interpretation Comments Monocytes (test code = Monocytes) 4.9 2.0-12.0 [facility] StationQlwzoctXZYCXDVQMW3085-59-48 05:34:00 Test Item Value Reference Range Interpretation Comments Eosinophils (test code = 3.3 See_Comment [A utomated message] The Eosinophils) system which ge nerated this result tra nsmitted reference range : <=4.0. The reference r feliciano was not used to int erpret this result as normal/abnormal . [facility] StationHpnfzklRPVJZPXYKK9309-54-99 05:34:00 Test Item Value Reference Range Interpretation Comments Monocytes # (test code 0.6 See_Comment [Aut omated message] The = Monocytes #) system which generated this result tra nsmitted reference range : <=0.8. The reference r feliciano was not used to int erpret this result as normal/abnormal . [facility] StationXunntooYGBTCJMBBB9879-80-26 05:34:00 Test Item Value Reference Range Interpretation Comments Eosinophils # (test code 0.3 See_Comment [A utomated message] The = Eosinophils #) system whic h generated this result tra nsmitted reference range : <=0.5. The reference r feliciano was not used to int erpret this result as normal/abnormal . [facility] StationEfckbrzCYDWVGLOSQ5225-47-89 05:34:00 Test Item Value Reference Range Interpretation Comments Basophils (test code = 1.2 See_Comment [Aut omated message] The Basophils) system which ge nerated this result tra nsmitted reference range : <=1.0. The reference r feliciano was not used to int erpret this result as normal/abnormal . [facility] StationBktrytaTZOVARYWWY3185-74-58 05:34:00 Test Item Value Reference Range Interpretation Comments Segs-Bands # (test code = Segs-Bands #) 6.2 1.5-8.1 [facility] StationSllrrhgECIHVELNGJ3650-72-63 05:34:00 Test Item Value Reference Range Interpretation Comments Lymphocytes # (test code = Lymphocytes 2.0 1.0-5.5 #) [facility] StationLaraszhGGEXRBWLHY1425-24-55 05:34:00 Test Item Value Reference Range Interpretation Comments Lymphocytes (test code = Lymphocytes) 22.0 20.0-40.0 [facility] StationFdwvccmUFMLFRWUVA1058-27-46 05:34:00 Test Item Value Reference Range Interpretation Comments Segs (test code = Segs) 67.4 45.0-75.0 [facility] StationXfwyspyLZVUSJGDYO3221-52-63 05:34:00 Test Item Value Reference Range Interpretation Comments MCV (test code = MCV) 85.9 80.0-98.0 [facility] StationRgqhfdbQIRTVDCZCX5419-23-31 05:34:00 Test Item Value Reference Range Interpretation Comments WBC (test code = WBC) 9.2 3.7-10.4 [facility] StationCzdlsmcFPEKZQEWRK9763-68-10 05:34:00 Test Item Value Reference Range Interpretation Comments RBC (test code = RBC) 2.75 4.20-5.40 [facility] StationRenrodeJOFGEDABSV0984-81-03 05:34:00 Test Item Value Reference Range Interpretation Comments Hgb (test code = Hgb) 8.0 12.0-16.0 [facility] StationSoetbpuQYVZCXEMAC9846-30-42 05:34:00 Test Item Value Reference Range Interpretation Comments Hct (test code = Hct) 23.6 36.0-48.0 [facility] StationOkpodfqMTHAOINPAV7923-38-18 05:34:00 Test Item Value Reference Range Interpretation Comments Platelet (test code = Platelet) 239 133-450 [facility] StationItlqsgtCULXROQBKJ7194-16-59 05:34:00 Test Item Value Reference Range Interpretation Comments MPV (test code = MPV) 8.5 7.4-10.4 [facility] StationXqvpasaUSODBDYJYA1874-76-85 05:34:00 Test Item Value Reference Range Interpretation Comments MCH (test code = MCH) 29.2 pg 27.0-31.0 [facility] StationQbradzcPTNLDRAXYO8970-55-69 05:34:00 Test Item Value Reference Range Interpretation Comments MCHC (test code = MCHC) 34.0 32.0-36.0 [facility] StationWsxuxooDBXNBDFYJX3617-07-02 05:34:00 Test Item Value Reference Range Interpretation Comments RDW (test code = RDW) 15.7 11.5-14.5 [facility] StationPvrrhvfMYVXFBKYPM0144-24-70 05:34:00 Test Item Value Reference Range Interpretation Comments Basophils # (test code 0.1 See_Comment [Aut omated message] The = Basophils #) system which generated this result tra nsmitted reference range : <=0.2. The reference r feliciano was not used to int erpret this result as normal/abnormal . [facility] StationUmskkwmTIWAMOXZMA9015-46-39 05:34:00 Test Item Value Reference Range Interpretation Comments Monocytes (test code = Monocytes) 6.1 2.0-12.0 [facility] StationNvlbicxERTMUVAFQP2214-25-80 05:34:00 Test Item Value Reference Range Interpretation Comments Eosinophils (test code = 3.3 See_Comment [A utomated message] The Eosinophils) system which ge nerated this result tra nsmitted reference range : <=4.0. The reference r feliciano was not used to int erpret this result as normal/abnormal . [facility] StationJgpzfpmYJKBJLIYYT8148-90-56 05:34:00 Test Item Value Reference Range Interpretation Comments Monocytes # (test code 0.6 See_Comment [Aut omated message] The = Monocytes #) system which generated this result tra nsmitted reference range : <=0.8. The reference r feliciano was not used to int erpret this result as normal/abnormal . [facility] StationUfqmserXJJZGCHLMU7207-15-79 05:34:00 Test Item Value Reference Range Interpretation Comments Eosinophils # (test code 0.3 See_Comment [A utomated message] The = Eosinophils #) system wh h generated this result tra nsmitted reference range : <=0.5. The reference r feliciano was not used to int erpret this result as normal/abnormal . [facility] StationTqtopzqSZYGDTJWCE7260-89-44 05:34:00 Test Item Value Reference Range Interpretation Comments Basophils (test code = 1.2 See_Comment [Aut omated message] The Basophils) system which ge nerated this result tra nsmitted reference range : <=1.0. The reference r feliciano was not used to int erpret this result as normal/abnormal . [facility] StationLwzejsxHEMMQZLSPP0754-30-39 05:34:00 Test Item Value Reference Range Interpretation Comments Segs-Bands # (test code = Segs-Bands #) 6.2 1.5-8.1 [facility] StationTanpsgqVPCGCFWRYU8919-22-64 05:34:00 Test Item Value Reference Range Interpretation Comments Lymphocytes # (test code = Lymphocytes 2.0 1.0-5.5 #) [facility] StationSwtknwoJUAEMLNKBE4369-05-88 05:34:00 Test Item Value Reference Range Interpretation Comments Lymphocytes (test code = Lymphocytes) 22.0 20.0-40.0 [facility] StationOjoyyybNQOERWBHYI3533-23-20 05:34:00 Test Item Value Reference Range Interpretation Comments Segs (test code = Segs) 67.4 45.0-75.0 [facility] StationWhaymonUTIBKVIMCJ0008-88-09 05:34:00 Test Item Value Reference Range Interpretation Comments MCV (test code = MCV) 85.9 80.0-98.0 [facility] StationVwjgmcsRPCQUILGRU8625-31-46 05:34:00 Test Item Value Reference Range Interpretation Comments WBC (test code = WBC) 9.2 3.7-10.4 [facility] StationAxykzsaEKXNRYTBDK6914-20-01 05:34:00 Test Item Value Reference Range Interpretation Comments RBC (test code = RBC) 2.75 4.20-5.40 [facility] StationXgptxlqKQLATRVTBJ0155-89-27 05:34:00 Test Item Value Reference Range Interpretation Comments Hgb (test code = Hgb) 8.0 12.0-16.0 [facility] StationLubbjdrZEMKFABFHZ7710-88-36 05:34:00 Test Item Value Reference Range Interpretation Comments Hct (test code = Hct) 23.6 36.0-48.0 [facility] StationHndnyxxMCRKEEWKEU2752-99-22 05:34:00 Test Item Value Reference Range Interpretation Comments Platelet (test code = Platelet) 239 133-450 [facility] StationDikmumlCMNASNRGON9817-10-84 05:34:00 Test Item Value Reference Range Interpretation Comments MPV (test code = MPV) 8.5 7.4-10.4 [facility] StationFyeafwlDDBDSYDCEM5649-57-49 05:34:00 Test Item Value Reference Range Interpretation Comments MCH (test code = MCH) 29.2 pg 27.0-31.0 [facility] StationIndlsziPJEPWWFLOC5245-02-94 05:34:00 Test Item Value Reference Range Interpretation Comments MCHC (test code = MCHC) 34.0 32.0-36.0 [facility] StationZhqdnrtDIYONROVAY1652-34-05 05:34:00 Test Item Value Reference Range Interpretation Comments RDW (test code = RDW) 15.7 11.5-14.5 [facility] StationNblnqmuFKFIYZIQKX0531-35-83 05:34:00 Test Item Value Reference Range Interpretation Comments Basophils # (test code 0.1 See_Comment [Aut omated message] The = Basophils #) system which generated this result tra nsmitted reference range : <=0.2. The reference r feliciano was not used to int erpret this result as normal/abnormal . [facility] StationMulaycdVZKZHCDUVH5506-79-30 05:34:00 Test Item Value Reference Range Interpretation Comments Monocytes (test code = Monocytes) 6.1 2.0-12.0 [facility] StationMpjwsjmMSOGWDKZTL1045-25-06 05:34:00 Test Item Value Reference Range Interpretation Comments Eosinophils (test code = 3.3 See_Comment [A utomated message] The Eosinophils) system which ge nerated this result tra nsmitted reference range : <=4.0. The reference r feliciano was not used to int erpret this result as normal/abnormal . [facility] StationCgndvuwXZCBUHINJL2882-82-45 05:34:00 Test Item Value Reference Range Interpretation Comments Monocytes # (test code 0.6 See_Comment [Aut omated message] The = Monocytes #) system which generated this result tra nsmitted reference range : <=0.8. The reference r feliciano was not used to int erpret this result as normal/abnormal . [facility] StationIghbovjQFZQHZWZDH7372-77-95 05:34:00 Test Item Value Reference Range Interpretation Comments Eosinophils # (test code 0.3 See_Comment [A utomated message] The = Eosinophils #) system [facility] generated this result tra nsmitted reference range : <=0.5. The reference r feliciano was not used to int erpret this result as normal/abnormal . [facility] StationLzzafnwZQUVSZJQIQ8122-78-22 05:34:00 Test Item Value Reference Range Interpretation Comments Basophils (test code = 1.2 See_Comment [Aut omated message] The Basophils) system which ge nerated this result tra nsmitted reference range : <=1.0. The reference r feliciano was not used to int erpret this result as normal/abnormal . [facility] StationFmdqjefODYWYJTICS9548-58-08 05:34:00 Test Item Value Reference Range Interpretation Comments Segs-Bands # (test code = Segs-Bands #) 6.2 1.5-8.1 [facility] StationWwsoubaEJSWERGITG0650-28-48 05:34:00 Test Item Value Reference Range Interpretation Comments Lymphocytes # (test code = Lymphocytes 2.0 1.0-5.5 #) [facility] StationGthnkwnLLFXYYBCEV4762-99-94 05:34:00 Test Item Value Reference Range Interpretation Comments Lymphocytes (test code = Lymphocytes) 22.0 20.0-40.0 [facility] StationXegjujyQADOYLBUKW9934-12-41 05:34:00 Test Item Value Reference Range Interpretation Comments Segs (test code = Segs) 67.4 45.0-75.0 [facility] StationHqaogjdCQCXHEBPVJ1434-87-36 05:34:00 Test Item Value Reference Range Interpretation Comments MCV (test code = MCV) 85.9 80.0-98.0 [facility] StationNqglttmHGYJKILTLG8602-77-27 05:34:00 Test Item Value Reference Range Interpretation Comments WBC (test code = WBC) 9.2 3.7-10.4 [facility] StationTgrfcmuODCZYQQUGD7169-05-76 05:34:00 Test Item Value Reference Range Interpretation Comments RBC (test code = RBC) 2.75 4.20-5.40 [facility] StationXtfiutgMXEJQMFXXF6741-13-59 05:34:00 Test Item Value Reference Range Interpretation Comments Hgb (test code = Hgb) 8.0 12.0-16.0 [facility] StationXxujeawXOPTHDDEGF4115-07-26 05:34:00 Test Item Value Reference Range Interpretation Comments Hct (test code = Hct) 23.6 36.0-48.0 [facility] StationJntmeriBIEHIUNMAK3126-29-88 05:34:00 Test Item Value Reference Range Interpretation Comments Platelet (test code = Platelet) 239 133-450 [facility] StationTwnuliqUOAKVPQEFJ4398-22-97 05:34:00 Test Item Value Reference Range Interpretation Comments MPV (test code = MPV) 8.5 7.4-10.4 [facility] StationGqqdvymOGOQRXFMDR1187-41-19 05:34:00 Test Item Value Reference Range Interpretation Comments MCH (test code = MCH) 29.2 pg 27.0-31.0 [facility] StationEasywgpOLJETVDJAP7852-23-91 05:34:00 Test Item Value Reference Range Interpretation Comments MCHC (test code = MCHC) 34.0 32.0-36.0 [facility] StationRshhlseIBFLXJIKAS6008-79-48 05:34:00 Test Item Value Reference Range Interpretation Comments RDW (test code = RDW) 15.7 11.5-14.5 [facility] StationYnmsudkKXRRZZUPTR6469-36-28 05:34:00 Test Item Value Reference Range Interpretation Comments Basophils # (test code 0.1 See_Comment [Aut omated message] The = Basophils #) system which generated this result tra nsmitted reference range : <=0.2. The reference r feliciano was not used to int erpret this result as normal/abnormal . [facility] StationLfwbcfpECQUIDLOJN5242-61-05 05:34:00 Test Item Value Reference Range Interpretation Comments Monocytes (test code = Monocytes) 6.1 2.0-12.0 [facility] StationZpmlspzCKXEPDQYKZ2897-61-01 05:34:00 Test Item Value Reference Range Interpretation Comments Eosinophils (test code = 3.3 See_Comment [A utomated message] The Eosinophils) system which ge nerated this result tra nsmitted reference range : <=4.0. The reference r feliciano was not used to int erpret this result as normal/abnormal . [facility] StationKwgvqpcVOXWJSHCKK2010-40-73 05:34:00 Test Item Value Reference Range Interpretation Comments Monocytes # (test code 0.6 See_Comment [Aut omated message] The = Monocytes #) system which generated this result tra nsmitted reference range : <=0.8. The reference r feliciano was not used to int erpret this result as normal/abnormal . [facility] StationWbvynmhXNPLQQRKMF7402-95-32 05:34:00 Test Item Value Reference Range Interpretation Comments Eosinophils # (test code 0.3 See_Comment [A utomated message] The = Eosinophils #) system whic h generated this result tra nsmitted reference range : <=0.5. The reference r feliciano was not used to int erpret this result as normal/abnormal . [facility] StationDsyviylWYLPKAPMHT6760-83-72 05:34:00 Test Item Value Reference Range Interpretation Comments Basophils (test code = 1.2 See_Comment [Aut omated message] The Basophils) system which ge nerated this result tra nsmitted reference range : <=1.0. The reference r feliciano was not used to int erpret this result as normal/abnormal . [facility] StationLxtyaefHSUNAULYOR2809-40-82 05:34:00 Test Item Value Reference Range Interpretation Comments Segs-Bands # (test code = Segs-Bands #) 6.2 1.5-8.1 [facility] StationYowtnzgHYSXTSHEHR7198-36-53 05:34:00 Test Item Value Reference Range Interpretation Comments Lymphocytes # (test code = Lymphocytes 2.0 1.0-5.5 #) [facility] StationTqjcayfFCCCYVEDJQ3131-87-81 05:34:00 Test Item Value Reference Range Interpretation Comments Lymphocytes (test code = Lymphocytes) 22.0 20.0-40.0 [facility] StationGkujpboWPYXCSORQB4906-52-85 05:34:00 Test Item Value Reference Range Interpretation Comments Segs (test code = Segs) 67.4 45.0-75.0 [facility] StationVtdihihPRBEAFVKXS2317-82-65 05:34:00 Test Item Value Reference Range Interpretation Comments MCV (test code = MCV) 85.9 80.0-98.0 [facility] StationJjooewmZGCMCOQKMT5092-77-27 05:34:00 Test Item Value Reference Range Interpretation Comments WBC (test code = WBC) 9.2 3.7-10.4 [facility] StationFxuxxsbBQJJXNOYXF9133-18-84 05:34:00 Test Item Value Reference Range Interpretation Comments RBC (test code = RBC) 2.75 4.20-5.40 [facility] StationTwxycvlNREXJACLBJ3082-81-32 05:34:00 Test Item Value Reference Range Interpretation Comments Hgb (test code = Hgb) 8.0 12.0-16.0 [facility] StationTpihezqOVEEUTFFJJ8017-95-01 05:34:00 Test Item Value Reference Range Interpretation Comments Hct (test code = Hct) 23.6 36.0-48.0 [facility] StationQgjwcfaHMISOUEIOU5071-34-77 05:34:00 Test Item Value Reference Range Interpretation Comments Platelet (test code = Platelet) 239 133-450 [facility] StationWwftxkySGFARJSHJQ2445-91-90 05:34:00 Test Item Value Reference Range Interpretation Comments MPV (test code = MPV) 8.5 7.4-10.4 [facility] StationNwvtnwvAIJNHRBJXL2716-70-24 05:34:00 Test Item Value Reference Range Interpretation Comments MCH (test code = MCH) 29.2 pg 27.0-31.0 [facility] StationHpignexNCXCYWBQBS5105-83-11 05:34:00 Test Item Value Reference Range Interpretation Comments MCHC (test code = MCHC) 34.0 32.0-36.0 [facility] StationXoxktpiRVOTMJKBGH8296-74-04 05:34:00 Test Item Value Reference Range Interpretation Comments RDW (test code = RDW) 15.7 11.5-14.5 [facility] StationScfzyngKOEFTBKBNW6087-18-12 05:34:00 Test Item Value Reference Range Interpretation Comments Basophils # (test code 0.1 See_Comment [Aut omated message] The = Basophils #) system which generated this result tra nsmitted reference range : <=0.2. The reference r feliciano was not used to int erpret this result as normal/abnormal . [facility] StationKdjemokIEEHFJWBFC4197-30-65 05:34:00 Test Item Value Reference Range Interpretation Comments Monocytes (test code = Monocytes) 6.1 2.0-12.0 [facility] StationVhtixurFEBNDUQWGR0268-88-82 05:34:00 Test Item Value Reference Range Interpretation Comments Eosinophils (test code = 3.3 See_Comment [A utomated message] The Eosinophils) system which ge nerated this result tra nsmitted reference range : <=4.0. The reference r feliciano was not used to int erpret this result as normal/abnormal . [facility] StationMqognwiGGXJNSZPIA5610-67-90 05:34:00 Test Item Value Reference Range Interpretation Comments Monocytes # (test code 0.6 See_Comment [Aut omated message] The = Monocytes #) system which generated this result tra nsmitted reference range : <=0.8. The reference r feliciano was not used to int erpret this result as normal/abnormal . [facility] StationXdnwnwoKXHWVKCSIS8670-44-98 05:34:00 Test Item Value Reference Range Interpretation Comments Eosinophils # (test code 0.3 See_Comment [A utomated message] The = Eosinophils #) system whic h generated this result tra nsmitted reference range : <=0.5. The reference r feliciano was not used to int erpret this result as normal/abnormal . [facility] StationEumbxdxLULNBSXTOZ9327-32-65 05:34:00 Test Item Value Reference Range Interpretation Comments Basophils (test code = 1.2 See_Comment [Aut omated message] The Basophils) system which ge nerated this result tra nsmitted reference range : <=1.0. The reference r feliciano was not used to int erpret this result as normal/abnormal . [facility] StationBryvfufLOKLZMGCUB8877-08-80 05:34:00 Test Item Value Reference Range Interpretation Comments Segs-Bands # (test code = Segs-Bands #) 6.2 1.5-8.1 [facility] StationIbpuhwuHCJAPELWAG7987-56-08 05:34:00 Test Item Value Reference Range Interpretation Comments Lymphocytes # (test code = Lymphocytes 2.0 1.0-5.5 #) [facility] StationVxkjrhkFGRHJEEMFL3672-51-35 05:34:00 Test Item Value Reference Range Interpretation Comments Lymphocytes (test code = Lymphocytes) 22.0 20.0-40.0 [facility] StationVhkhoepMZZEYGPMYM4421-23-96 05:34:00 Test Item Value Reference Range Interpretation Comments Segs (test code = Segs) 67.4 45.0-75.0 [facility] StationVufxbwmJEZWXAIGYW5942-36-96 05:34:00 Test Item Value Reference Range Interpretation Comments MCV (test code = MCV) 85.9 80.0-98.0 [facility] StationYfwylejURMDISZERM4301-25-97 05:34:00 Test Item Value Reference Range Interpretation Comments WBC (test code = WBC) 9.2 3.7-10.4 [facility] StationOmcczolFGYRDQWPIK1060-73-52 05:34:00 Test Item Value Reference Range Interpretation Comments RBC (test code = RBC) 2.75 4.20-5.40 [facility] StationUswbzywOAYPWEAVKV5133-06-58 05:34:00 Test Item Value Reference Range Interpretation Comments Hgb (test code = Hgb) 8.0 12.0-16.0 [facility] StationLlqprtiMTXIUCMSNR5238-70-66 05:34:00 Test Item Value Reference Range Interpretation Comments Hct (test code = Hct) 23.6 36.0-48.0 [facility] StationZxkvtvaONZBMFULUZ0037-00-07 05:34:00 Test Item Value Reference Range Interpretation Comments Platelet (test code = Platelet) 239 133-450 [facility] StationXamcilsQJPIGJOLYE6872-83-29 05:34:00 Test Item Value Reference Range Interpretation Comments MPV (test code = MPV) 8.5 7.4-10.4 [facility] StationEyaiyalHYYHSOVDBC0807-98-90 05:34:00 Test Item Value Reference Range Interpretation Comments MCH (test code = MCH) 29.2 pg 27.0-31.0 [facility] StationKmfygqeNRJDEVCCHD2578-87-90 05:34:00 Test Item Value Reference Range Interpretation Comments MCHC (test code = MCHC) 34.0 32.0-36.0 [facility] StationTzkmkezGSDWJFMJVM6536-78-41 05:34:00 Test Item Value Reference Range Interpretation Comments RDW (test code = RDW) 15.7 11.5-14.5 [facility] StationFmmargdWENQGXPCVX0475-68-53 05:34:00 Test Item Value Reference Range Interpretation Comments Basophils # (test code 0.1 See_Comment [Aut omated message] The = Basophils #) system which generated this result tra nsmitted reference range : <=0.2. The reference r feliciano was not used to int erpret this result as normal/abnormal . [facility] StationWnjhtzsHGVOCKJOUH5396-80-70 05:34:00 Test Item Value Reference Range Interpretation Comments Monocytes (test code = Monocytes) 6.1 2.0-12.0 [facility]2017-05-15 18:46:00 Test Item Value Reference Range Interpretation Comments Lactic Acid Lvl (test code = Lactic 1.5 0.5-2.2 Acid Lvl) [facility] StationNrjpclrUPUMHNWLLP1151-80-59 18:46:00 Test Item Value Reference Range Interpretation Comments MCH (test code = MCH) 29.4 pg 27.0-31.0 [facility] StationVfhnjcnCAFAAUVCNS5527-99-02 18:46:00 Test Item Value Reference Range Interpretation Comments RDW (test code = RDW) 15.8 11.5-14.5 [facility] StationPopkvgoVOZQOORYAE9060-81-72 18:46:00 Test Item Value Reference Range Interpretation Comments MCV (test code = MCV) 85.7 80.0-98.0 [facility] StationToswjyaSKLQBMNYHL5570-17-19 18:46:00 Test Item Value Reference Range Interpretation Comments MCHC (test code = MCHC) 34.3 32.0-36.0 [facility] StationZxsnvpuJEQEGZQNSW5842-93-15 18:46:00 Test Item Value Reference Range Interpretation Comments MPV (test code = MPV) 8.5 7.4-10.4 [facility] StationByjwsruIXEZDPGRAW6740-14-41 18:46:00 Test Item Value Reference Range Interpretation Comments Platelet (test code = Platelet) 172 133-450 [facility] StationKxxsjbfZZMEOMOSSF3653-03-61 18:46:00 Test Item Value Reference Range Interpretation Comments Hct (test code = Hct) 23.2 36.0-48.0 [facility] StationPaoozcsTAEBZAGBUL4441-94-13 18:46:00 Test Item Value Reference Range Interpretation Comments Hgb (test code = Hgb) 7.9 12.0-16.0 [facility] StationPjrrhqdQPUMASDWOF5360-15-37 18:46:00 Test Item Value Reference Range Interpretation Comments RBC (test code = RBC) 2.70 4.20-5.40 [facility] StationHovrgngZEKNNUKQHI6034-20-92 18:46:00 Test Item Value Reference Range Interpretation Comments WBC (test code = WBC) 8.7 3.7-10.4 [facility] StationJrulwhsNXJRXDSKTD7140-88-07 18:46:00 Test Item Value Reference Range Interpretation Comments Monocytes # (test code 0.4 See_Comment [Aut omated message] The = Monocytes #) system which generated this result tra nsmitted reference range : <=0.8. The reference r feliciano was not used to int erpret this result as normal/abnormal . [facility] StationKcnymmlOOVOEBHFZS0747-26-60 18:46:00 Test Item Value Reference Range Interpretation Comments Basophils # (test code 0.1 See_Comment [Aut omated message] The = Basophils #) system which generated this result tra nsmitted reference range : <=0.2. The reference r feliciano was not used to int erpret this result as normal/abnormal . [facility] StationVfcgbrxBLJZPAYQBJ6244-10-14 18:46:00 Test Item Value Reference Range Interpretation Comments Eosinophils # (test code 0.2 See_Comment [A utomated message] The = Eosinophils #) system whic h generated this result tra nsmitted reference range : <=0.5. The reference r feliciano was not used to int erpret this result as normal/abnormal . [facility] StationXnbnhohMNTZDURRDY9630-88-16 18:46:00 Test Item Value Reference Range Interpretation Comments Lymphocytes (test code = Lymphocytes) 24.3 20.0-40.0 [facility] StationYlhdagjIAMSRWAJIZ8986-47-10 18:46:00 Test Item Value Reference Range Interpretation Comments Segs (test code = Segs) 67.3 45.0-75.0 [facility] StationZzbuuqwXVDQEXJDWQ9658-04-10 18:46:00 Test Item Value Reference Range Interpretation Comments Lymphocytes # (test code = Lymphocytes 2.1 1.0-5.5 #) [facility] StationVnenhhoSMZWCGRLSP7657-08-39 18:46:00 Test Item Value Reference Range Interpretation Comments Segs-Bands # (test code = Segs-Bands #) 5.9 1.5-8.1 [facility] StationLaufctzFBCGFZGJGG8708-76-84 18:46:00 Test Item Value Reference Range Interpretation Comments Basophils (test code = 0.8 See_Comment [Aut omated message] The Basophils) system which ge nerated this result tra nsmitted reference range : <=1.0. The reference r feliciano was not used to int erpret this result as normal/abnormal . [facility] StationCvdfovzFVURCVLAJW4177-06-61 18:46:00 Test Item Value Reference Range Interpretation Comments Monocytes (test code = Monocytes) 4.8 2.0-12.0 [facility] StationSkfbyljVKDUMPZSZZ6885-71-24 18:46:00 Test Item Value Reference Range Interpretation Comments Eosinophils (test code = 2.8 See_Comment [A utomated message] The Eosinophils) system which ge nerated this result tra nsmitted reference range : <=4.0. The reference r feliciano was not used to int erpret this result as normal/abnormal . [facility]2017-05-15 18:46:00 Test Item Value Reference Range Interpretation Comments Lactic Acid Lvl (test code = Lactic 1.5 0.5-2.2 Acid Lvl) [facility] StationCvncllnTKTTFDJXMD7316-05-51 18:46:00 Test Item Value Reference Range Interpretation Comments MCH (test code = MCH) 29.4 pg 27.0-31.0 [facility] StationQkroqulZGWXHICZCB9010-41-60 18:46:00 Test Item Value Reference Range Interpretation Comments RDW (test code = RDW) 15.8 11.5-14.5 [facility] StationBqubfgeNBGSSYLYGH9644-17-70 18:46:00 Test Item Value Reference Range Interpretation Comments MCV (test code = MCV) 85.7 80.0-98.0 [facility] StationPppbdziWOEDSRQLEZ3638-51-12 18:46:00 Test Item Value Reference Range Interpretation Comments MCHC (test code = MCHC) 34.3 32.0-36.0 [facility] StationUyqjnonGTZULJQDHC6866-90-82 18:46:00 Test Item Value Reference Range Interpretation Comments MPV (test code = MPV) 8.5 7.4-10.4 [facility] StationKaopfpiHDKQWZTZTO8093-71-13 18:46:00 Test Item Value Reference Range Interpretation Comments Platelet (test code = Platelet) 172 133-450 [place] [address]-05-15 18:46:00 Test Item Value Reference Range Interpretation Comments Hct (test code = Hct) 23.2 36.0-48.0 [place] [address]-05-15 18:46:00 Test Item Value Reference Range Interpretation Comments Hgb (test code = Hgb) 7.9 12.0-16.0 [place] [address]-05-15 18:46:00 Test Item Value Reference Range Interpretation Comments RBC (test code = RBC) 2.70 4.20-5.40 [facility] StationKeziyyuGNOXBDINNZ7871-45-70 18:46:00 Test Item Value Reference Range Interpretation Comments WBC (test code = WBC) 8.7 3.7-10.4 [facility] StationRijdrqdAMVNSRZRTO8412-22-39 18:46:00 Test Item Value Reference Range Interpretation Comments Monocytes # (test code 0.4 See_Comment [Aut omated message] The = Monocytes #) system which generated this result tra nsmitted reference range : <=0.8. The reference r feliciano was not used to int erpret this result as normal/abnormal . [facility] StationWvsgkwkPDTXTFZCRZ8422-45-81 18:46:00 Test Item Value Reference Range Interpretation Comments Basophils # (test code 0.1 See_Comment [Aut omated message] The = Basophils #) system which generated this result tra nsmitted reference range : <=0.2. The reference r feliciano was not used to int erpret this result as normal/abnormal . [facility] StationZzarmnzCLVALDGQMH5172-70-25 18:46:00 Test Item Value Reference Range Interpretation Comments Eosinophils # (test code 0.2 See_Comment [A utomated message] The = Eosinophils #) system whic h generated this result tra nsmitted reference range : <=0.5. The reference r feliciano was not used to int erpret this result as normal/abnormal . [facility] StationWzvfeveCRRKEOTDPS7002-66-38 18:46:00 Test Item Value Reference Range Interpretation Comments Lymphocytes (test code = Lymphocytes) 24.3 20.0-40.0 [facility] StationYmwsxbuYQUMLEWIXJ8179-33-90 18:46:00 Test Item Value Reference Range Interpretation Comments Segs (test code = Segs) 67.3 45.0-75.0 [facility] StationImacqumKELXVHCGLT4210-50-01 18:46:00 Test Item Value Reference Range Interpretation Comments Lymphocytes # (test code = Lymphocytes 2.1 1.0-5.5 #) [facility] StationAmtidfnIWAZYMPYMW1004-02-43 18:46:00 Test Item Value Reference Range Interpretation Comments Segs-Bands # (test code = Segs-Bands #) 5.9 1.5-8.1 [facility] StationOdbhzhzKCVXIHUFIQ0834-14-26 18:46:00 Test Item Value Reference Range Interpretation Comments Basophils (test code = 0.8 See_Comment [Aut omated message] The Basophils) system which ge nerated this result tra nsmitted reference range : <=1.0. The reference r feliciano was not used to int erpret this result as normal/abnormal . [facility] StationTtlciliJAUAAVWDTT4352-98-50 18:46:00 Test Item Value Reference Range Interpretation Comments Monocytes (test code = Monocytes) 4.8 2.0-12.0 [facility] StationPsbcbnyDHERMWSCUF6741-14-33 18:46:00 Test Item Value Reference Range Interpretation Comments Eosinophils (test code = 2.8 See_Comment [A utomated message] The Eosinophils) system which ge nerated this result tra nsmitted reference range : <=4.0. The reference r feliciano was not used to int erpret this result as normal/abnormal . [facility]2017-05-15 18:46:00 Test Item Value Reference Range Interpretation Comments Lactic Acid Lvl (test code = Lactic 1.5 0.5-2.2 Acid Lvl) [facility] StationLkvmseeGGWHCEZNQA7149-28-24 18:46:00 Test Item Value Reference Range Interpretation Comments MCH (test code = MCH) 29.4 pg 27.0-31.0 [facility] StationAdftttcZVQICGLVTO4908-76-41 18:46:00 Test Item Value Reference Range Interpretation Comments RDW (test code = RDW) 15.8 11.5-14.5 [facility] StationDierwiwCSCFVTEYXR3846-34-96 18:46:00 Test Item Value Reference Range Interpretation Comments MCV (test code = MCV) 85.7 80.0-98.0 [facility] StationAjfspwjFTRUCOKIDG2446-32-56 18:46:00 Test Item Value Reference Range Interpretation Comments MCHC (test code = MCHC) 34.3 32.0-36.0 [place] [address]-05-15 18:46:00 Test Item Value Reference Range Interpretation Comments MPV (test code = MPV) 8.5 7.4-10.4 [facility] StationWthaavhHJVORFCNTG5194-81-31 18:46:00 Test Item Value Reference Range Interpretation Comments Platelet (test code = Platelet) 172 133-450 [facility] StationGogvhkaBHIHXRHIRJ5431-86-48 18:46:00 Test Item Value Reference Range Interpretation Comments Hct (test code = Hct) 23.2 36.0-48.0 [facility] StationPrjbsubUEMJSAOHCB9976-73-54 18:46:00 Test Item Value Reference Range Interpretation Comments Hgb (test code = Hgb) 7.9 12.0-16.0 [facility] StationVxeeybyORXXULSOWA2295-06-85 18:46:00 Test Item Value Reference Range Interpretation Comments RBC (test code = RBC) 2.70 4.20-5.40 [facility] StationGhgrlitGKHGGXIPEE6550-27-92 18:46:00 Test Item Value Reference Range Interpretation Comments WBC (test code = WBC) 8.7 3.7-10.4 [facility] StationJaprvqiGIHCQYOHIN4690-11-11 18:46:00 Test Item Value Reference Range Interpretation Comments Monocytes # (test code 0.4 See_Comment [Aut omated message] The = Monocytes #) system which generated this result tra nsmitted reference range : <=0.8. The reference r feliciano was not used to int erpret this result as normal/abnormal . [facility] StationUkzdizmNXSSJMZTSI7936-28-40 18:46:00 Test Item Value Reference Range Interpretation Comments Basophils # (test code 0.1 See_Comment [Aut omated message] The = Basophils #) system which generated this result tra nsmitted reference range : <=0.2. The reference r feliciano was not used to int erpret this result as normal/abnormal . [facility] StationXxxwykqUDJBNRZHVP9212-51-67 18:46:00 Test Item Value Reference Range Interpretation Comments Eosinophils # (test code 0.2 See_Comment [A utomated message] The = Eosinophils #) system whic h generated this result tra nsmitted reference range : <=0.5. The reference r feliciano was not used to int erpret this result as normal/abnormal . [facility] StationNjfnqfkZGONBJQRQQ5264-29-06 18:46:00 Test Item Value Reference Range Interpretation Comments Lymphocytes (test code = Lymphocytes) 24.3 20.0-40.0 [facility] StationUlgovjiEUEUBEIAQE3115-95-56 18:46:00 Test Item Value Reference Range Interpretation Comments Segs (test code = Segs) 67.3 45.0-75.0 [facility] StationMidxmjzOEZXRCZZHJ4069-80-96 18:46:00 Test Item Value Reference Range Interpretation Comments Lymphocytes # (test code = Lymphocytes 2.1 1.0-5.5 #) [facility] StationHpiolqiAGVNRXHLPQ8091-34-59 18:46:00 Test Item Value Reference Range Interpretation Comments Segs-Bands # (test code = Segs-Bands #) 5.9 1.5-8.1 [facility] StationEoledgtIOUSYKOXKA3280-47-57 18:46:00 Test Item Value Reference Range Interpretation Comments Basophils (test code = 0.8 See_Comment [Aut omated message] The Basophils) system which ge nerated this result tra nsmitted reference range : <=1.0. The reference r feliciano was not used to int erpret this result as normal/abnormal . [facility] StationRtkejuiYOJUSQHDZI6387-99-93 18:46:00 Test Item Value Reference Range Interpretation Comments Monocytes (test code = Monocytes) 4.8 2.0-12.0 [facility] StationWqjhzslIFQJLYCTMV7688-97-04 18:46:00 Test Item Value Reference Range Interpretation Comments Eosinophils (test code = 2.8 See_Comment [A utomated message] The Eosinophils) system which ge nerated this result tra nsmitted reference range : <=4.0. The reference r feliciano was not used to int erpret this result as normal/abnormal . [facility]2017-05-15 18:46:00 Test Item Value Reference Range Interpretation Comments Lactic Acid Lvl (test code = Lactic 1.5 0.5-2.2 Acid Lvl) [facility] StationGfudvuiUUIZJSSUPS1450-21-02 18:46:00 Test Item Value Reference Range Interpretation Comments MCH (test code = MCH) 29.4 pg 27.0-31.0 [facility] StationEvtrwnvMVMCNFVERO0071-38-51 18:46:00 Test Item Value Reference Range Interpretation Comments RDW (test code = RDW) 15.8 11.5-14.5 [facility] StationTonbgrcTKCZTKJNIY4434-32-11 18:46:00 Test Item Value Reference Range Interpretation Comments MCV (test code = MCV) 85.7 80.0-98.0 [facility] StationBdogtcrVZNBXDDXUB2087-98-34 18:46:00 Test Item Value Reference Range Interpretation Comments MCHC (test code = MCHC) 34.3 32.0-36.0 [facility] StationQdrcaglLVKBFWLWUD6120-55-56 18:46:00 Test Item Value Reference Range Interpretation Comments MPV (test code = MPV) 8.5 7.4-10.4 [facility] StationRngvawnNAGNUDPLFI1312-28-94 18:46:00 Test Item Value Reference Range Interpretation Comments Platelet (test code = Platelet) 172 133-450 [facility] StationTvrsfjpCCBXYWHDYK6324-16-04 18:46:00 Test Item Value Reference Range Interpretation Comments Hct (test code = Hct) 23.2 36.0-48.0 [facility] StationQmviuciSUMRMLDUDW1907-51-65 18:46:00 Test Item Value Reference Range Interpretation Comments Hgb (test code = Hgb) 7.9 12.0-16.0 [facility] StationKezsidqTNPQKRTFEI4411-48-51 18:46:00 Test Item Value Reference Range Interpretation Comments RBC (test code = RBC) 2.70 4.20-5.40 [facility] StationPmuuwgsFSFAPRCOGF9308-97-80 18:46:00 Test Item Value Reference Range Interpretation Comments WBC (test code = WBC) 8.7 3.7-10.4 [facility] StationJciozgtNWPYYNMVSJ0527-47-60 18:46:00 Test Item Value Reference Range Interpretation Comments Monocytes # (test code 0.4 See_Comment [Aut omated message] The = Monocytes #) system which generated this result tra nsmitted reference range : <=0.8. The reference r feliciano was not used to int erpret this result as normal/abnormal . [facility] StationEalnypbWAKMAEPXPS6209-26-97 18:46:00 Test Item Value Reference Range Interpretation Comments Basophils # (test code 0.1 See_Comment [Aut omated message] The = Basophils #) system which generated this result tra nsmitted reference range : <=0.2. The reference r feliciano was not used to int erpret this result as normal/abnormal . [facility] StationYrxqryqXRIJOUGAUN9058-23-36 18:46:00 Test Item Value Reference Range Interpretation Comments Eosinophils # (test code 0.2 See_Comment [A utomated message] The = Eosinophils #) system ic h generated this result tra nsmitted reference range : <=0.5. The reference r feliciano was not used to int erpret this result as normal/abnormal . [facility] StationEndpaihUTFOHGIZQY9642-54-69 18:46:00 Test Item Value Reference Range Interpretation Comments Lymphocytes (test code = Lymphocytes) 24.3 20.0-40.0 [facility] StationXkxsxthFWEBKXGFDM0288-09-83 18:46:00 Test Item Value Reference Range Interpretation Comments Segs (test code = Segs) 67.3 45.0-75.0 [facility] StationZweymylYMPWYRWHEP0842-72-30 18:46:00 Test Item Value Reference Range Interpretation Comments Lymphocytes # (test code = Lymphocytes 2.1 1.0-5.5 #) [facility] StationTkpzbwyJQQNHCWHWD5865-93-67 18:46:00 Test Item Value Reference Range Interpretation Comments Segs-Bands # (test code = Segs-Bands #) 5.9 1.5-8.1 [facility] StationKpuqmulVCCVTBLQPB3245-16-57 18:46:00 Test Item Value Reference Range Interpretation Comments Basophils (test code = 0.8 See_Comment [Aut omated message] The Basophils) system which ge nerated this result tra nsmitted reference range : <=1.0. The reference r feliciano was not used to int erpret this result as normal/abnormal . [facility] StationZnzfewvOOZWUNRVUJ8326-26-82 18:46:00 Test Item Value Reference Range Interpretation Comments Monocytes (test code = Monocytes) 4.8 2.0-12.0 [facility] StationOqlfzbbLIKTUKZVIB6012-54-75 18:46:00 Test Item Value Reference Range Interpretation Comments Eosinophils (test code = 2.8 See_Comment [A utomated message] The Eosinophils) system which ge nerated this result tra nsmitted reference range : <=4.0. The reference r feliciano was not used to int erpret this result as normal/abnormal . [facility]2017-05-15 18:46:00 Test Item Value Reference Range Interpretation Comments Lactic Acid Lvl (test code = Lactic 1.5 0.5-2.2 Acid Lvl) [facility] StationLariiwmLICCNNJZNZ6557-75-06 18:46:00 Test Item Value Reference Range Interpretation Comments MCH (test code = MCH) 29.4 pg 27.0-31.0 [facility] StationOmiqlrxEBJZOXLSTW6661-58-82 18:46:00 Test Item Value Reference Range Interpretation Comments RDW (test code = RDW) 15.8 11.5-14.5 [facility] StationPmhfnzzDLXYSWVHIB2059-50-13 18:46:00 Test Item Value Reference Range Interpretation Comments MCV (test code = MCV) 85.7 80.0-98.0 [facility] StationZcrhqycLEAEGAPKID4040-56-37 18:46:00 Test Item Value Reference Range Interpretation Comments MCHC (test code = MCHC) 34.3 32.0-36.0 [facility] StationBsefrzuTCMYRAZOVE2693-76-34 18:46:00 Test Item Value Reference Range Interpretation Comments MPV (test code = MPV) 8.5 7.4-10.4 [facility] StationOfdxoysCVPHUDECTK5415-50-40 18:46:00 Test Item Value Reference Range Interpretation Comments Platelet (test code = Platelet) 172 133-450 [facility] StationViidijnUNOSCBANHV3991-30-38 18:46:00 Test Item Value Reference Range Interpretation Comments Hct (test code = Hct) 23.2 36.0-48.0 [facility] StationHsuriroJMHCDDIPYY3240-54-87 18:46:00 Test Item Value Reference Range Interpretation Comments Hgb (test code = Hgb) 7.9 12.0-16.0 [facility] StationGtgglziNGMIXIXRVN4407-19-20 18:46:00 Test Item Value Reference Range Interpretation Comments RBC (test code = RBC) 2.70 4.20-5.40 [facility] StationLheqoecHGVFCHFCLU0687-35-56 18:46:00 Test Item Value Reference Range Interpretation Comments WBC (test code = WBC) 8.7 3.7-10.4 [facility] StationVtkeuolFXXKWIFEAR8277-85-77 18:46:00 Test Item Value Reference Range Interpretation Comments Monocytes # (test code 0.4 See_Comment [Aut omated message] The = Monocytes #) system which generated this result tra nsmitted reference range : <=0.8. The reference r feliciano was not used to int erpret this result as normal/abnormal . [facility] StationEsrtxkxRBFCWIOSNN4486-45-80 18:46:00 Test Item Value Reference Range Interpretation Comments Basophils # (test code 0.1 See_Comment [Aut omated message] The = Basophils #) system which generated this result tra nsmitted reference range : <=0.2. The reference r feliciano was not used to int erpret this result as normal/abnormal . [facility] StationNvwebwmOBBXOQPCPT5535-88-91 18:46:00 Test Item Value Reference Range Interpretation Comments Eosinophils # (test code 0.2 See_Comment [A utomated message] The = Eosinophils #) system whic h generated this result tra nsmitted reference range : <=0.5. The reference r feliciano was not used to int erpret this result as normal/abnormal . [place] [address]-05-15 18:46:00 Test Item Value Reference Range Interpretation Comments Lymphocytes (test code = Lymphocytes) 24.3 20.0-40.0 [facility] StationWuzfxmbLVXCGLVPLJ1434-58-27 18:46:00 Test Item Value Reference Range Interpretation Comments Segs (test code = Segs) 67.3 45.0-75.0 [facility] StationCstpjibJWTGNGGTEI1839-35-53 18:46:00 Test Item Value Reference Range Interpretation Comments Lymphocytes # (test code = Lymphocytes 2.1 1.0-5.5 #) [facility] StationYxpbzxiPJQEDDDFSI2748-16-57 18:46:00 Test Item Value Reference Range Interpretation Comments Segs-Bands # (test code = Segs-Bands #) 5.9 1.5-8.1 [facility] StationVsgqslyRSJUWINGZF7998-45-70 18:46:00 Test Item Value Reference Range Interpretation Comments Basophils (test code = 0.8 See_Comment [Aut omated message] The Basophils) system which ge nerated this result tra nsmitted reference range : <=1.0. The reference r feliciano was not used to int erpret this result as normal/abnormal . [facility] StationRxyeaohOKCUPQDCHP7912-46-60 18:46:00 Test Item Value Reference Range Interpretation Comments Monocytes (test code = Monocytes) 4.8 2.0-12.0 [facility] StationArfuxdeDXGJVVIQCH0085-69-15 18:46:00 Test Item Value Reference Range Interpretation Comments Eosinophils (test code = 2.8 See_Comment [A utomated message] The Eosinophils) system which ge nerated this result tra nsmitted reference range : <=4.0. The reference r feliciano was not used to int erpret this result as normal/abnormal . [facility] AND [id number] 14:49:00 Test Item Value Reference Range Interpretation Comments UA Sq Epi (test code = UA Sq Epi) None Seen [facility] AND [id number] 14:49:00 Test Item Value Reference Range Interpretation Comments UA Urobilinogen (test code = UA <=1.0 mg/dL 0.1-1.0 Urobilinogen) [facility] AND [id number] 14:49:00 Test Item Value Reference Range Interpretation Comments UA Bili (test code = Negative *NA*(09/26/16 UA Bili) 9:49 AM) [facility] AND [id number] 14:49:00 Test Item Value Reference Range Interpretation Comments UA Ketones (test code = UA Negative mg/dL Ketones) [facility] AND [id number] 14:49:00 Test Item Value Reference Range Interpretation Comments UA Blood (test code = Moderate *ABN*(09/26/16 UA Blood) 9:49 AM) [facility] AND [id number] 14:49:00 Test Item Value Reference Range Interpretation Comments UA Hyal Cast (test 4 See_Comment [Automat ed message] The code = UA Hyal Cast) system which generated this result transmit nadya reference range : <=2. The reference range was not used to interpr et this result as rigoberto l/abnormal. [facility] AND [id number] 14:49:00 Test Item Value Reference Range Interpretation Comments UA Bacteria (test code = UA Occasional /HPF Bacteria) [facility] AND [id number] 14:49:00 Test Item Value Reference Range Interpretation Comments UA Leuk Est (test Negative (09/26/16 9:49 code = UA Leuk Est) AM) [facility] AND [id number] 14:49:00 Test Item Value Reference Range Interpretation Comments UA Nitrite (test code Negative (09/26/16 9:49 = UA Nitrite) AM) [facility] AND [id number] 14:49:00 Test Item Value Reference Range Interpretation Comments UA Mucus (test code = UA Mucus) Few /LPF [facility] AND [id number] 14:49:00 Test Item Value Reference Range Interpretation Comments UA WBC (test code = 2 See_Comment [Automa nadya message] The UA WBC) system which ge nerated this result transmit nadya reference range : <=5. The reference range was not used to interpr et this result as rigoberto l/abnormal. [facility] AND [id number] 14:49:00 Test Item Value Reference Range Interpretation Comments UA Spec Grav (test code = UA Spec Grav) 1.009 [facility] AND [id number] 14:49:00 Test Item Value Reference Range Interpretation Comments UA Turbidity (test code = Clear (09/26/16 9:49 UA Turbidity) AM) [facility] AND [id number] 14:49:00 Test Item Value Reference Range Interpretation Comments UA Protein (test code = UA Negative mg/dL Protein) [facility] AND [id number] 14:49:00 Test Item Value Reference Range Interpretation Comments UA pH (test code = UA pH) 6.5 5.0-8.0 [facility] AND [id number] 14:49:00 Test Item Value Reference Range Interpretation Comments UA Glucose (test code = UA Glucose) 30 mg/dL [facility] AND [id number] 14:49:00 Test Item Value Reference Range Interpretation Comments UA Color (test code = Yellow *NA*(09/26/16 UA Color) 9:49 AM) [facility] AND [id number] 14:49:00 Test Item Value Reference Range Interpretation Comments UA Sq Epi (test code = UA Sq Epi) None Seen [facility] AND [id number] 14:49:00 Test Item Value Reference Range Interpretation Comments UA Urobilinogen (test code = UA <=1.0 mg/dL 0.1-1.0 Urobilinogen) [facility] AND [id number] 14:49:00 Test Item Value Reference Range Interpretation Comments UA Bili (test code = Negative *NA*(09/26/16 UA Bili) 9:49 AM) [facility] [id number] 14:49:00 Test Item Value Reference Range Interpretation Comments UA Ketones (test code = UA Negative mg/dL Ketones) [facility] [id number] 14:49:00 Test Item Value Reference Range Interpretation Comments UA Blood (test code = Moderate *ABN*(09/26/16 UA Blood) 9:49 AM) [facility] AND [id number] 14:49:00 Test Item Value Reference Range Interpretation Comments UA Hyal Cast (test 4 See_Comment [Automat ed message] The code = UA Hyal Cast) system which generated this result transmit nadya reference range : <=2. The reference range was not used to interpr et this result as rigoberto l/abnormal. [facility] [id number] 14:49:00 Test Item Value Reference Range Interpretation Comments UA Bacteria (test code = UA Occasional /HPF Bacteria) [facility] [id number] 14:49:00 Test Item Value Reference Range Interpretation Comments UA Leuk Est (test Negative (09/26/16 9:49 code = UA Leuk Est) AM) [facility] AND [id number] 14:49:00 Test Item Value Reference Range Interpretation Comments UA Nitrite (test code Negative (09/26/16 9:49 = UA Nitrite) AM) [facility] AND [id number] 14:49:00 Test Item Value Reference Range Interpretation Comments UA Mucus (test code = UA Mucus) Few /LPF [facility] [id number] 14:49:00 Test Item Value Reference Range Interpretation Comments UA WBC (test code = 2 See_Comment [Automa nadya message] The UA WBC) system which ge nerated this result transmit nadya reference range : <=5. The reference range was not used to interpr et this result as rigoberto l/abnormal. [facility] [id number] 14:49:00 Test Item Value Reference Range Interpretation Comments UA Spec Grav (test code = UA Spec Grav) 1.009 [facility] [id number] 14:49:00 Test Item Value Reference Range Interpretation Comments UA Turbidity (test code = Clear (09/26/16 9:49 UA Turbidity) AM) [facility] AND [id number] 14:49:00 Test Item Value Reference Range Interpretation Comments UA Protein (test code = UA Negative mg/dL Protein) [facility] AND [id number] 14:49:00 Test Item Value Reference Range Interpretation Comments UA pH (test code = UA pH) 6.5 5.0-8.0 [facility] AND [id number] 14:49:00 Test Item Value Reference Range Interpretation Comments UA Glucose (test code = UA Glucose) 30 mg/dL [facility] [id number] 14:49:00 Test Item Value Reference Range Interpretation Comments UA Color (test code = Yellow *NA*(09/26/16 UA Color) 9:49 AM) [facility] AND [id number] 14:49:00 Test Item Value Reference Range Interpretation Comments UA Sq Epi (test code = UA Sq Epi) None Seen [facility] [id number] 14:49:00 Test Item Value Reference Range Interpretation Comments UA Urobilinogen (test code = UA <=1.0 mg/dL 0.1-1.0 Urobilinogen) [facility] AND [id number] 14:49:00 Test Item Value Reference Range Interpretation Comments UA Bili (test code = Negative *NA*(09/26/16 UA Bili) 9:49 AM) [facility] AND [id number] 14:49:00 Test Item Value Reference Range Interpretation Comments UA Ketones (test code = UA Negative mg/dL Ketones) [facility] [id number] 14:49:00 Test Item Value Reference Range Interpretation Comments UA Blood (test code = Moderate *ABN*(09/26/16 UA Blood) 9:49 AM) [facility] AND [id number] 14:49:00 Test Item Value Reference Range Interpretation Comments UA Hyal Cast (test 4 See_Comment [Automat ed message] The code = UA Hyal Cast) system which generated this result transmit nadya reference range : <=2. The reference range was not used to interpr et this result as rigoberto l/abnormal. [facility] AND [id number] 14:49:00 Test Item Value Reference Range Interpretation Comments UA Bacteria (test code = UA Occasional /HPF Bacteria) [facility] AND [id number] 14:49:00 Test Item Value Reference Range Interpretation Comments UA Leuk Est (test Negative (09/26/16 9:49 code = UA Leuk Est) AM) [facility] AND [id number] 14:49:00 Test Item Value Reference Range Interpretation Comments UA Nitrite (test code Negative (09/26/16 9:49 = UA Nitrite) AM) [facility] AND [id number] 14:49:00 Test Item Value Reference Range Interpretation Comments UA Mucus (test code = UA Mucus) Few /LPF [facility] [id number] 14:49:00 Test Item Value Reference Range Interpretation Comments UA WBC (test code = 2 See_Comment [Automa nadya message] The UA WBC) system which ge nerated this result transmit nadya reference range : <=5. The reference range was not used to interpr et this result as rigoberto l/abnormal. [facility] AND [id number] 14:49:00 Test Item Value Reference Range Interpretation Comments UA Spec Grav (test code = UA Spec Grav) 1.009 [facility] [id number] 14:49:00 Test Item Value Reference Range Interpretation Comments UA Turbidity (test code = Clear (09/26/16 9:49 UA Turbidity) AM) [facility] AND [id number] 14:49:00 Test Item Value Reference Range Interpretation Comments UA Protein (test code = UA Negative mg/dL Protein) [facility] [id number] 14:49:00 Test Item Value Reference Range Interpretation Comments UA pH (test code = UA pH) 6.5 5.0-8.0 [facility] [id number] 14:49:00 Test Item Value Reference Range Interpretation Comments UA Glucose (test code = UA Glucose) 30 mg/dL [facility] [id number] 14:49:00 Test Item Value Reference Range Interpretation Comments UA Color (test code = Yellow *NA*(09/26/16 UA Color) 9:49 AM) [facility] AND [id number] 14:49:00 Test Item Value Reference Range Interpretation Comments UA Sq Epi (test code = UA Sq Epi) None Seen [facility] [id number] 14:49:00 Test Item Value Reference Range Interpretation Comments UA Urobilinogen (test code = UA <=1.0 mg/dL 0.1-1.0 Urobilinogen) [facility] [id number] 14:49:00 Test Item Value Reference Range Interpretation Comments UA Bili (test code = Negative *NA*(09/26/16 UA Bili) 9:49 AM) [facility] AND [id number] 14:49:00 Test Item Value Reference Range Interpretation Comments UA Ketones (test code = UA Negative mg/dL Ketones) [facility] [id number] 14:49:00 Test Item Value Reference Range Interpretation Comments UA Blood (test code = Moderate *ABN*(09/26/16 UA Blood) 9:49 AM) [facility] [id number] 14:49:00 Test Item Value Reference Range Interpretation Comments UA Hyal Cast (test 4 See_Comment [Automat ed message] The code = UA Hyal Cast) system which generated this result transmit nadya reference range : <=2. The reference range was not used to interpr et this result as rigoberto l/abnormal. [facility] AND [id number] 14:49:00 Test Item Value Reference Range Interpretation Comments UA Bacteria (test code = UA Occasional /HPF Bacteria) [facility] [id number] 14:49:00 Test Item Value Reference Range Interpretation Comments UA Leuk Est (test Negative (09/26/16 9:49 code = UA Leuk Est) AM) [facility] [id number] 14:49:00 Test Item Value Reference Range Interpretation Comments UA Nitrite (test code Negative (09/26/16 9:49 = UA Nitrite) AM) [facility] AND [id number] 14:49:00 Test Item Value Reference Range Interpretation Comments UA Mucus (test code = UA Mucus) Few /LPF [facility] [id number] 14:49:00 Test Item Value Reference Range Interpretation Comments UA WBC (test code = 2 See_Comment [Automa nadya message] The UA WBC) system which ge nerated this result transmit nadya reference range : <=5. The reference range was not used to interpr et this result as rigoberto l/abnormal. [facility] [id number] 14:49:00 Test Item Value Reference Range Interpretation Comments UA Spec Grav (test code = UA Spec Grav) 1.009 [facility] [id number] 14:49:00 Test Item Value Reference Range Interpretation Comments UA Turbidity (test code = Clear (09/26/16 9:49 UA Turbidity) AM) [facility] [id number] 14:49:00 Test Item Value Reference Range Interpretation Comments UA Protein (test code = UA Negative mg/dL Protein) [facility] [id number] 14:49:00 Test Item Value Reference Range Interpretation Comments UA pH (test code = UA pH) 6.5 5.0-8.0 [facility] [id number] 14:49:00 Test Item Value Reference Range Interpretation Comments UA Glucose (test code = UA Glucose) 30 mg/dL [facility] [id number] 14:49:00 Test Item Value Reference Range Interpretation Comments UA Color (test code = Yellow *NA*(09/26/16 UA Color) 9:49 AM) [facility] [id number] 14:49:00 Test Item Value Reference Range Interpretation Comments UA Sq Epi (test code = UA Sq Epi) None Seen [facility] [id number] 14:49:00 Test Item Value Reference Range Interpretation Comments UA Urobilinogen (test code = UA <=1.0 mg/dL 0.1-1.0 Urobilinogen) [facility] [id number] 14:49:00 Test Item Value Reference Range Interpretation Comments UA Bili (test code = Negative *NA*(09/26/16 UA Bili) 9:49 AM) [facility] [id number] 14:49:00 Test Item Value Reference Range Interpretation Comments UA Ketones (test code = UA Negative mg/dL Ketones) [facility] [id number] 14:49:00 Test Item Value Reference Range Interpretation Comments UA Blood (test code = Moderate *ABN*(09/26/16 UA Blood) 9:49 AM) [facility] [id number] 14:49:00 Test Item Value Reference Range Interpretation Comments UA Hyal Cast (test 4 See_Comment [Automat ed message] The code = UA Hyal Cast) system which generated this result transmit nadya reference range : <=2. The reference range was not used to interpr et this result as rigoberto l/abnormal. [facility] [id number] 14:49:00 Test Item Value Reference Range Interpretation Comments UA Bacteria (test code = UA Occasional /HPF Bacteria) [facility] [id number] 14:49:00 Test Item Value Reference Range Interpretation Comments UA Leuk Est (test Negative (09/26/16 9:49 code = UA Leuk Est) AM) [facility] [id number] 14:49:00 Test Item Value Reference Range Interpretation Comments UA Nitrite (test code Negative (09/26/16 9:49 = UA Nitrite) AM) [facility] [id number] 14:49:00 Test Item Value Reference Range Interpretation Comments UA Mucus (test code = UA Mucus) Few /LPF [facility] [id number] 14:49:00 Test Item Value Reference Range Interpretation Comments UA WBC (test code = 2 See_Comment [Automa nadya message] The UA WBC) system which ge nerated this result transmit nadya reference range : <=5. The reference range was not used to interpr et this result as rigoberto l/abnormal. [facility] [id number] 14:49:00 Test Item Value Reference Range Interpretation Comments UA Spec Grav (test code = UA Spec Grav) 1.009 [facility] [id number] 14:49:00 Test Item Value Reference Range Interpretation Comments UA Turbidity (test code = Clear (09/26/16 9:49 UA Turbidity) AM) [facility] [id number] 14:49:00 Test Item Value Reference Range Interpretation Comments UA Protein (test code = UA Negative mg/dL Protein) [facility] [id number] 14:49:00 Test Item Value Reference Range Interpretation Comments UA pH (test code = UA pH) 6.5 5.0-8.0 [facility] [id number] 14:49:00 Test Item Value Reference Range Interpretation Comments UA Glucose (test code = UA Glucose) 30 mg/dL [facility]2017-05-15 14:49:00 Test Item Value Reference Range Interpretation Comments UA Color (test code = Yellow *NA*(09/26/16 UA Color) 9:49 AM) [facility]2017-05-15 12:48:00 Test Item Value Reference Range Interpretation Comments Lactic Acid Lvl (test code = Lactic 0.9 0.5-2.2 Acid Lvl) [facility]2017-05-15 12:48:00 Test Item Value Reference Range Interpretation Comments Lactic Acid Lvl (test code = Lactic 0.9 0.5-2.2 Acid Lvl) [facility]2017-05-15 12:48:00 Test Item Value Reference Range Interpretation Comments Lactic Acid Lvl (test code = Lactic 0.9 0.5-2.2 Acid Lvl) [facility]2017-05-15 12:48:00 Test Item Value Reference Range Interpretation Comments Lactic Acid Lvl (test code = Lactic 0.9 0.5-2.2 Acid Lvl) [facility]2017-05-15 12:48:00 Test Item Value Reference Range Interpretation Comments Lactic Acid Lvl (test code = Lactic 0.9 0.5-2.2 Acid Lvl) [id number] 12:43:00 Test Item Value Reference Range Interpretation Comments Chloride Lvl (test code = Chloride Lvl) 115 95-109 [id number] 12:43:00 Test Item Value Reference Range Interpretation Comments Potassium Lvl (test code = Potassium 3.9 3.5-5.1 Lvl) [id number] 12:43:00 Test Item Value Reference Range Interpretation Comments CO2 (test code = CO2) 24 24-32 [facility] Hos[id number] 12:43:00 Test Item Value Reference Range Interpretation Comments Calcium Lvl (test code = Calcium Lvl) 7.8 8.5-10.5 [facility] Hos[id number] 12:43:00 Test Item Value Reference Range Interpretation Comments AGAP (test code = AGAP) 10.9 10.0-20.0 [facility] Hospital[id number] 12:43:00 Test Item Value Reference Range Interpretation Comments eGFR (test code = eGFR) 90 [facility] HospitalZjuauweFXXVXDRTNOMO6063-21-05 12:43:00 Test Item Value Reference Range Interpretation Comments BUN (test code = BUN) 8 7- [facility] Hospital[id number] 12:43:00 Test Item Value Reference Range Interpretation Comments Sodium Lvl (test code = Sodium Lvl) 146 135-145 [facility] HospitalRfxgopdRWHQQOYTMNGW3223-63-85 12:43:00 Test Item Value Reference Range Interpretation Comments Creatinine Lvl (test code = Creatinine 0.52 0.50-1.40 Lvl) [facility] Hospital[id number] 12:43:00 Test Item Value Reference Range Interpretation Comments Glucose Lvl (test code = Glucose Lvl) 94 70-99 [facility] Hos[id number] 12:43:00 Test Item Value Reference Range Interpretation Comments Chloride Lvl (test code = Chloride Lvl) 115 95-109 [facility] Hos[id number] 12:43:00 Test Item Value Reference Range Interpretation Comments Potassium Lvl (test code = Potassium 3.9 3.5-5.1 Lvl) [facility] Hospital[id number] 12:43:00 Test Item Value Reference Range Interpretation Comments CO2 (test code = CO2) 24 24-32 [facility] Hospi[id number] 12:43:00 Test Item Value Reference Range Interpretation Comments Calcium Lvl (test code = Calcium Lvl) 7.8 8.5-10.5 [facility] HospitalNdnpjaqBFIMCWYPQMAN9554-14-34 12:43:00 Test Item Value Reference Range Interpretation Comments AGAP (test code = AGAP) 10.9 10.0-20.0 [facility] HospitalDpjplcwBSLDPJVJABRF4765-34-13 12:43:00 Test Item Value Reference Range Interpretation Comments eGFR (test code = eGFR) 90 [facility] HospitalNgohcnnZLCLGJPDICKR1325-61-47 12:43:00 Test Item Value Reference Range Interpretation Comments BUN (test code = BUN) 8 7-22 [facility] HospitalFusvqlaVPPIUGVRJZDR9206-84-58 12:43:00 Test Item Value Reference Range Interpretation Comments Sodium Lvl (test code = Sodium Lvl) 146 135-145 [facility] HospitalFmhmzycMDMUHNNVDHDN7249-85-25 12:43:00 Test Item Value Reference Range Interpretation Comments Creatinine Lvl (test code = Creatinine 0.52 0.50-1.40 Lvl) [facility] HospitalGmcyplmAWJBJKQUGIGW5584-32-84 12:43:00 Test Item Value Reference Range Interpretation Comments Glucose Lvl (test code = Glucose Lvl) 94 70-99 [facility] HospitalVpmemfyIQDUEUVCESMG7237-51-47 12:43:00 Test Item Value Reference Range Interpretation Comments Chloride Lvl (test code = Chloride Lvl) 115 95-109 [facility] HospitalQyllfuuHQWUINVYVHEV0722-81-48 12:43:00 Test Item Value Reference Range Interpretation Comments Potassium Lvl (test code = Potassium 3.9 3.5-5.1 Lvl) [facility] HospitalUvkiniqXSYBMKKJNCDZ3738-38-07 12:43:00 Test Item Value Reference Range Interpretation Comments CO2 (test code = CO2) 24 24-32 [facility] Hospital[id number] 12:43:00 Test Item Value Reference Range Interpretation Comments Calcium Lvl (test code = Calcium Lvl) 7.8 8.5-10.5 [facility] HospitalMxdkfxvYHEMCGCHTKZE4712-52-78 12:43:00 Test Item Value Reference Range Interpretation Comments AGAP (test code = AGAP) 10.9 10.0-20.0 [facility] HospitalUmcczsaBVYAZQKWXXMJ9055-12-41 12:43:00 Test Item Value Reference Range Interpretation Comments eGFR (test code = eGFR) 90 [facility] HospitalYqcxvrjLFBHDUFDZDTM2506-62-12 12:43:00 Test Item Value Reference Range Interpretation Comments BUN (test code = BUN) 8 7-22 [facility] HospitalWpuecabETRNBYULCDCZ5537-96-22 12:43:00 Test Item Value Reference Range Interpretation Comments Sodium Lvl (test code = Sodium Lvl) 146 135-145 [facility] HospitalEcbfjnrSPAJCQGQQDPI2170-58-78 12:43:00 Test Item Value Reference Range Interpretation Comments Creatinine Lvl (test code = Creatinine 0.52 0.50-1.40 Lvl) [facility] HospitalSisknylZULNXCMUNENZ8718-30-81 12:43:00 Test Item Value Reference Range Interpretation Comments Glucose Lvl (test code = Glucose Lvl) 94 70-99 [facility] HospitalCxgmfktBCSUNEIAYDMN2448-59-77 12:43:00 Test Item Value Reference Range Interpretation Comments Chloride Lvl (test code = Chloride Lvl) 115 95-109 [facility] HospitalTszzyrqCGKMCPJZENIP4475-20-35 12:43:00 Test Item Value Reference Range Interpretation Comments Potassium Lvl (test code = Potassium 3.9 3.5-5.1 Lvl) [facility] HospitalKrittoqWADRCLOCQKSM3814-37-79 12:43:00 Test Item Value Reference Range Interpretation Comments CO2 (test code = CO2) 24 - [facility] HospitalFaedznnXUIBVUUYWIKT6768-29-93 12:43:00 Test Item Value Reference Range Interpretation Comments Calcium Lvl (test code = Calcium Lvl) 7.8 8.5-10.5 [facility] HospitalCxqdkomMKZBJYMBWNIW3786-36-89 12:43:00 Test Item Value Reference Range Interpretation Comments AGAP (test code = AGAP) 10.9 10.0-20.0 [facility] HospitalSthvpvuETGRRRSODSKD3350-60-31 12:43:00 Test Item Value Reference Range Interpretation Comments eGFR (test code = eGFR) 90 [facility] HospitalHycaxfdLIDACCZOYYVA3779-57-56 12:43:00 Test Item Value Reference Range Interpretation Comments BUN (test code = BUN) 8 7-22 [facility] HospitalRnxqnorUTKLLMXUWXKR6631-22-78 12:43:00 Test Item Value Reference Range Interpretation Comments Sodium Lvl (test code = Sodium Lvl) 146 135-145 [facility] HospitalHsgiwjfPSONHAFCEKOE9995-39-47 12:43:00 Test Item Value Reference Range Interpretation Comments Creatinine Lvl (test code = Creatinine 0.52 0.50-1.40 Lvl) [facility] HospitalViswoejQIOQOTUQUSTR1107-00-09 12:43:00 Test Item Value Reference Range Interpretation Comments Glucose Lvl (test code = Glucose Lvl) 94 70-99 [facility] HospitalXfgmoatHFUWCSTCBQAI8540-49-28 12:43:00 Test Item Value Reference Range Interpretation Comments Chloride Lvl (test code = Chloride Lvl) 115 95-109 [facility] HospitalGcjvkcaXLDKAUWMLJPS4535-91-99 12:43:00 Test Item Value Reference Range Interpretation Comments Potassium Lvl (test code = Potassium 3.9 3.5-5.1 Lvl) [facility] HospitalVbinnepHXRBWEQPANCG8797-73-24 12:43:00 Test Item Value Reference Range Interpretation Comments CO2 (test code = CO2) 24 -32 [facility] HospitalNecmunsAJVNIXZRNDZR0051-39-50 12:43:00 Test Item Value Reference Range Interpretation Comments Calcium Lvl (test code = Calcium Lvl) 7.8 8.5-10.5 [facility] HospitalVzeioivOUKANYECEVWO7781-30-73 12:43:00 Test Item Value Reference Range Interpretation Comments AGAP (test code = AGAP) 10.9 10.0-20.0 [facility] HospitalKgwufhsJBDJEGJFYPXQ4088-54-57 12:43:00 Test Item Value Reference Range Interpretation Comments eGFR (test code = eGFR) 90 [facility] HospitalYmbzialKGJJDSMXOMKZ0203-38-84 12:43:00 Test Item Value Reference Range Interpretation Comments BUN (test code = BUN) 8 7-22 [facility] HospitalKbfnvafZJOTAUQNUTWD8518-03-36 12:43:00 Test Item Value Reference Range Interpretation Comments Sodium Lvl (test code = Sodium Lvl) 146 135-145 [facility] HospitalDtvvomfQGDDUJLJBFHV2922-54-85 12:43:00 Test Item Value Reference Range Interpretation Comments Creatinine Lvl (test code = Creatinine 0.52 0.50-1.40 Lvl) [facility] HospitalWjldcchZSORMIHYLRNP7942-45-83 12:43:00 Test Item Value Reference Range Interpretation Comments Glucose Lvl (test code = Glucose Lvl) 94 70-99 [facility] INRFXBQ1861-77-99 04:38:00 Test Item Value Reference Range Interpretation Comments RBC product (test code Product available = RBC product) (09/25/16 11:38 PM) [facility] [id number] 04:38:00 Test Item Value Reference Range Interpretation Comments RBC product (test code Product available = RBC product) (09/25/16 11:38 PM) [facility] [id number] 04:38:00 Test Item Value Reference Range Interpretation Comments RBC product (test code Product available = RBC product) (09/25/16 11:38 PM) [facility] [id number] 04:38:00 Test Item Value Reference Range Interpretation Comments RBC product (test code Product available = RBC product) (09/25/16 11:38 PM) [facility] [id number] 04:38:00 Test Item Value Reference Range Interpretation Comments RBC product (test code Product available = RBC product) (09/25/16 11:38 PM) [facility] [id number] 03:02:00 Test Item Value Reference Range Interpretation Comments Lactic Acid Lvl (test code = Lactic 2.2 0.5-2.2 Acid Lvl) [facility]2017-05-15 03:02:00 Test Item Value Reference Range Interpretation Comments Lactic Acid Lvl (test code = Lactic 2.2 0.5-2.2 Acid Lvl) [facility] [id number] 03:02:00 Test Item Value Reference Range Interpretation Comments Lactic Acid Lvl (test code = Lactic 2.2 0.5-2.2 Acid Lvl) [facility] [id number] 03:02:00 Test Item Value Reference Range Interpretation Comments Lactic Acid Lvl (test code = Lactic 2.2 0.5-2.2 Acid Lvl) [facility] [id number] 03:02:00 Test Item Value Reference Range Interpretation Comments Lactic Acid Lvl (test code = Lactic 2.2 0.5-2.2 Acid Lvl) [facility] [id number] 07:10:00 Test Item Value Reference Range Interpretation Comments Antibody Scrn (test Negative (09/25/16 2:10 code = Antibody Scrn) AM) [facility] [id number] 07:10:00 Test Item Value Reference Range Interpretation Comments ABO/Rh (test code = ABO/Rh) O POS [facility] [id number] 07:10:00 Test Item Value Reference Range Interpretation Comments Antibody Scrn (test Negative (09/25/16 2:10 code = Antibody Scrn) AM) [facility] [id number] 07:10:00 Test Item Value Reference Range Interpretation Comments ABO/Rh (test code = ABO/Rh) O POS [facility] [id number] 07:10:00 Test Item Value Reference Range Interpretation Comments Antibody Scrn (test Negative (09/25/16 2:10 code = Antibody Scrn) AM) [facility] [id number] 07:10:00 Test Item Value Reference Range Interpretation Comments ABO/Rh (test code = ABO/Rh) O POS [facility] [id number] 07:10:00 Test Item Value Reference Range Interpretation Comments Antibody Scrn (test Negative (09/25/16 2:10 code = Antibody Scrn) AM) [facility] [id number] 07:10:00 Test Item Value Reference Range Interpretation Comments ABO/Rh (test code = ABO/Rh) O POS [facility] [id number] 07:10:00 Test Item Value Reference Range Interpretation Comments Antibody Scrn (test Negative (09/25/16 2:10 code = Antibody Scrn) AM) [facility] [id number] 07:10:00 Test Item Value Reference Range Interpretation Comments ABO/Rh (test code = ABO/Rh) O POS [facility] ZIPDIGSBACTERIAL - [id number] 06:59:00 Test Item Value Reference Range Interpretation Comments MRSA by PCR (test Negative (09/25/16 1:59 code = MRSA by PCR) AM) [employer] [id number] 06:59:00 Test Item Value Reference Range Interpretation Comments Globulin (test code = Globulin) 2.5 2.7-4.2 [facility] [id number] 06:59:00 Test Item Value Reference Range Interpretation Comments B/C Ratio (test code = B/C Ratio) 17 6-25 [facility] [employer] [id number] 06:59:00 Test Item Value Reference Range Interpretation Comments AGAP (test code = AGAP) 13.9 10.0-20.0 [facility] [id number] 06:59:00 Test Item Value Reference Range Interpretation Comments A/G Ratio (test code = A/G Ratio) 1.0 0.7-1.6 [facility] [id number] 06:59:00 Test Item Value Reference Range Interpretation Comments eGFR (test code = eGFR) 87 [facility] [employer] [id number] 06:59:00 Test Item Value Reference Range Interpretation Comments Bili Total (test code = Bili Total) 0.3 0.2-1.3 [facility] [id number] 06:59:00 Test Item Value Reference Range Interpretation Comments Total Protein (test code = Total 5.0 6.4-8.4 Protein) [facility]2017-05-14 06:59:00 Test Item Value Reference Range Interpretation Comments AST (test code = AST) 10 See_Comment [Auto mated message] The system which ge nerated this result transmit nadya reference range : <=37. The reference range was not used to interpr et this result as rigoberto l/abnormal. [facility]2017-05-14 06:59:00 Test Item Value Reference Range Interpretation Comments ALT (test code = ALT) 11 See_Comment [Auto mated message] The system which ge nerated this result transmit nadya reference range : <=65. The reference range was not used to interpr et this result as rigoberto l/abnormal. [facility]2017-05-14 06:59:00 Test Item Value Reference Range Interpretation Comments Albumin Lvl (test code = Albumin Lvl) 2.5 3.5-5.0 [facility]2017-05-14 06:59:00 Test Item Value Reference Range Interpretation Comments Alk Phos (test code = Alk Phos) 52 39-136 [facility]2017-05-14 06:59:00 Test Item Value Reference Range Interpretation Comments Potassium Lvl (test code = Potassium 3.9 3.5-5.1 Lvl) [facility]2017-05-14 06:59:00 Test Item Value Reference Range Interpretation Comments Chloride Lvl (test code = Chloride Lvl) 114 95-109 [facility]2017-05-14 06:59:00 Test Item Value Reference Range Interpretation Comments Sodium Lvl (test code = Sodium Lvl) 147 135-145 [facility]2017-05-14 06:59:00 Test Item Value Reference Range Interpretation Comments Calcium Lvl (test code = Calcium Lvl) 7.4 8.5-10.5 [place] 148267-05-14 06:59:00 Test Item Value Reference Range Interpretation Comments CO2 (test code = CO2) 23 24-32 [facility]2017-05-14 06:59:00 Test Item Value Reference Range Interpretation Comments BUN (test code = BUN) 10 7-22 [place] 148267-05-14 06:59:00 Test Item Value Reference Range Interpretation Comments Creatinine Lvl (test code = Creatinine 0.58 0.50-1.40 Lvl) [facility] [id number] 06:59:00 Test Item Value Reference Range Interpretation Comments Glucose Lvl (test code = Glucose Lvl) 85 70-99 [facility] [id number] 06:59:00 Test Item Value Reference Range Interpretation Comments Magnesium Lvl (test code = Magnesium 3.0 1.8-2.4 Lvl) [facility]2017-05-14 06:59:00 Test Item Value Reference Range Interpretation Comments Phosphorus (test code = Phosphorus) 1.9 2.5-4.5 [id number] 06:59:00 Test Item Value Reference Range Interpretation Comments PTT (test code = PTT) 24.3 s 22.9-35.8 [facility] Hos[id number] 06:59:00 Test Item Value Reference Range Interpretation Comments PT (test code = PT) 15.7 s 12.0-14.7 [facility] [id number] 06:59:00 Test Item Value Reference Range Interpretation Comments INR (test code = INR) 1.22 0.85-1.17 [facility] [id number] 06:59:00 Test Item Value Reference Range Interpretation Comments Ca Ion WB (test code = Ca Ion WB) 1.06 1.05-1.25 [facility] [id number] 06:59:00 Test Item Value Reference Range Interpretation Comments Ca Norm WB (test code = Ca Norm WB) 1.02 1.05-1.25 [facility] - [id number] 06:59:00 Test Item Value Reference Range Interpretation Comments MRSA by PCR (test Negative (09/25/16 1:59 code = MRSA by PCR) AM) [facility] [id number] 06:59:00 Test Item Value Reference Range Interpretation Comments Globulin (test code = Globulin) 2.5 2.7-4.2 [facility]2017-05-14 06:59:00 Test Item Value Reference Range Interpretation Comments B/C Ratio (test code = B/C Ratio) 17 6-25 [facility]2017-05-14 06:59:00 Test Item Value Reference Range Interpretation Comments AGAP (test code = AGAP) 13.9 10.0-20.0 [facility]2017-05-14 06:59:00 Test Item Value Reference Range Interpretation Comments A/G Ratio (test code = A/G Ratio) 1.0 0.7-1.6 [place] 148267-05-14 06:59:00 Test Item Value Reference Range Interpretation Comments eGFR (test code = eGFR) 87 [facility]2017-05-14 06:59:00 Test Item Value Reference Range Interpretation Comments Bili Total (test code = Bili Total) 0.3 0.2-1.3 [facility]2017-05-14 06:59:00 Test Item Value Reference Range Interpretation Comments Total Protein (test code = Total 5.0 6.4-8.4 Protein) [facility]2017-05-14 06:59:00 Test Item Value Reference Range Interpretation Comments AST (test code = AST) 10 See_Comment [Auto mated message] The system which ge nerated this result transmit nadya reference range : <=37. The reference range was not used to interpr et this result as rigoberto l/abnormal. [facility]2017-05-14 06:59:00 Test Item Value Reference Range Interpretation Comments ALT (test code = ALT) 11 See_Comment [Auto mated message] The system which ge nerated this result transmit nadya reference range : <=65. The reference range was not used to interpr et this result as rigoberto l/abnormal. [facility]2017-05-14 06:59:00 Test Item Value Reference Range Interpretation Comments Albumin Lvl (test code = Albumin Lvl) 2.5 3.5-5.0 [place] 148267-05-14 06:59:00 Test Item Value Reference Range Interpretation Comments Alk Phos (test code = Alk Phos) 52 39-136 [facility]2017-05-14 06:59:00 Test Item Value Reference Range Interpretation Comments Potassium Lvl (test code = Potassium 3.9 3.5-5.1 Lvl) [facility]2017-05-14 06:59:00 Test Item Value Reference Range Interpretation Comments Chloride Lvl (test code = Chloride Lvl) 114 95-109 [place] 148267-05-14 06:59:00 Test Item Value Reference Range Interpretation Comments Sodium Lvl (test code = Sodium Lvl) 147 135-145 [facility]2017-05-14 06:59:00 Test Item Value Reference Range Interpretation Comments Calcium Lvl (test code = Calcium Lvl) 7.4 8.5-10.5 [facility]2017-05-14 06:59:00 Test Item Value Reference Range Interpretation Comments CO2 (test code = CO2) 23 24-32 [facility]2017-05-14 06:59:00 Test Item Value Reference Range Interpretation Comments BUN (test code = BUN) 10 7-22 [facility]2017-05-14 06:59:00 Test Item Value Reference Range Interpretation Comments Creatinine Lvl (test code = Creatinine 0.58 0.50-1.40 Lvl) [facility]2017-05-14 06:59:00 Test Item Value Reference Range Interpretation Comments Glucose Lvl (test code = Glucose Lvl) 85 70-99 [facility]2017-05-14 06:59:00 Test Item Value Reference Range Interpretation Comments Magnesium Lvl (test code = Magnesium 3.0 1.8-2.4 Lvl) [facility]2017-05-14 06:59:00 Test Item Value Reference Range Interpretation Comments Phosphorus (test code = Phosphorus) 1.9 2.5-4.5 [facility] StationWdvjbnyKBSZDICQEN0203-07-31 06:59:00 Test Item Value Reference Range Interpretation Comments PTT (test code = PTT) 24.3 s 22.9-35.8 [facility] St[id number] 06:59:00 Test Item Value Reference Range Interpretation Comments PT (test code = PT) 15.7 s 12.0-14.7 [facility] StationWjgjppdTROVMDJFEA3771-77-00 06:59:00 Test Item Value Reference Range Interpretation Comments INR (test code = INR) 1.22 0.85-1.17 [facility] [id number] 06:59:00 Test Item Value Reference Range Interpretation Comments Ca Ion WB (test code = Ca Ion WB) 1.06 1.05-1.25 [facility] [id number] 06:59:00 Test Item Value Reference Range Interpretation Comments Ca Norm WB (test code = Ca Norm WB) 1.02 1.05-1.25 [facility] - [id number] 06:59:00 Test Item Value Reference Range Interpretation Comments MRSA by PCR (test Negative (09/25/16 1:59 code = MRSA by PCR) AM) [facility] [id number] 06:59:00 Test Item Value Reference Range Interpretation Comments Globulin (test code = Globulin) 2.5 2.7-4.2 [facility] [id number] 06:59:00 Test Item Value Reference Range Interpretation Comments B/C Ratio (test code = B/C Ratio) 17 -25 [facility]2017-05-14 06:59:00 Test Item Value Reference Range Interpretation Comments AGAP (test code = AGAP) 13.9 10.0-20.0 [facility]2017-05-14 06:59:00 Test Item Value Reference Range Interpretation Comments A/G Ratio (test code = A/G Ratio) 1.0 0.7-1.6 [facility]2017-05-14 06:59:00 Test Item Value Reference Range Interpretation Comments eGFR (test code = eGFR) 87 [facility]2017-05-14 06:59:00 Test Item Value Reference Range Interpretation Comments Bili Total (test code = Bili Total) 0.3 0.2-1.3 [facility]2017-05-14 06:59:00 Test Item Value Reference Range Interpretation Comments Total Protein (test code = Total 5.0 6.4-8.4 Protein) [facility]2017-05-14 06:59:00 Test Item Value Reference Range Interpretation Comments AST (test code = AST) 10 See_Comment [Auto mated message] The system which ge nerated this result transmit nadya reference range : <=37. The reference range was not used to interpr et this result as rigoberto l/abnormal. [facility]2017-05-14 06:59:00 Test Item Value Reference Range Interpretation Comments ALT (test code = ALT) 11 See_Comment [Auto mated message] The system which ge nerated this result transmit nadya reference range : <=65. The reference range was not used to interpr et this result as rigoberto l/abnormal. [facility]2017-05-14 06:59:00 Test Item Value Reference Range Interpretation Comments Albumin Lvl (test code = Albumin Lvl) 2.5 3.5-5.0 [facility]2017-05-14 06:59:00 Test Item Value Reference Range Interpretation Comments Alk Phos (test code = Alk Phos) 52 39-136 [facility]2017-05-14 06:59:00 Test Item Value Reference Range Interpretation Comments Potassium Lvl (test code = Potassium 3.9 3.5-5.1 Lvl) [facility]2017-05-14 06:59:00 Test Item Value Reference Range Interpretation Comments Chloride Lvl (test code = Chloride Lvl) 114 95-109 [facility]2017-05-14 06:59:00 Test Item Value Reference Range Interpretation Comments Sodium Lvl (test code = Sodium Lvl) 147 135-145 [facility]2017-05-14 06:59:00 Test Item Value Reference Range Interpretation Comments Calcium Lvl (test code = Calcium Lvl) 7.4 8.5-10.5 [facility]2017-05-14 06:59:00 Test Item Value Reference Range Interpretation Comments CO2 (test code = CO2) 23 24-32 [facility]2017-05-14 06:59:00 Test Item Value Reference Range Interpretation Comments BUN (test code = BUN) 10 7-22 [facility]2017-05-14 06:59:00 Test Item Value Reference Range Interpretation Comments Creatinine Lvl (test code = Creatinine 0.58 0.50-1.40 Lvl) [facility]2017-05-14 06:59:00 Test Item Value Reference Range Interpretation Comments Glucose Lvl (test code = Glucose Lvl) 85 70-99 [facility]2017-05-14 06:59:00 Test Item Value Reference Range Interpretation Comments Magnesium Lvl (test code = Magnesium 3.0 1.8-2.4 Lvl) [facility]2017-05-14 06:59:00 Test Item Value Reference Range Interpretation Comments Phosphorus (test code = Phosphorus) 1.9 2.5-4.5 [facility] H[id number] 06:59:00 Test Item Value Reference Range Interpretation Comments PTT (test code = PTT) 24.3 s 22.9-35.8 [facility] RegionalAkczfikMELCEPWRIA1812-58-16 06:59:00 Test Item Value Reference Range Interpretation Comments PT (test code = PT) 15.7 s 12.0-14.7 [facility] RegionalVsmoienVCQECAUOZK9265-87-83 06:59:00 Test Item Value Reference Range Interpretation Comments INR (test code = INR) 1.22 0.85-1.17 [facility] RegionalannPARATHYROID [id number] 06:59:00 Test Item Value Reference Range Interpretation Comments Ca Ion WB (test code = Ca Ion WB) 1.06 1.05-1.25 [facility]cosPARJEW[facility]ITALROID [id number] 06:59:00 Test Item Value Reference Range Interpretation Comments Ca Norm WB (test code = Ca Norm WB) 1.02 1.05-1.25 [facility]BA[facility] - [id number] 06:59:00 Test Item Value Reference Range Interpretation Comments MRSA by PCR (test Negative (09/25/16 1:59 code = MRSA by PCR) AM) [facility] [id number] 06:59:00 Test Item Value Reference Range Interpretation Comments Globulin (test code = Globulin) 2.5 2.7-4.2 [facility] RegionalannCHEM [id number] 06:59:00 Test Item Value Reference Range Interpretation Comments B/C Ratio (test code = B/C Ratio) 17 6-25 [facility]annAD[facility] [id number] 06:59:00 Test Item Value Reference Range Interpretation Comments AGAP (test code = AGAP) 13.9 10.0-20.0 [facility] RegionalannCHEM [id number] 06:59:00 Test Item Value Reference Range Interpretation Comments A/G Ratio (test code = A/G Ratio) 1.0 0.7-1.6 [facility]annAD[facility] [id number] 06:59:00 Test Item Value Reference Range Interpretation Comments eGFR (test code = eGFR) 87 [facility] [id number] 06:59:00 Test Item Value Reference Range Interpretation Comments Bili Total (test code = Bili Total) 0.3 0.2-1.3 [facility]2017-05-14 06:59:00 Test Item Value Reference Range Interpretation Comments Total Protein (test code = Total 5.0 6.4-8.4 Protein) [facility]2017-05-14 06:59:00 Test Item Value Reference Range Interpretation Comments AST (test code = AST) 10 See_Comment [Auto mated message] The system which ge nerated this result transmit nadya reference range : <=37. The reference range was not used to interpr et this result as rigoberto l/abnormal. [facility]2017-05-14 06:59:00 Test Item Value Reference Range Interpretation Comments ALT (test code = ALT) 11 See_Comment [Auto mated message] The system which ge nerated this result transmit nadya reference range : <=65. The reference range was not used to interpr et this result as rigoberto l/abnormal. [place] 148267-05-14 06:59:00 Test Item Value Reference Range Interpretation Comments Albumin Lvl (test code = Albumin Lvl) 2.5 3.5-5.0 [facility]2017-05-14 06:59:00 Test Item Value Reference Range Interpretation Comments Alk Phos (test code = Alk Phos) 52 39-136 [facility]2017-05-14 06:59:00 Test Item Value Reference Range Interpretation Comments Potassium Lvl (test code = Potassium 3.9 3.5-5.1 Lvl) [facility]2017-05-14 06:59:00 Test Item Value Reference Range Interpretation Comments Chloride Lvl (test code = Chloride Lvl) 114 95-109 [facility]2017-05-14 06:59:00 Test Item Value Reference Range Interpretation Comments Sodium Lvl (test code = Sodium Lvl) 147 135-145 [facility]2017-05-14 06:59:00 Test Item Value Reference Range Interpretation Comments Calcium Lvl (test code = Calcium Lvl) 7.4 8.5-10.5 [facility]2017-05-14 06:59:00 Test Item Value Reference Range Interpretation Comments CO2 (test code = CO2) 23 24-32 [place] 148267-05-14 06:59:00 Test Item Value Reference Range Interpretation Comments BUN (test code = BUN) 10 7-22 [facility]2017-05-14 06:59:00 Test Item Value Reference Range Interpretation Comments Creatinine Lvl (test code = Creatinine 0.58 0.50-1.40 Lvl) [facility] [id number] 06:59:00 Test Item Value Reference Range Interpretation Comments Glucose Lvl (test code = Glucose Lvl) 85 70-99 [facility] [id number] 06:59:00 Test Item Value Reference Range Interpretation Comments Magnesium Lvl (test code = Magnesium 3.0 1.8-2.4 Lvl) [facility]2017-05-14 06:59:00 Test Item Value Reference Range Interpretation Comments Phosphorus (test code = Phosphorus) 1.9 2.5-4.5 [facility] [id number] 06:59:00 Test Item Value Reference Range Interpretation Comments PTT (test code = PTT) 24.3 s 22.9-35.8 [facility] HospitalRbppofeFHQMZSHOFS5721-65-57 06:59:00 Test Item Value Reference Range Interpretation Comments PT (test code = PT) 15.7 s 12.0-14.7 [facility] StationBwadvkaIESMHMRDON4606-84-37 06:59:00 Test Item Value Reference Range Interpretation Comments INR (test code = INR) 1.22 0.85-1.17 [facility]cosPARATHYROID [id number] 06:59:00 Test Item Value Reference Range Interpretation Comments Ca Ion WB (test code = Ca Ion WB) 1.06 1.05-1.25 [facility]RO[facility] [id number] 06:59:00 Test Item Value Reference Range Interpretation Comments Ca Norm WB (test code = Ca Norm WB) 1.02 1.05-1.25 [facility]BACT[facility] - [id number] 06:59:00 Test Item Value Reference Range Interpretation Comments MRSA by PCR (test Negative (09/25/16 1:59 code = MRSA by PCR) AM) [facility] [id number] 06:59:00 Test Item Value Reference Range Interpretation Comments Globulin (test code = Globulin) 2.5 2.7-4.2 [facility] [id number] 06:59:00 Test Item Value Reference Range Interpretation Comments B/C Ratio (test code = B/C Ratio) 17 6-25 [facility]2017-05-14 06:59:00 Test Item Value Reference Range Interpretation Comments AGAP (test code = AGAP) 13.9 10.0-20.0 [facility]2017-05-14 06:59:00 Test Item Value Reference Range Interpretation Comments A/G Ratio (test code = A/G Ratio) 1.0 0.7-1.6 [place] 148267-05-14 06:59:00 Test Item Value Reference Range Interpretation Comments eGFR (test code = eGFR) 87 [place] 148267-05-14 06:59:00 Test Item Value Reference Range Interpretation Comments Bili Total (test code = Bili Total) 0.3 0.2-1.3 [place] 148267-05-14 06:59:00 Test Item Value Reference Range Interpretation Comments Total Protein (test code = Total 5.0 6.4-8.4 Protein) [place] 148267-05-14 06:59:00 Test Item Value Reference Range Interpretation Comments AST (test code = AST) 10 See_Comment [Auto mated message] The system which ge nerated this result transmit nadya reference range : <=37. The reference range was not used to interpr et this result as rigoberto l/abnormal. [facility]2017-05-14 06:59:00 Test Item Value Reference Range Interpretation Comments ALT (test code = ALT) 11 See_Comment [Auto mated message] The system which ge nerated this result transmit nadya reference range : <=65. The reference range was not used to interpr et this result as rigoberto l/abnormal. [facility]2017-05-14 06:59:00 Test Item Value Reference Range Interpretation Comments Albumin Lvl (test code = Albumin Lvl) 2.5 3.5-5.0 [facility]2017-05-14 06:59:00 Test Item Value Reference Range Interpretation Comments Alk Phos (test code = Alk Phos) 52 39-136 [place] 148267-05-14 06:59:00 Test Item Value Reference Range Interpretation Comments Potassium Lvl (test code = Potassium 3.9 3.5-5.1 Lvl) [place] [address]-05-14 06:59:00 Test Item Value Reference Range Interpretation Comments Chloride Lvl (test code = Chloride Lvl) 114 95-109 [facility]2017-05-14 06:59:00 Test Item Value Reference Range Interpretation Comments Sodium Lvl (test code = Sodium Lvl) 147 135-145 [facility]2017-05-14 06:59:00 Test Item Value Reference Range Interpretation Comments Calcium Lvl (test code = Calcium Lvl) 7.4 8.5-10.5 [facility]2017-05-14 06:59:00 Test Item Value Reference Range Interpretation Comments CO2 (test code = CO2) 23 24-32 [facility]2017-05-14 06:59:00 Test Item Value Reference Range Interpretation Comments BUN (test code = BUN) 10 7-22 [facility]2017-05-14 06:59:00 Test Item Value Reference Range Interpretation Comments Creatinine Lvl (test code = Creatinine 0.58 0.50-1.40 Lvl) [facility]2017-05-14 06:59:00 Test Item Value Reference Range Interpretation Comments Glucose Lvl (test code = Glucose Lvl) 85 70-99 [facility]2017-05-14 06:59:00 Test Item Value Reference Range Interpretation Comments Magnesium Lvl (test code = Magnesium 3.0 1.8-2.4 Lvl) [facility]2017-05-14 06:59:00 Test Item Value Reference Range Interpretation Comments Phosphorus (test code = Phosphorus) 1.9 2.5-4.5 [facility] S[id number] 06:59:00 Test Item Value Reference Range Interpretation Comments PTT (test code = PTT) 24.3 s 22.9-35.8 [facility] StationAdjkjktFHVOCTGFSC1430-82-63 06:59:00 Test Item Value Reference Range Interpretation Comments PT (test code = PT) 15.7 s 12.0-14.7 [facility] StationRdqwddeKUYHPPESTN7045-60-89 06:59:00 Test Item Value Reference Range Interpretation Comments INR (test code = INR) 1.22 0.85-1.17 [facility]cosPARATHYROID [id number] 06:59:00 Test Item Value Reference Range Interpretation Comments Ca Ion WB (test code = Ca Ion WB) 1.06 1.05-1.25 [facility]RO[facility] [id number] 06:59:00 Test Item Value Reference Range Interpretation Comments Ca Norm WB (test code = Ca Norm WB) 1.02 1.05-1.25 [facility]
[2022-05-27] MEDS: guaiFENesin 100 MG/5 ML UCUP PO PRN (17:05)
[2022-05-27] MEDS: PANTOPRAZOLE 40MG TABLET PO SCH (17:05)
[2022-05-27] MEDS: BUMETANIDE 1 MG TABLET PO SCH (20:00)
[2022-05-27] MEDS: AMIODARONE HCL 200 MG TAB PO SCH (20:21)
[2022-05-27] MEDS: ATORVASTATIN 20 MG TAB PO SCH (20:22)
[2022-05-28] MEDS: guaiFENesin 100 MG/5 ML UCUP PO PRN ×2 (04:43→16:00)
[2022-05-28] MEDS: METOPROLOL XL 25 MG TAB PO SCH (05:08)
[2022-05-28 05:44] VITALS: BMI 18.9
[2022-05-28] MEDS: PANTOPRAZOLE 40MG TABLET PO SCH ×2 (07:23→16:00)
[2022-05-28 07:30] LABS: Specific Gravity 1.017 (1.005-1.030); Urine Bacteria None Seen /HPF (<20); Urine Bilirubin NEGATIVE (Negative); Urine Blood Negative (Negative); Urine Clarity Clear (Clear); Urine Color Yellow (Yellow); Urine Crystals Unidentified Few /HPF (None Seen); Urine Glucose NEGATIVE (Negative); Urine Protein TRACE (Negative); Urine RBC <5 /HPF (None Seen); Urine Urobilinogen Normal (Normal); Urine WBC Clump Rare /HPF (None Seen)
[2022-05-28 07:56] LABS: Absolute Lymphocytes (CBC) 1.6 K/uL (0.7-4.9); Hematocrit 29.6 % (36.0-45.0); MCV 82.5 fL (80-100); MPV 8.6 fL (7.6-11.3); RBC Red Blood Cell Count 3.59 M/uL (3.86-4.86)
[2022-05-28] MEDS: LOSARTAN POTASSIUM 50 MG TABLET PO SCH ×2 (08:00→10:12)
[2022-05-28 08:34] LABS: Albumin 2.8 g/dL (3.4-5.0); Magnesium 2.7 mg/dL (1.6-2.4); Potassium 3.8 mmol/L (3.5-5.1); Prealbumin 19.7 mg/dL (20-40)
[2022-05-28] MEDS: BUMETANIDE 1 MG TABLET PO SCH ×2 (08:59→19:54)
[2022-05-28] MEDS: ISOSORBIDE MONO SR 30 MG TAB PO SCH (09:00)
[2022-05-28] MEDS: ASPIRIN EC 81 MG TAB PO SCH (09:00)
[2022-05-28] MEDS: MONTELUKAST 10 MG TAB PO SCH (09:00)
[2022-05-28] MEDS: AMIODARONE HCL 200 MG TAB PO SCH ×2 (09:00→19:55)
[2022-05-28 09:12] LABS: Anisocytosis 1+; Blood Morphology Comment NOTED (NOT SEEN); Hypochromasia 1+; Platelet Estimate ADEQ; Platelets, Giant 1+; Poikilocytosis 1+; White Blood Cell Scan OK (OK)
[2022-05-28 09:13] LABS: ACANTHOCYTE FEW; Ovalocytes 1+; Stomatocytes 1+; Teardrop Cell FEW
--- NOTE | 2022-05-28 11:39 | RAD REPORT ---
EXAM DESCRIPTION: RAD - Chest Single View - 05/28/2022 11:30 am CLINICAL HISTORY: coughing COMPARISON: No comparisons FINDINGS: Lines: None. Lungs: Diffuse prominence of the pulmonary interstitium. Left basilar opacities. Pleural: Small moderate left pleural effusions suspected. Cardiac: Likely enlarged . Mediastinum: Within normal limits. Bones: No acute fractures. Other: None IMPRESSION: Interstitial pulmonary edema. More focal airspace disease at the left lung base could be secondary to effusion an underlying atelectasis versus pneumonia.
[2022-05-28] MEDS: ATORVASTATIN 20 MG TAB PO SCH (19:54)
[2022-05-28] MEDS: CRANBERRY FRUIT EXTRACT 200 MG CAP PO SCH (19:54)
[2022-05-28] MEDS: APIXABAN 2.5 MG TABLET PO SCH (19:55)
[2022-05-28] MEDS: ZOLPIDEM TARTRATE 10 MG TABLET PO PRN (20:05)
--- NOTE | 2022-05-28 23:50 | HP ---
Date of Admission: 05/27/2022 Time Of Service: 10:00 a.m. Chief Complaint: Back pain. Mild shortness of breath. History Of Present Illness: Ms. Berry is an 87-year-old right-handed patient with a his tory of COPD, chronic cigarette smoking, congestive heart failure, coronary artery disease status pos t 3 stent placements, hypertension, who was initially seen and transferred for complaints of shortness of breath and weakness and was diagnosed with acute CHF exacerbation. She was treated f or that with some improvement. Prior to that, she apparently had a fall about 3 weeks previously whe re she broke 5 ribs and had additional 2 hospitalizations requiring blood transfusions because of sev ere anemia. There was no known area of bleeding such as GI or other sources for her low blood count. She did require oxygen at least 2 L to 3 L by nasal cannula to maintain good oxygen saturation. Sh ezequiel was also treated for pneumonia. The patient at that point, did have some confusion, was mumbling h er words, did not make much sense. In addition, she had some diffuse symptoms including numbness and tingling in the fingers, but also more on the left hand. At , her workup did reveal eleva nadya troponins, mildly elevated lactic acid, elevated BNP, but her head CT scan showed no acute ischem ic or hemorrhagic changes. Chest x-ray did identify bibasilar air space opacities with small pleural effusion. She was transferred to [facility] for higher level of care and there satur ations 96%. Alert, oriented x3. She did have up to 5 L of oxygen via nasal cannula. There, she did complain of left leg numbness, weakness, and had some difficulty lifting the left leg up and she als o had problems controlling her bowel and bladder with incontinence. At that point, CT scan evaluatio n was done that was 05/21/2021 which showed age indeterminate but a severe compression fracture defor mity of T12 with retropulsion and moderate narrowing of the spinal canal. There was moderate chaparro zena deformity also of level L3, which is new since her study done in 2017. There were visible fract ure lines paralleling the superior endplate which did raise recent concerns for acuity. In addition, there was retropulsion. Given the combination of changes and the potential for severe spinal stenos is. She was considered to be a candidate for marked worsening where she may lose the ability to move legs and control bowel and bladder. At that point, she was best considered a more appropriate cecile date for aggressive rehabilitation perhaps inpatient versus an outpatient or senior care level wh ere she can be carefully treated. Past Medical History: As noted above. In addition to her medical history noted previously, chronic tobacco abuse for many years, hypertension, COPD. Past Surgical History: Cholecystectomy, hysterectomy, mastectomy, coronary artery disease status pos t 3 stents. Imaging Studies: She had CT spine without contrast which showed the age indeterminate, but new sever e compression fracture of T12 with retropulsion and moderate narrowing of canal. L3, there was a mod erate compression fracture or visible fracture lines paralleling the superior endplate concerning for being acute along with retropulsion. She had a chest CT scan without contrast which showed acute di splacement of the left lateral seventh and eighth ribs. Mild displaced left lateral ninth rib fractu re. Multiple chronic appearing vertebral plana type compression fractures of the thorax 6 spine incl uding T6, T8, and T12, and this was new compared to a study done in 2017. Small right left pleural e ffusion and hemothorax. Small right pleural effusion. There was bilateral lower lobe airspace opaci ties which likely could represent segmental atelectasis, aspiration or pneumonia. Also cardiomegaly, aortic and coronary arthrosclerotic calcification seen. There were several pulmonary nodules measur ing up to 5 mm in the background of emphysema. This will be followed up by the patient on outpatient basis. Family History: Noncontributory. Social History: The patient is . Smokes up to a pack of cigarettes a day. Denies alcohol or illegal drug use. Allergies: CODEINE. Medications: Amiodarone 200 mg twice daily, Eliquis 2.5 mg twice daily, aspirin 81 mg daily, Lipitor 20 mg at bedtime, Bumex 1 mg twice daily, Robitussin 100 mg every 4 hours as needed for cough, Imdur 30 mg daily, Cozaar 50 mg daily, Toprol-XL 25 mg daily, Singulair 10 mg daily, Protonix 40 mg twice daily, Ambien 10 mg at bedtime. Laboratory Studies: White blood cell count 9.4, red blood cells 3.5, hemoglobin 9.2, hematocrit 29.6 , platelets 346. Sodium 146, potassium 3.6, chloride 108, carbon dioxide 35, BUN 25, creatinine 0.75 , glucose 107. Prealbumin 19.7, albumin 2.8. Urinalysis shows trace protein, trace budding yeast, a nd 25 esterase. COVID-19 test is negative. She had a repeat chest x-ray while in hospital. The marla dy shows interstitial pulmonary edema. More focal airspace disease in the left lung base could be se condary to effusion or an underlying atelectasis versus pneumonia which she know she was recently debbie ated for. Review of Systems: She is sitting beside the bed. She reports some mild pain in the back. Otherwise, she did some ther apy, walked around, she said the full unit with a walker and still felt good. Had mild shortness of breath and she has oxygen. She has mild arthralgias and myalgias. Otherwise, no rash, headache, delmy ght change. No psychiatric issues. Some occasional incontinence of stool and urine. Otherwise, no other positives on systems review. Physical Examination: Vital Signs: Blood pressure 130/60, pulse 60, respiratory rate 16, temperature 97.5, oxygen saturati on 96% room air. Weight 114 pounds, height 5 feet 5 inches, BMI 19. General: Ms. Berry is sitting beside the bed. HEENT: She is normocephalic, atraumatic. Sclerae anicteric. Oropharynx is pink and moist. Neck: Supple. Chest: Clear. Heart: Regular. Extremities: Show no significant edema or cyanosis. Lungs: Showed decreased breath sounds bilaterally. Neurological: She is alert and oriented to person, place, and situation. Follows commands appropria tely. She has mild diffuse weakness. Upper and lower extremities are 4+. Some sensory stocking-kavin ve loss and depressed reflexes and coordination intact in gait. She is able to ambulate with a rolli ng walker with minimal assistance. Rehabilitation And Medical Assessment And Plan: Ms. Berry is an 87-year-old patient admitted to [facility] inpatient rehabilitation unit with a T12 severe compression fracture deformity with retropulsion a nd moderate narrowing of the spinal canal. She also has a moderate compression deformity at L3. She has comorbid coronary artery disease with 3 stents, chronic obstructive pulmonary disease, chronic t obacco abuse, chronic congestive heart failure, hypertension. Her rehabilitation impairment category is 05. Spinal cord dysfunction, nontraumatic, and her impairment group code is 04.130. Other nontr aumatic spinal cord dysfunction. Etiologic diagnosis, severe spinal compression at T12 with moderate stenosis. Other comorbidities: She does have atrial fibrillation, congestive heart failure, chronic obstructiv e pulmonary disease, elevated troponin, hypertension, left-sided weakness, leukocytosis in addition t o multiple rib fractures. Her risk of complications include cardiac failure, respiratory failure, st roke, myocardial infarction, bleeding, severe anemia, debility, and sepsis. Plan: 1.She will have physical and occupational along with speech therapy for 3-1/2 hours 5 of 7 days. 2.Her comorbid conditions as listed above will be addressed by continuing the medications as noted w hich will include medications for deep vein thrombosis or reducing risk of stroke for her dyslipidemi a, for her heart rate control and blood pressure control in addition to for gastroesophageal reflux, to help her also control with loss of bowel and bladder active control. Active Comorbid Conditions Present On Admission: 1.Stool and urinary incontinence will be addressed with frequent changes and has appropriate bladder training. 2.She has multiple rib fractures. If need be, lidocaine patches will be placed. 3.She has a compression fracture in the thoracic region. Pain patch also will be placed there. 4.She has a chronic tobacco abuse and if need be, a nicotine patch will be placed. 5.There is an x-ray of the chest suggestive of possibility of pneumonia. Currently, she is afebrile and does have a mild cough and antibiotics may be done after cultures and sensitivity are obtained. Impact of comorbid conditions: Given the possibility of pneumonia on top of long running COPD with c hronic cough, she could have significant decompensation and so she will be carefully watched for that . Given the risk of DVT and clot, she may require SCDs along with DVT prophylaxis. She does have a strong risk of heart attack and stroke, and she is on aspirin and Eliquis along with Lipitor for that . There is a risk of cognitive decline, and she will be addressed with speech therapy as well. Rehabilitation Specific Plan: She will have a 3 and 1/2 hours a day 5 of 7 days for physical, occupa tional, and speech therapy to help her to recover towards a modified independent level with all activ ities of daily living, transferring, showering, and mobilizing household distances. She has a good u nderstanding of the admission process to inpatient rehabilitation. Has a potential to make great imp rovement once she participates fully. If required, services from the respiratory section will be jodie ght and also nutrition services and psychiatric services as needed. Given her complex medical condit ion and risk of further complications along with the need for rehabilitation, it is determined that s he would not be safely rehabilitated at a lower level such as senior care. Barriers To Discharge: 1.Multiple fractures in the rib and the back. 2.Possible pneumonia. 3.Tobacco dependency. 4.Some mild impairment in cognition. 5.Coronary artery disease. Those will be addressed aggressively as noted. Disposition: She is expected to be sent home with family, who was supportive. Estimated Length Of Stay: Around 10-12 days. Prognosis: At this point is good. Rehabilitation Goals: She should be able to independently don and doff shoes, dress upper and lower body, transfer from bed to toilet to shower, ambulate household distances and beyond up to 250 feet w ith independence using rolling walker. I acknowledge that I personally performed a full physical examination of Ms. Berry within 24 hours of her admission through rehabilitation unit and I have determined her to be able to tolerate a cour se of treatment at intensive level of therapy. A detailed individualized plan of her therapy will be completed by hospital day 4, based on the preadmission screen, admission history and physical, and therapeutic evaluations. [place] Voice ID: [id number]
[2022-05-29] MEDS: METOPROLOL XL 25 MG TAB PO SCH (05:46)
[2022-05-29] MEDS: PANTOPRAZOLE 40MG TABLET PO SCH ×2 (07:02→16:16)
[2022-05-29] MEDS: APIXABAN 2.5 MG TABLET PO SCH ×2 (08:16→19:57)
[2022-05-29] MEDS: CRANBERRY FRUIT EXTRACT 200 MG CAP PO SCH ×2 (08:16→19:58)
[2022-05-29] MEDS: ISOSORBIDE MONO SR 30 MG TAB PO SCH (08:16)
[2022-05-29] MEDS: BUMETANIDE 1 MG TABLET PO SCH ×2 (08:16→19:18)
[2022-05-29] MEDS: MONTELUKAST 10 MG TAB PO SCH (08:17)
[2022-05-29] MEDS: ASPIRIN EC 81 MG TAB PO SCH (08:17)
[2022-05-29] MEDS: FERROUS SULFATE 325 MG TAB PO SCH (08:17)
[2022-05-29] MEDS: AMIODARONE HCL 200 MG TAB PO SCH ×3 (09:56→20:00)
[2022-05-29] MEDS: LOSARTAN POTASSIUM 50 MG TABLET PO SCH (12:22)
[2022-05-29] MEDS: ZOLPIDEM TARTRATE 10 MG TABLET PO PRN (19:58)
[2022-05-29] MEDS: ATORVASTATIN 20 MG TAB PO SCH (19:58)
[2022-05-30] MEDS: guaiFENesin 100 MG/5 ML UCUP PO PRN ×2 (02:29→17:42)
[2022-05-30 04:33] LABS: Absolute Lymphocytes (CBC) 1.8 K/uL (0.7-4.9); Hematocrit 31.2 % (36.0-45.0); Lymphocytes % 13.3 % (15.3-44.8); MCV 82.3 fL (80-100); MPV 8.8 fL (7.6-11.3); RBC Red Blood Cell Count 3.79 M/uL (3.86-4.86)
[2022-05-30 04:43] LABS: Potassium 3.3 mmol/L (3.5-5.1)
[2022-05-30] MEDS: METOPROLOL XL 25 MG TAB PO SCH (05:20)
[2022-05-30] MEDS: PANTOPRAZOLE 40MG TABLET PO SCH ×2 (07:40→16:08)
[2022-05-30] MEDS: ASPIRIN EC 81 MG TAB PO SCH (07:40)
[2022-05-30] MEDS: APIXABAN 2.5 MG TABLET PO SCH ×2 (07:40→20:10)
[2022-05-30] MEDS: ISOSORBIDE MONO SR 30 MG TAB PO SCH (07:40)
[2022-05-30] MEDS: BUMETANIDE 1 MG TABLET PO SCH ×2 (07:41→20:07)
[2022-05-30] MEDS: MONTELUKAST 10 MG TAB PO SCH (07:41)
[2022-05-30] MEDS: FERROUS SULFATE 325 MG TAB PO SCH (08:15)
[2022-05-30] MEDS: AMIODARONE HCL 200 MG TAB PO SCH ×2 (08:15→20:10)
[2022-05-30] MEDS: CRANBERRY FRUIT EXTRACT 200 MG CAP PO SCH ×2 (08:15→20:07)
[2022-05-30] MEDS: LOSARTAN POTASSIUM 50 MG TABLET PO SCH (12:15)
[2022-05-30] MEDS ORDERED: POTASSIUM CL SA 10 MEQ TAB PO ONE (14:42)
[2022-05-30] MEDS: levoFLOXacin 500 MG TAB PO SCH (14:53)
[2022-05-30] MEDS: ACETAMINOPHEN 500 MG TAB PO PRN (17:43)
--- NOTE | 2022-05-30 19:13 | PN ---
Date of Progress Note: 05/30/2022 [facility] Progress Note Visit Time Of Service: 12 noon. Subjective: Ms. Berry is sitting in her room. She is saying she wants to go home, possibly to go smoke cigarettes, which she is not able to do while hospitalized. She said she is doing everything that she is asked of and she is doing very well. In terms of complaints, she denies any significant complaints. No shortness of breath or other issues there. Review of Systems: She does have a cough and has had CT chest x-ray done earlier showed a possibility of a pneumonia becka chantale atelectasis. She will have incentive spirometry reading, treatments, and repeat of her chest x-r ay. There was blood work done, which shows elevated white blood cell count. On the , it was 9.4 , white blood cells done on 16 today is 13.6, and her neutrophils did go up from 58.8 to 67.2. Hem oglobin and hematocrit did change from 9.2 to 9.7. Urine culture showed mixed mira between 10,000 a nd 100,000 colony-forming units. Otherwise, her blood work did show sodium 145, potassium 3.3, chlor amy 108, carbon dioxide 34, BUN 21, creatinine 0.74, calcium 9.1, and glucose 119. COVID test is neg ative. Otherwise on her review of systems, no fevers or chills. No significant myalgias or arthralg ias. No rash as well. Physical Examination: Vital Signs: Blood pressure 126/58, pulse of 70, respiratory rate of 16, temperature 97.6, and oxyge n saturation 91% on room air. General: Ms. Berry is resting comfortably. She appears to be in no acute distress. HEENT: She is normocephalic, atraumatic. Sclerae anicteric. Oropharynx is pink and moist. Neck: Supple. Chest: Slightly decreased breath sounds. Abdomen: Soft. Extremities: No significant cyanosis or edema. Neurologic: She has no focal deficits. Data Reviewed: Laboratory studies as noted above. X-ray imaging as noted. Medications: She is on aspirin 81 mg daily, Eliquis 2.5 mg twice daily, Cordarone 200 mg twice daily , Tylenol 500 mg every 6 hours as needed, Lipitor 20 mg at bedtime, Bumex 1 mg twice daily, ferrous s ulfate 325 mg daily, Robitussin 100 mg 4 times daily for cough, Imdur 30 mg daily, Speedy 1 packet twi ce daily, Levaquin 500 mg daily, Cozaar 50 mg daily, Toprol-XL 25 mg daily, Singulair 100 mg daily, E nsure Enlive 237 mL twice daily, Protonix 40 mg daily, potassium 10 mEq daily, and Ambien 10 mg at be dtime. Current Level Of Functioning: Currently she is able to ambulate 175 feet another 150 feet and anothe r 120 feet 4 times at contact guard assistance using a Rollator. She did show good mechanics. Her s it-to-stand transfers are at contact guard assistance. She did have up to 3 L oxygen via nasal cannu la. During a shower, she did show some fatigue and also to do hygiene after toileting and for dressi ng. Progress Toward Rehabilitation Goals: She is making very good progress toward the goals of becoming independent with upper and lower body dressing, donning and doffing of shoes, ambulating at least 250 feet with a Rollator, and going up and down 5 steps with bilateral hand rails. Assessment: Ms. 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 She is making good o verall progress with physical and occupational therapy. In addition to her comorbidities, has atrial fibrillation and is on Eliquis. Plan: 1.Continue with aggressive physical and occupational therapy. 2.Her comorbid conditions as listed are addressed by medications as noted above. 3.In addition, the patient is actually asking to go home and may be ready for discharge by Monday . 4.However, she will have repeat imaging of the neck and blood work to look at her white blood cell c ount, which is elevated. She is on antibiotics again. If need be, sputum cultures to be collected a nd procalcitonin and lactic acid will be done and reviewed. Comorbidities That Continue To Impact Rehabilitation Process: The potential for a pneumonia is there and the sputum will be collected. It should be noted though she has chronic COPD and a chronic coug h, which is not a new finding. However, she does have increased white count and it should be evaluat ed as appropriate with chest x-ray, if need be cultures and even repeat urinalysis. LB/MODL Voice ID: [id number] Report ID: [id number]
[2022-05-30] MEDS: ATORVASTATIN 20 MG TAB PO SCH (20:07)
[2022-05-30] MEDS: ENSURE ENLIVE 237 ML CAN PO SCH (20:10)
[2022-05-30] MEDS: JUVEN PACKET PO SCH (20:10)
[2022-05-30] MEDS: ZOLPIDEM TARTRATE 10 MG TABLET PO PRN (20:33)
[2022-05-30] MEDS ORDERED: ZOLPIDEM TARTRATE 5 MG TABLET ONE (20:35)
[2022-05-31] MEDS: ACETAMINOPHEN 500 MG TAB PO PRN (01:18)
[2022-05-31 04:59] LABS: Absolute Lymphocytes (CBC) 1.2 K/uL (0.7-4.9); Hematocrit 26.7 % (36.0-45.0); Lymphocytes % 15.9 % (15.3-44.8); MCV 82.6 fL (80-100); MPV 9.4 fL (7.6-11.3); RBC Red Blood Cell Count 3.23 M/uL (3.86-4.86)
[2022-05-31 05:06] LABS: Potassium 3.2 mmol/L (3.5-5.1)
[2022-05-31] MEDS: METOPROLOL XL 25 MG TAB PO SCH (05:25)
[2022-05-31 07:39] VITALS: BP 93/45; TEMP 98
[2022-05-31] MEDS: BUMETANIDE 1 MG TABLET PO SCH (07:41)
[2022-05-31] MEDS: APIXABAN 2.5 MG TABLET PO SCH (07:42)
[2022-05-31] MEDS: ISOSORBIDE MONO SR 30 MG TAB PO SCH (07:42)
[2022-05-31] MEDS: CRANBERRY FRUIT EXTRACT 200 MG CAP PO SCH (07:42)
[2022-05-31] MEDS: LOSARTAN POTASSIUM 50 MG TABLET PO SCH (07:42)
[2022-05-31] MEDS: FERROUS SULFATE 325 MG TAB PO SCH (07:42)
[2022-05-31] MEDS: PANTOPRAZOLE 40MG TABLET PO SCH (07:42)
[2022-05-31] MEDS: AMIODARONE HCL 200 MG TAB PO SCH (07:42)
[2022-05-31] MEDS: ASPIRIN EC 81 MG TAB PO SCH (07:42)
[2022-05-31] MEDS: MONTELUKAST 10 MG TAB PO SCH (07:42)
[2022-05-31] MEDS: levoFLOXacin 500 MG TAB PO SCH (07:42)
[2022-05-31] MEDS: JUVEN PACKET PO SCH (07:43)
[2022-05-31] MEDS: ENSURE ENLIVE 237 ML CAN PO SCH (07:43)
[2022-05-31] MEDS ORDERED: POTASSIUM CL SA 10 MEQ TAB PO SCH (08:00)
--- NOTE | 2022-05-31 08:11 | RAD REPORT ---
EXAM DESCRIPTION: Elida Single View05/31/2022 5:34 am CLINICAL HISTORY: Shortness of breath COMPARISON: May 28, 2022 FINDINGS: Small left pleural effusion. Left basilar opacities have partially resolved Mild additional bilateral interstitial lung opacities. Heart is mildly enlarged IMPRESSION: Partial resolution in left basilar opacities Mild bilateral interstitial opacities may represent interstitial pulmonary edema or be chronic. A small left pleural effusion
[2022-05-31] MEDS ORDERED: levoFLOXacin 250 MG TAB PO ONE (09:00)
--- NOTE | 2022-05-31 23:05 | PN ---
[facility] Progress Note Visit Subjective: Ms. Berry is sitting in her room. She denies any new complaints. She actually is sa luke she wants to go home and is ready to go home today. She does appear to want to go to smoke ciga rettes. Review of Systems: She has mild cough that is much better today compared to yesterday. She is having incentive spiromet ry treatment and is working with that. She has no new or additional complaints. Physical Examination: Vital Signs: Blood pressure 120/54, pulse 72, respiratory rate 16, temperature 98.0, and oxygen satu ration 97%. General: Ms. Berry is lying in bed, actually in no significant distress. HEENT: She appears normocephalic, atraumatic. Sclerae anicteric. Oropharynx pink and moist. Neck: Supple. Lungs: Slightly decreased air movement. Neurologic: She does not have focal deficits on her examination. Laboratory Studies: White blood cell count is now normal at 7.8, it was 13.6 yesterday. Her hemoglo bin, however, did go down to 8.4 from 9.7. She will need to have that followed up after discharge. Her sodium is 145, potassium 3.2, chloride 108, BUN 22, glucose 110, and calcium 8.7. A repeat chest x-ray done today showed partial resolution of left basilar opacities and mild bilateral interstitial opacities that may represent interstitial pulmonary edema or may be chronic. There is small left pl eural effusion. Medications: Her medications have not changed since yesterday. She is still on Eliquis 2.5 mg twice daily, aspirin for DVT and stroke reduction, Lipitor 20 mg at bedtime, and ferrous sulfate for her a nemia. She did complete Levaquin. She had metoprolol, Singulair, Protonix, and Ambien as well. Current Functional Status: Currently she independently covered 168 feet with a Rollator. She ascend ed and descended 5 steps independently with bilateral handrails and also on uneven surfaces including the sidewalk. She was independent with a Rollator greater than 10 feet. Progress Towards Rehabilitation Goals: At this point, she has made excellent progress and is ready f or discharge. Assessment: Ms. Berry is an 87-year-old patient is admitted to the inpatient rehabilitation unit with T12 compression fracture and moderate narrowing of the thoracic and lumbar canal. She has comor bidities of chronic obstructive pulmonary disease with chronic cough, tobacco dependence, congestive heart failure, and hypertension. She has made excellent progress with her physical and occupational therapy and is ready to go home. Plan: Please discharge home to continue physical therapy outpatient as appropriate. Comorbidities That Continue To Impact Rehabilitation Process: At this point, none and she is ready t o be discharged home. LB/MODL Voice ID: [id number] Report ID: [id number]
[2022-06-02] MEDS ORDERED: levoFLOXacin 750 MG TAB PO SCH (08:00)
== END 2022-05-31 15:36 | disposition home or self-care (01) | DRG 559 ==
LOC: 5TH 12:35
PROVIDERS: ADMIT Psychiatry & Neurology Neurology with Special Qualifications in Child Neurology; ATTEND Psychiatry & Neurology Neurology with Special Qualifications in Child Neurology
DX: S22.080D Wedge compression fracture of T11-T12 vertebra, subsequent encounter for fracture with routine healing (principal); J18.9 Pneumonia, unspecified organism; S22.49XD Multiple fractures of ribs, unspecified side, subsequent encounter for fracture with routine healing; I48.91 Unspecified atrial fibrillation; I50.9 Heart failure, unspecified; J44.9 Chronic obstructive pulmonary disease, unspecified; I11.0 Hypertensive heart disease with heart failure; I25.10 Atherosclerotic heart disease of native coronary artery without angina pectoris; F17.210 Nicotine dependence, cigarettes, uncomplicated; Z66 Do not resuscitate
CPT/HCPCS: 36415; 71045; 80048; 81001; 82040; 83735; 84134; 85025; 87086; 87088; 92523; 94010; 97110; 97116; 97129; 97161; 97165; 97530; U0003